=== PATIENT | female | born 1955 | race Caucasian/White ===

== ENCOUNTER → 2017-10-20 | Outpatient (CLI) | payer MEDICARE, BC ==
[2017-10-20 11:58] LABS: Blood Urea Nitrogen 18 mg/dL (7-17)
--- NOTE | 2017-10-20 13:33 | CT ---
EXAMINATION TYPE: CT soft tissue neck w con DATE OF EXAM: 10/20/2017 1:03 PM COMPARISON: NONE HISTORY: Vocal cord paresis CT DLP: 594 mGycm Automated exposure control for dose reduction was used. CONTRAST: CT scan of the neck is performed following with IV Contrast, patient injected with 100 ml mL of . Ax ial images are obtained, coronal and sagittal reformatted images are reviewed. FINDINGS: Along the posterior margin of the hypopharynx on the right there is a 5 mm protuberance ext ending into the pharynx which may represent a small mucosal lesion best noted on axial image 31. The parotid and submandibular glands have a normal appearance. Oropharynx and nasopharynx are symmetr ic. Base the tongue is symmetric. There is asymmetric thickening of the left vocal cord. Thyroid tissue is somewhat heterogeneous but no sizable nodules seen greater than 1 cm. No pathologic adenopathy. Shotty adenopathy seen scattered throughout the soft tissues of the neck. T here is atherosclerotic change involving the carotid bifurcation. There is extensive abnormal soft ti ssue attenuation in the mediastinum compatible with pathologic adenopathy. There is changes of COPD a nd ill-defined attenuation involving the right upper lobe. Suggestive of area of consolidation. Could not exclude a mass within the right upper lobe on coronal image 85. IMPRESSION: 1. Extensive abnormal attenuation within the mediastinum suggestive of pathologic adenopathy and like ly malignant. Irregular density in the right upper lobe with changes of COPD recommend CT scan of the chest to assess for malignancy. 2. Along the posterior wall of the hypopharynx on the right best seen on axial image 31 there is a 5 mm soft tissue protuberance extending from the mucosa correlate with direct visualization. 3. Slight asymmetry of the left vocal cord which is slightly thicker which may be technical correlate clinically.
== END | disposition home or self-care (01) ==
LOC: RADCTMAIN 11:24
PROVIDERS: ATTEND Otolaryngology
DX: R93.8 Abnormal findings on diagnostic imaging of other specified body structures (principal); J38.01 Paralysis of vocal cords and larynx, unilateral
CPT/HCPCS: 82565; 84520; 70491; 36415; Q9967

== ENCOUNTER → 2017-10-25 | Outpatient (CLI) | payer MEDICARE, BC | END | disposition home or self-care (01) | LOC: RADPETMAIN 11:21 | PROVIDERS: ATTEND Internal Medicine Hematology & Oncology | DX: Z53.9 Procedure and treatment not carried out, unspecified reason (principal) ==

== ENCOUNTER → 2017-10-27 | Outpatient (CLI) | payer MEDICARE, BC ==
[2017-10-27 17:30] LABS: Blood Urea Nitrogen 16 mg/dL (7-17)
--- NOTE | 2017-10-28 08:14 | CT ---
EXAMINATION TYPE: CT abdomen pelvis w con DATE OF EXAM: 10/27/2017 COMPARISON: NONE INDICATION: Observation for metastatic disease, hx of lung CA DLP: 1024 mGycm, Automated exposure control for dose reduction was used. CONTRAST: 100 mL of Isovue 300. Study performed with Oral Contrast TECHNIQUE: Axial images were obtained from above the diaphragm to the pubic rami in the axial plane a t 5 mm thick sections. Reconstructed images are reviewed on the computer in the coronal plane. FINDINGS: Limited CT sections are obtained the lung bases. The lung bases are clear. CT ABDOMEN: Liver: Normal Spleen: Normal Pancreas: Somewhat atrophic Adrenal glands: Left adrenal gland is thickened measuring approximately 1.3 cm. The center is slightl y hypodense in relation to the remaining portion of the adrenal gland. Hounsfield unit measurement ho wever is intermediate 47. MRI with contrast may better evaluate for possible metastatic disease. Gallbladder: Normal Kidneys: No masses are evident. No hydronephrosis is present. No cysts are present. Delayed images were obtained through the kidneys, which remain unremarkable. Aorta: Vascular calcification is within the aorta. Inferior vena cava: Normal. CT PELVIS: Loops of bowel within the abdomen and pelvis are normal. There are loops of bowel which are incom pletely distended or lack oral contrast limiting their evaluation. Appendix: Not identified. No suspicious inflammatory changes or tubular structures are evident. Urinary bladder: Normal. Genitourinary structures: Uterus appears normal. Hypodense areas within the right adnexal region susp icious for pneumonia and 2.4 cm right ovarian cyst. Consider follow-up ultrasound. Left adnexal regio n is unremarkable. No free fluid is within the pelvis. Osseous structures: No suspicious lytic or sclerotic lesions. IMPRESSIONS: 1. Probable right ovarian cyst. Follow-up with ultrasound is recommended. 2. Suspected adenoma within the left adrenal gland. Metastatic disease is not excluded. Consider MRI with contrast for better evaluation. 3. No suspicious changes suggest metastatic disease.
== END | disposition home or self-care (01) ==
LOC: RADCTMAIN 16:34
PROVIDERS: ATTEND Radiology Radiation Oncology
DX: C34.11 Malignant neoplasm of upper lobe, right bronchus or lung (principal)
CPT/HCPCS: 82565; 84520; 74177; 36415; Q9967

== ENCOUNTER → 2017-10-27 | Outpatient (CLI) | payer MEDICARE, BC ==
--- NOTE | 2017-10-27 18:51 | MR ---
"EXAMINATION TYPE: MR brain wo/w con DATE OF EXAM: 10/27/2017 COMPARISON: NONE HISTORY: Lung Cancer / Headaches CONTRAST: Performed utilizing 7 mL intravenous Gadavist gadolinium contrast. TECHNIQUE: Multiplanar, multiecho imaging on a 3.0 Sallie magnet is performed through the brain. Stud y is performed within 24 hours of arrival to the hospital. The craniovertebral junction is normal. The pituitary is normal. Diffusion-weighted imaging is performed. No abnormal hyperintensity is present to suggest an acute i ntracranial infarct or acute ischemic change. There are scattered periventricular white matter changes. Note is made of white matter change in the bilateral cerebellar lobes. Following contrast instillation there is enhancement of the lesion within the left cerebellum. Series 602 image 4. This measures 0.7 x 1.3 cm. The right cerebellar lesion measures 1.2 x 0.6 cm. Series 6 01 image 7. No additional abnormal enhancement is identified. No enhancing lesions within the cerebral hemisphere s suggesting additional white matter changes are microvascular ischemic in basis. Ventricles and sulci are slightly prominent for the patient age. IMPRESSIONS: 1. Two enhancing lesions within the left and right cerebellum discussed above compatible with metasta tic disease. 2. Chronic appearing periventricular white matter ischemic changes. A suspicious enhancing lesion wit hin this region is not identified. A [facility] level critical message alert has been initiated for Aman Whatley MD via the [employer] 36 0 | Critical Results System on 10/27/2017 6:49 PM. This message alert has been sent to Aman Whatley MD via the preferences provided by the clinician for the receipt of Radiology Critical Findings. Mess age ID [id number]."
== END | disposition home or self-care (01) ==
LOC: RADMRIMAIN 07:28
PROVIDERS: ATTEND Internal Medicine Hematology & Oncology
DX: I67.82 Cerebral ischemia (principal); G93.89 Other specified disorders of brain; C34.01 Malignant neoplasm of right main bronchus
CPT/HCPCS: 70553; A9581

== ENCOUNTER → 2017-11-26 | Outpatient (CLI) | payer MEDICARE, BC ==
--- NOTE | 2017-11-26 14:01 | XR ---
EXAMINATION TYPE: XR chest 2V DATE OF EXAM: 11/26/2017 COMPARISON: Correlation outside CT 10/16/2017 HISTORY: 62-year-old female with shortness of breath since starting chemotherapy 2 months ago for tomas g cancer TECHNIQUE: Frontal and lateral views FINDINGS: Right anterior chest wall injection port catheter tip at the lower SVC. Heart normal size. Aorta and pulmonary vasculature are within normal limits. Compared to the CT chest 10/16/2017, residual focal in filtrate remains in the peripheral right upper lobe. Hyperinflation. No pleural effusion. IMPRESSION: 1. COPD. 2. Residual focal infiltrate right upper lobe when compared to the CT of 10/16/2017.
== END ==
LOC: RADXRMAIN 10:33
PROVIDERS: ATTEND Nurse Practitioner Adult Health
DX: C34.90 Malignant neoplasm of unspecified part of unspecified bronchus or lung (principal); E11.9 Type 2 diabetes mellitus without complications; I10 Essential (primary) hypertension; J44.9 Chronic obstructive pulmonary disease, unspecified; R91.8 Other nonspecific abnormal finding of lung field; Z71.3 Dietary counseling and surveillance
CPT/HCPCS: 71046

== ENCOUNTER → 2017-11-28 | Outpatient (CLI) | payer MEDICARE, BC ==
--- NOTE | 2017-11-28 11:42 | MR ---
EXAMINATION TYPE: MR brain wo/w con DATE OF EXAM: 11/28/2017 COMPARISON: 10/27/2017 HISTORY: Lung CA, mets TECHNIQUE: Multiplanar, multisequence images of the brain and brainstem is performed without and with IV contras t, utilizing 6.5 mL intravenous Gadavist . FINDINGS: Diffusion weighted images demonstrate no evidence of a recent infarct or other diffusion ab normality. There are scattered periventricular white matter changes. Note is made of white matter change in the bilateral cerebellar lobes. Midline structures demonstrate normal morphology. The craniocervical junction appears within normal limits. Post contrast images demonstrate no abnormal enhancement. There is interval resolution of the 2 cerebellar lesions previously noted. No enhancing lesions noted on today's exam. Changes of chronic sinusitis are noted. Mild generalized degenerative change. IMPRESSION: 1. Two enhancing lesions within the left and right cerebellum have resolved and there are no current enhancing metastatic lesions. 2. Chronic appearing periventricular white matter ischemic changes. A suspicious enhancing lesion wit hin this region is not identified.
== END | disposition home or self-care (01) ==
LOC: RADMRIMAIN 10:04
PROVIDERS: ATTEND Nurse Practitioner Adult Health
DX: I67.82 Cerebral ischemia (principal); R51 Headache
CPT/HCPCS: 70553; A9581

== ENCOUNTER → 2017-12-17 | Outpatient (CLI) | payer MEDICARE, BC ==
[2017-12-17 11:21] LABS: Blood Urea Nitrogen 19 mg/dL (7-17)
--- NOTE | 2017-12-17 14:39 | CT ---
EXAMINATION TYPE: CT chest w con DATE OF EXAM: 12/17/2017 COMPARISON: 10/16/2017 [facility] HISTORY: Follow up lung cancer. CT DLP: 511 mGycm, Automated exposure control for dose reduction was used. CONTRAST: Performed injected with 100 mL of Isovue 300. TECHNIQUE: Axial images were obtained at 5 mm thick sections. Reconstructed images are reviewed on [employer] computer in the coronal plane. FINDINGS: Portion of the thyroid visualized is normal. No suspicious lung nodules or focal infiltrates are present. There appears to be some subtle scarring at the right apex. There is mild diffuse pneumonitis changes in the periphery of the right middle lo be. Small area of increased density measuring 0.6 cm in the periphery of the right midlung. Series 3 image 21 lung windows No enlarged mediastinal or hilar adenopathy is evident. The ascending aorta diameter at the level o f the main pulmonary artery is 3.2 cm. The main pulmonary artery diameter at the bifurcation is 3.1 cm. Coronary artery calcification is evident. Limited CT sections are obtained through the upper abdomen. Abdomen is essentially unremarkable. IMPRESSIONS: 1. There is diminished density within the right apex in the volume of pneumonitis change within the p eriphery of the right midlung has diminished. Posterior right upper lobe density has diminished in si ze as well. 2. Mediastinal adenopathy is essentially resolved. Suspicious hilar adenopathy is not evident.
== END | disposition home or self-care (01) ==
LOC: RADPROMAIN 10:23
PROVIDERS: ATTEND Internal Medicine Hematology & Oncology
DX: C34.90 Malignant neoplasm of unspecified part of unspecified bronchus or lung (principal)
CPT/HCPCS: 82565; 84520; 71260; J1642; Q9967

== ENCOUNTER 2017-12-25 09:21 | Day surgery (SDC) | payer MEDICARE, BC ==
[2017-12-19 14:35] VITALS: BMI 25.4
[~2017-12-25 09:21] MED LIST: LACTATED RINGERS 1,000 ML IV SCH
[2017-12-25 09:48] VITALS: TEMP 98
[2017-12-25] MEDS ORDERED: LIDOCAINE 1% 20 ML VIAL (10MG/ML) FOR IV START INTRADERMA ONE (09:55)
[2017-12-25 10:04] LABS: Glucose,Whole Blood 115 mg/dL (75-99)
[2017-12-25] MEDS ORDERED: LIDOCAINE 1% INJ 10MG/ML (20 ML MDV) ONE (10:12)
[2017-12-25] MEDS ORDERED: PROPOFOL 10 MG/ML 20 ML VIAL IV ONE (10:12)
--- NOTE | 2017-12-25 10:33 | P.PCN ---
Date of Procedure: 12/25/17 Procedure(s) Performed: BRIEF HISTORY: Patient is a 62-year-old, pleasant, 8 female, scheduled for an upper endoscopy for evaluation of long-standing history of GERD of several days duration. She has been maintained on Dexillant and Zantac. Recently has been having intermittent dysphagia to solids and hence scheduled for upper endoscopy as a dilation today.. PROCEDURE PERFORMED: Esophagogastroduodenoscopy with biopsy. PREOPERATIVE DIAGNOSIS:/Intermittent dysphagia to solids. IV sedation per anesthesia. PROCEDURE: After informed consent was obtained, the patient was brought into the endoscopy unit. IV sedation was administered by Anesthesia under continuous monitoring. Initially the Olympus GIF-140 video endoscope was inserted into the mouth. Esophagus intubated without any difficulty. It was gradually advanced into the stomach and duodenum and carefully examined. The bulb and the second part of the duodenum appeared normal. The scope at this time was withdrawn to the stomach, adequately insufflated with air, and upon careful examination, mucosa of the antrum, had mild patchy areas of erythema in the prepyloric area and biopsies were done. The body, cardia and the fundus appeared normal. The scope was then withdrawn into the esophagus. Small hiatal hernia noted. The GE junction was located at 39 cm from the incisors. The esophagus appeared normal. There were no erosions or ulcerations seen and the patient tolerated the procedure well. IMPRESSION: 1. Small hiatal hernia but no evidence of esophagitis or esophageal stricture. 2. Mild antral gastritis.. RECOMMENDATIONS: The findings of this examination were discussed with the patient as well as her family. She was advised to follow with the biopsy results. She will continue with the current medications and follow anti-reflex measures.
[2017-12-25 11:02] VITALS: BP 134/75; PULSE 74; RESP 18
== END 2017-12-25 11:23 | disposition home or self-care (01) ==
LOC: ORWHC2ENDO 09:21
PROVIDERS: ATTEND Internal Medicine Gastroenterology
DX: K29.50 Unspecified chronic gastritis without bleeding (principal); K44.9 Diaphragmatic hernia without obstruction or gangrene; K21.0 Gastro-esophageal reflux disease with esophagitis; I10 Essential (primary) hypertension; E78.5 Hyperlipidemia, unspecified; E11.9 Type 2 diabetes mellitus without complications; Z79.4 Long term (current) use of insulin; Z79.899 Other long term (current) drug therapy
CPT/HCPCS: 88305; 43239; J2001; J2704

== ENCOUNTER → 2018-01-26 | Outpatient (CLI) | payer MEDICARE, BC ==
--- NOTE | 2018-01-26 11:49 | FL ---
Modified barium swallow HISTORY: Dysphasia, feels like lump in throat Patient was given barium mixed with liquids and solids and evaluated in real-time fluoroscopy in late ral projection. 48 seconds fluoroscopy time. No laryngeal penetration or aspiration was identified. See dictated report from speech pathology for full evaluation.
== END | disposition home or self-care (01) ==
LOC: RADFLMAIN 10:54
PROVIDERS: ATTEND Otolaryngology
DX: R13.10 Dysphagia, unspecified (principal)
CPT/HCPCS: 74230

== ENCOUNTER → 2018-02-06 | Outpatient (CLI) | payer MEDICARE, BC ==
--- NOTE | 2018-02-06 11:58 | FL ---
EXAMINATION TYPE: FL barium swallow DATE OF EXAM: 02/06/2018 CLINICAL HISTORY: dysphagia and throat tightness x 5 months. History of lung cancer. TECHNIQUE: A double contrast esophagram is performed utilizing air and barium. A total of 2min 59 s ec of fluoroscopic time was utilized during procedure. 76 fluoroscopic images were saved. COMPARISON: None FINDINGS: The esophagus shows abnormal motility throughout the examination in the gravity dependent a nd independent positions with continuous tertiary contractions. Secondary to discoordinated tertiary contractions there is severe intraesophageal reflux with mild gastroesophageal reflux also seen. Very small sliding-type hiatal hernia is noted in the gravity independent portion of examination. No foca l stricture as there is normal emptying into the stomach. No persistent extraluminal or intraluminal defects are seen to suggest mass. Minimal vallecular retention is seen throughout the examination ivelisse r the site of the patient's described dysphagia/globus sensation. IMPRESSION: 1. Abnormal motility throughout the entirety of the examination with tertiary contractions most commo nly related to presbyesophagus, however neuromuscular disorders can also create this finding. No dist al stricture or obstruction. No persistent mucosal abnormality. 2. Severe intraesophageal reflux and mild gastroesophageal reflux that can create esophagitis from st asis. Intraesophageal reflux extends to the level of the cervical esophagus. 3. Small sliding-type hiatal hernia.
== END | disposition home or self-care (01) ==
LOC: RADFLWHC 10:56
PROVIDERS: ATTEND Otolaryngology
DX: K44.9 Diaphragmatic hernia without obstruction or gangrene (principal); K21.9 Gastro-esophageal reflux disease without esophagitis
CPT/HCPCS: 74220

== ENCOUNTER → 2018-02-21 | Outpatient (CLI) | payer MEDICARE, BC ==
--- NOTE | 2018-02-21 20:14 | MR ---
EXAMINATION TYPE: MR brain wo/w con DATE OF EXAM: 02/21/2018 COMPARISON: MR brain dated 11/28/2017 and 10/27/2017 HISTORY: Lung ca 2018, R/O mets TECHNIQUE: Multiplanar, multisequence images of the brain and brainstem is performed without and with IV contras t, utilizing 7 mL intravenous Gadavist . FINDINGS: Diffusion weighted images demonstrate no evidence of a recent infarct or other diffusion ab normality. There is no extra-axial fluid collection. There is redemonstration of moderate burden sc attered T2/FLAIR hyperintense nonspecific white matter changes within the supratentorial and infraten torial white matter. No significant progression from the prior. The ventricular system and cisternal spaces are normal in size and appearance. The brain volume is age appropriate. Midline structures demonstrate normal morphology. The craniocervical junction appears within normal limits. Post contrast images demonstrate no abnormal enhancement. The previously seen right and left hemispheric cerebellar lesions on the prior exam of 10/27/2017 have entirely resolved as described on the exam of 11/28/2017 with no evidence of recurrence. The dural venous sinuses appear patent. Minimal mucosal thickening is seen within the ethmoid sinuses. The remaining visualized sinuses are clear and the globes are intact. Left ocular lens appears surgically absent. IMPRESSION: 1. No abnormal signal or enhancement at the site of prior treated intracranial infratentorial metasta tic disease. No new enhancing lesions. No current evidence of intracranial metastasis. 2. Moderate burden nonspecific white matter change, nonenhancing, with no significant progression fro m the prior.
== END | disposition home or self-care (01) ==
LOC: RADMRIMAIN 09:06
PROVIDERS: ATTEND Radiology Radiation Oncology
DX: C79.31 Secondary malignant neoplasm of brain (principal); C34.2 Malignant neoplasm of middle lobe, bronchus or lung; R90.82 White matter disease, unspecified; Z92.21 Personal history of antineoplastic chemotherapy
CPT/HCPCS: 70553; A9581

== ENCOUNTER → 2018-04-04 | Outpatient (CLI) | payer MEDICARE, BC ==
--- NOTE | 2018-04-05 13:32 | PE ---
EXAMINATION TYPE: PET CT fusion skull to thigh DATE OF EXAM: 04/04/2018 COMPARISON: CT chest 12/17/2017 Prior PET/CT: None HISTORY: Lung cancer TECHNIQUE: Following the intravenous administration of 13.63 mCi of F-18 FDG, whole body images are performed from the skull base to the midthigh. Images are reviewed on the computer in the coronal, a xial, and sagittal planes. Reconstructed rotating images are created on independent workstation and reviewed on the computer. A localization and attenuation correction CT is performed in conjunction with the PET scan. DLP: 321.42 mGycm SCAN: Initial Blood glucose: 86 mg/dL Average Mediastinum SUV: 1.39 Average Liver SUV: 2.02 FINDINGS: Head: Skull base is included within the [id number]. No suspicious hypermetabolic areas are identif ied in relation to the brain activity. Infratentorial metastatic disease is not clearly evident the P ET scan. NECK: No abnormal uptake THORAX: No abnormal uptake. Within the areas of stranding at the right apex, no abnormal radiotracer accumulation is evident. SUV value ranges 0.4. Previous focal nodules not identified. There does appear to be some uptake within the right paraspinal muscles in the mid thoracic level whi ch may be muscular activity. This is not appear focal to suggest soft tissue metastasis. ABDOMEN: No abnormal uptake PELVIS: No abnormal uptake OSSEOUS STRUCTURES: No abnormal uptake LOCALIZATION CT: Ascending thoracic aorta at the level of main pulmonary artery is 3.4 cm. The main p ulmonary artery the bifurcation is 3.1 cm. Moderate coronary artery calcification is present. Enlarge d mediastinal or hilar adenopathy is not evident. Exam is also compared to an outside thorax CT dated 10/16/2017. Hilar and mediastinal adenopathy has resolved. Enlarged residual is not identified. Adren al glands appear unremarkable. Bilateral nonobstructing renal stones are present. Vascular calcificat ions within the abdominal aorta. Facet degenerative changes, laminectomy and degenerative disc change s are within the lumbar spine. Suspicious lytic areas are not evident. COMPARISON: Residual pneumonitis changes are in the right apex are diminished from prior CT thorax ex aminations. IMPRESSION: 1. No suspicious radiotracer accumulation to suggest recurrent or metastatic disease. Continued monit oring is recommended.
== END | disposition home or self-care (01) ==
LOC: RADPETMAIN 07:36
PROVIDERS: ATTEND Internal Medicine Hematology & Oncology
DX: C34.81 Malignant neoplasm of overlapping sites of right bronchus and lung (principal)
CPT/HCPCS: 78815; A9552

== ENCOUNTER → 2018-04-06 | Day surgery (SDC) | payer MEDICARE, BC ==
[2018-04-02 15:42] VITALS: BMI 23.1
[2018-04-06 13:46] LABS: Glucose,Whole Blood 132 mg/dL (75-99)
[2018-04-06 13:47] VITALS: BP 94/56; PULSE 84; RESP 16; TEMP 97.1
--- NOTE | 2018-04-15 10:35 | PCN ---
PROCEDURE NOTE DATE OF SERVICE: 04/06/2018 Patient is a 62-year-old pleasant white female with longstanding history of GERD. Presently maintained on Nexium 40 mg daily. She has been complaining of intermittent dysphagia to solids. She recently had an upper endoscopy done that showed evidence of no esophageal stricture and mild antral gastritis. Despite her being aggressive acid suppressive therapy, she has dysphagia, hence she is scheduled for esophageal manometry to rule out esophageal dysmotility disorder. PROCEDURE PERFORMED: High-resolution impedance manometry. PREOPERATIVE DIAGNOSIS: Intermittent dysphagia to solids and history of longstanding history of GERD. PROCEDURE: After informed consent was obtained from the patient, she was brought into the endoscopy unit, the procedure was performed by endoscopy nurse. She was placed in supine position. The esophageal manometry catheter was gently passed in the external nostril and was advanced into the distal esophagus and stomach and the study was performed and the study was interpreted by using [place] classification. The following are the study results. FINDINGS: A: 1. Lower esophageal sphincter data, mean IRP is 12 mmHg. 2. Mean residual pressure is 3 mmHg. B: 1. Lower esophageal body, mean DCI 879 mmHg, normal DCI more than 50%, peristaltic contractions were 80%, simultaneous contractions 20%. 2. Impedance study: Complete liquid transit was 50%. Complete viscus transit was 80%. INTERPRETATION: The above esophageal manometry study shows normal lower esophageal sphincter pressure and the motility pattern in the esophageal body is within normal limits. There is no evidence of esophageal dysmotility seen. MMODL / IJN: [id number] /
== END ==
LOC: ORWHC2ENDO 13:17
PROVIDERS: ATTEND Internal Medicine Gastroenterology
DX: K21.9 Gastro-esophageal reflux disease without esophagitis (principal)
CPT/HCPCS: 91010

== ENCOUNTER → 2018-05-11 | Outpatient (CLI) | payer MEDICARE, BC ==
--- NOTE | 2018-05-11 16:13 | MR ---
EXAMINATION TYPE: MR brain wo/w con DATE OF EXAM: 05/11/2018 COMPARISON: 02/21/2018, 10/27/2017 and 11/28/2017. HISTORY: Lung cancer with concern for metastasis. Prior treated infratentorial intracranial metastasi s. TECHNIQUE: Multiplanar, multisequence images of the brain and brainstem is performed without and with IV contras t, utilizing 6.5 mL intravenous Gadavist . FINDINGS: Diffusion weighted images demonstrate no evidence of a recent infarct or other diffusion ab normality. There is no extra-axial fluid collection. Again there is moderate burden nonspecific whit e matter change both in the supratentorial and within the infratentorial white matter. No abnormal en hancement or progression from the prior seen. The previously seen bilateral areas of abnormal enhance ment representing intracranial metastasis on the exam of 10/27/2017 are no longer visualized although w ithin the left cerebellar hemisphere in T2 and FLAIR imaging there is a focal area of gliosis at this location on image 5. No abnormal enhancement is seen within this location to suggest residual metast asis. The ventricular system and cisternal spaces are normal in size and appearance. The brain volum e is age appropriate. Midline structures demonstrate normal morphology. There is an incidentally noted partially empty lorne la turcica. The craniocervical junction appears within normal limits. Post contrast images demonstra te no abnormal enhancement. The dural venous sinuses appear patent. The visualized sinuses are clear and the globes are intact. There is partial opacification of the right mastoid air cells and to a les ser degree at the left mastoid air cells. Major intracranial flow voids are maintained. Again the lef t ocular lens appears surgically absent. IMPRESSION: 1. Stable exam from the prior. No abnormal intracranial enhancement. No evidence of intracranial enha ncing mass. Previously seen infratentorial lesions are no longer visible, unchanged from the prior. 2. Unchanged degree of nonspecific white matter change, likely on the basis of chronic microangiopath y.
== END ==
LOC: RADMRIMAIN 09:18
PROVIDERS: ATTEND Radiology Radiation Oncology
DX: C34.2 Malignant neoplasm of middle lobe, bronchus or lung (principal); C79.31 Secondary malignant neoplasm of brain; R90.89 Other abnormal findings on diagnostic imaging of central nervous system; Z92.3 Personal history of irradiation; Z92.21 Personal history of antineoplastic chemotherapy
CPT/HCPCS: 82565; 84520; 70553; 36415; A9581

== ENCOUNTER → 2018-07-29 | Outpatient (CLI) | payer MEDICARE, BC | END | disposition home or self-care (01) | LOC: LABWHC1 11:19 | PROVIDERS: ATTEND Radiology Radiation Oncology | DX: C34.2 Malignant neoplasm of middle lobe, bronchus or lung (principal); C79.31 Secondary malignant neoplasm of brain; Z92.3 Personal history of irradiation; Z92.21 Personal history of antineoplastic chemotherapy | CPT/HCPCS: 36415; 82565; 84520 ==

== ENCOUNTER → 2018-08-01 | Outpatient (CLI) | payer MEDICARE, BC ==
--- NOTE | 2018-08-03 07:00 | PE ---
EXAMINATION TYPE: PET CT fusion skull to thigh DATE OF EXAM: 08/01/2018 COMPARISON: Prior PET/CT April 04, 2018 HISTORY: Metastatic Right sided lung cancer completed chemotherapy in December 2017 with radiation to b rain in January 2018 TECHNIQUE: Following the intravenous administration of 8.023 mCi of F-18 FDG, whole body images are performed from the skull base to the midthigh. Images are reviewed on the computer in the coronal, a xial, and sagittal planes. Reconstructed rotating images are created on independent workstation and reviewed on the computer. A noncontrast CT is performed in conjunction with the PET scan. SCAN: Subsequent Scan FINDINGS: SKULL BASE AND NECK: There are new suspicious hypermetabolic right-sided supraclavicular lymph nodes on axial images 41 and 44, max SUV is 7.21. CHEST, MEDIASTINUM, AND HILAR REGION: There is new hypermetabolic masslike consolidation in the right hilar level extending into the right upper lobe difficult to accurately measure with surrounding higinio undglass opacity measuring roughly 7.6 x 6.7 cm on PET axial image 71, max SUV is 10.95. There is subcarinal hypermetabolic mass or adenopathy indistinct from right hilar mass near axial spencer ge 79, max SUV is 9.4. There is new small right pleural effusion that is ametabolic. There are superior mediastinal hypermetabolic lymph nodes and subcentimeter hypermetabolic paratrache al lymph nodes. ABDOMEN AND PELVIS: No new areas of abnormal hypermetabolic uptake are present. OSSEOUS STRUCTURES: No new areas of abnormal hypermetabolic uptake are present. OTHER CT: There is stable right internal jugular Mediport catheter. There is severe three-vessel coronary artery calcification and/or stents redemonstrated. There is new small to moderate size pericardial effusion. Ascending aorta measures up to 3.3 cm in di ameter There is moderate to severe calcified plaque of the abdominal aorta extending into pelvic branch vess els. Retroverted uterus is redemonstrated extending to left of midline. Central nonobstructing renal calculi versus vascular calcifications are redemonstrated. Left-sided laminectomy defects throughout the lumbar spine are again seen. There is multilevel facet arthropathy redemonstrated. IMPRESSION: Active neoplastic recurrence identified as detailed above.
== END | disposition home or self-care (01) ==
LOC: RADPETMAIN 11:30
PROVIDERS: ATTEND Internal Medicine Hematology & Oncology
DX: C34.81 Malignant neoplasm of overlapping sites of right bronchus and lung (principal); Z92.21 Personal history of antineoplastic chemotherapy
CPT/HCPCS: 78815; A9552

== ENCOUNTER → 2018-08-04 | Outpatient (CLI) | payer MEDICARE, BC ==
--- NOTE | 2018-08-05 09:59 | MR ---
EXAMINATION TYPE: MR brain wo/w con DATE OF EXAM: 08/04/2018 COMPARISON: 05/11/2018 HISTORY: 62-year-old female Secondary malignant neoplasm of brain TECHNIQUE: Multiplanar, multisequence images of the brain and brainstem were acquired before and aft er administration of 5.5 mL IV Gadavist. Diffusion weighted imaging is performed. FINDINGS: No evidence for acute infarction, hemorrhage, mass, mass effect, midline shift, herniation, effacemen t of basal cisterns, or extra-axial fluid collection. There is similar mild to moderate generalized supratentorial volume loss with mild ventricular promin ence. Major intracranial flow voids are intact. T2/FLAIR weighted sequences show moderate confluent white matter increased signal in both cerebral he mispheres. Additional scattered subcortical foci on both sides. Findings largely unchanged and are no nspecific, likely related to changes of chronic small vessel ischemic disease. Midline structures demonstrate normal morphology. The craniocervical junction is normal. Post contrast images demonstrate no evidence of pathologic enhancement. Dural venous sinuses are pat ent. Trace mucosal thickening ethmoid air cells. Leftward nasal septal deviation. Small amount trapped flu id in the mastoid air cells. Globes are intact. IMPRESSION: 1. Stable exam with mild to moderate generalized atrophy and moderate confluent burden of bright whit e matter change, nonspecific, likely relating to chronic small vessel ischemic disease. No evidence f or brain metastases. 2. Some trapped fluid in the mastoid air cells. Correlate for any mastoid pain to exclude mastoiditis .
== END | disposition home or self-care (01) ==
LOC: RADMRIMAIN 11:16
PROVIDERS: ATTEND Radiology Radiation Oncology
DX: G31.9 Degenerative disease of nervous system, unspecified (principal); R90.82 White matter disease, unspecified; C34.2 Malignant neoplasm of middle lobe, bronchus or lung; Z92.3 Personal history of irradiation; Z92.21 Personal history of antineoplastic chemotherapy
CPT/HCPCS: 70553; A9585

== ENCOUNTER → 2018-08-19 | Outpatient (CLI) | payer MEDICARE, BC ==
--- NOTE | 2018-08-20 09:40 | ECHOF ---
Referral Reason:I31.3 Pericardial effusion (noninflammatory) MEASUREMENTS -------- HEIGHT: 162.6 cm WEIGHT: 52.2 kg BP: 119/61 RVIDd: 2.8 cm (< 3.3) IVSd: 1.0 cm (0.6 - 1.1) LVIDd: 2.5 cm (3.9 - 5.3) LVPWd: 1.2 cm (0.6 - 1.1) IVSs: 1.5 cm LVIDs: 1.7 cm LVPWs: 1.6 cm Ao Diam: 2.5 cm (2.0 - 3.7) AV Cusp: 1.5 cm (1.5 - 2.6) LA Diam: 3.0 cm (2.7 - 3.8) MV EXCURSION: 12.755 mm (> 18.000) MV EF SLOPE: 66 mm/s (70 - 150) EPSS: 0.4 cm MV E Duong: 0.76 m/s MV DecT: 113 ms MV A Duong: 1.24 m/s MV E/A Ratio: 0.62 RAP: 5.00 mmHg RVSP: 28.71 mmHg FINDINGS -------- Resting tachycardia (HR>100bpm). This was a technically good study. The left ventricular size is normal. There is mild concentric left ventricular hypertrophy. Overa ll left ventricular systolic function is normal with, an EF between 60 - 65 %. The right ventricle is normal in size and function. The left atrium is normal in size. The right atrium is normal in size. Aortic valve is trileaflet and is mildly thickened. The mitral valve leaflets are mildly thickened. Mild mitral annular calcification present. There is trace mitral regurgitation. Mild tricuspid regurgitation present. The right ventricular systolic pressure, as measured by Doppl er, is 28.71mmHg. Pulmonic valve appears structurally normal. The aortic root size is normal. Normal inferior vena cava with normal inspiratory collapse consistent with estimated right atrial pre ssure of 5 mmHg. There is a moderate pericardial effusion is located near the right ventricle. CONCLUSIONS -------- 1. Resting tachycardia (HR>100bpm). 2. This was a technically good study. 3. The left ventricular size is normal. 4. There is mild concentric left ventricular hypertrophy. 5. Overall left ventricular systolic function is normal with, an EF between 60 - 65 %. 6. The right ventricle is normal in size and function. 7. The left atrium is normal in size. 8. The right atrium is normal in size. 9. Aortic valve is trileaflet and is mildly thickened. 10. The mitral valve leaflets are mildly thickened. 11. Mild mitral annular calcification present. 12. There is trace mitral regurgitation. 13. Mild tricuspid regurgitation present. 14. The right ventricular systolic pressure, as measured by Doppler, is 28.71mmHg. 15. Pulmonic valve appears structurally normal. 16. The aortic root size is normal. 17. Normal inferior vena cava with normal inspiratory collapse consistent with estimated right atrial pressure of 5 mmHg. 18. There is a moderate pericardial effusion is located near the right ventricle. [employer]: Felicia Rascon RDCS
== END | disposition home or self-care (01) ==
LOC: RADECHMAIN 14:47
PROVIDERS: ATTEND Internal Medicine Hematology & Oncology
DX: I07.1 Rheumatic tricuspid insufficiency (principal); I31.3 Pericardial effusion (noninflammatory); R00.0 Tachycardia, unspecified
CPT/HCPCS: 93306

== ENCOUNTER 2018-08-31 11:36 | Inpatient (IN) | payer MEDICARE, BC ==
[2018-08-31] MEDS ORDERED: SODIUM CHLORIDE 0.9% 1,000 ML IV STA (12:32)
[2018-08-31] MEDS ORDERED: IPRATROPIUM-ALBUTEROL 3 ML NEB INHALATION STA (12:32)
--- NOTE | 2018-08-31 12:48 | ED ---
General Adult HPI - General Chief complaint: Shortness of Breath Stated complaint: Dyspnea Time Seen by Provider: 08/31/18 12:07 Source: patient, family, RN notes reviewed Mode of arrival: wheelchair Limitations: no limitations - History of Present Illness Initial comments: Patient is a pleasant 62-year-old female presenting to the emergency Department with shortness of breath. Onset of symptoms was last day or 2. helps provide history. He had sudden patient has had some confusion starting just this morning. Patient has been somewhat disoriented. This is a new thing for her. Patient does have history of lung cancer. Patient has had previous chemotherapy and radiation however there has been progression of disease. Patient has started immunotherapy. Blood sugars have been somewhat high at home. Patient does admit to having cough with occasional noncolored sputum. No fevers. No chest pain. No leg pain or leg swelling. - Related Data Home Medications Medication Instructions Recorded Confirmed Ezetimibe [Zetia] 10 mg PO HS 12/19/17 08/31/18 FLUoxetine HCL [PROzac] 10 mg PO DAILY 12/19/17 08/31/18 Levothyroxine Sodium [Synthroid] 100 mcg PO DAILY 12/19/17 08/31/18 Albuterol Sulfate [Proair Hfa] 2 puff INHALATION Q4H PRN 08/31/18 08/31/18 Budesonide/Formoterol Fumarate 2 puff INHALATION BID 08/31/18 08/31/18 [Symbicort 160-4.5 Mcg Inhaler] Dronabinol 10 mg PO DAILY 08/31/18 08/31/18 Ipilimumab [Yervoy] 200 mg IV DIRECTED 08/31/18 08/31/18 Ipratropium-Albuterol Nebulize 3 ml INHALATION RT-QID 08/31/18 08/31/18 [Duoneb 0.5 mg-3 mg/3 ml Soln] Megestrol [Megace] 800 mg PO DAILY 08/31/18 08/31/18 Nivolumab [Opdivo] 100 mg IV DIRECTED 08/31/18 08/31/18 Allergies Allergy/AdvReac Type Severity Reaction Status Date / Time No Known Allergies Allergy Verified 04/02/18 15:37 Review of Systems ROS Statement: Those systems with pertinent positive or pertinent negative responses have been documented in the HPI. ROS Other: All systems not noted in ROS Statement are negative. Constitutional: Denies: fever, chills Eyes: Denies: eye pain ENT: Denies: ear pain Respiratory: Reports: cough, dyspnea Cardiovascular: Denies: chest pain, palpitations Endocrine: Denies: fatigue Gastrointestinal: Denies: abdominal pain Genitourinary: Denies: dysuria Musculoskeletal: Denies: back pain Skin: Denies: rash Neurological: Denies: weakness Past Medical History Past Medical History: Cancer, Diabetes Mellitus, GERD/Reflux, Hyperlipidemia, Hypertension, Thyroid Disorder Additional Past Medical History / Comment(s): hx. pepcid ulcer, hx. lung cancer dx. 2018-finished chemo & radiation, "feels like I'm swallowing a rock when I swallow" History of Any Multi-Drug Resistant Organisms: None Reported Past Surgical History: Back Surgery, Section, Orthopedic Surgery Additional Past Surgical History / Comment(s): Exploratory Lap. 2 right knee arthroscopies Past Anesthesia/Blood Transfusion Reactions: No Reported Reaction Past Psychological History: Anxiety Smoking Status: Former smoker Past Alcohol Use History: None Reported Past Drug Use History: None Reported - Past Family History Sister(s) Family Medical History: Cancer Additional Family Medical History / Comment(s): skin & breast General Exam Limitations: no limitations General appearance: alert, in no apparent distress Head exam: Present: atraumatic Eye exam: Present: normal appearance, PERRL ENT exam: Present: normal oropharynx Neck exam: Present: normal inspection Respiratory exam: Present: decreased breath sounds Cardiovascular Exam: Present: tachycardia Expanded Peripheral pulses: 2+: Radial (R), Radial (L), Dorsalis Pedis (R), Dorsalis Pedis (L) GI/Abdominal exam: Present: soft. Absent: distended, tenderness, guarding, rebound, rigid Extremities exam: Present: normal inspection. Absent: pedal edema, calf tenderness Neurological exam: Present: alert, CN II-XII intact. Absent: motor sensory deficit Expanded Patient oriented to: Present: person, place. Absent: time Cranial nerves: EOM's Intact: Normal Motor strength exam: RUE: 5, LUE: 5, RLE: 5, LLE: 5 Eye Response: (4) open spontaneously Motor Response: (6) obeys commands Verbal Response: (4) confused conversation Psychiatric exam: Present: normal affect, normal mood Skin exam: Present: normal color Course Vital Signs 08/31/18 08/31/18 08/31/18 11:56 12:15 13:49 Temperature 97.6 F Pulse Rate 138 H 126 H Respiratory 18 24 Rate Blood Pressure 149/79 O2 Sat by Pulse 94 L Oximetry 08/31/18 08/31/18 08/31/18 13:55 14:01 16:43 Temperature Pulse Rate 130 H 116 H Respiratory 22 22 Rate Blood Pressure O2 Sat by Pulse 99 97 Oximetry - Reevaluation(s) Reevaluation #1: 08/31/18 17:24 Patient reevaluated and resting comfortably in bed. Patient and family updated on results and plan. Dr. Santiago has been paged. Case was also discussed with Dr. Chaidez, covering for possible call, who will admit. Patient has previously seen Dr. Temple who will also be placed on consult. 08/31/18 17:30 Case was thus in detail with Dr. Rod who did review chart. He does agree with treatment with antibiotics and recommends Zosyn alone. He does have concern for did see his progression in the lungs however admits that post obstructive pneumonia also needs to be considered. He does also recommend nebulizers and steroids. He does agree with MRI of the brain with contrast for patient's confusion. He does have some concern for metastasis. 08/31/18 17:31 There is concern for possible sepsis diagnosed at 1731. Blood culture and lactic acid have been ordered. IV antibiotic's will be ordered. EKG Findings - EKG Comments: EKG Findings:: Sinus tachycardia 132. UT 124. QRS 96. QT 314. QTC 465. Left axis. Septal Q waves. Nonspecific ST-T. Medical Decision Making - Lab Data Result diagrams: 08/31/18 14:21 08/31/18 14:21 Lab Results 08/31/18 08/31/18 08/31/18 Range/Units 13:02 14:21 14:21 WBC 11.5 H (3.8-10.6) k/uL RBC 3.84 (3.80-5.40) m/uL Hgb 11.1 L (11.4-16.0) gm/dL Hct 35.3 (34.0-46.0) % MCV 91.9 (80.0-100.0) fL MCH 28.9 (25.0-35.0) pg MCHC 31.4 (31.0-37.0) g/dL RDW 15.0 (11.5-15.5) % Plt Count 477 H (150-450) k/uL Neutrophils % 88 % Lymphocytes % 4 % Monocytes % 5 % Eosinophils % 1 % Basophils % 0 % Neutrophils # 10.2 H (1.3-7.7) k/uL Lymphocytes # 0.4 L (1.0-4.8) k/uL Monocytes # 0.6 (0-1.0) k/uL Eosinophils # 0.1 (0-0.7) k/uL Basophils # 0.0 (0-0.2) k/uL Hypochromasia Slight PT (9.0-12.0) sec INR (<1.2) APTT (22.0-30.0) sec Sodium (137-145) mmol/L Potassium (3.5-5.1) mmol/L Chloride (98-107) mmol/L Carbon Dioxide (22-30) mmol/L Anion Gap mmol/L BUN (7-17) mg/dL Creatinine (0.52-1.04) mg/dL Est GFR (CKD-EPI)AfAm (>60 ml/min/1.73 sqM) Est GFR (CKD-EPI)NonAf (>60 ml/min/1.73 sqM) Glucose (74-99) mg/dL POC Glucose (mg/dL) 457 H (75-99) mg/dL POC Glu Meat Service Team Member ID October Calcium (8.4-10.2) mg/dL Total Bilirubin (0.2-1.3) mg/dL AST (14-36) U/L ALT (9-52) U/L Alkaline Phosphatase (38-126) U/L Total Creatine Kinase 201 H (30-135) U/L CK-MB (CK-2) 4.0 H (0.0-2.4) ng/mL CK-MB (CK-2) Rel Index 2.0 Troponin I 0.017 (0.000-0.034) ng/mL NT-Pro-B Natriuret Pep pg/mL Total Protein (6.3-8.2) g/dL Albumin (3.5-5.0) g/dL Urine Color Urine Appearance (Clear) Urine pH (5.0-8.0) Ur Specific Ripley (1.001-1.035) Urine Protein (Negative) Urine Glucose (UA) (Negative) Urine Ketones (Negative) Urine Blood (Negative) Urine Nitrite (Negative) Urine Bilirubin (Negative) Urine Urobilinogen (<2.0) mg/dL Ur Leukocyte Esterase (Negative) Urine RBC (0-5) /hpf Urine WBC (0-5) /hpf Ur Squamous Epith Cells (0-4) /hpf Urine Mucus (None) /hpf Acetone, Qual (Negative) 08/31/18 08/31/18 08/31/18 Range/Units 14:21 14:21 14:21 WBC (3.8-10.6) k/uL RBC (3.80-5.40) m/uL Hgb (11.4-16.0) gm/dL Hct (34.0-46.0) % MCV (80.0-100.0) fL MCH (25.0-35.0) pg MCHC (31.0-37.0) g/dL RDW (11.5-15.5) % Plt Count (150-450) k/uL Neutrophils % % Lymphocytes % % Monocytes % % Eosinophils % % Basophils % % Neutrophils # (1.3-7.7) k/uL Lymphocytes # (1.0-4.8) k/uL Monocytes # (0-1.0) k/uL Eosinophils # (0-0.7) k/uL Basophils # (0-0.2) k/uL Hypochromasia PT 11.3 (9.0-12.0) sec INR 1.1 (<1.2) APTT 22.6 (22.0-30.0) sec Sodium 141 (137-145) mmol/L Potassium 4.0 (3.5-5.1) mmol/L Chloride 102 (98-107) mmol/L Carbon Dioxide 19 L (22-30) mmol/L Anion Gap 20 mmol/L BUN 31 H (7-17) mg/dL Creatinine 0.84 (0.52-1.04) mg/dL Est GFR (CKD-EPI)AfAm 87 (>60 ml/min/1.73 sqM) Est GFR (CKD-EPI)NonAf 76 (>60 ml/min/1.73 sqM) Glucose 342 H (74-99) mg/dL POC Glucose (mg/dL) (75-99) mg/dL POC Glu Meat Service Team Member ID Calcium 10.7 H (8.4-10.2) mg/dL Total Bilirubin 0.6 (0.2-1.3) mg/dL AST 33 (14-36) U/L ALT 17 (9-52) U/L Alkaline Phosphatase 103 (38-126) U/L Total Creatine Kinase (30-135) U/L CK-MB (CK-2) (0.0-2.4) ng/mL CK-MB (CK-2) Rel Index Troponin I (0.000-0.034) ng/mL NT-Pro-B Natriuret Pep 1340 pg/mL Total Protein 7.0 (6.3-8.2) g/dL Albumin 4.0 (3.5-5.0) g/dL Urine Color Urine Appearance (Clear) Urine pH (5.0-8.0) Ur Specific Ripley (1.001-1.035) Urine Protein (Negative) Urine Glucose (UA) (Negative) Urine Ketones (Negative) Urine Blood (Negative) Urine Nitrite (Negative) Urine Bilirubin (Negative) Urine Urobilinogen (<2.0) mg/dL Ur Leukocyte Esterase (Negative) Urine RBC (0-5) /hpf Urine WBC (0-5) /hpf Ur Squamous Epith Cells (0-4) /hpf Urine Mucus (None) /hpf Acetone, Qual Positive (Negative) 08/31/18 08/31/18 Range/Units 15:00 16:20 WBC (3.8-10.6) k/uL RBC (3.80-5.40) m/uL Hgb (11.4-16.0) gm/dL Hct (34.0-46.0) % MCV (80.0-100.0) fL MCH (25.0-35.0) pg MCHC (31.0-37.0) g/dL RDW (11.5-15.5) % Plt Count (150-450) k/uL Neutrophils % % Lymphocytes % % Monocytes % % Eosinophils % % Basophils % % Neutrophils # (1.3-7.7) k/uL Lymphocytes # (1.0-4.8) k/uL Monocytes # (0-1.0) k/uL Eosinophils # (0-0.7) k/uL Basophils # (0-0.2) k/uL Hypochromasia PT (9.0-12.0) sec INR (<1.2) APTT (22.0-30.0) sec Sodium (137-145) mmol/L Potassium (3.5-5.1) mmol/L Chloride (98-107) mmol/L Carbon Dioxide (22-30) mmol/L Anion Gap mmol/L BUN (7-17) mg/dL Creatinine (0.52-1.04) mg/dL Est GFR (CKD-EPI)AfAm (>60 ml/min/1.73 sqM) Est GFR (CKD-EPI)NonAf (>60 ml/min/1.73 sqM) Glucose (74-99) mg/dL POC Glucose (mg/dL) 324 H (75-99) mg/dL POC Glu Meat Service Team Member ID Lambert Weiss Calcium (8.4-10.2) mg/dL Total Bilirubin (0.2-1.3) mg/dL AST (14-36) U/L ALT (9-52) U/L Alkaline Phosphatase (38-126) U/L Total Creatine Kinase (30-135) U/L CK-MB (CK-2) (0.0-2.4) ng/mL CK-MB (CK-2) Rel Index Troponin I (0.000-0.034) ng/mL NT-Pro-B Natriuret Pep pg/mL Total Protein (6.3-8.2) g/dL Albumin (3.5-5.0) g/dL Urine Color Light Yellow Urine Appearance Clear (Clear) Urine pH 5.0 (5.0-8.0) Ur Specific Ripley 1.018 (1.001-1.035) Urine Protein Trace H (Negative) Urine Glucose (UA) 4+ H (Negative) Urine Ketones 4+ H (Negative) Urine Blood Small H (Negative) Urine Nitrite Negative (Negative) Urine Bilirubin Negative (Negative) Urine Urobilinogen <2.0 (<2.0) mg/dL Ur Leukocyte Esterase Negative (Negative) Urine RBC 2 (0-5) /hpf Urine WBC 3 (0-5) /hpf Ur Squamous Epith Cells 1 (0-4) /hpf Urine Mucus Rare H (None) /hpf Acetone, Qual (Negative) - Radiology Data Radiology results: image reviewed (Chest x-ray shows increasing opacity feels. There is some sparing at the right peripheral base.) Critical Care Time Critical Care Time: Yes Total Critical Care Time: 33 Disposition Clinical Impression: Dyspnea, DKA (diabetic ketoacidoses), Sepsis, Pneumonia Disposition: ADMITTED IP TO THIS [facility] Condition: Serious Is patient prescribed a controlled substance at d/c from ED?: No Referrals: Aman Whatley MD [Primary Care Provider] - 1-2 days Decision Time: 17:24
[2018-08-31 13:07] LABS: Glucose,Whole Blood 457 mg/dL (75-99)
[2018-08-31] MEDS ORDERED: INSULIN REGULAR 100 UNIT/ML VIAL SQ ONE (13:10)
[2018-08-31 14:51] LABS: Basophils % (A) 0 %; Eosinophils # (A) 0.1 k/uL (0-0.7); Eosinophils % (A) 1 %; HCT 35.3 % (34.0-46.0); HGB 11.1 gm/dL (11.4-16.0); Hypochromasia Slight; Lymphocytes # (A) 0.4 k/uL (1.0-4.8); Lymphocytes % (A) 4 %; MCH 28.9 pg (25.0-35.0); MCHC 31.4 g/dL (31.0-37.0); MCV 91.9 fL (80.0-100.0); Mean Platelet Volume 6.7; Monocytes # (A) 0.6 k/uL (0-1.0); Monocytes % (A) 5 %; Neutrophils # (A) 10.2 k/uL (1.3-7.7); Neutrophils % (A) 88 %; Platelet Count 477 k/uL (150-450); RBC 3.84 m/uL (3.80-5.40); WBC 11.5 k/uL (3.8-10.6)
[2018-08-31 15:05] LABS: INR 1.1 (<1.2); Partial Thromboplastin Time 22.6 sec (22.0-30.0); Prothrombin Time 11.3 sec (9.0-12.0)
[2018-08-31 15:10] LABS: ALT 17 U/L (9-52); AST 33 U/L (14-36); Alkaline Phosphatase 103 U/L (38-126); Anion Gap 20 mmol/L; Blood Urea Nitrogen 31 mg/dL (7-17); Calcium 10.7 mg/dL (8.4-10.2); Carbon Dioxide 19 mmol/L (22-30); Chloride 102 mmol/L (98-107); Glucose 342 mg/dL (74-99); Sodium 141 mmol/L (137-145); Total Bilirubin 0.6 mg/dL (0.2-1.3)
[2018-08-31 15:23] LABS: Troponin I 0.017 ng/mL (0.000-0.034)
[2018-08-31 15:26] LABS: Appearance,Urine Clear (Clear); Bilirubin,Urine Negative (Negative); Blood,Urine Small (Negative); Color,Urine Light Yellow; Glucose,Urine (UA) 4+ (Negative); Leukocyte Esterase,Urine Negative (Negative); Mucus,Urine Rare /hpf; Nitrite,Urine Negative (Negative); Protein,Urine Trace (Negative); RBC,Urine 2 /hpf (0-5); Specific Gravity,Urine 1.018 (1.001-1.035); Squamous Epithelial Cell,Urine 1 /hpf (0-4); Urobilinogen,Urine <2.0 mg/dL (<2.0); WBC,Urine 3 /hpf (0-5)
[2018-08-31 15:42] LABS: Ketones,Urine 4+ (Negative)
--- NOTE | 2018-08-31 15:52 | XR ---
EXAMINATION TYPE: XR chest 2V DATE OF EXAM: 08/31/2018 COMPARISON: CT chest December 17, 2017. Chest x-ray August 14, 2018 HISTORY: Shortness of breath, history of lung cancer. TECHNIQUE: Frontal and lateral views of the chest are obtained. FINDINGS: There is stable right internal jugular Mediport catheter there is increasing right lung op acity without significant mediastinal shift since most recent chest x-ray. Left lung remains predomi nantly clear. The cardiac silhouette size remains within normal limits. The osseous structures are intact. IMPRESSION: Worsening diffuse right lung edema and/or infiltrates with suspected worsening small rig ht pleural effusion.
[2018-08-31 16:22] LABS: Glucose,Whole Blood 324 mg/dL (75-99)
[2018-08-31] MEDS ORDERED: PNEUMONIA PROTOCOL UTILIZED 1 EACH MISC PO PRN (17:32)
[2018-08-31] MEDS ORDERED: IPRATROPIUM-ALBUTEROL 3 ML NEB INHALATION PRN (17:32)
[2018-08-31] MEDS ORDERED: PIPERACILLIN-TAZOBACTAM 3.375 GM in SODIUM CHLORIDE 0.9% 100 ML IVPB STA (17:32)
[2018-08-31] MEDS ORDERED: SODIUM CHLORIDE 0.9% 1,000 ML IV ONE (17:36)
[2018-08-31] MEDS: IPRATROPIUM-ALBUTEROL 3 ML NEB INHALATION SCH (19:18)
[2018-08-31 21:13] LABS: Glucose,Whole Blood 383 mg/dL (75-99)
[2018-08-31] MEDS: INSULIN REGULAR 100 UNIT in SODIUM CHLORIDE 0.9% 100 ML IV SCH ×2 (21:17→23:07)
--- NOTE | 2018-08-31 21:26 | MR ---
EXAMINATION TYPE: MR brain wo/w con DATE OF EXAM: 08/31/2018 COMPARISON: MRI brain August 04, 2018. HISTORY: Confusion, hx lung ca TECHNIQUE: Multiplanar, multisequence images of the brain and brainstem is performed without and with IV contras t, utilizing 5 mL intravenous Gadavist . FINDINGS: Diffusion weighted images demonstrate no evidence of a recent infarct or other diffusion ab normality. There is no worrisome extra-axial fluid collection. There is diffuse ventricular and sulc al prominence consistent with mild diffuse cerebral atrophy redemonstrated. There is confluent T2 hyp erintensity in the deep and periventricular white matter redemonstrated, nonspecific finding presumed on the basis of product of proximal vessel ischemic change in patient this age. Midline structures demonstrate normal morphology. The craniocervical junction appears within normal limits. Post contrast images demonstrate no abnormal enhancement or new enhancing masses. Evaluation slightly suboptimal compared with prior study due to fast protocol performed due to patient's underl afbián confusion. The dural venous sinuses appear patent. The visualized sinuses are clear and the glob es are intact. Patchy mastoid fluid signal remains present. IMPRESSION: Redemonstration of moderate diffuse cerebral atrophy and moderate to severe white matter changes likely product of chronic small vessel ischemic change. No new enhancing lesions to suggest m etastatic disease clearly identified.
[2018-08-31 22:01] LABS: Anion Gap 21 mmol/L; Carbon Dioxide 15 mmol/L (22-30); Chloride 100 mmol/L (98-107); Glucose 389 mg/dL (74-99); Phosphorus 3.5 mg/dL (2.5-4.5); Sodium 136 mmol/L (137-145)
[2018-08-31] MEDS: PIPERACILLIN-TAZOBACTAM 3.375 GM in SODIUM CHLORIDE 0.9% 100 ML IVPB SCH (22:06)
[2018-08-31] MEDS: methylPREDNISolone SOD SUCCI 125 MG/2 ML VIAL IV SCH (22:06)
[2018-08-31] MEDS: SODIUM CHLORIDE 0.9% 1,000 ML IV SCH ×3 (22:07→22:10)
[2018-08-31 22:09] LABS: Glucose,Whole Blood 392 mg/dL (75-99)
[2018-08-31 22:34] LABS: Glucose,Whole Blood 375 mg/dL (75-99)
[2018-08-31 22:49] LABS: Blood Urea Nitrogen 30 mg/dL (7-17)
[2018-08-31 23:01] LABS: Glucose,Whole Blood 344 mg/dL (75-99)
[2018-08-31 23:48] LABS: Glucose,Whole Blood 324 mg/dL (75-99)
[2018-09-01] MEDS: methylPREDNISolone SOD SUCCI 125 MG/2 ML VIAL IV SCH ×2 (00:24→01:04)
[2018-09-01 00:40] LABS: Glucose,Whole Blood 269 mg/dL (75-99)
[2018-09-01] MEDS: SODIUM CHLORIDE 0.9% 1,000 ML IV SCH ×4 (00:56→16:16)
[2018-09-01] MEDS: D5-0.45% NACL WITH KCL 20MEQ/L 1,000 ML IV SCH ×3 (01:04→07:43)
[2018-09-01 01:18] LABS: Anion Gap 11 mmol/L; Blood Urea Nitrogen 28 mg/dL (7-17); Carbon Dioxide 23 mmol/L (22-30); Chloride 104 mmol/L (98-107); Glucose 209 mg/dL (74-99); Phosphorus 1.7 mg/dL (2.5-4.5); Potassium 3.5 mmol/L (3.5-5.1); Sodium 138 mmol/L (137-145)
[2018-09-01 02:06] LABS: Glucose,Whole Blood 185 mg/dL (75-99)
[2018-09-01 03:21] LABS: Glucose,Whole Blood 156 mg/dL (75-99)
[2018-09-01 04:17] LABS: Glucose,Whole Blood 111 mg/dL (75-99)
[2018-09-01 05:19] LABS: Glucose,Whole Blood 96 mg/dL (75-99)
[2018-09-01 06:10] LABS: Glucose,Whole Blood 100 mg/dL (75-99)
[2018-09-01 06:50] LABS: Anion Gap 8 mmol/L; Blood Urea Nitrogen 25 mg/dL (7-17); Calcium 9.5 mg/dL (8.4-10.2); Carbon Dioxide 24 mmol/L (22-30); Chloride 105 mmol/L (98-107); Glucose 103 mg/dL (74-99); Phosphorus 1.9 mg/dL (2.5-4.5); Potassium 3.5 mmol/L (3.5-5.1); Sodium 137 mmol/L (137-145)
[2018-09-01 07:01] LABS: Glucose,Whole Blood 121 mg/dL (75-99)
[2018-09-01] MEDS: PIPERACILLIN-TAZOBACTAM 3.375 GM in SODIUM CHLORIDE 0.9% 100 ML IVPB SCH ×2 (07:44→16:14)
[2018-09-01] MEDS: IPRATROPIUM-ALBUTEROL 3 ML NEB INHALATION SCH ×4 (08:34→20:08)
[2018-09-01] MEDS ORDERED: INSULIN DETEMIR (LEVEMIR) 100 UNIT/ML SYR SQ SCH (09:00)
[2018-09-01 11:40] VITALS: BMI 19.3
[2018-09-01] MEDS ORDERED: RX INFO: IV CONTRAST WAS GIVEN 1 EACH MISC MISCELLANE PRN (11:43)
--- NOTE | 2018-09-01 11:57 | XR ---
EXAMINATION TYPE: XR chest 2V DATE OF EXAM: 09/01/2018 COMPARISON: 08/31/2018 INDICATION: Pneumonia TECHNIQUE: Frontal and lateral views of the chest are obtained. FINDINGS: The heart size is mildly enlarged.. The pulmonary vasculature is normal. There is a large consolidation in the right upper lung field. Underlying mass is not excluded. Correl ate for pneumonia. Small right pleural effusion is present, stable.. Port is present on the right wi th the tip in the superior vena cava region. IMPRESSION: 1. Large right upper lobe consolidation most likely pneumonia. Underlying mass is not excluded. Follo w-up is recommended. 2. Small right pleural effusion.
[2018-09-01] MEDS: INSULIN ASPART (NovoLOG) 100 UNIT/ML VIAL SQ SCH ×3 (12:05→22:40)
[2018-09-01] MEDS ORDERED: INSULIN ASPART (NovoLOG) 100 UNIT/ML VIAL SQ SCH (12:30)
[2018-09-01 12:35] LABS: Glucose,Whole Blood 117 mg/dL (75-99)
--- NOTE | 2018-09-01 14:13 | CT ---
EXAMINATION TYPE: CT chest w con DATE OF EXAM: 09/01/2018 COMPARISON: 12/17/17 HISTORY: Shortness of breath CT DLP: 212.7 mGycm Automated exposure control for dose reduction was used. CONTRAST: CT scan of the chest is performed with IV Contrast, patient injected with 100 mL of Isovue 300. FINDINGS: LUNGS: There is a large right hilar mass measuring approximately 7.7 x 7.9 x 6.5 cm with infiltration into the mediastinum. There is obstruction of the right upper lobe bronchus with collapse of the rig ht upper lobe. There is also postobstructive pneumonitis identified throughout the adjacent lung. Mod erate right-sided pleural effusion also noted. Right basilar atelectasis as well as patchy density no carmenza. The left lung demonstrates scattered subpleural nodules in the region of the lingula measuring u p to 4.7 mm. MEDIASTINUM: Subcarinal adenopathy measuring 3.7 cm. Right paratracheal adenopathy versus tumoral inv asion into the mediastinum. Mass effect upon the inferior vena cava without evidence for obstruction at this time. Prevascular adenopathy measuring 2.1 cm. Thoracic aorta is of normal caliber. The heart is not enlarged. UPPER ABDOMEN: No significant abnormality appreciated. OTHER: No additional significant abnormality is seen. IMPRESSION: 1. Large right hilar mass with the obstruction of the right upper lobe bronchus and tumor infiltratio n into the mediastinum. Associated right upper lobe collapse as well as right-sided pleural effusion. Scattered subpleural nodules left lung. Postobstructive pneumonia as noted.
[2018-09-01 15:23] LABS: Hemoglobin A1C 8.2 % (4.0-6.0)
--- NOTE | 2018-09-01 15:28 | P.HPIM ---
History of Present Illness 62-year-old female came in with compensative shortness of breath going on for last's and had some confusion when I valid the patient patient is alert oriented 3 patient has history of lung cancer small cell lung cancer patient is on immunotherapy for that. Patient denied any fever chills patient is comparing of cough with the occasional whitish colored sputum production denied any chills. Denied any dysuria nausea vomiting. Patient had a chest x-ray which showed significant infiltrate in the right upper and middle lobes had a CAT scan today which showed right hilar mass with obstruction of the right upper lobe bronchus and tumor infiltration into the mediastinum with some right upper lobe collapse there is little bit of a bronchogram as well as some subpleural nodules with a right-sided pleural effusion and post obstructive pneumonia Review of Systems REVIEW OF SYSTEMS: CONSTITUTIONAL: No fever, no malaise, no fatigue. HEENT: No recent visual problems or hearing problems. Denied any sore throat. CARDIOVASCULAR: No chest pain, orthopnea, PND, no palpitations, no syncope. PULMONARY: no hemoptysis. GASTROINTESTINAL: No diarrhea, no nausea, no vomiting, no abdominal pain. NEUROLOGICAL: No headaches, no weakness, no numbness. HEMATOLOGICAL: Denies any bleeding or petechiae. GENITOURINARY: Denies any burning micturition, frequency, or urgency. MUSCULOSKELETAL/RHEUMATOLOGICAL: Denies any joint pain, swelling, or any muscle pain. ENDOCRINE: Denies any polyuria or polydipsia. The rest of the 14-point review of systems is negative. Past Medical History Past Medical History: Cancer, Diabetes Mellitus, GERD/Reflux, Hyperlipidemia, Hypertension, Thyroid Disorder Additional Past Medical History / Comment(s): hx. pepcid ulcer, hx. lung cancer dx. 2018-finished chemo & radiation, "feels like I'm swallowing a rock when I swallow" History of Any Multi-Drug Resistant Organisms: None Reported Past Surgical History: Back Surgery, Section, Orthopedic Surgery Additional Past Surgical History / Comment(s): Exploratory Lap. 2 right knee arthroscopies Past Anesthesia/Blood Transfusion Reactions: No Reported Reaction Smoking Status: Former smoker - Past Family History Sister(s) Family Medical History: Cancer Additional Family Medical History / Comment(s): skin & breast Medications and Allergies Home Medications Medication Instructions Recorded Confirmed Type Ezetimibe [Zetia] 10 mg PO HS 12/19/17 08/31/18 History FLUoxetine HCL [PROzac] 10 mg PO DAILY 12/19/17 08/31/18 History Levothyroxine Sodium [Synthroid] 100 mcg PO DAILY 12/19/17 08/31/18 History Albuterol Sulfate [Proair Hfa] 2 puff INHALATION RT-Q4H PRN 08/31/18 08/31/18 History Amoxic-Pot Clav 875-125Mg 1 tab PO Q12H 08/31/18 08/31/18 History [Augmentin 875-125] Budesonide/Formoterol Fumarate 2 puff INHALATION RT-BID 08/31/18 08/31/18 History [Symbicort 160-4.5 Mcg Inhaler] CHLORPHEN-HYDROcod 8-10mg/5ml 5 ml PO Q12H 08/31/18 08/31/18 History [Tussionex] Dronabinol 10 mg PO DAILY 08/31/18 08/31/18 History Ipilimumab [Yervoy] 200 mg IV DIRECTED 08/31/18 08/31/18 History Ipratropium-Albuterol Nebulize 3 ml INHALATION RT-QID 08/31/18 08/31/18 History [Duoneb 0.5 mg-3 mg/3 ml Soln] Megestrol [Megace] 800 mg PO DAILY 08/31/18 08/31/18 History Nivolumab [Opdivo] 100 mg IV DIRECTED 08/31/18 08/31/18 History Allergies Allergy/AdvReac Type Severity Reaction Status Date / Time No Known Allergies Allergy Verified 04/02/18 15:37 Physical Exam Vitals: Vital Signs Temp Pulse Pulse Resp BP BP BP 09/01/18 12:18 104 H 09/01/18 12:07 104 H 09/01/18 11:32 98.6 F 105 H 20 143/76 09/01/18 08:54 108 H 09/01/18 08:34 104 H 09/01/18 08:00 98 F 105 H 16 148/65 09/01/18 03:10 97.8 F 102 H 18 121/58 08/31/18 23:44 111 H 18 129/61 08/31/18 21:41 97.4 F L 120 H 18 134/63 02/04/19 20:00 46/34 08/31/18 19:50 118 H 46/34 08/31/18 19:40 116 H 46/34 08/31/18 19:30 116 H 46/34 08/31/18 19:28 114 H 08/31/18 19:20 114 H 16 46/34 08/31/18 19:10 114 H 46/34 08/31/18 19:00 114 H 19 136/61 08/31/18 18:50 114 H 136/61 08/31/18 18:40 114 H 136/61 08/31/18 18:30 115 H 136/61 08/31/18 18:20 114 H 20 136/61 08/31/18 18:10 115 H 17 136/61 08/31/18 18:00 116 H 133/62 08/31/18 17:50 118 H 19 133/62 08/31/18 17:48 112 H 16 133/62 08/31/18 17:40 126 H 21 133/62 08/31/18 17:30 115 H 133/62 08/31/18 17:20 115 H 21 133/62 08/31/18 17:10 116 H 133/62 08/31/18 17:00 117 H 13 127/70 08/31/18 16:50 117 H 22 127/70 08/31/18 16:43 116 H 22 08/31/18 16:40 116 H 22 127/70 08/31/18 16:30 117 H 21 127/70 08/31/18 16:20 118 H 15 127/70 08/31/18 16:10 120 H 127/70 08/31/18 16:00 120 H 135/68 08/31/18 15:53 122 H 135/68 Pulse Ox 09/01/18 12:18 09/01/18 12:07 09/01/18 11:32 92 L 09/01/18 08:54 09/01/18 08:34 09/01/18 08:00 95 09/01/18 03:10 98 08/31/18 23:44 96 08/31/18 21:41 97 08/31/18 20:00 08/31/18 19:50 92 L 08/31/18 19:40 95 08/31/18 19:30 08/31/18 19:28 08/31/18 19:20 98 08/31/18 19:10 97 08/31/18 19:00 89 L 08/31/18 18:50 95 08/31/18 18:40 95 08/31/18 18:30 96 08/31/18 18:20 96 08/31/18 18:10 96 08/31/18 18:00 96 08/31/18 17:50 94 L 08/31/18 17:48 95 08/31/18 17:40 08/31/18 17:30 97 08/31/18 17:20 97 08/31/18 17:10 97 08/31/18 17:00 97 08/31/18 16:50 97 08/31/18 16:43 97 08/31/18 16:40 98 08/31/18 16:30 98 08/31/18 16:20 98 08/31/18 16:10 97 08/31/18 16:00 08/31/18 15:53 97 Intake and Output 09/01/18 09/01/18 09/01/18 06:59 14:59 22:59 Intake Total 639.763 240 Output Total 200 Balance 639.763 40 Intake: Intake, IV Titration 639.763 Amount Insulin Regular 100 unit 39.763 In Sodium Chloride 0.9% 100 ml @ 0.1 UNITS/KG/HR 5.26 mls/hr IV .[id number] [facility] Rx#:[id number] Sodium Chloride 0.9% 1, 600 000 ml @ 200 mls/hr IV . Q5H [facility] Rx#:[id number] Oral 240 Output: Urine 200 Other: # Voids 1 1 Weight 51.1 kg 51.1 kg PHYSICAL EXAMINATION: GENERAL: The patient is alert and oriented x3, not in any acute distress. Well developed, well nourished. HEENT: Pupils are round and equally reacting to light. EOMI. No scleral icterus. No conjunctival pallor. Normocephalic, atraumatic. No pharyngeal erythema. No thyromegaly. CARDIOVASCULAR: S1 and S2 present. No murmurs, rubs, or gallops. PULMONARY:, minimal wheezing in the right upper posterior lung baker along with some bronchophony in that area ABDOMEN: Soft, nontender, nondistended, normoactive bowel sounds. No palpable organomegaly. MUSCULOSKELETAL: No joint swelling or deformity. EXTREMITIES: No cyanosis, clubbing, or pedal edema. NEUROLOGICAL: Gross neurological examination did not reveal any focal deficits. SKIN: No rashes. Results CBC & Chem 7: 08/31/18 14:21 09/01/18 06:15 Labs: Abnormal Lab Results - Last 24 Hours (Table) 08/31/18 08/31/18 08/31/18 Range/Units 14:21 15:00 16:20 Sodium (137-145) mmol/L Carbon Dioxide (22-30) mmol/L BUN (7-17) mg/dL Glucose (74-99) mg/dL POC Glucose (mg/dL) 324 H (75-99) mg/dL Phosphorus (2.5-4.5) mg/dL CK-MB (CK-2) 4.0 H (0.0-2.4) ng/mL Urine Protein Trace H (Negative) Urine Glucose (UA) 4+ H (Negative) Urine Ketones 4+ H (Negative) Urine Blood Small H (Negative) Urine Mucus Rare H (None) /hpf 08/31/18 08/31/18 08/31/18 Range/Units 21:12 21:41 22:07 Sodium 136 L (137-145) mmol/L Carbon Dioxide 15 L (22-30) mmol/L BUN 30 H (7-17) mg/dL Glucose 389 H (74-99) mg/dL POC Glucose (mg/dL) 383 H 392 H (75-99) mg/dL Phosphorus (2.5-4.5) mg/dL CK-MB (CK-2) (0.0-2.4) ng/mL Urine Protein (Negative) Urine Glucose (UA) (Negative) Urine Ketones (Negative) Urine Blood (Negative) Urine Mucus (None) /hpf 08/31/18 08/31/18 08/31/18 Range/Units 22:33 22:59 23:36 Sodium (137-145) mmol/L Carbon Dioxide (22-30) mmol/L BUN (7-17) mg/dL Glucose (74-99) mg/dL POC Glucose (mg/dL) 375 H 344 H 324 H (75-99) mg/dL Phosphorus (2.5-4.5) mg/dL CK-MB (CK-2) (0.0-2.4) ng/mL Urine Protein (Negative) Urine Glucose (UA) (Negative) Urine Ketones (Negative) Urine Blood (Negative) Urine Mucus (None) /[facility] 09/01/18 09/01/18 09/01/18 Range/Units 00:39 00:56 01:54 Sodium (137-145) mmol/L Carbon Dioxide (22-30) mmol/L BUN 28 H (7-17) mg/dL Glucose 209 H (74-99) mg/dL POC Glucose (mg/dL) 269 H 185 H (75-99) mg/dL Phosphorus 1.7 L (2.5-4.5) mg/dL CK-MB (CK-2) (0.0-2.4) ng/mL Urine Protein (Negative) Urine Glucose (UA) (Negative) Urine Ketones (Negative) Urine Blood (Negative) Urine Mucus (None) /[facility] 09/01/18 09/01/18 09/01/18 Range/Units 03:01 04:15 05:59 Sodium (137-145) mmol/L Carbon Dioxide (22-30) mmol/L BUN (7-17) mg/dL Glucose (74-99) mg/dL POC Glucose (mg/dL) 156 H 111 H 100 H (75-99) mg/dL Phosphorus (2.5-4.5) mg/dL CK-MB (CK-2) (0.0-2.4) ng/mL Urine Protein (Negative) Urine Glucose (UA) (Negative) Urine Ketones (Negative) Urine Blood (Negative) Urine Mucus (None) /[facility] 09/01/18 09/01/18 09/01/18 Range/Units 06:15 07:00 11:45 Sodium (137-145) mmol/L Carbon Dioxide (22-30) mmol/L BUN 25 H (7-17) mg/dL Glucose 103 H (74-99) mg/dL POC Glucose (mg/dL) 121 H 117 H (75-99) mg/dL Phosphorus 1.9 L (2.5-4.5) mg/dL CK-MB (CK-2) (0.0-2.4) ng/mL Urine Protein (Negative) Urine Glucose (UA) (Negative) Urine Ketones (Negative) Urine Blood (Negative) Urine Mucus (None) /hpf Thrombosis Risk Factor Assmnt - Choose All That Apply Any of the Below Risk Factors Present?: Yes Each Factor Represents 1 point: Age 41-60 years Other Risk Factors: No Thrombosis Risk Factor Assessment Total Risk Factor Score: 1 Thrombosis Risk Factor Assessment Level: Low Risk Assessment and Plan Plan: -Shortness breath: Secondary to postobstructive pneumonia, postobstructive collapse of the lung along with right-sided pleural effusion. Patient will be continued on Zosyn. Awaiting sputum cultures and blood cultures -Small cell lung cancer on immunotherapy will consult oncology for prognostication of her cancer. Recommendations regarding continuation of this immunotherapy. MRI of the brain did not show any metastatic disease -Type 2 diabetes mellitus -Gastroesophageal reflux disease -Hypertension -Hyperlipidemia hypothyroidism -COPD with minimal exacerbation continue with the inhaled steroids -Patient will need pharmacologic GI as well as DVT prophylaxis GI prophylaxis due to pneumonia and DVT prophylaxis due to cancer
--- NOTE | 2018-09-01 15:36 | P.CNPUL ---
<Jeana Hartman M - Last Filed: 09/01/18 14:40> History of Present Illness Consult date: 09/01/18 Requesting physician: Valentina Chaidez Reason for consult: dyspnea, pneumonia, abnormal CXR/CT Chief complaint: Shortness of breath, weakness, right-sided multilobar pneumonia , SCLC History of present illness: This is 62-year-old white female patient with past medical history of moderately severe COPD, stage II, with underlying FEV1 of 51% of predicted, history of small cell lung cancer with metastasis to the brain, status post 6 rounds of chemotherapy including carboplatin plus etoposide completed in December 2017, and radiation for the brain metastasis. She follows with Dr. Whatley, and initially presented with a history of dry cough and hoarseness. ENT evaluation found a right vocal cord paralysis on laryngoscopic, and was treated with antibiotics and failed to improve. CT chest was completed and showed suspicious lymphadenopathy in the mediastinal right hilar and retroclavicular areas. Left adrenal nodule was also seen. E-BUS was performed at the [facility] confirming metastatic small cell undifferentiated carcinoma. She is a ex-smoker, until recently, [id number] smoking history. Also used marijuana. PET scan was obtained in March 2018, and there was no suspicious radiotracer accumulation to suggest recurrent or metastatic disease. However her most recent PET scan on 08/01/2018 and showed active neoplastic recurrence, with a new hypermetabolic masslike consolidation in the right hilar level extending into the right upper lobe with surrounding groundglass opacity measuring roughly 7.6 x 6.7 cm, with a max SUV of 10.95. There is subcarinal hypermetabolic mass or adenopathy indistinct from the right hilar mass with a max XE SUV of 9.4. Patient started immunotherapy with Opdivo last August 24. Over the last several days patient has been having increased coughing, shortness of breath, decreased appetite, on Friday she developed nausea and vomiting, progressive dyspnea, patient was becoming more disoriented and confused. On Friday patient had become so weak she couldn't walk. Denied any fever or chills. Does have type 2 diabetes, and let sugars have been running in the 500s on Friday and Friday. She was brought to the hospital for evaluation. Chest x-ray showed a worsening diffuse right lung infiltrate was suspected worsening small right pleural effusion. MRI of the brain showed moderate diffuse cerebral atrophy and moderate to severe white matter changes likely related to chronic small vessel ischemic change, no new enhancing lesions to suggest metastatic disease. White blood cell count was 11.5, hemoglobin was 11.1, sodium is 136, potassium is 5.0, chloride is 100, CO2 is 15, BUN is 30, creatinine 0.72, plasma lactic acid was 1.5, LFTs were within normal limits, troponin was negative 1, proBNP was 1340, urinalysis showed 4+ ketones, glucose. Serum acetone was positive. Patient was given IV in duration, and was started on insulin infusion per diabetic ketoacidosis protocol. IV antibiotic coverage in the form of Zosyn. 0.9 normal sitting at a rate of 100 ML per hour. Patient's significant other and her sister are at the bedside. Today's blood work was reviewed, and showed a serum sodium of 137, potassium is 3.5, chloride is 105, CO2 is 24, B1 is 25, creatinine is 0.65, and in gap has closed and is currently at 8. Patient is awake and alert, she is answering questions appropriately. Blood cultures have been ordered and sent, sputum culture has been ordered but not collected. Review of Systems All systems: negative Constitutional: Denies chills, Denies fever Eyes: denies blurred vision, denies pain Ears, nose, mouth and throat: Denies headache, Denies sore throat Cardiovascular: Denies chest pain, Denies shortness of breath Respiratory: Reports dyspnea, Reports respiratory infections, Denies cough Gastrointestinal: Denies abdominal pain, Denies diarrhea, Denies nausea, Denies vomiting Genitourinary: Denies dysuria, Denies hematuria Musculoskeletal: Denies myalgias Integumentary: Denies pruritus, Denies rash Neurological: Denies numbness, Denies weakness Psychiatric: Denies anxiety, Denies depression Endocrine: Denies fatigue, Denies weight change Past Medical History Past Medical History: Cancer, Diabetes Mellitus, GERD/Reflux, Hyperlipidemia, Hypertension, Thyroid Disorder Additional Past Medical History / Comment(s): hx. pepcid ulcer, hx. lung cancer dx. 2018-finished chemo & radiation, "feels like I'm swallowing a rock when I swallow" History of Any Multi-Drug Resistant Organisms: None Reported Past Surgical History: Back Surgery, Section, Orthopedic Surgery Additional Past Surgical History / Comment(s): Exploratory Lap. 2 right knee arthroscopies Past Anesthesia/Blood Transfusion Reactions: No Reported Reaction Smoking Status: Former smoker - Past Family History Sister(s) Family Medical History: Cancer Additional Family Medical History / Comment(s): skin & breast Medications and Allergies Home Medications Medication Instructions Recorded Confirmed Type Ezetimibe [Zetia] 10 mg PO HS 12/19/17 08/31/18 History FLUoxetine HCL [PROzac] 10 mg PO DAILY 12/19/17 08/31/18 History Levothyroxine Sodium [Synthroid] 100 mcg PO DAILY 12/19/17 08/31/18 History Albuterol Sulfate [Proair Hfa] 2 puff INHALATION RT-Q4H PRN 08/31/18 08/31/18 History Amoxic-Pot Clav 875-125Mg 1 tab PO Q12H 08/31/18 08/31/18 History [Augmentin 875-125] Budesonide/Formoterol Fumarate 2 puff INHALATION RT-BID 08/31/18 08/31/18 History [Symbicort 160-4.5 Mcg Inhaler] CHLORPHEN-HYDROcod 8-10mg/5ml 5 ml PO Q12H 08/31/18 08/31/18 History [Tussionex] Dronabinol 10 mg PO DAILY 08/31/18 08/31/18 History Ipilimumab [Yervoy] 200 mg IV DIRECTED 08/31/18 08/31/18 History Ipratropium-Albuterol Nebulize 3 ml INHALATION RT-QID 08/31/18 08/31/18 History [Duoneb 0.5 mg-3 mg/3 ml Soln] Megestrol [Megace] 800 mg PO DAILY 08/31/18 08/31/18 History Nivolumab [Opdivo] 100 mg IV DIRECTED 08/31/18 08/31/18 History Allergies Allergy/AdvReac Type Severity Reaction Status Date / Time No Known Allergies Allergy Verified 04/02/18 15:37 Physical Exam Vitals: Vital Signs Temp Pulse Pulse Resp BP BP BP 09/01/18 12:18 104 H 09/01/18 12:07 104 H 09/01/18 11:32 98.6 F 105 H 20 143/76 09/01/18 08:54 108 H 09/01/18 08:34 104 H 09/01/18 08:00 98 F 105 H 16 148/65 09/01/18 03:10 97.8 F 102 H 18 121/58 08/31/18 23:44 111 H 18 129/61 08/31/18 21:41 97.4 F L 120 H 18 134/63 08/31/18 20:00 46/34 08/31/18 19:50 118 H 46/34 08/31/18 19:40 116 H 46/34 08/31/18 19:30 116 H 46/34 08/31/18 19:28 114 H 08/31/18 19:20 114 H 16 46/34 08/31/18 19:10 114 H 46/34 08/31/18 19:00 114 H 19 136/61 08/31/18 18:50 114 H 136/61 08/31/18 18:40 114 H 136/61 08/31/18 18:30 115 H 136/61 08/31/18 18:20 114 H 20 136/61 08/31/18 18:10 115 H 17 136/61 08/31/18 18:00 116 H 133/62 08/31/18 17:50 118 H 19 133/62 08/31/18 17:48 112 H 16 133/62 08/31/18 17:40 126 H 21 133/62 08/31/18 17:30 115 H 133/62 08/31/18 17:20 115 H 21 133/62 08/31/18 17:10 116 H 133/62 08/31/18 17:00 117 H 13 127/70 08/31/18 16:50 117 H 22 127/70 08/31/18 16:43 116 H 22 08/31/18 16:40 116 H 22 127/70 08/31/18 16:30 117 H 21 127/70 08/31/18 16:20 118 H 15 127/70 08/31/18 16:10 120 H 127/70 08/31/18 16:00 120 H 135/68 08/31/18 15:53 122 H 135/68 Pulse Ox 09/01/18 12:18 09/01/18 12:07 09/01/18 11:32 92 L 09/01/18 08:54 02/05/19 08:34 09/01/18 08:00 95 09/01/18 03:10 98 08/31/18 23:44 96 08/31/18 21:41 97 08/31/18 20:00 08/31/18 19:50 92 L 08/31/18 19:40 95 08/31/18 19:30 08/31/18 19:28 08/31/18 19:20 98 08/31/18 19:10 97 08/31/18 19:00 89 L 08/31/18 18:50 95 08/31/18 18:40 95 08/31/18 18:30 96 08/31/18 18:20 96 08/31/18 18:10 96 08/31/18 18:00 96 08/31/18 17:50 94 L 08/31/18 17:48 95 08/31/18 17:40 08/31/18 17:30 97 08/31/18 17:20 97 08/31/18 17:10 97 08/31/18 17:00 97 08/31/18 16:50 97 08/31/18 16:43 97 08/31/18 16:40 98 08/31/18 16:30 98 08/31/18 16:20 98 08/31/18 16:10 97 08/31/18 16:00 08/31/18 15:53 97 Intake and Output 08/31/18 09/01/18 09/01/18 22:59 06:59 14:59 Intake Total 601.000 639.763 240 Output Total 200 Balance 601.000 639.763 40 Intake: Amount of Fluid Infused ( 500 ml) Intake, IV Titration 101.000 639.763 Amount Insulin Regular 100 unit 101.000 39.763 In Sodium Chloride 0.9% 100 ml @ 0.1 UNITS/KG/HR 5.26 mls/hr IV .[id number] [facility] Rx#:[id number] Sodium Chloride 0.9% 1, 600 000 ml @ 200 mls/hr IV . Q5H [facility] Rx#:[id number] Oral 240 Output: Urine 200 Other: # Voids 1 1 Weight 51.1 kg 51.1 kg GENERAL EXAM: Alert, pleasant, 62-year-old white female, a little slow to respond, comfortable in no apparent distress. HEAD: Normocephalic/atraumatic. EYES: Normal reaction of pupils, equal size. Conjunctiva pink, sclera white. NOSE: Clear with pink turbinates. THROAT: No erythema or exudates. NECK: No masses, no JVD, no thyroid enlargement, no adenopathy. CHEST: No chest wall deformity. Symmetrical expansion. LUNGS: Equal air entry with diminished breath sounds over right lung, scattered crackles at the left CVS: Regular rate and rhythm, normal S1 and S2, no gallops, no murmurs, no rubs ABDOMEN: Soft, nontender. No hepatosplenomegaly, normal bowel sounds, no guarding or rigidity. EXTREMITIES: No clubbing, no edema, no cyanosis, 2+ pulses and upper and lower extremities. MUSCULOSKELETAL: Muscle strength and tone normal. SPINE: No scoliosis or deformity SKIN: No rashes CENTRAL NERVOUS SYSTEM: Alert and oriented -2. No focal deficits, tone is normal in all 4 extremities. PSYCHIATRIC: Alert and oriented -2. Appropriate affect. Intact judgment and insight. Results - Laboratory Findings CBC and BMP: 08/31/18 14:21 09/01/18 06:15 PT/INR, D-dimer PT 11.3 sec (9.0-12.0) 08/31/18 14:21 INR 1.1 (<1.2) 08/31/18 14:21 Abnormal lab findings: Abnormal Labs 08/31/18 08/31/18 08/31/18 13:02 14:21 14:21 WBC 11.5 H Hgb 11.1 L Plt Count 477 H Neutrophils # 10.2 H Lymphocytes # 0.4 L Sodium Carbon Dioxide BUN Glucose POC Glucose (mg/dL) 457 H Calcium Phosphorus Total Creatine Kinase 201 H CK-MB (CK-2) 4.0 H Urine Protein Urine Glucose (UA) Urine Ketones Urine Blood Urine Mucus 08/31/18 08/31/18 08/31/18 14:21 15:00 16:20 WBC Hgb Plt Count Neutrophils # Lymphocytes # Sodium Carbon Dioxide 19 L BUN 31 H Glucose 342 H POC Glucose (mg/dL) 324 H Calcium 10.7 H Phosphorus Total Creatine Kinase CK-MB (CK-2) Urine Protein Trace H Urine Glucose (UA) 4+ H Urine Ketones 4+ H Urine Blood Small H Urine Mucus Rare H 08/31/18 08/31/18 08/31/18 21:12 21:41 22:07 WBC Hgb Plt Count Neutrophils # Lymphocytes # Sodium 136 L Carbon Dioxide 15 L BUN 30 H Glucose 389 H POC Glucose (mg/dL) 383 H 392 H Calcium Phosphorus Total Creatine Kinase CK-MB (CK-2) Urine Protein Urine Glucose (UA) Urine Ketones Urine Blood Urine Mucus 08/31/18 08/31/18 08/31/18 22:33 22:59 23:36 WBC Hgb Plt Count Neutrophils # Lymphocytes # Sodium Carbon Dioxide BUN Glucose POC Glucose (mg/dL) 375 H 344 H 324 H Calcium Phosphorus Total Creatine Kinase CK-MB (CK-2) Urine Protein Urine Glucose (UA) Urine Ketones Urine Blood Urine Mucus 09/01/18 09/01/18 09/01/18 00:39 00:56 01:54 WBC Hgb Plt Count Neutrophils # Lymphocytes # Sodium Carbon Dioxide BUN 28 H Glucose 209 H POC Glucose (mg/dL) 269 H 185 H Calcium Phosphorus 1.7 L Total Creatine Kinase CK-MB (CK-2) Urine Protein Urine Glucose (UA) Urine Ketones Urine Blood Urine Mucus 09/01/18 09/01/18 09/01/18 03:01 04:15 05:59 WBC Hgb Plt Count Neutrophils # Lymphocytes # Sodium Carbon Dioxide BUN Glucose POC Glucose (mg/dL) 156 H 111 H 100 H Calcium Phosphorus Total Creatine Kinase CK-MB (CK-2) Urine Protein Urine Glucose (UA) Urine Ketones Urine Blood Urine Mucus 09/01/18 09/01/18 09/01/18 06:15 07:00 11:45 WBC Hgb Plt Count Neutrophils # Lymphocytes # Sodium Carbon Dioxide BUN 25 H Glucose 103 H POC Glucose (mg/dL) 121 H 117 H Calcium Phosphorus 1.9 L Total Creatine Kinase CK-MB (CK-2) Urine Protein Urine Glucose (UA) Urine Ketones Urine Blood Urine Mucus - Diagnostic Findings Chest x-ray: report reviewed, image reviewed CT scan - chest: report reviewed, image reviewed Assessment and Plan Plan: Assessment: #1. Large right hilar mass with the obstruction of the right upper lobe bronchus tumor infiltration into the mediastinum associated right upper lobe collapse and right-sided pleural effusion. It is a postobstructive pneumonia related to recurrence of lung cancer #2. History of stage IV small cell lung cancer with brain metastasis, status post chemotherapy and radiation. PET scan in March 2018 showed good response to therapy with no radiotracer uptake to suggest recurrent or metastatic disease. Most recent PET scan from July 2018 shows active neoplastic recurrence with a hypermetabolic mass like consolidation in the right hilar level extending into the right upper lobe with surrounding groundglass opacity measuring roughly 7.6 x 6.7 cm, with a max SUV of 10.95. There is subcarinal hypermetabolic mass or adenopathy indistinct from the right hilar mass with a max SUV of 9.4. There is no suspicious hypermetabolic right- sided supraclavicular lymph nodes with a max SUV of 7.21 and superior mediastinal and paratracheal hypermetabolic lymph nodes #3. Anion gap metabolic acidosis related to diabetic ketoacidosis, resolved with insulin infusion, and IV hydration #4. Sepsis related to postobstructive right-sided pneumonia #5. Hypertension, hyperlipidemia #6. COPD stage II, with underlying FEV1 of 1.29 L or 51% of predicted #7. [place] [id number] smoking history, currently in remission #8. Hypothyroidism #9. History of peptic ulcer disease, previous episode of GI bleeding #10. Osteoarthritis Plan: CT of the chest was obtained and reviewed with Dr. Temple and shows large right hilar mass with infiltration into the mediastinum, obstruction of the right upper lobe bronchus with collapse of the right upper lobe with postobstructive pneumonia, right pleural effusion, and atelectasis. We'll continue with current antibiotic treatment. We'll consult medical oncology. MRI of the brain did not show evidence of metastatic disease. Patient is more awake, she is still somewhat disoriented, but improving. Her anion gap has closed, she remains on insulin infusion. No fever or chills, she is more awake but still quite weak. No significant chest congestion, not bringing up much sputum. Continue with nebulized bronchodilators, we'll continue to follow I performed a history & physical examination of the patient and discussed their management with my nurse practitioner, Jeana Hartman. I reviewed the nurse practitioner's note and agree with the documented findings and plan of care. Lung sounds are diminished. The findings and the impression was discussed with the patient. I attest to the documentation by the nurse practitioner. Time with Patient: Greater than 30 <WilliammarlysJeanette - Last Filed: 09/01/18 20:01> Physical Exam Vitals: Vital Signs Temp Pulse Pulse Resp BP BP Pulse Ox 09/01/18 16:25 108 H 09/01/18 16:16 108 H 09/01/18 15:00 97.9 F 115 H 18 142/67 91 L 09/01/18 12:18 104 H 09/01/18 12:07 104 H 09/01/18 11:32 98.6 F 105 H 20 143/76 92 L 09/01/18 08:54 108 H 09/01/18 08:34 104 H 09/01/18 08:00 98 F 105 H 16 148/65 95 09/01/18 03:10 97.8 F 102 H 18 121/58 98 08/31/18 23:44 111 H 18 129/61 96 08/31/18 21:41 97.4 F L 120 H 18 134/63 97 Intake and Output 09/01/18 09/01/18 09/01/18 06:59 14:59 22:59 Intake Total 926.247 9098 Output Total 200 Balance 639.763 840 Intake: Intake, IV Titration 639.763 800 Amount Insulin Regular 100 unit 39.763 In Sodium Chloride 0.9% 100 ml @ 0.1 UNITS/KG/HR 5.26 mls/hr IV .[id number] [facility] Rx#:[id number] Sodium Chloride 0.9% 1, 800 000 ml @ 100 mls/hr IV . Q10H [facility] Rx#:[id number] Sodium Chloride 0.9% 1, 600 000 ml @ 200 mls/hr IV . Q5H [facility] Rx#:[id number] Oral 240 Output: Urine 200 Other: # Voids 1 1 Weight 51.1 kg 51.1 kg Results - Laboratory Findings CBC and BMP: 08/31/18 14:21 09/01/18 06:15 PT/INR, D-dimer PT 11.3 sec (9.0-12.0) 08/31/18 14:21 INR 1.1 (<1.2) 08/31/18 14:21 Abnormal lab findings: Abnormal Labs 08/31/18 08/31/18 08/31/18 13:02 14:21 14:21 WBC 11.5 H Hgb 11.1 L Plt Count 477 H Neutrophils # 10.2 H Lymphocytes # 0.4 L Sodium Carbon Dioxide BUN Glucose POC Glucose (mg/dL) 457 H Hemoglobin A1c Calcium Phosphorus Total Creatine Kinase 201 H CK-MB (CK-2) 4.0 H Urine Protein Urine Glucose (UA) Urine Ketones Urine Blood Urine Mucus 08/31/18 08/31/18 08/31/18 14:21 15:00 16:20 WBC Hgb Plt Count Neutrophils # Lymphocytes # Sodium Carbon Dioxide 19 L BUN 31 H Glucose 342 H POC Glucose (mg/dL) 324 H Hemoglobin A1c Calcium 10.7 H Phosphorus Total Creatine Kinase CK-MB (CK-2) Urine Protein Trace H Urine Glucose (UA) 4+ H Urine Ketones 4+ H Urine Blood Small H Urine Mucus Rare H 08/31/18 08/31/18 08/31/18 21:12 21:41 22:07 WBC Hgb Plt Count Neutrophils # Lymphocytes # Sodium 136 L Carbon Dioxide 15 L BUN 30 H Glucose 389 H POC Glucose (mg/dL) 383 H 392 H Hemoglobin A1c Calcium Phosphorus Total Creatine Kinase CK-MB (CK-2) Urine Protein Urine Glucose (UA) Urine Ketones Urine Blood Urine Mucus 08/31/18 08/31/18 08/31/18 22:33 22:59 23:36 WBC Hgb Plt Count Neutrophils # Lymphocytes # Sodium Carbon Dioxide BUN Glucose POC Glucose (mg/dL) 375 H 344 H 324 H Hemoglobin A1c Calcium Phosphorus Total Creatine Kinase CK-MB (CK-2) Urine Protein Urine Glucose (UA) Urine Ketones Urine Blood Urine Mucus 09/01/18 09/01/18 09/01/18 00:39 00:56 00:56 WBC Hgb Plt Count Neutrophils # Lymphocytes # Sodium Carbon Dioxide BUN 28 H Glucose 209 H POC Glucose (mg/dL) 269 H Hemoglobin A1c 8.2 H Calcium Phosphorus 1.7 L Total Creatine Kinase CK-MB (CK-2) Urine Protein Urine Glucose (UA) Urine Ketones Urine Blood Urine Mucus 09/01/18 09/01/18 09/01/18 01:54 03:01 04:15 WBC Hgb Plt Count Neutrophils # Lymphocytes # Sodium Carbon Dioxide BUN Glucose POC Glucose (mg/dL) 185 H 156 H 111 H Hemoglobin A1c Calcium Phosphorus Total Creatine Kinase CK-MB (CK-2) Urine Protein Urine Glucose (UA) Urine Ketones Urine Blood Urine Mucus 09/01/18 09/01/18 09/01/18 05:59 06:15 07:00 WBC Hgb Plt Count Neutrophils # Lymphocytes # Sodium Carbon Dioxide BUN 25 H Glucose 103 H POC Glucose (mg/dL) 100 H 121 H Hemoglobin A1c Calcium Phosphorus 1.9 L Total Creatine Kinase CK-MB (CK-2) Urine Protein Urine Glucose (UA) Urine Ketones Urine Blood Urine Mucus 09/01/18 09/01/18 09/01/18 11:45 16:50 17:05 WBC Hgb Plt Count Neutrophils # Lymphocytes # Sodium Carbon Dioxide BUN Glucose POC Glucose (mg/dL) 117 H 56 L 53 L Hemoglobin A1c Calcium Phosphorus Total Creatine Kinase CK-MB (CK-2) Urine Protein Urine Glucose (UA) Urine Ketones Urine Blood Urine Mucus 09/01/18 09/01/18 17:28 17:50 WBC Hgb Plt Count Neutrophils # Lymphocytes # Sodium Carbon Dioxide BUN Glucose POC Glucose (mg/dL) 66 L 73 L Hemoglobin A1c Calcium Phosphorus Total Creatine Kinase CK-MB (CK-2) Urine Protein Urine Glucose (UA) Urine Ketones Urine Blood Urine Mucus Assessment and Plan Plan: Evaluation along with the nurse practitioner. The patient is known to have small cell lung cancer with progression of her disease. She is currently stage IV metastatic small cell lung cancer and she was started on immunotherapy approximately a week ago. Meanwhile, the patient comes in with worsening shortness of breath. A repeat CAT scan of the chest was done and it shows further enlargement of the right hilar mass with development of obstruction of the right upper lobe bronchus and tumor infiltration into the mediastinum. There is also right upper lobe collapse and there is also right-sided pleural effusion that has increased in size in addition to a postobstructive pneumonia. The patient will be kept on antibiotics. Consider thoracentesis. Prognosis extremely poor. There is significant progression of the small cell lung cancer.
[2018-09-01 17:09] LABS: Glucose,Whole Blood 56 mg/dL (75-99)
[2018-09-01 17:09] LABS: Glucose,Whole Blood 53 mg/dL (75-99)
[2018-09-01 17:33] LABS: Glucose,Whole Blood 66 mg/dL (75-99)
[2018-09-01] MEDS ORDERED: diphenhydrAMINE 25 MG CAP PO PRN (17:41)
[2018-09-01 17:54] LABS: Glucose,Whole Blood 73 mg/dL (75-99)
--- NOTE | 2018-09-01 18:02 | P.CONS ---
History of Present Illness - Reason for Consult Consult date: 09/01/18 SCLC on immunotherapy Requesting physician: Edd Lazo - Chief Complaint AMS - History of Present Illness Ms. Meraz is a very pleasant female pt of Dr. Whatley who presented with history of dry cough x 1 mo, associated hoarseness, ENT noted right vocal cord paralysis on laryngoscopy. There was failure to improve symptoms despite prolonged antibiotic therapy. CT chest in early 2017 showed suspicious lymphadenopathy in the mediastinal, right hilar, and retroclavicular areas, a left adrenal nodule. 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 She started carbo/[employer] 11/12, treatment f/u CT after 3 cycles showed excellent partial response. She competed 6 cycles of chemo followed by PCI XRT to head. 04/14 PET showed no active disease. Follow up imaging [facility] showed rapidly progressive disease so pt was started in nivolumab/ ipilimumab and had 1st Tx 08/24. Since that time patient's cough significantly increased, she was not getting much sleep, sister noticed some mental status changes including difficulty remembering things and inappropriate recall. Patient denied headaches, acute vision changes, dizziness, difficulty in swallowing, hemoptysis, appetite is fair, no current nausea or vomiting, abdominal pain, cramping, acute changes in bowel or bladder habits, diarrhea, swelling or pain. Review of Systems AMS, 14 point ROS is as stated in HPI to the best of pt ability Past Medical History Past Medical History: Cancer, Diabetes Mellitus, GERD/Reflux, Hyperlipidemia, Hypertension, Thyroid Disorder Additional Past Medical History / Comment(s): hx. pepcid ulcer, hx. lung cancer dx. 2018-finished chemo & radiation, "feels like I'm swallowing a rock when I swallow" History of Any Multi-Drug Resistant Organisms: None Reported Past Surgical History: Back Surgery, Section, Orthopedic Surgery Additional Past Surgical History / Comment(s): Exploratory Lap. 2 right knee arthroscopies Past Anesthesia/Blood Transfusion Reactions: No Reported Reaction Past Psychological History: No Psychological Hx Reported Smoking Status: Former smoker Past Alcohol Use History: None Reported Past Drug Use History: None Reported - Past Family History Sister(s) Family Medical History: Cancer Additional Family Medical History / Comment(s): skin & breast Medications and Allergies Home Medications Medication Instructions Recorded Confirmed Type Ezetimibe [Zetia] 10 mg PO HS 12/19/17 08/31/18 History FLUoxetine HCL [PROzac] 10 mg PO DAILY 12/19/17 08/31/18 History Levothyroxine Sodium [Synthroid] 100 mcg PO DAILY 12/19/17 08/31/18 History Albuterol Sulfate [Proair Hfa] 2 puff INHALATION RT-Q4H PRN 08/31/18 08/31/18 History Amoxic-Pot Clav 875-125Mg 1 tab PO Q12H 08/31/18 08/31/18 History [Augmentin 875-125] Budesonide/Formoterol Fumarate 2 puff INHALATION RT-BID 08/31/18 08/31/18 History [Symbicort 160-4.5 Mcg Inhaler] CHLORPHEN-HYDROcod 8-10mg/5ml 5 ml PO Q12H 08/31/18 08/31/18 History [Tussionex] Dronabinol 10 mg PO DAILY 08/31/18 08/31/18 History Ipilimumab [Yervoy] 200 mg IV DIRECTED 08/31/18 08/31/18 History Ipratropium-Albuterol Nebulize 3 ml INHALATION RT-QID 08/31/18 08/31/18 History [Duoneb 0.5 mg-3 mg/3 ml Soln] Megestrol [Megace] 800 mg PO DAILY 08/31/18 08/31/18 History Nivolumab [Opdivo] 100 mg IV DIRECTED 08/31/18 08/31/18 History Allergies Allergy/AdvReac Type Severity Reaction Status Date / Time No Known Allergies Allergy Verified 04/02/18 15:37 Physical Exam Vitals: Vital Signs Temp Pulse Pulse Resp BP BP BP 09/01/18 16:25 108 H 09/01/18 16:16 108 H 09/01/18 15:00 97.9 F 115 H 18 142/67 09/01/18 12:18 104 H 09/01/18 12:07 104 H 09/01/18 11:32 98.6 F 105 H 20 143/76 09/01/18 08:54 108 H 09/01/18 08:34 104 H 09/01/18 08:00 98 F 105 H 16 148/65 09/01/18 03:10 97.8 F 102 H 18 121/58 08/31/18 23:44 111 H 18 129/61 08/31/18 21:41 97.4 F L 120 H 18 134/63 08/31/18 20:00 46/34 08/31/18 19:50 118 H 46/34 08/31/18 19:40 116 H 46/34 08/31/18 19:30 116 H 46/34 08/31/18 19:28 114 H 08/31/18 19:20 114 H 16 46/34 08/31/18 19:10 114 H 46/34 08/31/18 19:00 114 H 19 136/61 08/31/18 18:50 114 H 136/61 08/31/18 18:40 114 H 136/61 08/31/18 18:30 115 H 136/61 08/31/18 18:20 114 H 20 136/61 08/31/18 18:10 115 H 17 136/61 08/31/18 18:00 116 H 133/62 08/31/18 17:50 118 H 19 133/62 08/31/18 17:48 112 H 16 133/62 08/31/18 17:40 126 H 21 133/62 Pulse Ox 09/01/18 16:25 09/01/18 16:16 09/01/18 15:00 91 L 09/01/18 12:18 09/01/18 12:07 09/01/18 11:32 92 L 09/01/18 08:54 09/01/18 08:34 09/01/18 08:00 95 09/01/18 03:10 98 08/31/18 23:44 96 08/31/18 21:41 97 08/31/18 20:00 08/31/18 19:50 92 L 08/31/18 19:40 95 08/31/18 19:30 08/31/18 19:28 08/31/18 19:20 98 08/31/18 19:10 97 08/31/18 19:00 89 L 08/31/18 18:50 95 08/31/18 18:40 95 08/31/18 18:30 96 08/31/18 18:20 96 08/31/18 18:10 96 08/31/18 18:00 96 08/31/18 17:50 94 L 08/31/18 17:48 95 08/31/18 17:40 Intake and Output 09/01/18 09/01/18 09/01/18 06:59 14:59 22:59 Intake Total 790.688 0171 Output Total 200 Balance 639.763 840 Intake: Intake, IV Titration 639.763 800 Amount Insulin Regular 100 unit 39.763 In Sodium Chloride 0.9% 100 ml @ 0.1 UNITS/KG/HR 5.26 mls/hr IV .[id number] [facility] Rx#:[id number] Sodium Chloride 0.9% 1, 800 000 ml @ 100 mls/hr IV . Q10H [facility] Rx#:[id number] Sodium Chloride 0.9% 1, 600 000 ml @ 200 mls/hr IV . Q5H [facility] Rx#:[id number] Oral 240 Output: Urine 200 Other: # Voids 1 1 Weight 51.1 kg 51.1 kg - Constitutional General appearance: cooperative, no acute distress, thin - EENT Eyes: anicteric sclerae, EOMI ENT: hearing grossly normal, normal oropharynx - Neck Neck: no lymphadenopathy - Respiratory Respiratory: bilateral: CTA - Cardiovascular Rhythm: regular Heart sounds: normal: S1, S2 Abnormal Heart Sounds: no systolic murmur, no diastolic murmur, no rub, no S3 Gallop, no S4 Gallop, no click, no other leg Peripheral Edema: bilateral: None - Gastrointestinal General gastrointestinal: no absent bowel sounds, no decreased bowel sounds, no distended, no hepatomegaly, no hyperactive bowel sounds, normal bowel sounds, no organomegaly, no rigid, no scaphoid, soft, no splenomegaly, no tenderness, no umbilical hernia, no ventral hernia - Integumentary Integumentary: pale - Neurologic Neurologic: CNII-XII intact - Musculoskeletal Musculoskeletal: generalized weakness, strength equal bilaterally - Psychiatric Alert, unable to tell time on watch, knew where she was, had trouble with her year Results CBC & Chem 7: 08/31/18 14:21 09/01/18 06:15 Labs: Abnormal Lab Results - Last 24 Hours (Table) 08/31/18 08/31/18 08/31/18 Range/Units 21:12 21:41 22:07 Sodium 136 L (137-145) mmol/L Carbon Dioxide 15 L (22-30) mmol/L BUN 30 H (7-17) mg/dL Glucose 389 H (74-99) mg/dL POC Glucose (mg/dL) 383 H 392 H (75-99) mg/dL Hemoglobin A1c (4.0-6.0) % Phosphorus (2.5-4.5) mg/dL 08/31/18 08/31/18 08/31/18 Range/Units 22:33 22:59 23:36 Sodium (137-145) mmol/L Carbon Dioxide (22-30) mmol/L BUN (7-17) mg/dL Glucose (74-99) mg/dL POC Glucose (mg/dL) 375 H 344 H 324 H (75-99) mg/dL Hemoglobin A1c (4.0-6.0) % Phosphorus (2.5-4.5) mg/dL 09/01/18 09/01/18 09/01/18 Range/Units 00:39 00:56 00:56 Sodium (137-145) mmol/L Carbon Dioxide (22-30) mmol/L BUN 28 H (7-17) mg/dL Glucose 209 H (74-99) mg/dL POC Glucose (mg/dL) 269 H (75-99) mg/dL Hemoglobin A1c 8.2 H (4.0-6.0) % Phosphorus 1.7 L (2.5-4.5) mg/dL 09/01/18 09/01/18 09/01/18 Range/Units 01:54 03:01 04:15 Sodium (137-145) mmol/L Carbon Dioxide (22-30) mmol/L BUN (7-17) mg/dL Glucose (74-99) mg/dL POC Glucose (mg/dL) 185 H 156 H 111 H (75-99) mg/dL Hemoglobin A1c (4.0-6.0) % Phosphorus (2.5-4.5) mg/dL 09/01/18 09/01/18 09/01/18 Range/Units 05:59 06:15 07:00 Sodium (137-145) mmol/L Carbon Dioxide (22-30) mmol/L BUN 25 H (7-17) mg/dL Glucose 103 H (74-99) mg/dL POC Glucose (mg/dL) 100 H 121 H (75-99) mg/dL Hemoglobin A1c (4.0-6.0) % Phosphorus 1.9 L (2.5-4.5) mg/dL 09/01/18 09/01/18 09/01/18 Range/Units 11:45 16:50 17:05 Sodium (137-145) mmol/L Carbon Dioxide (22-30) mmol/L BUN (7-17) mg/dL Glucose (74-99) mg/dL POC Glucose (mg/dL) 117 H 56 L 53 L (75-99) mg/dL Hemoglobin A1c (4.0-6.0) % Phosphorus (2.5-4.5) mg/dL 09/01/18 Range/Units 17:28 Sodium (137-145) mmol/L Carbon Dioxide (22-30) mmol/L BUN (7-17) mg/dL Glucose (74-99) mg/dL POC Glucose (mg/dL) 66 L (75-99) mg/dL Hemoglobin A1c (4.0-6.0) % Phosphorus (2.5-4.5) mg/dL Chest x-ray: report reviewed CT scan - chest: report reviewed MRI - head: report reviewed Assessment and Plan (1) Small cell lung cancer Narrative/Plan: Patient is status post first cycle of immunotherapy for recurrent small cell lung cancer. Patient is being treated with antibiotics, steroids and breathing treatments for suspected postobstructive pneumonia based on review of the x-ray reports. Cough has improved since admission. Reviewed results of MRI of the brain, it is negative for malignancy. If patient's mental status does not improve with treatment of infection, may consider CSF evaluation. This was discussed with patient and her sister Patient is noted to be tachycardic, thyroid functioning and cortisol level will be drawn. Patient is not due for another cycle of treatment until 14 September, plan is to keep that appointment at this time. Current Visit: Yes Status: Acute Priority: High Code(s): C34.90 - MALIGNANT NEOPLASM OF UNSP PART OF UNSP BRONCHUS OR LUNG SNOMED Code(s): 914063965 (2) Altered mental status Narrative/Plan: Suspect related to infection. MRI of the brain reported negative for malignancy. We'll continue to follow, if persistent, may consider CSF evaluation Current Visit: Yes Status: Acute Priority: High Code(s): R41.82 - ALTERED MENTAL STATUS, UNSPECIFIED SNOMED Code(s): 270171801 (3) Pneumonia Narrative/Plan: continue treatment per Pulmonary Current Visit: Yes Status: Acute Priority: High Code(s): J18.9 - PNEUMONIA , UNSPECIFIED ORGANISM SNOMED Code(s): 769196375 Plan: Doctor attests: I performed a history and physical examination of this patient, developed impression and plan of care discussed with dictator. I agree with dictators note, documented as a scribe.
[2018-09-01] MEDS: SYMBICORT 160-4.5 MCG INHALER INHALATION SCH (20:08)
[2018-09-01 21:00] LABS: Glucose,Whole Blood 152 mg/dL (75-99)
[2018-09-01] MEDS: FAMOTIDINE 20 MG TAB PO SCH (22:37)
[2018-09-01] MEDS: EZETIMIBE 10 MG TAB PO SCH (22:37)
[2018-09-01] MEDS: HEPARIN SODIUM,PORCINE 5,000 UNIT/ML 1 ML VIAL SQ SCH (22:37)
[2018-09-02] MEDS: PIPERACILLIN-TAZOBACTAM 3.375 GM in SODIUM CHLORIDE 0.9% 100 ML IVPB SCH ×4 (00:15→23:47)
[2018-09-02 05:51] LABS: Glucose,Whole Blood 375 mg/dL (75-99)
[2018-09-02 05:56] LABS: Anion Gap 9 mmol/L; Blood Urea Nitrogen 16 mg/dL (7-17); Calcium 8.7 mg/dL (8.4-10.2); Carbon Dioxide 25 mmol/L (22-30); Chloride 99 mmol/L (98-107); Glucose 338 mg/dL (74-99); Potassium 3.9 mmol/L (3.5-5.1); Sodium 133 mmol/L (137-145)
[2018-09-02] MEDS: LEVOTHYROXINE 100 MCG TAB PO SCH (06:56)
[2018-09-02] MEDS: INSULIN ASPART (NovoLOG) 100 UNIT/ML VIAL SQ SCH ×2 (06:56→12:11)
[2018-09-02 06:57] LABS: HCT 30.4 % (34.0-46.0); Hypochromasia Slight; MCH 28.6 pg (25.0-35.0); MCHC 31.1 g/dL (31.0-37.0); Mean Platelet Volume 6.2; Platelet Count 384 k/uL (150-450); RBC 3.31 m/uL (3.80-5.40); RDW 15.1 % (11.5-15.5); WBC 5.2 k/uL (3.8-10.6)
[2018-09-02 07:19] LABS: HGB 9.5 gm/dL (11.4-16.0)
[2018-09-02] MEDS: IPRATROPIUM-ALBUTEROL 3 ML NEB INHALATION SCH ×4 (08:24→20:07)
[2018-09-02] MEDS: SYMBICORT 160-4.5 MCG INHALER INHALATION SCH ×2 (08:24→20:06)
[2018-09-02] MEDS: HEPARIN SODIUM,PORCINE 5,000 UNIT/ML 1 ML VIAL SQ SCH ×2 (08:56→21:00)
[2018-09-02] MEDS: FAMOTIDINE 20 MG TAB PO SCH ×2 (08:56→21:00)
[2018-09-02] MEDS: FLUoxetine HCL 10 MG CAP PO SCH (08:56)
[2018-09-02] MEDS: MEGESTROL 400 MG/10 ML CUP PO SCH (08:56)
[2018-09-02] MEDS: SODIUM CHLORIDE 0.9% 1,000 ML IV SCH ×3 (08:57→21:00)
[2018-09-02] MEDS: DRONABINOL 2.5 MG CAP PO SCH (09:08)
[2018-09-02 12:05] LABS: Glucose,Whole Blood 409 mg/dL (75-99)
[2018-09-02] MEDS ORDERED: INSULIN ASPART (NovoLOG) 100 UNIT/ML VIAL SQ PRN (15:00)
[2018-09-02] MEDS ORDERED: INSULIN PUMP BASAL RATES 1 EACH MISC MISCELLANE PRN (15:00)
[2018-09-02] MEDS ORDERED: INSPUCOR MISCELLANE PRN (15:00)
[2018-09-02] MEDS ORDERED: INSULIN PUMP TARGET GLUCOSE 1 EACH MISC MISCELLANE PRN (15:00)
[2018-09-02] MEDS ORDERED: INSULIN PUMP ACTIVE INSULIN 1 EACH MISC MISCELLANE PRN (15:00)
[2018-09-02 16:25] LABS: Glucose,Whole Blood 385 mg/dL (75-99)
[2018-09-02] MEDS: INSULIN PUMP MEAL BOLUS 1 UNIT MISC MISCELLANE SCH ×2 (17:35→20:50)
--- NOTE | 2018-09-02 17:49 | P.PN ---
Subjective Progress Note Date: 09/02/18 Principal diagnosis: Post obstructive pneumonia In f/u today pt is sitting in chair, family is pleased with her mental status improvements, pt states breathing is much more comfortable. Objective - Vital Signs Vital signs: Vital Signs Temp 97.0 F L 09/02/18 15:00 Pulse 108 H 09/02/18 15:49 Resp 18 09/02/18 15:00 BP 115/54 09/02/18 15:00 Pulse Ox 94 L 09/02/18 15:00 Intake & Output 09/01/18 09/02/18 09/02/18 18:59 06:59 18:59 Intake Total 1040 100 980 Output Total 200 Balance 840 100 980 Weight 51.1 kg Intake: Intake, IV Titration 800 800 Amount Sodium Chloride 0.9% 1, 800 800 000 ml @ 100 mls/hr IV . Q10H [facility] Rx#:[id number] Oral 240 100 180 Output: Urine 200 Other: # Voids 1 1 1 # Bowel Movements 1 - Constitutional General appearance: Present: average body habitus, cooperative, no acute distress - EENT Eyes: Present: anicteric sclerae, EOMI ENT: Present: hearing grossly normal - Respiratory Respiratory: bilateral: diminished - Cardiovascular Heart sounds: normal: S1, S2 Abnormal Heart Sounds: Absent: systolic murmur, diastolic murmur, rub, S3 Gallop , S4 Gallop, click, other - Peripheral edema leg Peripheral Edema: bilateral: None - Gastrointestinal General gastrointestinal: Present: normal bowel sounds, soft - Neurologic Neurologic: Present: CNII-XII intact - Musculoskeletal Musculoskeletal: Present: strength equal bilaterally - Psychiatric Psychiatric: Present: A&O x's 3, appropriate affect, intact judgment & insight - Labs CBC & Chem 7: 09/02/18 05:20 09/02/18 05:20 Labs: Abnormal Lab Results - Last 24 Hours (Table) 09/01/18 09/01/18 09/01/18 Range/Units 17:28 17:50 20:45 RBC (3.80-5.40) m/uL Hgb (11.4-16.0) gm/dL Hct (34.0-46.0) % Sodium (137-145) mmol/L Glucose (74-99) mg/dL POC Glucose (mg/dL) 66 L 73 L 152 H (75-99) mg/dL 09/02/18 09/02/18 09/02/18 Range/Units 05:20 05:20 05:49 RBC 3.31 L (3.80-5.40) m/uL Hgb 9.5 L D (11.4-16.0) gm/dL Hct 30.4 L (34.0-46.0) % Sodium 133 L (137-145) mmol/L Glucose 338 H (74-99) mg/dL POC Glucose (mg/dL) 375 H (75-99) mg/dL 09/02/18 09/02/18 Range/Units 11:38 16:22 RBC (3.80-5.40) m/uL Hgb (11.4-16.0) gm/dL Hct (34.0-46.0) % Sodium (137-145) mmol/L Glucose (74-99) mg/dL POC Glucose (mg/dL) 409 H 385 H (75-99) mg/dL Microbiology - Last 24 Hours (Table) 08/31/18 21:41 Blood Culture - Preliminary Blood No Growth after 24 hours Assessment and Plan (1) Small cell lung cancer Narrative/Plan: Patient is status post first cycle of immunotherapy for recurrent small cell lung cancer. Patient is being treated with antibiotics, steroids and breathing treatments for suspected postobstructive pneumonia based on review of the x-ray reports. Cough has improved since admission. Reviewed results of MRI of the brain, it is negative for malignancy. Patient mental status improved today. Patient is noted to be tachycardic, thyroid functioning and cortisol level will be drawn. Patient is not due for another cycle of treatment until 14 September, plan is to keep that appointment at this time. Current Visit: Yes Status: Acute Priority: High Code(s): C34.90 - MALIGNANT NEOPLASM OF UNSP PART OF UNSP BRONCHUS OR LUNG SNOMED Code(s): 321558129 (2) Altered mental status Narrative/Plan: MRI of the brain reported negative for malignancy. Much improved today. No further work up at this time. Current Visit: Yes Status: Acute Priority: High Code(s): R41.82 - ALTERED MENTAL STATUS, UNSPECIFIED SNOMED Code(s): 703164344 (3) Pneumonia Narrative/Plan: Improving, continue treatment per Pulmonary. Discussed likely cause of pneumonia is obstruction. Dr. Conley discussed case with Pulmonary, who will review images to see if pt is a candidate for stenting as pneumonia is going to be a recurrent problem with obstruction. Immunotherapy dose take some time to work so, persistent infections and compromized breathing could pose treatment problems. We will await Pulm eval and recommendations. Another possibility could be short course of radiation to the area of obstruction. This will be considered if stenting not appropriate. All was discussed with pt and family and they verbalize understanding plan. Current Visit: Yes Status: Acute Priority: High Code(s): J18.9 - PNEUMONIA , UNSPECIFIED ORGANISM SNOMED Code(s): 785510867 Plan: Attests: I have performed H&P and developed impression and plan of care of patient, discussed with dictator. I agree with dictated note, documented as a scribe.
--- NOTE | 2018-09-02 19:43 | P.PN ---
Subjective Progress Note Date: 09/02/18 This is 62-year-old white female patient with past medical history of moderately severe COPD, stage II, with underlying FEV1 of 51% of predicted, history of small cell lung cancer with metastasis to the brain, status post 6 rounds of chemotherapy including carboplatin plus etoposide completed in December 2017, and radiation for the brain metastasis. She follows with Dr. Whatley, and initially presented with a history of dry cough and hoarseness. ENT evaluation found a right vocal cord paralysis on laryngoscopic, and was treated with antibiotics and failed to improve. CT chest was completed and showed suspicious lymphadenopathy in the mediastinal right hilar and retroclavicular areas. Left adrenal nodule was also seen. E-BUS was performed at the [facility] confirming metastatic small cell undifferentiated carcinoma. She is a ex-smoker, until recently, [id number] smoking history. Also used marijuana. PET scan was obtained in March 2018, and there was no suspicious radiotracer accumulation to suggest recurrent or metastatic disease. However her most recent PET scan on 08/01/2018 and showed active neoplastic recurrence, with a new hypermetabolic masslike consolidation in the right hilar level extending into the right upper lobe with surrounding groundglass opacity measuring roughly 7.6 x 6.7 cm, with a max SUV of 10.95. There is subcarinal hypermetabolic mass or adenopathy indistinct from the right hilar mass with a max XE SUV of 9.4. Patient started immunotherapy with Opdivo last Friday, August 24. Over the last several days patient has been having increased coughing, shortness of breath, decreased appetite, on Friday she developed nausea and vomiting, progressive dyspnea, patient was becoming more disoriented and confused. On Friday patient had become so weak she couldn't walk. Denied any fever or chills. Does have type 2 diabetes, and let sugars have been running in the 500s on Friday and Friday. She was brought to the hospital for evaluation. Chest x-ray showed a worsening diffuse right lung infiltrate was suspected worsening small right pleural effusion. MRI of the brain showed moderate diffuse cerebral atrophy and moderate to severe white matter changes likely related to chronic small vessel ischemic change, no new enhancing lesions to suggest metastatic disease. White blood cell count was 11.5, hemoglobin was 11.1, sodium is 136, potassium is 5.0, chloride is 100, CO2 is 15, BUN is 30, creatinine 0.72, plasma lactic acid was 1.5, LFTs were within normal limits, troponin was negative 1, proBNP was 1340, urinalysis showed 4+ ketones, glucose. Serum acetone was positive. Patient was given IV in duration, and was started on insulin infusion per diabetic ketoacidosis protocol. IV antibiotic coverage in the form of Zosyn. 0.9 normal sitting at a rate of 100 ML per hour. Patient's significant other and her sister are at the bedside. Today's blood work was reviewed, and showed a serum sodium of 137, potassium is 3.5, chloride is 105, CO2 is 24, B1 is 25, creatinine is 0.65, and in gap has closed and is currently at 8. Patient is awake and alert, she is answering questions appropriately. Blood cultures have been ordered and sent, sputum culture has been ordered but not collected. On today's evaluation of 09/02/2018, I'm seeing this patient for a follow-up. Clinically improved compared to yesterday. The patient is feeling better and less short of breath. A repeat CAT scan of the chest was done and the results were quite abnormal. There is enlargement in the right lung mass and the patient was found to have a large hilar mass measuring 7.7 x 7.9 x 6.5 cm in size with infiltration into the mediastinum. There is also obstruction of the right upper lobe bronchus with collapse of the right upper lobe. There is also postobstructive pneumonia identified adjacent to the lung. A moderate-sized right-sided pleural effusion was noted. The bronchus intermedius seems to be quite narrowed. The patient is feeling well for now. She is on Symbicort. She is on IV Solu-Medrol. She is on IV Zosyn. She is also on DuoNeb nebulized treatments around the clock. I did ask discussion with the patient. I think it 's reasonable to reevaluate the patient with a bronchoscopy and assess the bronchus intermedius which is obviously an area of concern on today's consider amount of narrowing at that level from the underlying lung cancer. Also, I intend to do a thoracentesis procedure to evacuate the right-sided pleural effusion which would in this patient some symptomatic reasons. Objective - Vital Signs Vital signs: Vital Signs Temp 98.9 F 09/02/18 19:34 Pulse 109 H 09/02/18 19:34 Resp 20 09/02/18 19:34 BP 126/61 09/02/18 19:34 Pulse Ox 92 L 09/02/18 19:34 Intake & Output 09/02/18 09/02/18 09/03/18 06:59 18:59 06:59 Intake Total 100 980 Balance 100 980 Intake: Intake, IV Titration 800 Amount Sodium Chloride 0.9% 1, 800 000 ml @ 100 mls/hr IV . Q10H [facility] Rx#:[id number] Oral 100 180 Other: # Voids 1 1 # Bowel Movements 1 - Exam GENERAL EXAM: Alert, pleasant, 62-year-old white female, a little slow to respond, comfortable in no apparent distress. HEAD: Normocephalic/atraumatic. EYES: Normal reaction of pupils, equal size. Conjunctiva pink, sclera white. NOSE: Clear with pink turbinates. THROAT: No erythema or exudates. NECK: No masses, no JVD, no thyroid enlargement, no adenopathy. CHEST: No chest wall deformity. Symmetrical expansion. LUNGS: Equal air entry with diminished breath sounds over right lung, scattered crackles at the left CVS: Regular rate and rhythm, normal S1 and S2, no gallops, no murmurs, no rubs ABDOMEN: Soft, nontender. No hepatosplenomegaly, normal bowel sounds, no guarding or rigidity. EXTREMITIES: No clubbing, no edema, no cyanosis, 2+ pulses and upper and lower extremities. MUSCULOSKELETAL: Muscle strength and tone normal. SPINE: No scoliosis or deformity SKIN: No rashes CENTRAL NERVOUS SYSTEM: Alert and oriented -2. No focal deficits, tone is normal in all 4 extremities. PSYCHIATRIC: Alert and oriented -2. Appropriate affect. Intact judgment and insight. - Labs CBC & Chem 7: 09/02/18 05:20 09/02/18 05:20 Labs: Abnormal Lab Results - Last 24 Hours (Table) 09/01/18 09/02/18 09/02/18 Range/Units 20:45 05:20 05:20 RBC 3.31 L (3.80-5.40) m/uL Hgb 9.5 L D (11.4-16.0) gm/dL Hct 30.4 L (34.0-46.0) % Sodium 133 L (137-145) mmol/L Glucose 338 H (74-99) mg/dL POC Glucose (mg/dL) 152 H (75-99) mg/dL 09/02/18 09/02/18 09/02/18 Range/Units 05:49 11:38 16:22 RBC (3.80-5.40) m/uL Hgb (11.4-16.0) gm/dL Hct (34.0-46.0) % Sodium (137-145) mmol/L Glucose (74-99) mg/dL POC Glucose (mg/dL) 375 H 409 H 385 H (75-99) mg/dL Microbiology - Last 24 Hours (Table) 08/31/18 21:41 Blood Culture - Preliminary Blood No Growth after 24 hours Assessment and Plan Plan: Assessment: #1. Large right hilar mass with the obstruction of the right upper lobe bronchus tumor infiltration into the mediastinum associated right upper lobe collapse and right-sided pleural effusion. It is a postobstructive pneumonia related to recurrence of lung cancer. The patient also developed a moderate- sized right-sided pleural effusion. There is significant compromise and narrowing of the bronchus intermedius which obviously raises the concern for a right lung collapse in the future based on mass effect on underlying right lung mass. #2. History of stage IV small cell lung cancer with brain metastasis, status post chemotherapy and radiation. PET scan in March 2018 showed good response to therapy with no radiotracer uptake to suggest recurrent or metastatic disease. Most recent PET scan from July 2018 shows active neoplastic recurrence with a hypermetabolic mass like consolidation in the right hilar level extending into the right upper lobe with surrounding groundglass opacity measuring roughly 7.6 x 6.7 cm, with a max SUV of 10.95. There is subcarinal hypermetabolic mass or adenopathy indistinct from the right hilar mass with a max SUV of 9.4. There is no suspicious hypermetabolic right- sided supraclavicular lymph nodes with a max SUV of 7.21 and superior mediastinal and paratracheal hypermetabolic lymph nodes #3. Anion gap metabolic acidosis related to diabetic ketoacidosis, resolved with insulin infusion, and IV hydration #4. Sepsis related to postobstructive right-sided pneumonia, improving. #5. Hypertension #6. COPD stage II, with underlying FEV1 of 1.29 L or 51% of predicted #7. Ex-smoker, 68-[id number]-[id number] smoking history, currently in remission #8. Hypothyroidism #9. History of peptic ulcer disease, previous episode of GI bleeding #10. Osteoarthritis #11 hyperlipidemia #12 steroid-induced hyperglycemia. Plan Clinically the patient seems to be slightly improved compared to yesterday. I' m going to obtain ultrasound marking of the right chest and proceed with a therapeutic thoracentesis of the right lung tomorrow. I also intend to do a bronchoscopy on this patient on Friday to evaluate the right lung with special attention to the bronchus intermedius to make sure the airways quite patent and is not in any form of compromise. If so, consideration will be given for 10 and a bronchial stent insertion in this patient. Meanwhile, the patient has stage IV lung cancer. Her prognosis poor baseline above-mentioned comorbidities. Long-term prognosis poor. She is currently on immunotherapy. We'll continue to follow.
[2018-09-02 20:51] LABS: Glucose,Whole Blood 346 mg/dL (75-99)
[2018-09-02] MEDS: EZETIMIBE 10 MG TAB PO SCH (21:00)
[2018-09-02 22:01] LABS: Glucose,Whole Blood 294 mg/dL (75-99)
[2018-09-03] MEDS ORDERED: diphenhydrAMINE 25 MG CAP ONE (02:03)
[2018-09-03] MEDS: LEVOTHYROXINE 100 MCG TAB PO SCH (05:58)
[2018-09-03] MEDS: SODIUM CHLORIDE 0.9% 1,000 ML IV SCH ×2 (05:59→16:54)
[2018-09-03] MEDS: SYMBICORT 160-4.5 MCG INHALER INHALATION SCH ×2 (07:33→19:46)
[2018-09-03] MEDS: IPRATROPIUM-ALBUTEROL 3 ML NEB INHALATION SCH ×4 (07:33→19:46)
[2018-09-03 08:12] LABS: Glucose,Whole Blood 351 mg/dL (75-99)
[2018-09-03] MEDS: HEPARIN SODIUM,PORCINE 5,000 UNIT/ML 1 ML VIAL SQ SCH ×2 (08:12→21:35)
[2018-09-03] MEDS: DRONABINOL 2.5 MG CAP PO SCH (08:13)
[2018-09-03] MEDS: PIPERACILLIN-TAZOBACTAM 3.375 GM in SODIUM CHLORIDE 0.9% 100 ML IVPB SCH ×2 (08:13→16:53)
[2018-09-03] MEDS: FAMOTIDINE 20 MG TAB PO SCH ×2 (08:13→21:35)
[2018-09-03] MEDS: MEGESTROL 400 MG/10 ML CUP PO SCH (08:14)
[2018-09-03] MEDS: FLUoxetine HCL 10 MG CAP PO SCH (08:14)
[2018-09-03] MEDS: INSULIN PUMP MEAL BOLUS 1 UNIT MISC MISCELLANE SCH ×4 (08:20→20:49)
--- NOTE | 2018-09-03 09:11 | US ---
EXAMINATION TYPE: US chest DATE OF EXAM: 09/03/2018 COMPARISON: CT CLINICAL HISTORY: Right pleurral effusion. TECHNIQUE: Targeted ultrasound of the posterior lower right hemithorax EXAM MEASUREMENTS: Right Pleural Effusion pocket size: 5.5 cm Right skin surface to fluid distance: 1.3 cm Lung seen at 2.3 cm Right side marked for possible thoracentesis outside the dept. Pulmonologists are able to review the images in the patient?s EMR. IMPRESSIONS: Right-sided pleural effusion as noted.
[2018-09-03 10:19] LABS: Total Protein 5.9 g/dL (6.3-8.2)
[2018-09-03 11:50] LABS: Glucose,Whole Blood 303 mg/dL (75-99)
--- NOTE | 2018-09-03 13:26 | XR ---
EXAMINATION TYPE: XR chest 1V DATE OF EXAM: 09/03/2018 HISTORY: Status post thoracentesis COMPARISON: September 01, 2018 TECHNIQUE: Single view of the chest is submitted. FINDINGS: Curvilinear lucency right apical region is felt to reflect a small thorax less than 10%. Continued fo llow-up advised. Continued right hilar and right upper lobe opacification. Underlying mass is difficult to exclude. Demonstrated are scattered senescent parenchymal change. The heart is stable. Hilar and mediastinal structures are within normal limits. Degenerative changes are seen of the dorsal spine. IMPRESSION: 1. Suspect small right apical pneumothorax status post thoracentesis. A Red level critical message alert has been initiated for Jeanette Temple via the [employer] System on 09/03/2018 1:24 PM. This message alert has been sent to Jeanette Temple via the preferences provided by the clinician for the receipt of Radiology Critical Findings. Message ID [id number].
[2018-09-03] MEDS ORDERED: ACETAMINOPHEN TAB 325 MG TAB PO PRN (13:50)
--- NOTE | 2018-09-03 14:17 | P.PN ---
Subjective Progress Note Date: 09/03/18 Principal diagnosis: Acute hypoxic respiratory failure secondary to a large right hilar mass with obstruction in the right upper lobe bronchus with right upper lobe collapse and a right-sided pleural effusion. This is 62-year-old white female patient with past medical history of moderately severe COPD, stage II, with underlying FEV1 of 51% of predicted, history of small cell lung cancer with metastasis to the brain, status post 6 rounds of chemotherapy including carboplatin plus etoposide completed in December 2017, and radiation for the brain metastasis. She follows with Dr. Whatley, and initially presented with a history of dry cough and hoarseness. ENT evaluation found a right vocal cord paralysis on laryngoscopic, and was treated with antibiotics and failed to improve. CT chest was completed and showed suspicious lymphadenopathy in the mediastinal right hilar and retroclavicular areas. Left adrenal nodule was also seen. E-BUS was performed at the [facility] confirming metastatic small cell undifferentiated carcinoma. She is a ex-smoker, until recently, [id number] smoking history. Also used marijuana. PET scan was obtained in March 2018, and there was no suspicious radiotracer accumulation to suggest recurrent or metastatic disease. However her most recent PET scan on 08/01/2018 and showed active neoplastic recurrence, with a new hypermetabolic masslike consolidation in the right hilar level extending into the right upper lobe with surrounding groundglass opacity measuring roughly 7.6 x 6.7 cm, with a max SUV of 10.95. There is subcarinal hypermetabolic mass or adenopathy indistinct from the right hilar mass with a max XE SUV of 9.4. Patient started immunotherapy with Opdivo last August 24. Over the last several days patient has been having increased coughing, shortness of breath, decreased appetite, on Friday she developed nausea and vomiting, progressive dyspnea, patient was becoming more disoriented and confused. On Friday patient had become so weak she couldn't walk. Denied any fever or chills. Does have type 2 diabetes, and let sugars have been running in the 500s on Friday and Friday. She was brought to the hospital for evaluation. Chest x-ray showed a worsening diffuse right lung infiltrate was suspected worsening small right pleural effusion. MRI of the brain showed moderate diffuse cerebral atrophy and moderate to severe white matter changes likely related to chronic small vessel ischemic change, no new enhancing lesions to suggest metastatic disease. White blood cell count was 11.5, hemoglobin was 11.1, sodium is 136, potassium is 5.0, chloride is 100, CO2 is 15, BUN is 30, creatinine 0.72, plasma lactic acid was 1.5, LFTs were within normal limits, troponin was negative 1, proBNP was 1340, urinalysis showed 4+ ketones, glucose. Serum acetone was positive. Patient was given IV in duration, and was started on insulin infusion per diabetic ketoacidosis protocol. IV antibiotic coverage in the form of Zosyn. 0.9 normal sitting at a rate of 100 ML per hour. Patient's significant other and her sister are at the bedside. Today's blood work was reviewed, and showed a serum sodium of 137, potassium is 3.5, chloride is 105, CO2 is 24, B1 is 25, creatinine is 0.65, and in gap has closed and is currently at 8. Patient is awake and alert, she is answering questions appropriately. Blood cultures have been ordered and sent, sputum culture has been ordered but not collected. On today's evaluation of 09/02/2018, I'm seeing this patient for a follow-up. Clinically improved compared to yesterday. The patient is feeling better and less short of breath. A repeat CAT scan of the chest was done and the results were quite abnormal. There is enlargement in the right lung mass and the patient was found to have a large hilar mass measuring 7.7 x 7.9 x 6.5 cm in size with infiltration into the mediastinum. There is also obstruction of the right upper lobe bronchus with collapse of the right upper lobe. There is also postobstructive pneumonia identified adjacent to the lung. A moderate-sized right-sided pleural effusion was noted. The bronchus intermedius seems to be quite narrowed. The patient is feeling well for now. She is on Symbicort. She is on IV Solu-Medrol. She is on IV Zosyn. She is also on DuoNeb nebulized treatments around the clock. I did ask discussion with the patient. I think it 's reasonable to reevaluate the patient with a bronchoscopy and assess the bronchus intermedius which is obviously an area of concern on today's consider amount of narrowing at that level from the underlying lung cancer. Also, I intend to do a thoracentesis procedure to evacuate the right-sided pleural effusion which would in this patient some symptomatic reasons. The patient is seen today 09/03/2018 in follow-up on the regular medical floor. She states she is breathing a bit easier today as compared to yesterday. Not back to her baseline. She is still dyspneic with minimal exertion. He is maintaining O2 saturations in the 90s on room air. She's been afebrile. Hemodynamically stable. She has been maintained on DuoNeb inhalations, Symbicort, Zosyn. Ultrasound of the chest revealed a 5.5 cm pocket on the right. The plan is for thoracentesis today. Objective - Vital Signs Vital signs: Vital Signs Temp 98.8 F 09/03/18 07:00 Pulse 104 H 09/03/18 11:33 Resp 18 09/03/18 07:00 BP 148/76 09/03/18 07:00 Pulse Ox 91 L 09/03/18 07:00 Intake & Output 09/02/18 09/03/18 09/03/18 18:59 06:59 18:59 Intake Total 980 300 Balance 980 300 Weight 51.1 kg Intake: Intake, IV Titration 800 Amount Sodium Chloride 0.9% 1, 800 000 ml @ 100 mls/hr IV . Q10H [facility] Rx#:[id number] Oral 180 300 Other: # Voids 1 1 # Bowel Movements 1 - Exam GENERAL EXAM: Alert, pleasant female, a little slow to respond, comfortable in no apparent distress. On room air. HEAD: Normocephalic/atraumatic. EYES: Normal reaction of pupils, equal size. Conjunctiva pink, sclera white. NOSE: Clear with pink turbinates. THROAT: No erythema or exudates. NECK: No masses, no JVD, no thyroid enlargement, no adenopathy. CHEST: No chest wall deformity. Symmetrical expansion. LUNGS: Equal air entry with diminished breath sounds over right lung, scattered crackles at the left CVS: Regular rate and rhythm, normal S1 and S2, no gallops, no murmurs, no rubs ABDOMEN: Soft, nontender. No hepatosplenomegaly, normal bowel sounds, no guarding or rigidity. EXTREMITIES: No clubbing, no edema, no cyanosis, 2+ pulses and upper and lower extremities. MUSCULOSKELETAL: Muscle strength and tone normal. SPINE: No scoliosis or deformity SKIN: No rashes CENTRAL NERVOUS SYSTEM: Alert and oriented -2. No focal deficits, tone is normal in all 4 extremities. PSYCHIATRIC: Alert and oriented -2. Appropriate affect. Intact judgment and insight. - Labs CBC & Chem 7: 09/02/18 05:20 09/02/18 05:20 Labs: Abnormal Lab Results - Last 24 Hours (Table) 09/02/18 09/02/18 09/02/18 Range/Units 16:22 20:47 21:58 POC Glucose (mg/dL) 385 H 346 H 294 H (75-99) mg/dL Lactate Dehydrogenase (313-618) U/L Total Protein (6.3-8.2) g/dL 09/03/18 09/03/18 09/03/18 Range/Units 08:10 09:35 11:46 POC Glucose (mg/dL) 351 H 303 H (75-99) mg/dL Lactate Dehydrogenase 1219 H (313-618) U/L Total Protein 5.9 L (6.3-8.2) g/dL Microbiology - Last 24 Hours (Table) 08/31/18 21:41 Blood Culture - Preliminary Blood No Growth after 48 hours Assessment and Plan Assessment: Assessment: #1. Large right hilar mass with the obstruction of the right upper lobe bronchus tumor infiltration into the mediastinum associated right upper lobe collapse and right-sided pleural effusion. It is a postobstructive pneumonia related to recurrence of lung cancer. The patient also developed a moderate- sized right-sided pleural effusion. There is significant compromise and narrowing of the bronchus intermedius which obviously raises the concern for a right lung collapse in the future based on mass effect on underlying right lung mass. Status post right-sided thoracentesis on 09/03/2018 with 1200 ML's of fluid removed. Pathology pending. #2. History of stage IV small cell lung cancer with brain metastasis, status post chemotherapy and radiation. PET scan in March 2018 showed good response to therapy with no radiotracer uptake to suggest recurrent or metastatic disease. Most recent PET scan from July 2018 shows active neoplastic recurrence with a hypermetabolic mass like consolidation in the right hilar level extending into the right upper lobe with surrounding groundglass opacity measuring roughly 7.6 x 6.7 cm, with a max SUV of 10.95. There is subcarinal hypermetabolic mass or adenopathy indistinct from the right hilar mass with a max SUV of 9.4. There is no suspicious hypermetabolic right- sided supraclavicular lymph nodes with a max SUV of 7.21 and superior mediastinal and paratracheal hypermetabolic lymph nodes #3. Anion gap metabolic acidosis related to diabetic ketoacidosis, resolved with insulin infusion, and IV hydration #4. Sepsis related to postobstructive right-sided pneumonia, improving. #5. Hypertension #6. COPD stage II, with underlying FEV1 of 1.29 L or 51% of predicted #7. Ex-smoker, [id number] smoking history, currently in remission #8. Hypothyroidism #9. History of peptic ulcer disease, previous episode of GI bleeding #10. Osteoarthritis #11 hyperlipidemia #12 steroid-induced hyperglycemia. Plan the The patient was seen and evaluated by Dr. Temple. He did perform a right- sided thoracentesis with 1200 ML's of turbulent fluid removed. Pathology is pending. Postprocedure chest x-ray reveals a very small, less than 10%, right apical pneumothorax.. The plan is for bronchoscopy tomorrow to evaluate the right upper lobe bronchus and determine if she may benefit from stent placement if there is significant narrowing. In the interim, we'll continue with her pulmonary medications. Increase her activity as tolerated. We'll continue to follow and make further recommendations based on her clinical status. I, the cosigning physician, performed a history & physical examination of the patient. Lungs sounds few scattered rhonchi more so on the right lung. Maintaining good O2 saturations in the 90s on room air. I discussed the assessment and plan of care with my nurse practitioner, Laura Silva. I attest to the above note as dictated by her.
--- NOTE | 2018-09-03 15:24 | PCN ---
PROCEDURE NOTE THORACENTESIS: PREOPERATIVE DIAGNOSIS: Left-sided pleural effusion. POSTOPERATIVE DIAGNOSIS: Left-sided pleural effusion. A time-out was completed verifying correct patient, procedure, site, positioning , and implant (s) or special equipment if applicable. Procedure was done at the bedside. Ultrasound guidance was/was not used and appropriate fluid pocket was identified and marked. Patient was positioned, prepped and draped in usual sterile fashion. Lidocaine was used to anesthetize the area. A Thoracentesis catheter was introduced into the pleural space and fluid was removed. Blood loss was none. A chest x-ray was ordered to evaluate for pneumothorax. Total Fluid Removed: 1.2 L Color of Fluid: Dark-yellowish pleural fluid. Patient tolerated the procedure well and there were no complications. No bedside complication. Chest x-ray shows a very tiny less than 5% right apical pneumothorax following the procedure. The patient is asymptomatic. MMODL / IJN: [id number] /
[2018-09-03] MEDS: HYDROcodone/APAP 7.5-325MG 1 EACH TAB PO PRN (16:53)
[2018-09-03 17:17] LABS: Glucose,Whole Blood 249 mg/dL (75-99)
--- NOTE | 2018-09-03 18:54 | P.PN ---
Subjective Progress Note Date: 09/02/18 Hospital course:62-year-old female came in with compensative shortness of breath going on for last's and had some confusion when I valid the patient patient is alert oriented 3 patient has history of lung cancer small cell lung cancer patient is on immunotherapy for that. Patient denied any fever chills patient is comparing of cough with the occasional whitish colored sputum production denied any chills. Denied any dysuria nausea vomiting. Patient had a chest x-ray which showed significant infiltrate in the right upper and middle lobes had a CAT scan today which showed right hilar mass with obstruction of the right upper lobe bronchus and tumor infiltration into the mediastinum with some right upper lobe collapse there is little bit of a bronchogram as well as some subpleural nodules with a right-sided pleural effusion and post obstructive pneumonia 09/02/2018 insulin pump resumed. Maintained on nebulized bronchodilators, steroids, antiobiotics.Pulmonary discussing thoracentesis. Review of Systems REVIEW OF SYSTEMS: CONSTITUTIONAL: No fever, no malaise, no fatigue. HEENT: No recent visual problems or hearing problems. Denied any sore throat. CARDIOVASCULAR: No chest pain, orthopnea, PND, no palpitations, no syncope. PULMONARY: no hemoptysis. GASTROINTESTINAL: No diarrhea, no nausea, no vomiting, no abdominal pain. NEUROLOGICAL: No headaches, no weakness, no numbness. HEMATOLOGICAL: Denies any bleeding or petechiae. GENITOURINARY: Denies any burning micturition, frequency, or urgency. MUSCULOSKELETAL/RHEUMATOLOGICAL: Denies any joint pain, swelling, or any muscle pain. ENDOCRINE: Denies any polyuria or polydipsia. The rest of the 14-point review of systems is negative. Objective - Vital Signs Vital signs: Vital Signs Temp 98.8 F 09/03/18 07:00 Pulse 104 H 09/03/18 11:33 Resp 18 09/03/18 07:00 BP 148/76 09/03/18 07:00 Pulse Ox 91 L 09/03/18 07:00 Intake & Output 09/02/18 09/03/18 09/03/18 18:59 06:59 18:59 Intake Total 980 300 Balance 980 300 Weight 51.1 kg Intake: Intake, IV Titration 800 Amount Sodium Chloride 0.9% 1, 800 000 ml @ 100 mls/hr IV . Q10H [facility] Rx#:[id number] Oral 180 300 Other: # Voids 1 1 # Bowel Movements 1 - Exam GENERAL: alert and oriented x3, not in any acute distress. Well developed, well nourished. HEENT: Pupils are round and equally reacting to light. EOMI. No scleral icterus. No conjunctival pallor. Normocephalic, atraumatic. No pharyngeal erythema. No thyromegaly. CARDIOVASCULAR: S1 and S2 present. No murmurs, rubs, or gallops. PULMONARY:, minimal wheezing in the right upper posterior lung baker along with scattered crackles overleft base ABDOMEN: Soft, nontender, nondistended, normoactive bowel sounds. No palpable organomegaly. MUSCULOSKELETAL: No joint swelling or deformity. EXTREMITIES: No cyanosis, clubbing, or pedal edema. NEUROLOGICAL: Gross neurological examination did not reveal any focal deficits. SKIN: No rashes. Active Medications Acetaminophen (Tylenol Tab) 650 mg PO Q6HR PRN PRN Reason: Fever and/ or Pain Last Admin: 09/03/18 14:05 Dose: 650 mg Hydrocodone Bitart/Acetaminophen ([place] 7.5-325) 1 each PO Q6H PRN PRN Reason: Moderate Pain Last Admin: 09/03/18 16:53 Dose: 1 each Albuterol/Ipratropium (Duoneb 0.5 Mg-3 Mg/3 Ml Soln) 3 ml INHALATION RT-QID [facility] Last Admin: 09/03/18 16:17 Dose: 3 ml Albuterol/Ipratropium (Duoneb 0.5 Mg-3 Mg/3 Ml Soln) 3 ml INHALATION RT-Q4H PRN PRN Reason: shortness of breath Budesonide/Formoterol Fumarate (Symbicort 160-4.5 Mcg Inhaler) 2 puff INHALATION RT-BID [facility] Last Admin: 09/03/18 07:33 Dose: 2 puff Diphenhydramine HCl (Benadryl) 25 mg PO HS PRN PRN Reason: Insomnia Dronabinol (Marinol) 10 mg PO DAILY [facility] Last Admin: 09/03/18 08:13 Dose: 10 mg Ezetimibe (Zetia) 10 mg PO HS [facility] Last Admin: 09/02/18 21:00 Dose: 10 mg Famotidine (Pepcid) 20 mg PO BID [facility] Last Admin: 09/03/18 08:13 Dose: 20 mg Fluoxetine HCl (Prozac) 10 mg PO DAILY [facility] Last Admin: 09/03/18 08:14 Dose: 10 mg Heparin Sodium (Porcine) (Heparin) 5,000 unit SQ Q12HR [facility] Last Admin: 09/03/18 08:12 Dose: 5,000 unit Piperacillin Sod/Tazobactam (Sod 3.375 gm/ Sodium Chloride) 100 mls @ 25 mls/ hr IVPB Q8HR [facility] Stop: 09/11/18 00:01 Last Admin: 09/03/18 16:53 Dose: 25 mls/hr Sodium Chloride (Saline 0.9%) 1,000 mls @ 100 mls/hr IV .Q10H [facility] Last Admin: 09/03/18 16:54 Dose: 100 mls/hr Insulin Aspart (Novolog) 0 unit SQ DAILY PRN PRN Reason: Insulin Pump Replacement Levothyroxine Sodium (Synthroid) 100 mcg PO 0630 [facility] Last Admin: 09/03/18 05:58 Dose: 100 mcg Megestrol Acetate (Megace) 800 mg PO DAILY [facility] Last Admin: 09/03/18 08:14 Dose: 800 mg Miscellaneous Information (Pneumonia Protocol Utilized) 1 each PO ONCE PRN PRN Reason: Per Protocol Miscellaneous Information (Insulin Pump Active Insulin) 1 each MISCELLANE ACHS PRN; Protocol PRN Reason: Blood Sugar - High Miscellaneous Information (Insulin Pump Basal Rates) 1 each MISCELLANE Q6HR PRN ; Protocol PRN Reason: Blood Sugar - High Miscellaneous Information (Insulin Pump Correction Bolus) 0 unit MISCELLANE ACHS PRN; Protocol PRN Reason: Blood Sugar - High Miscellaneous Information (Insulin Pump Meal Bolus) 0 unit MISCELLANE ACHS [place]ES ; Protocol Last Admin: 09/03/18 18:00 Dose: 6.6 unit Miscellaneous Information (Insulin Pump Target Glucose) 1 each MISCELLANE ACHS PRN; Protocol PRN Reason: Blood Sugar - High - Labs CBC & Chem 7: 09/02/18 05:20 09/02/18 05:20 Labs: Abnormal Lab Results - Last 24 Hours (Table) 09/02/18 09/02/18 09/02/18 Range/Units 16:22 20:47 21:58 POC Glucose (mg/dL) 385 H 346 H 294 H (75-99) mg/dL Lactate Dehydrogenase (313-618) U/L Total Protein (6.3-8.2) g/dL 09/03/18 09/03/18 09/03/18 Range/Units 08:10 09:35 11:46 POC Glucose (mg/dL) 351 H 303 H (75-99) mg/dL Lactate Dehydrogenase 1219 H (313-618) U/L Total Protein 5.9 L (6.3-8.2) g/dL Microbiology - Last 24 Hours (Table) 08/31/18 21:41 Blood Culture - Preliminary Blood No Growth after 48 hours Assessment and Plan Assessment: -Shortness breath: Secondary to postobstructive pneumonia, postobstructive collapse of the lung along with right-sided pleural effusion. -Small cell lung cancer stage IV on immunotherapy will consult oncology for prognostication of her cancer. Recommendations regarding continuation of this immunotherapy. MRI of the brain did not show any metastatic disease -Type 2 diabetes mellitus -Gastroesophageal reflux disease -Hypertension -Hyperlipidemia hypothyroidism -COPD with minimal exacerbation continue with the inhaled steroids Plan: Continue current medication regime ,monitoring and symptomatic treatment. Sputum, blood cultures pending Insulin pump resumed. Close monitoring of Accu-Cheks. Right chest ultrasound ordered for potential marking. Thoracentesis being discussed for tomorrow. Discharge planning in progress. Prognosis poor. The impression and plan of care has been dictated as directed. : I performed a history and examination of this patient, discussed the same with the dictator. I agree with the dictator's note ,documented as a scribe. Any additional findings or plans will be noted.
[2018-09-03 20:39] LABS: Glucose,Whole Blood 176 mg/dL (75-99)
[2018-09-03] MEDS: EZETIMIBE 10 MG TAB PO SCH (21:35)
[2018-09-03 22:45] LABS: Total Protein, Body Fluid 2940 mg/dL
[2018-09-04] MEDS: SODIUM CHLORIDE 0.9% 1,000 ML IV SCH ×3 (00:05→22:09)
[2018-09-04] MEDS: PIPERACILLIN-TAZOBACTAM 3.375 GM in SODIUM CHLORIDE 0.9% 100 ML IVPB SCH ×4 (00:05→23:45)
[2018-09-04] MEDS: LEVOTHYROXINE 100 MCG TAB PO SCH (06:01)
[2018-09-04 07:10] LABS: Color,BF Yellow
[2018-09-04 07:14] LABS: Nucleated Cells, Body Fluid 94 /uL; RBC, Body Fluid 471 /uL
[2018-09-04 07:15] LABS: Glucose,Whole Blood 175 mg/dL (75-99)
[2018-09-04 07:18] LABS: Mononuclear WBC,Body Fluid 96 %; Polynuclear WBC,Body Fluid 4 %; Total Cells Counted,Body Fluid 100
[2018-09-04 07:20] LABS: Appearance,BF Clear
[2018-09-04] MEDS: SYMBICORT 160-4.5 MCG INHALER INHALATION SCH ×2 (07:33→19:24)
[2018-09-04] MEDS: IPRATROPIUM-ALBUTEROL 3 ML NEB INHALATION SCH ×4 (07:33→19:25)
--- NOTE | 2018-09-04 07:49 | XR ---
EXAMINATION TYPE: XR chest 1V portable DATE OF EXAM: 09/04/2018 COMPARISON: 09/03/2018 HISTORY: Follow-up pneumothorax. TECHNIQUE: Single frontal view of the chest is obtained. FINDINGS: There is a right-sided Mediport present. Trace medial pneumothorax has improved in the int erim along the right lung apex. Large masslike density obscures the right upper lung and right perihi lum. New nodular densities are seen at the right lung base. Left lung remains well aerated. Cardia me diastinal silhouette is partially obscured but overall within normal limits. Slight right hemidiaphra gm elevation is secondary to right hemithorax volume loss. IMPRESSION: Decreasing size of the trace right apical pneumothorax estimated at approximately 5%. Re demonstration of a large right hilar mass and right upper lung mass creating postobstructive atelecta sis of the right upper lobe. New punctate densities in the right lower lung are seen.
[2018-09-04 08:30] LABS: Basophils % (A) 0 %; Eosinophils # (A) 0.1 k/uL (0-0.7); Eosinophils % (A) 2 %; HCT 32.1 % (34.0-46.0); Hypochromasia Slight; Lymphocytes # (A) 0.5 k/uL (1.0-4.8); Lymphocytes % (A) 9 %; MCH 28.8 pg (25.0-35.0); MCHC 31.3 g/dL (31.0-37.0); MCV 92.2 fL (80.0-100.0); Mean Platelet Volume 6.4; Monocytes # (A) 0.3 k/uL (0-1.0); Monocytes % (A) 5 %; Neutrophils # (A) 4.8 k/uL (1.3-7.7); Neutrophils % (A) 81 %; Platelet Count 359 k/uL (150-450); RBC 3.48 m/uL (3.80-5.40); RDW 15.2 % (11.5-15.5)
[2018-09-04] MEDS: INSULIN PUMP MEAL BOLUS 1 UNIT MISC MISCELLANE SCH ×4 (08:30→22:07)
[2018-09-04] MEDS: HEPARIN SODIUM,PORCINE 5,000 UNIT/ML 1 ML VIAL SQ SCH ×2 (08:37→21:07)
[2018-09-04] MEDS: MEGESTROL 400 MG/10 ML CUP PO SCH (08:37)
[2018-09-04] MEDS: FLUoxetine HCL 10 MG CAP PO SCH (08:37)
[2018-09-04] MEDS: FAMOTIDINE 20 MG TAB PO SCH ×2 (08:37→21:07)
[2018-09-04] MEDS: DRONABINOL 2.5 MG CAP PO SCH (08:37)
[2018-09-04 08:46] LABS: Anion Gap 6 mmol/L; Blood Urea Nitrogen 14 mg/dL (7-17); Calcium 8.8 mg/dL (8.4-10.2); Carbon Dioxide 27 mmol/L (22-30); Chloride 102 mmol/L (98-107); Glucose 173 mg/dL (74-99); Potassium 3.3 mmol/L (3.5-5.1); Sodium 135 mmol/L (137-145)
[2018-09-04] MEDS: HYDROcodone/APAP 7.5-325MG 1 EACH TAB PO PRN ×2 (09:22→16:38)
[2018-09-04 11:24] LABS: Glucose,Whole Blood 138 mg/dL (75-99)
[2018-09-04] MEDS ORDERED: PROPOFOL 10 MG/ML 20 ML VIAL IV ONE (13:15)
[2018-09-04] MEDS ORDERED: MIDAZOLAM 2 MG/2 ML VIAL ONE (13:15)
[2018-09-04] MEDS ORDERED: fentaNYL (PF) 50 MCG/ML 2 ML AMP ONE (13:15)
[2018-09-04] MEDS ORDERED: IV FLUID CONTINUATION 400 ML IV ONE (13:19)
[2018-09-04 14:28] LABS: Glucose,Whole Blood 100 mg/dL (75-99)
--- NOTE | 2018-09-04 17:10 | P.PCN ---
Date of Procedure: 09/04/18 Preoperative Diagnosis: Right upper lobe postobstructive pneumonia Postoperative Diagnosis: Same Procedure(s) Performed: Flexible bronchoscopy, bronchoalveolar lavage of the right upper lobe Anesthesia: MAC Surgeon: Jeanette Temple Estimated Blood Loss (ml): 0 Pathology: none sent Condition: stable Disposition: floor Operative Findings: This procedure was done in the operating room under general anesthesia. The procedure including the potential complications were expected to the patient. A timeout was obtained. A consent was signed. After induction by anesthesia, the patient was intubated and placed on a mechanical ventilator. A flexible bronchoscope was introduced through the endotracheal tube and was advanced into the lower trachea. The tip of the orotracheal tube was seen around 3 cm above the bon. The bon was sharp in the midline. The right Mainstem bronchus was patent. Right upper lobe bronchus was patent yet the various subsegments of the right upper lobe including the apical anterior and posterior segments were quite obstructed, essentially extrinsic compression due to an underlying right upper lobe mass. No endobronchial tumors were seen. Some limited secretions were found in the right upper lobe bronchus that was suctioned out. A bronchial alveolar lavage of the right upper lobe was done. A total of 80 mL of fluid was infused around 15 mL was suctioned back. Following that, the airways inspection was completed. The distal bronchus intermedius was narrowed unit was patent. I within the distal be a was probably reduced to around 50% of its caliber. Nevertheless, the right middle lobe bronchus and the right lower lobe bronchus and the various segments of the right lower lobes were patent. Examination of the left side was within normal limits. The visualized airways and the left side included the left upper lobe bronchus and the left lower lobe bronchus along with various segments and subsegments. At the end of this procedure, it was decided not to put any and the bronchial stenting knowing that they bronchus intermedius was told to be quite painted an adequate and it was not in significant compromise. Bronchoscope was removed. The patient was extubated and the patient was chest with recovery in stable condition. Family was updated. The samples on the right upper lobe was sent for microbial analysis.
[2018-09-04 17:24] LABS: Glucose,Whole Blood 77 mg/dL (75-99)
--- NOTE | 2018-09-04 17:39 | P.PN ---
Subjective Progress Note Date: 09/04/18 Principal diagnosis: acute hypoxic respiratory failure secondary to large right hilar mass with obstruction in the right upper lobe bronchus with right upper lobe collapse in the right sided pleural effusion This is 62-year-old white female patient with past medical history of moderately severe COPD, stage II, with underlying FEV1 of 51% of predicted, history of small cell lung cancer with metastasis to the brain, status post 6 rounds of chemotherapy including carboplatin plus etoposide completed in December 2017, and radiation for the brain metastasis. She follows with Dr. Whatley, and initially presented with a history of dry cough and hoarseness. ENT evaluation found a right vocal cord paralysis on laryngoscopic, and was treated with antibiotics and failed to improve. CT chest was completed and showed suspicious lymphadenopathy in the mediastinal right hilar and retroclavicular areas. Left adrenal nodule was also seen. E-BUS was performed at the [facility] confirming metastatic small cell undifferentiated carcinoma. She is a ex-smoker, until recently, [id number] smoking history. Also used marijuana. PET scan was obtained in March 2018, and there was no suspicious radiotracer accumulation to suggest recurrent or metastatic disease. However her most recent PET scan on 08/01/2018 and showed active neoplastic recurrence, with a new hypermetabolic masslike consolidation in the right hilar level extending into the right upper lobe with surrounding groundglass opacity measuring roughly 7.6 x 6.7 cm, with a max SUV of 10.95. There is subcarinal hypermetabolic mass or adenopathy indistinct from the right hilar mass with a max XE SUV of 9.4. Patient started immunotherapy with Opdivo last August 24. Over the last several days patient has been having increased coughing, shortness of breath, decreased appetite, on Friday she developed nausea and vomiting, progressive dyspnea, patient was becoming more disoriented and confused. On Friday patient had become so weak she couldn't walk. Denied any fever or chills. Does have type 2 diabetes, and let sugars have been running in the 500s on Friday and Friday. She was brought to the hospital for evaluation. Chest x-ray showed a worsening diffuse right lung infiltrate was suspected worsening small right pleural effusion. MRI of the brain showed moderate diffuse cerebral atrophy and moderate to severe white matter changes likely related to chronic small vessel ischemic change, no new enhancing lesions to suggest metastatic disease. White blood cell count was 11.5, hemoglobin was 11.1, sodium is 136, potassium is 5.0, chloride is 100, CO2 is 15, BUN is 30, creatinine 0.72, plasma lactic acid was 1.5, LFTs were within normal limits, troponin was negative 1, proBNP was 1340, urinalysis showed 4+ ketones, glucose. Serum acetone was positive. Patient was given IV in duration, and was started on insulin infusion per diabetic ketoacidosis protocol. IV antibiotic coverage in the form of Zosyn. 0.9 normal sitting at a rate of 100 ML per hour. Patient's significant other and her sister are at the bedside. Today's blood work was reviewed, and showed a serum sodium of 137, potassium is 3.5, chloride is 105, CO2 is 24, B1 is 25, creatinine is 0.65, and in gap has closed and is currently at 8. Patient is awake and alert, she is answering questions appropriately. Blood cultures have been ordered and sent, sputum culture has been ordered but not collected. On today's evaluation of 09/02/2018, I'm seeing this patient for a follow-up. Clinically improved compared to yesterday. The patient is feeling better and less short of breath. A repeat CAT scan of the chest was done and the results were quite abnormal. There is enlargement in the right lung mass and the patient was found to have a large hilar mass measuring 7.7 x 7.9 x 6.5 cm in size with infiltration into the mediastinum. There is also obstruction of the right upper lobe bronchus with collapse of the right upper lobe. There is also postobstructive pneumonia identified adjacent to the lung. A moderate-sized right-sided pleural effusion was noted. The bronchus intermedius seems to be quite narrowed. The patient is feeling well for now. She is on Symbicort. She is on IV Solu-Medrol. She is on IV Zosyn. She is also on DuoNeb nebulized treatments around the clock. I did ask discussion with the patient. I think it 's reasonable to reevaluate the patient with a bronchoscopy and assess the bronchus intermedius which is obviously an area of concern on today's consider amount of narrowing at that level from the underlying lung cancer. Also, I intend to do a thoracentesis procedure to evacuate the right-sided pleural effusion which would in this patient some symptomatic reasons. The patient is seen today 09/03/2018 in follow-up on the regular medical floor. She states she is breathing a bit easier today as compared to yesterday. Not back to her baseline. She is still dyspneic with minimal exertion. He is maintaining O2 saturations in the 90s on room air. She's been afebrile. Hemodynamically stable. She has been maintained on DuoNeb inhalations, Symbicort, Zosyn. Ultrasound of the chest revealed a 5.5 cm pocket on the right. The plan is for thoracentesis today. On 09/04/2018 she seen in follow-up in medical surgical floor. she is awake and alert, in no acute distress, room air pulse ox is 92%, no fever or chills, he remains on empiric antibiotics in the form of Zosyn. IV 0.9 normal saline at a rate of 100 ML per hour, she is on nebulized bronchodilators. Patient is going for bronchoscopy today for evaluation of the bronchus intermedius and the amount of airway narrowing caused by the underlying lung cancer. Objective - Vital Signs Vital signs: Vital Signs Temp 97.6 F 09/04/18 14:04 Pulse 110 H 09/04/18 14:33 Resp 16 09/04/18 14:33 BP 122/59 09/04/18 14:33 Pulse Ox 95 09/04/18 14:33 Intake & Output 09/03/18 09/04/18 09/04/18 18:59 06:59 18:59 Intake Total 20 Balance 20 Weight 51.1 kg Intake: IV 20 Other: # Voids 3 1 - Exam GENERAL EXAM: Alert, pleasant female, a little slow to respond, comfortable in no apparent distress. On room air. HEAD: Normocephalic/atraumatic. EYES: Normal reaction of pupils, equal size. Conjunctiva pink, sclera white. NOSE: Clear with pink turbinates. THROAT: No erythema or exudates. NECK: No masses, no JVD, no thyroid enlargement, no adenopathy. CHEST: No chest wall deformity. Symmetrical expansion. LUNGS: Equal air entry with diminished breath sounds over right lung, scattered crackles at the left CVS: Regular rate and rhythm, normal S1 and S2, no gallops, no murmurs, no rubs ABDOMEN: Soft, nontender. No hepatosplenomegaly, normal bowel sounds, no guarding or rigidity. EXTREMITIES: No clubbing, no edema, no cyanosis, 2+ pulses and upper and lower extremities. MUSCULOSKELETAL: Muscle strength and tone normal. SPINE: No scoliosis or deformity SKIN: No rashes CENTRAL NERVOUS SYSTEM: Alert and oriented -2. No focal deficits, tone is normal in all 4 extremities. PSYCHIATRIC: Alert and oriented -2. Appropriate affect. Intact judgment and insight. - Labs CBC & Chem 7: 09/04/18 07:50 09/04/18 07:50 Labs: Abnormal Lab Results - Last 24 Hours (Table) 09/03/18 09/04/18 09/04/18 Range/Units 20:37 07:13 07:50 RBC 3.48 L (3.80-5.40) m/uL Hgb 10.0 L (11.4-16.0) gm/dL Hct 32.1 L (34.0-46.0) % Lymphocytes # 0.5 L (1.0-4.8) k/uL Sodium (137-145) mmol/L Potassium (3.5-5.1) mmol/L Glucose (74-99) mg/dL POC Glucose (mg/dL) 176 H 175 H (75-99) mg/dL 09/04/18 09/04/18 09/04/18 Range/Units 07:50 11:22 14:26 RBC (3.80-5.40) m/uL Hgb (11.4-16.0) gm/dL Hct (34.0-46.0) % Lymphocytes # (1.0-4.8) k/uL Sodium 135 L (137-145) mmol/L Potassium 3.3 L (3.5-5.1) mmol/L Glucose 173 H (74-99) mg/dL POC Glucose (mg/dL) 138 H 100 H (75-99) mg/dL Microbiology - Last 24 Hours (Table) 09/03/18 12:45 Gram Stain - Preliminary Pleural Fluid Body Fluid Culture - Preliminary 08/31/18 21:41 Blood Culture - Preliminary Blood No Growth after 72 hours Assessment and Plan Plan: Assessment: #1. Large right hilar mass with the obstruction of the right upper lobe bronchus tumor infiltration into the mediastinum associated right upper lobe collapse and right-sided pleural effusion. It is a postobstructive pneumonia related to recurrence of lung cancer. The patient also developed a moderate- sized right-sided pleural effusion. There is significant compromise and narrowing of the bronchus intermedius which obviously raises the concern for a right lung collapse in the future based on mass effect on underlying right lung mass. Status post right-sided thoracentesis on 09/03/2018 with 1200 ML's of fluid removed. Pathology pending. #2. History of stage IV small cell lung cancer with brain metastasis, status post chemotherapy and radiation. PET scan in March 2018 showed good response to therapy with no radiotracer uptake to suggest recurrent or metastatic disease. Most recent PET scan from July 2018 shows active neoplastic recurrence with a hypermetabolic mass like consolidation in the right hilar level extending into the right upper lobe with surrounding groundglass opacity measuring roughly 7.6 x 6.7 cm, with a max SUV of 10.95. There is subcarinal hypermetabolic mass or adenopathy indistinct from the right hilar mass with a max SUV of 9.4. There is no suspicious hypermetabolic right- sided supraclavicular lymph nodes with a max SUV of 7.21 and superior mediastinal and paratracheal hypermetabolic lymph nodes #3. Anion gap metabolic acidosis related to diabetic ketoacidosis, resolved with insulin infusion, and IV hydration #4. Sepsis related to postobstructive right-sided pneumonia #5. Hypertension, hyperlipidemia #6. COPD stage II, with underlying FEV1 of 1.29 L or 51% of predicted #7. Strattera [id number] smoking history, currently in remission #8. Hypothyroidism #9. History of peptic ulcer disease, previous episode of GI bleeding #10. Osteoarthritis Plan: Pleural fluid cytology still pending, blood cultures are negative thus far, no fever or chills. She underwent bronchoscopy for inspection of the right upper lobe postobstructive pneumonia, and there was no need to place an endobronchial stent at this time. We'll continue with current medical treatment. Bronchial wash cultures were sent for cytology and cultures I performed a history & physical examination of the patient and discussed their management with my nurse practitioner, Jeana Hartman. I reviewed the nurse practitioner's note and agree with the documented findings and plan of care. Lung sounds are diminished. The findings and the impression was discussed with the patient. I attest to the documentation by the nurse practitioner. Time with Patient: Less than 30
--- NOTE | 2018-09-04 19:04 | P.PN ---
Subjective Progress Note Date: 09/03/18 Hospital course:62-year-old female came in with compensative shortness of breath going on for last's and had some confusion when I valid the patient patient is alert oriented 3 patient has history of lung cancer small cell lung cancer patient is on immunotherapy for that. Patient denied any fever chills patient is comparing of cough with the occasional whitish colored sputum production denied any chills. Denied any dysuria nausea vomiting. Patient had a chest x-ray which showed significant infiltrate in the right upper and middle lobes had a CAT scan today which showed right hilar mass with obstruction of the right upper lobe bronchus and tumor infiltration into the mediastinum with some right upper lobe collapse there is little bit of a bronchogram as well as some subpleural nodules with a right-sided pleural effusion and post obstructive pneumonia 09/02/2018 insulin pump resumed. Maintained on nebulized bronchodilators, steroids, antiobiotics.Pulmonary discussing thoracentesis. 09/03/2018 blood sugars uncontrolled at this time. Maintained on nebulized bronchodilators, Zosyn. Breathing slowly improving, maintaining O2 sats of 90s on room air. Chest ultrasound ordered, potential thoracentesis. Afebrile. Review of Systems REVIEW OF SYSTEMS: CONSTITUTIONAL: No fever, no malaise, no fatigue. HEENT: No recent visual problems or hearing problems. Denied any sore throat. CARDIOVASCULAR: No chest pain, orthopnea, PND, no palpitations, no syncope. PULMONARY: no hemoptysis. GASTROINTESTINAL: No diarrhea, no nausea, no vomiting, no abdominal pain. NEUROLOGICAL: No headaches, no weakness, no numbness. HEMATOLOGICAL: Denies any bleeding or petechiae. GENITOURINARY: Denies any burning micturition, frequency, or urgency. MUSCULOSKELETAL/RHEUMATOLOGICAL: Denies any joint pain, swelling, or any muscle pain. ENDOCRINE: Denies any polyuria or polydipsia. The rest of the 14-point review of systems is negative. Active Medications Acetaminophen (Tylenol Tab) 650 mg PO Q6HR PRN PRN Reason: Fever and/ or Pain Last Admin: 09/03/18 14:05 Dose: 650 mg Hydrocodone Bitart/Acetaminophen ([place] 7.5-325) 1 each PO Q6H PRN PRN Reason: Moderate Pain Last Admin: 09/03/18 16:53 Dose: 1 each Albuterol/Ipratropium (Duoneb 0.5 Mg-3 Mg/3 Ml Soln) 3 ml INHALATION RT-QID [facility] Last Admin: 09/03/18 16:17 Dose: 3 ml Albuterol/Ipratropium (Duoneb 0.5 Mg-3 Mg/3 Ml Soln) 3 ml INHALATION RT-Q4H PRN PRN Reason: shortness of breath Budesonide/Formoterol Fumarate (Symbicort 160-4.5 Mcg Inhaler) 2 puff INHALATION RT-BID [facility] Last Admin: 09/03/18 07:33 Dose: 2 puff Diphenhydramine HCl (Benadryl) 25 mg PO HS PRN PRN Reason: Insomnia Dronabinol (Marinol) 10 mg PO DAILY [facility] Last Admin: 09/03/18 08:13 Dose: 10 mg Ezetimibe (Zetia) 10 mg PO HS [facility] Last Admin: 09/02/18 21:00 Dose: 10 mg Famotidine (Pepcid) 20 mg PO BID [facility] Last Admin: 09/03/18 08:13 Dose: 20 mg Fluoxetine HCl (Prozac) 10 mg PO DAILY [facility] Last Admin: 09/03/18 08:14 Dose: 10 mg Heparin Sodium (Porcine) (Heparin) 5,000 unit SQ Q12HR [facility] Last Admin: 09/03/18 08:12 Dose: 5,000 unit Piperacillin Sod/Tazobactam (Sod 3.375 gm/ Sodium Chloride) 100 mls @ 25 mls/ hr IVPB Q8HR [facility] Stop: 09/11/18 00:01 Last Admin: 09/03/18 16:53 Dose: 25 mls/hr Sodium Chloride (Saline 0.9%) 1,000 mls @ 100 mls/hr IV .Q10H [facility] Last Admin: 09/03/18 16:54 Dose: 100 mls/hr Insulin Aspart (Novolog) 0 unit SQ DAILY PRN PRN Reason: Insulin Pump Replacement Levothyroxine Sodium (Synthroid) 100 mcg PO 0630 [facility] Last Admin: 09/03/18 05:58 Dose: 100 mcg Megestrol Acetate (Megace) 800 mg PO DAILY [facility] Last Admin: 09/03/18 08:14 Dose: 800 mg Miscellaneous Information (Pneumonia Protocol Utilized) 1 each PO ONCE PRN PRN Reason: Per Protocol Miscellaneous Information (Insulin Pump Active Insulin) 1 each MISCELLANE ACHS PRN; Protocol PRN Reason: Blood Sugar - High Miscellaneous Information (Insulin Pump Basal Rates) 1 each MISCELLANE Q6HR PRN ; Protocol PRN Reason: Blood Sugar - High Miscellaneous Information (Insulin Pump Correction Bolus) 0 unit MISCELLANE ACHS PRN; Protocol PRN Reason: Blood Sugar - High Miscellaneous Information (Insulin Pump Meal Bolus) 0 unit MISCELLANE ACHS [facility] ; Protocol Last Admin: 09/03/18 18:00 Dose: 6.6 unit Miscellaneous Information (Insulin Pump Target Glucose) 1 each MISCELLANE ACHS PRN; Protocol PRN Reason: Blood Sugar - High Objective - Vital Signs Vital signs: Vital Signs Temp 98.8 F 09/03/18 07:00 Pulse 104 H 09/03/18 11:33 Resp 18 09/03/18 07:00 BP 148/76 09/03/18 07:00 Pulse Ox 91 L 09/03/18 07:00 Intake & Output 09/02/18 09/03/18 09/03/18 18:59 06:59 18:59 Intake Total 980 300 Balance 980 300 Weight 51.1 kg Intake: Intake, IV Titration 800 Amount Sodium Chloride 0.9% 1, 800 000 ml @ 100 mls/hr IV . Q10H [facility] Rx#:[id number] Oral 180 300 Other: # Voids 1 1 # Bowel Movements 1 - Exam GENERAL: Sitting up in bed, alert and oriented x3, not in any acute distress, visiting with family at bedside HEENT: Pupils are round and equally reacting to light. EOMI. No scleral icterus. No conjunctival pallor. Normocephalic, atraumatic. CARDIOVASCULAR: S1 and S2 present. No murmurs, rubs, or gallops. PULMONARY: Diminished bilaterally with scattered crackles overleft base ABDOMEN: Soft, nontender, nondistended, normoactive bowel sounds. No palpable organomegaly. MUSCULOSKELETAL: No joint swelling or deformity. EXTREMITIES: No cyanosis, clubbing, or pedal edema. NEUROLOGICAL: Gross neurological examination did not reveal any focal deficits. SKIN: No rashes. - Labs CBC & Chem 7: 09/04/18 07:50 09/04/18 07:50 Labs: Abnormal Lab Results - Last 24 Hours (Table) 09/02/18 09/02/18 09/02/18 Range/Units 16:22 20:47 21:58 POC Glucose (mg/dL) 385 H 346 H 294 H (75-99) mg/dL Lactate Dehydrogenase (313-618) U/L Total Protein (6.3-8.2) g/dL 09/03/18 09/03/18 09/03/18 Range/Units 08:10 09:35 11:46 POC Glucose (mg/dL) 351 H 303 H (75-99) mg/dL Lactate Dehydrogenase 1219 H (313-618) U/L Total Protein 5.9 L (6.3-8.2) g/dL Microbiology - Last 24 Hours (Table) 08/31/18 21:41 Blood Culture - Preliminary Blood No Growth after 48 hours Assessment and Plan Assessment: -Shortness breath: Secondary to postobstructive pneumonia, postobstructive collapse of the lung along with right-sided pleural effusion. -Small cell lung cancer stage IV on immunotherapy will consult oncology for prognostication of her cancer. MRI of the brain did not show any metastatic disease -Type 2 diabetes mellitus -Gastroesophageal reflux disease -Hypertension -Hyperlipidemia hypothyroidism -COPD with minimal exacerbation Plan: Continue current medication regime ,monitoring and symptomatic treatment. Maintain same pump settings,patient's blood sugars fluctuates, in a patient with BMI of 19.3. Anticipate NPO status for bronchoscopy.Close monitoring of Accu-Cheks. Continue following blood cultures closely., blood cultures pending Right chest ultrasound pending. Potential Thoracentesis . Prognosis Guarded given multiple complex medical issues. The impression and plan of care has been dictated as directed. : I performed a history and examination of this patient, discussed the same with the dictator. I agree with the dictator's note ,documented as a scribe. Any additional findings or plans will be noted.
[2018-09-04] MEDS ORDERED: Potassium Replacement Protocol 1 EACH MISC MISCELLANE PRN (19:09)
--- NOTE | 2018-09-04 19:21 | P.PN ---
Subjective Progress Note Date: 09/04/18 Hospital course:62-year-old female came in with compensative shortness of breath going on for last's and had some confusion when I valid the patient patient is alert oriented 3 patient has history of lung cancer small cell lung cancer patient is on immunotherapy for that. Patient denied any fever chills patient is comparing of cough with the occasional whitish colored sputum production denied any chills. Denied any dysuria nausea vomiting. Patient had a chest x-ray which showed significant infiltrate in the right upper and middle lobes had a CAT scan today which showed right hilar mass with obstruction of the right upper lobe bronchus and tumor infiltration into the mediastinum with some right upper lobe collapse there is little bit of a bronchogram as well as some subpleural nodules with a right-sided pleural effusion and post obstructive pneumonia 09/02/2018 insulin pump resumed. Maintained on nebulized bronchodilators, steroids, antiobiotics.Pulmonary discussing thoracentesis. 09/03/2018blood sugars uncontrolled at this time. Maintained on nebulized bronchodilators, Zosyn. Breathing slowly improving, maintaining O2 sats of 90s on room air. Chest ultrasound ordered, potential thoracentesis. Afebrile. 09/04/2018 yesterday underwent right-sided thoracentesis with 1200 mL dark yellowish pleural fluid drained. Tolerated procedure well. Pathology pending. 10% right apical pneumothorax reported on post procedure chest x-ray. NPO , bronchoscopy today. Potassium 3.3. Review of Systems REVIEW OF SYSTEMS: CONSTITUTIONAL: No fever, no malaise, no fatigue. HEENT: No recent visual problems or hearing problems. Denied any sore throat. CARDIOVASCULAR: No chest pain, orthopnea, PND, no palpitations, no syncope. PULMONARY: no hemoptysis. GASTROINTESTINAL: No diarrhea, no nausea, no vomiting, no abdominal pain. NEUROLOGICAL: No headaches, no weakness, no numbness. HEMATOLOGICAL: Denies any bleeding or petechiae. GENITOURINARY: Denies any burning micturition, frequency, or urgency. MUSCULOSKELETAL/RHEUMATOLOGICAL: Denies any joint pain, swelling, or any muscle pain. ENDOCRINE: Denies any polyuria or polydipsia. Active Medications Acetaminophen (Tylenol Tab) 650 mg PO Q6HR PRN PRN Reason: Fever and/ or Pain Last Admin: 09/03/18 14:05 Dose: 650 mg Hydrocodone Bitart/Acetaminophen (Graham 7.5-325) 1 each PO Q6H PRN PRN Reason: Moderate Pain Last Admin: 09/04/18 16:38 Dose: 1 each Albuterol/Ipratropium (Duoneb 0.5 Mg-3 Mg/3 Ml Soln) 3 ml INHALATION RT-QID [facility] Last Admin: 09/04/18 15:56 Dose: Not Given Albuterol/Ipratropium (Duoneb 0.5 Mg-3 Mg/3 Ml Soln) 3 ml INHALATION RT-Q4H PRN PRN Reason: shortness of breath Budesonide/Formoterol Fumarate (Symbicort 160-4.5 Mcg Inhaler) 2 puff INHALATION RT-BID [facility] Last Admin: 09/04/18 07:33 Dose: 2 puff Diphenhydramine HCl (Benadryl) 25 mg PO HS PRN PRN Reason: Insomnia Dronabinol (Marinol) 10 mg PO DAILY [facility] Last Admin: 09/04/18 08:37 Dose: Not Given Ezetimibe (Zetia) 10 mg PO HS [facility] Last Admin: 09/03/18 21:35 Dose: 10 mg Famotidine (Pepcid) 20 mg PO BID [facility] Last Admin: 09/04/18 08:37 Dose: Not Given Fluoxetine HCl (Prozac) 10 mg PO DAILY [facility] Last Admin: 09/04/18 08:37 Dose: Not Given Heparin Sodium (Porcine) (Heparin) 5,000 unit SQ Q12HR [facility] Last Admin: 09/04/18 08:37 Dose: Not Given Piperacillin Sod/Tazobactam (Sod 3.375 gm/ Sodium Chloride) 100 mls @ 25 mls/ hr IVPB Q8HR [facility] Stop: 09/11/18 00:01 Last Admin: 09/04/18 16:33 Dose: 25 mls/hr Sodium Chloride (Saline 0.9%) 1,000 mls @ 100 mls/hr IV .Q10H [facility] Last Admin: 09/04/18 11:43 Dose: Not Given Insulin Aspart (Novolog) 0 unit SQ DAILY PRN PRN Reason: Insulin Pump Replacement Levothyroxine Sodium (Synthroid) 100 mcg PO 0630 [facility] Last Admin: 09/04/18 06:01 Dose: Not Given Megestrol Acetate (Megace) 800 mg PO DAILY [facility] Last Admin: 09/04/18 08:37 Dose: Not Given Miscellaneous Information (Pneumonia Protocol Utilized) 1 each PO ONCE PRN PRN Reason: Per Protocol Miscellaneous Information (Insulin Pump Active Insulin) 1 each MISCELLANE ACHS PRN; Protocol PRN Reason: Blood Sugar - High Miscellaneous Information (Insulin Pump Basal Rates) 1 each MISCELLANE Q6HR PRN ; Protocol PRN Reason: Blood Sugar - High Miscellaneous Information (Insulin Pump Correction Bolus) 0 unit MISCELLANE ACHS PRN; Protocol PRN Reason: Blood Sugar - High Miscellaneous Information (Insulin Pump Meal Bolus) 0 unit MISCELLANE ACHS [facility]ES ; Protocol Last Admin: 09/04/18 17:41 Dose: Not Given Miscellaneous Information (Insulin Pump Target Glucose) 1 each MISCELLANE ACHS PRN; Protocol PRN Reason: Blood Sugar - High Miscellaneous Information (Potassium Per Protocol) 1 each MISCELLANE DAILY PRN ; Protocol PRN Reason: Per Protocol Objective - Vital Signs Vital signs: Vital Signs Temp 97.9 F 09/04/18 06:33 Pulse 100 09/04/18 11:34 Resp 16 09/04/18 11:34 BP 145/75 09/04/18 06:33 Pulse Ox 92 L 09/04/18 07:34 Intake & Output 09/03/18 09/04/18 09/04/18 18:59 06:59 18:59 Weight 51.1 kg Other: # Voids 3 1 - Exam GENERAL: Sitting up in bed, alert and oriented x3, no acute distress, visiting with Sister at bedside HEENT: Pupils are round and equally reacting to light. EOMI. No scleral icterus. No conjunctival pallor. Normocephalic, atraumatic. CARDIOVASCULAR: S1 and S2 present. No murmurs, rubs, or gallops. PULMONARY: Diminished bilaterally with scattered crackles over left base ABDOMEN: Soft, nontender, nondistended, normoactive bowel sounds. No palpable organomegaly. MUSCULOSKELETAL: No joint swelling or deformity. EXTREMITIES: No cyanosis, clubbing, or pedal edema. NEUROLOGICAL: Gross neurological examination did not reveal any focal deficits. SKIN: No rashes. - Labs CBC & Chem 7: 09/04/18 07:50 09/04/18 07:50 Labs: Abnormal Lab Results - Last 24 Hours (Table) 09/03/18 09/03/18 09/04/18 Range/Units 17:05 20:37 07:13 RBC (3.80-5.40) m/uL Hgb (11.4-16.0) gm/dL Hct (34.0-46.0) % Lymphocytes # (1.0-4.8) k/uL Sodium (137-145) mmol/L Potassium (3.5-5.1) mmol/L Glucose (74-99) mg/dL POC Glucose (mg/dL) 249 H 176 H 175 H (75-99) mg/dL 09/04/18 09/04/18 09/04/18 Range/Units 07:50 07:50 11:22 RBC 3.48 L (3.80-5.40) m/uL Hgb 10.0 L (11.4-16.0) gm/dL Hct 32.1 L (34.0-46.0) % Lymphocytes # 0.5 L (1.0-4.8) k/uL Sodium 135 L (137-145) mmol/L Potassium 3.3 L (3.5-5.1) mmol/L Glucose 173 H (74-99) mg/dL POC Glucose (mg/dL) 138 H (75-99) mg/dL Microbiology - Last 24 Hours (Table) 09/03/18 12:45 Gram Stain - Preliminary Pleural Fluid Body Fluid Culture - Preliminary 08/31/18 21:41 Blood Culture - Preliminary Blood No Growth after 72 hours Assessment and Plan Assessment: -Shortness breath: Secondary to postobstructive pneumonia, postobstructive collapse of the lung along with right-sided pleural effusion. Status post thoracentesis, pathology pending. -Small cell lung cancer stage IV on immunotherapy. MRI of the brain did not show any metastatic disease -Type 2 diabetes mellitus, hyperglycemia, steroid-induced -Gastroesophageal reflux disease -Hypertension -Hyperlipidemia hypothyroidism -COPD with minimal exacerbation -Moderate protein calorie malnutrition, BMI 19.3 -Hypokalemia Plan: Continue current medication regime ,monitoring and symptomatic treatment. NPO, bronchoscopy scheduled for this morning. Thoracentesis/ pleural fluid pathology pending. Potassium supplements ordered/replacement protocol. Magnesium level added on, pending. Follow closely with pulmonary. The impression and plan of care has been dictated as directed. : I performed a history and examination of this patient, discussed the same with the dictator. I agree with the dictator's note ,documented as a scribe. Any additional findings or plans will be noted.
[2018-09-04] MEDS: POTASSIUM CHLORIDE ER 20 MEQ TAB.ER PO SCH ×2 (20:05→21:07)
[2018-09-04 20:34] LABS: Appearance,BF Cloudy; Color,BF Colorless
[2018-09-04 20:35] LABS: Mononuclear WBC,Body Fluid 74 %; Nucleated Cells, Body Fluid 145 /uL; Polynuclear WBC,Body Fluid 24 %; RBC, Body Fluid 710 /uL
[2018-09-04 20:36] LABS: Glucose,Whole Blood 88 mg/dL (75-99)
[2018-09-04] MEDS: EZETIMIBE 10 MG TAB PO SCH (21:07)
[2018-09-04 23:32] VITALS: RESP 20
[2018-09-05] MEDS: LEVOTHYROXINE 100 MCG TAB PO SCH (05:42)
[2018-09-05] MEDS: INSULIN PUMP MEAL BOLUS 1 UNIT MISC MISCELLANE SCH ×2 (07:18→12:48)
[2018-09-05] MEDS: MEGESTROL 400 MG/10 ML CUP PO SCH (07:43)
[2018-09-05] MEDS: DRONABINOL 2.5 MG CAP PO SCH (07:44)
[2018-09-05] MEDS: FAMOTIDINE 20 MG TAB PO SCH (07:44)
[2018-09-05] MEDS: FLUoxetine HCL 10 MG CAP PO SCH (07:44)
[2018-09-05] MEDS: PIPERACILLIN-TAZOBACTAM 3.375 GM in SODIUM CHLORIDE 0.9% 100 ML IVPB SCH (07:44)
[2018-09-05] MEDS: HYDROcodone/APAP 7.5-325MG 1 EACH TAB PO PRN (07:44)
[2018-09-05] MEDS: HEPARIN SODIUM,PORCINE 5,000 UNIT/ML 1 ML VIAL SQ SCH (07:44)
[2018-09-05] MEDS: IPRATROPIUM-ALBUTEROL 3 ML NEB INHALATION SCH ×2 (08:01→12:20)
[2018-09-05] MEDS: SYMBICORT 160-4.5 MCG INHALER INHALATION SCH (08:01)
[2018-09-05 08:10] LABS: Glucose,Whole Blood 67 mg/dL (75-99)
[2018-09-05 08:10] LABS: Glucose,Whole Blood 65 mg/dL (75-99)
[2018-09-05 08:10] LABS: Glucose,Whole Blood 87 mg/dL (75-99)
[2018-09-05 08:10] LABS: Glucose,Whole Blood 65 mg/dL (75-99)
[2018-09-05] MEDS: SODIUM CHLORIDE 0.9% 1,000 ML IV SCH (08:26)
[2018-09-05 09:30] VITALS: BP 136/70; TEMP 98.2
--- NOTE | 2018-09-05 10:53 | P.PN ---
Subjective Progress Note Date: 09/05/18 The patient complains of generalized weakness. She states that her cough is somewhat "heavier", but overall more productive. She feels stronger, with marked improvement in her respiratory distress compared to presentation. She is status post bronchoscopy yesterday. Objective - Vital Signs Vital signs: Vital Signs Temp 98.2 F 09/05/18 07:06 Pulse 109 H 09/05/18 08:15 Resp 20 09/05/18 08:01 BP 136/70 09/05/18 07:06 Pulse Ox 96 09/05/18 08:01 Intake & Output 09/04/18 09/05/18 09/05/18 18:59 06:59 18:59 Intake Total 20 300 Balance 20 300 Intake: IV 20 Oral 300 Other: Voiding Method Toilet Toilet # Voids 3 1 - Constitutional General appearance: Present: no acute distress - EENT Eyes: Present: EOMI ENT: Present: hearing grossly normal, normal oropharynx - Respiratory Respiratory: right: diminished (Upper and middle zones) - Cardiovascular Rhythm: regular Heart sounds: normal: S1, S2 - Gastrointestinal General gastrointestinal: Present: normal bowel sounds, soft - Integumentary Integumentary: Present: normal - Neurologic Neurologic: Present: CNII-XII intact - Musculoskeletal Musculoskeletal: Present: generalized weakness, strength equal bilaterally - Psychiatric Psychiatric: Present: A&O x's 3, appropriate affect - Labs CBC & Chem 7: 09/04/18 07:50 09/04/18 07:50 Labs: Abnormal Lab Results - Last 24 Hours (Table) 09/04/18 09/04/18 09/05/18 Range/Units 11:22 14:26 07:11 POC Glucose (mg/dL) 138 H 100 H 67 L (75-99) mg/dL 09/05/18 09/05/18 Range/Units 07:26 07:44 POC Glucose (mg/dL) 65 L 65 L (75-99) mg/dL Microbiology - Last 24 Hours (Table) 09/04/18 13:45 Gram Stain - Preliminary Bronchoalviolar Lavage - Right Bronchial Washings Culture - Preliminary 08/31/18 21:41 Blood Culture - Preliminary Blood No Growth after 96 hours 09/03/18 12:45 Gram Stain - Preliminary Pleural Fluid Body Fluid Culture - Preliminary Assessment and Plan (1) Dyspnea Narrative/Plan: The patient had bronchoscopy yesterday, to check for evidence of obstruction and possibility of relief with stenting, if indicated. Of note was reviewed, and case was discussed with him regarding medicine. Obstruction was noted of the airways of the right upper lobe, but the middle and lower lobe airways appear to be patent. Left-side was also patent. Therefore it was felt that stenting was not necessary. The patient also had thoracentesis of 1.2 L. Based on the above findings, and her clinical improvement with ongoing measures, its felt that her acute compromise was more likely due to pneumonia. Current Visit: Yes Status: Acute Code(s): R06.00 - DYSPNEA, UNSPECIFIED SNOMED Code(s): 385714542 (2) Pneumonia Narrative/Plan: As noted above, this is likely the major component of her acute decompensation. The patient is improved with treatment for pneumonia. Defer to the admitting service and pulmonary medicine for continued management. From our standpoint she can be discharged whenever felt to be appropriate by them Current Visit: Yes Status: Acute Priority: High Code(s): J18.9 - PNEUMONIA , UNSPECIFIED ORGANISM SNOMED Code(s): 095110081 (3) Small cell lung cancer Narrative/Plan: The patient has just started treatment with a new regimen of, and immunotherapy. It does not appear that her acute compromise is related to treatment. She will therefore continue her regimen as an outpatient. She has a follow-up next week with Dr. mendoza Current Visit: Yes Status: Acute Priority: High Code(s): C34.90 - MALIGNANT NEOPLASM OF UNSP PART OF UNSP BRONCHUS OR LUNG SNOMED Code(s): 560458333
[2018-09-05] MEDS ORDERED: guaiFENesin-DM 100-10MG/5ML 10 ML CUP PO PRN (11:33)
[2018-09-05 11:55] LABS: Glucose,Whole Blood 171 mg/dL (75-99)
[2018-09-05 12:32] VITALS: PULSE 101
--- NOTE | 2018-09-05 14:25 | P.PN ---
Subjective 62-year-old female came in with compensative shortness of breath going on for last's and had some confusion when I valid the patient patient is alert oriented 3 patient has history of lung cancer small cell lung cancer patient is on immunotherapy for that. Patient denied any fever chills patient is comparing of cough with the occasional whitish colored sputum production denied any chills. Denied any dysuria nausea vomiting. Patient had a chest x-ray which showed significant infiltrate in the right upper and middle lobes had a CAT scan today which showed right hilar mass with obstruction of the right upper lobe bronchus and tumor infiltration into the mediastinum with some right upper lobe collapse there is little bit of a bronchogram as well as some subpleural nodules with a right-sided pleural effusion and post obstructive pneumonia 09/02/2018 insulin pump resumed. Maintained on nebulized bronchodilators, steroids, antiobiotics.Pulmonary discussing thoracentesis. 09/03/2018blood sugars uncontrolled at this time. Maintained on nebulized bronchodilators, Zosyn. Breathing slowly improving, maintaining O2 sats of 90s on room air. Chest ultrasound ordered, potential thoracentesis. Afebrile. 09/04/2018 yesterday underwent right-sided thoracentesis with 1200 mL dark yellowish pleural fluid drained. Tolerated procedure well. Pathology pending. 10% right apical pneumothorax reported on post procedure chest x-ray. NPO , bronchoscopy today. Potassium 3.3. 09/05/2018 Patient underwent bronchoscopy and endobronchial of the lower arch. Patient is clinically doing well and cleared for discharge from pulmonary perspective as patient was on Augmentin before she came in here start her on Ceftin all the cultures so far didn't reveal any information. Exam GENERAL: Sitting up in bed, alert and oriented x3, no acute distress, visiting with Sister at bedside HEENT: Pupils are round and equally reacting to light. EOMI. No scleral icterus. No conjunctival pallor. Normocephalic, atraumatic. CARDIOVASCULAR: S1 and S2 present. No murmurs, rubs, or gallops. PULMONARY: Diminished bilaterally with scattered crackles over left base ABDOMEN: Soft, nontender, nondistended, normoactive bowel sounds. No palpable organomegaly. MUSCULOSKELETAL: No joint swelling or deformity. EXTREMITIES: No cyanosis, clubbing, or pedal edema. NEUROLOGICAL: Gross neurological examination did not reveal any focal deficits. SKIN: No rashes. Assessment and Plan Assessment: -Shortness breath: Secondary to postobstructive pneumonia, postobstructive collapse of the lung along with right-sided pleural effusion. Status post thoracentesis, and removal of around 1.3 L of fluid along with the bronchoscopy and bronchial lavage -Small cell lung cancer stage IV on immunotherapy. MRI of the brain did not show any metastatic disease -Type 2 diabetes mellitus, hyperglycemia, steroid-induced -Gastroesophageal reflux disease -Hypertension -Hyperlipidemia hypothyroidism -COPD with minimal exacerbation -Moderate protein calorie malnutrition, BMI 19.3 -Hypokalemia Objective - Vital Signs Vital signs: Vital Signs Temp 98.2 F 09/05/18 07:06 Pulse 101 H 09/05/18 12:31 Resp 20 09/05/18 08:01 BP 136/70 09/05/18 07:06 Pulse Ox 96 09/05/18 08:01 Intake & Output 09/04/18 09/05/18 09/05/18 18:59 06:59 18:59 Intake Total 20 300 Balance 20 300 Intake: IV 20 Oral 300 Other: Voiding Method Toilet Toilet # Voids 3 1 - Labs CBC & Chem 7: 09/04/18 07:50 09/04/18 07:50 Labs: Abnormal Lab Results - Last 24 Hours (Table) 09/04/18 09/05/18 09/05/18 Range/Units 14:26 07:11 07:26 POC Glucose (mg/dL) 100 H 67 L 65 L (75-99) mg/dL 09/05/18 09/05/18 Range/Units 07:44 11:53 POC Glucose (mg/dL) 65 L 171 H (75-99) mg/dL Microbiology - Last 24 Hours (Table) 09/03/18 12:45 Gram Stain - Preliminary Pleural Fluid Body Fluid Culture - Preliminary 09/04/18 13:45 Gram Stain - Preliminary Bronchoalviolar Lavage - Right Bronchial Washings Culture - Preliminary 08/31/18 21:41 Blood Culture - Preliminary Blood No Growth after 96 hours
--- NOTE | 2018-09-05 14:26 | P.DS ---
Providers Date of admission: 08/31/18 17:33 Attending physician: Valentina Chaidez Consults: 08/31/18 17:32 Consult Physician Stat Consulting Provider: Pérez Conley Consult Reason/Comments: Oncological care Do you want consulting provider notified?: Already Contacted 08/31/18 17:34 Consult Physician Routine Consulting Provider: Jeanette Temple Consult Reason/Comments: dyspnea, lung ca Do you want consulting provider notified?: Yes Primary care physician: [facility] Course: 62-year-old female came in with compensative shortness of breath going on for last's and had some confusion when I valid the patient patient is alert oriented 3 patient has history of lung cancer small cell lung cancer patient is on immunotherapy for that. Patient denied any fever chills patient is comparing of cough with the occasional whitish colored sputum production denied any chills. Denied any dysuria nausea vomiting. Patient had a chest x-ray which showed significant infiltrate in the right upper and middle lobes had a CAT scan today which showed right hilar mass with obstruction of the right upper lobe bronchus and tumor infiltration into the mediastinum with some right upper lobe collapse there is little bit of a bronchogram as well as some subpleural nodules with a right-sided pleural effusion and post obstructive pneumonia 09/02/2018 insulin pump resumed. Maintained on nebulized bronchodilators, steroids, antiobiotics.Pulmonary discussing thoracentesis. 09/03/2018blood sugars uncontrolled at this time. Maintained on nebulized bronchodilators, Zosyn. Breathing slowly improving, maintaining O2 sats of 90s on room air. Chest ultrasound ordered, potential thoracentesis. Afebrile. 09/04/2018 yesterday underwent right-sided thoracentesis with 1200 mL dark yellowish pleural fluid drained. Tolerated procedure well. Pathology pending. 10% right apical pneumothorax reported on post procedure chest x-ray. NPO , bronchoscopy today. Potassium 3.3. 09/05/2018 Patient underwent bronchoscopy and endobronchial of the lower arch. Patient is clinically doing well and cleared for discharge from pulmonary perspective as patient was on Augmentin before she came in here start her on Ceftin all the cultures so far didn't reveal any information. Exam GENERAL: Sitting up in bed, alert and oriented x3, no acute distress, visiting with Sister at bedside HEENT: Pupils are round and equally reacting to light. EOMI. No scleral icterus. No conjunctival pallor. Normocephalic, atraumatic. CARDIOVASCULAR: S1 and S2 present. No murmurs, rubs, or gallops. PULMONARY: Diminished bilaterally with scattered crackles over left base ABDOMEN: Soft, nontender, nondistended, normoactive bowel sounds. No palpable organomegaly. MUSCULOSKELETAL: No joint swelling or deformity. EXTREMITIES: No cyanosis, clubbing, or pedal edema. NEUROLOGICAL: Gross neurological examination did not reveal any focal deficits. SKIN: No rashes. Assessment and Plan Assessment: -Shortness breath: Secondary to postobstructive pneumonia, postobstructive collapse of the lung along with right-sided pleural effusion. Status post thoracentesis, and removal of around 1.3 L of fluid along with the bronchoscopy and bronchial lavage -Small cell lung cancer stage IV on immunotherapy. MRI of the brain did not show any metastatic disease -Type 2 diabetes mellitus, hyperglycemia, steroid-induced -Gastroesophageal reflux disease -Hypertension -Hyperlipidemia hypothyroidism -COPD with minimal exacerbation -Moderate protein calorie malnutrition, BMI 19.3 -Hypokalemia Patient Condition at Discharge: Good Plan - Discharge Summary New Discharge Prescriptions: New Cefuroxime Axetil [Ceftin] 500 mg PO BID 7 Days #14 tab Continue Levothyroxine Sodium [Synthroid] 100 mcg PO DAILY FLUoxetine HCL [PROzac] 10 mg PO DAILY Ezetimibe [Zetia] 10 mg PO HS Nivolumab [Opdivo] 100 mg IV DIRECTED Dronabinol 10 mg PO DAILY Megestrol [Megace] 800 mg PO DAILY Ipratropium-Albuterol Nebulize [Duoneb 0.5 mg-3 mg/3 ml Soln] 3 ml INHALATION RT-QID Budesonide/Formoterol Fumarate [Symbicort 160-4.5 Mcg Inhaler] 2 puff INHALATION RT-BID Albuterol Sulfate [Proair Hfa] 2 puff INHALATION RT-Q4H PRN PRN Reason: Shortness Of Breath Ipilimumab [Yervoy] 200 mg IV DIRECTED CHLORPHEN-HYDROcod 8-10mg/5ml [Tussionex] 5 ml PO Q12H Discontinued Amoxic-Pot Clav 875-125Mg [Augmentin 875-125] 1 tab PO Q12H Discharge Medication List Ezetimibe [Zetia] 10 mg PO HS 05/25/18 [History] FLUoxetine HCL [PROzac] 10 mg PO DAILY 12/19/17 [History] Levothyroxine Sodium [Synthroid] 100 mcg PO DAILY 12/19/17 [History] Albuterol Sulfate [Proair Hfa] 2 puff INHALATION RT-Q4H PRN 08/31/18 [History] Budesonide/Formoterol Fumarate [Symbicort 160-4.5 Mcg Inhaler] 2 puff INHALATION RT-BID 08/31/18 [History] CHLORPHEN-HYDROcod 8-10mg/5ml [Tussionex] 5 ml PO Q12H 08/31/18 [History] Dronabinol 10 mg PO DAILY 08/31/18 [History] Ipilimumab [Yervoy] 200 mg IV DIRECTED 08/31/18 [History] Ipratropium-Albuterol Nebulize [Duoneb 0.5 mg-3 mg/3 ml Soln] 3 ml INHALATION RT -QID 08/31/18 [History] Megestrol [Megace] 800 mg PO DAILY 08/31/18 [History] Nivolumab [Opdivo] 100 mg IV DIRECTED 08/31/18 [History] Cefuroxime Axetil [Ceftin] 500 mg PO BID 7 Days #14 tab 09/05/18 [Rx] Follow up Appointment(s)/Referral(s): Aman Whatley MD [Primary Care Provider] - 3 Days Jeanette Temple MD [STAFF PHYSICIAN] - 1 Week Discharge Disposition: HOME SELF-CARE
--- NOTE | 2018-09-05 15:16 | P.PN ---
Subjective Progress Note Date: 09/05/18 Principal diagnosis: Acute hypoxic respiratory failure secondary to a large right hilar mass with obstruction in the right upper lobe bronchus with right upper lobe collapse and a right-sided pleural effusion. This is 62-year-old white female patient with past medical history of moderately severe COPD, stage II, with underlying FEV1 of 51% of predicted, history of small cell lung cancer with metastasis to the brain, status post 6 rounds of chemotherapy including carboplatin plus etoposide completed in December 2017, and radiation for the brain metastasis. She follows with Dr. Whatley, and initially presented with a history of dry cough and hoarseness. ENT evaluation found a right vocal cord paralysis on laryngoscopic, and was treated with antibiotics and failed to improve. CT chest was completed and showed suspicious lymphadenopathy in the mediastinal right hilar and retroclavicular areas. Left adrenal nodule was also seen. E-BUS was performed at the [facility] confirming metastatic small cell undifferentiated carcinoma. She is a ex-smoker, until recently, [id number] smoking history. Also used marijuana. PET scan was obtained in March 2018, and there was no suspicious radiotracer accumulation to suggest recurrent or metastatic disease. However her most recent PET scan on 08/01/2018 and showed active neoplastic recurrence, with a new hypermetabolic masslike consolidation in the right hilar level extending into the right upper lobe with surrounding groundglass opacity measuring roughly 7.6 x 6.7 cm, with a max SUV of 10.95. There is subcarinal hypermetabolic mass or adenopathy indistinct from the right hilar mass with a max XE SUV of 9.4. Patient started immunotherapy with Opdivo last August 24. Over the last several days patient has been having increased coughing, shortness of breath, decreased appetite, on Friday she developed nausea and vomiting, progressive dyspnea, patient was becoming more disoriented and confused. On Friday patient had become so weak she couldn't walk. Denied any fever or chills. Does have type 2 diabetes, and let sugars have been running in the 500s on Friday and Friday. She was brought to the hospital for evaluation. Chest x-ray showed a worsening diffuse right lung infiltrate was suspected worsening small right pleural effusion. MRI of the brain showed moderate diffuse cerebral atrophy and moderate to severe white matter changes likely related to chronic small vessel ischemic change, no new enhancing lesions to suggest metastatic disease. White blood cell count was 11.5, hemoglobin was 11.1, sodium is 136, potassium is 5.0, chloride is 100, CO2 is 15, BUN is 30, creatinine 0.72, plasma lactic acid was 1.5, LFTs were within normal limits, troponin was negative 1, proBNP was 1340, urinalysis showed 4+ ketones, glucose. Serum acetone was positive. Patient was given IV in duration, and was started on insulin infusion per diabetic ketoacidosis protocol. IV antibiotic coverage in the form of Zosyn. 0.9 normal sitting at a rate of 100 ML per hour. Patient's significant other and her sister are at the bedside. Today's blood work was reviewed, and showed a serum sodium of 137, potassium is 3.5, chloride is 105, CO2 is 24, B1 is 25, creatinine is 0.65, and in gap has closed and is currently at 8. Patient is awake and alert, she is answering questions appropriately. Blood cultures have been ordered and sent, sputum culture has been ordered but not collected. On today's evaluation of 09/02/2018, I'm seeing this patient for a follow-up. Clinically improved compared to yesterday. The patient is feeling better and less short of breath. A repeat CAT scan of the chest was done and the results were quite abnormal. There is enlargement in the right lung mass and the patient was found to have a large hilar mass measuring 7.7 x 7.9 x 6.5 cm in size with infiltration into the mediastinum. There is also obstruction of the right upper lobe bronchus with collapse of the right upper lobe. There is also postobstructive pneumonia identified adjacent to the lung. A moderate-sized right-sided pleural effusion was noted. The bronchus intermedius seems to be quite narrowed. The patient is feeling well for now. She is on Symbicort. She is on IV Solu-Medrol. She is on IV Zosyn. She is also on DuoNeb nebulized treatments around the clock. I did ask discussion with the patient. I think it 's reasonable to reevaluate the patient with a bronchoscopy and assess the bronchus intermedius which is obviously an area of concern on today's consider amount of narrowing at that level from the underlying lung cancer. Also, I intend to do a thoracentesis procedure to evacuate the right-sided pleural effusion which would in this patient some symptomatic reasons. The patient is seen today 09/03/2018 in follow-up on the regular medical floor. She states she is breathing a bit easier today as compared to yesterday. Not back to her baseline. She is still dyspneic with minimal exertion. He is maintaining O2 saturations in the 90s on room air. She's been afebrile. Hemodynamically stable. She has been maintained on DuoNeb inhalations, Symbicort, Zosyn. Ultrasound of the chest revealed a 5.5 cm pocket on the right. The plan is for thoracentesis today. On 09/04/2018 she seen in follow-up in medical surgical floor. she is awake and alert, in no acute distress, room air pulse ox is 92%, no fever or chills, he remains on empiric antibiotics in the form of Zosyn. IV 0.9 normal saline at a rate of 100 ML per hour, she is on nebulized bronchodilators. Patient is going for bronchoscopy today for evaluation of the bronchus intermedius and the amount of airway narrowing caused by the underlying lung cancer. The patient is seen today 09/05/2017 in follow-up on the regular medical floor. She is currently sitting up in a chair at the bedside. She is doing quite well. No worsening shortness of breath, cough or congestion. Maintaining good O2 saturations in the 90s on room air. Bronchial wash cultures are pending. She has been maintained on Zosyn. She is anxious to go home. Objective - Vital Signs Vital signs: Vital Signs Temp 98.2 F 09/05/18 07:06 Pulse 101 H 09/05/18 12:31 Resp 20 09/05/18 08:01 BP 136/70 09/05/18 07:06 Pulse Ox 96 09/05/18 08:01 Intake & Output 09/04/18 09/05/18 09/05/18 18:59 06:59 18:59 Intake Total 20 300 Balance 20 300 Intake: IV 20 Oral 300 Other: Voiding Method Toilet Toilet # Voids 3 1 - Exam GENERAL EXAM: Alert, pleasant female, comfortable in no apparent distress. On room air. HEAD: Normocephalic/atraumatic. EYES: Normal reaction of pupils, equal size. Conjunctiva pink, sclera white. NOSE: Clear with pink turbinates. THROAT: No erythema or exudates. NECK: No masses, no JVD, no thyroid enlargement, no adenopathy. CHEST: No chest wall deformity. Symmetrical expansion. LUNGS: Equal air entry with diminished breath sounds over right lung, scattered crackles at the left CVS: Regular rate and rhythm, normal S1 and S2, no gallops, no murmurs, no rubs ABDOMEN: Soft, nontender. No hepatosplenomegaly, normal bowel sounds, no guarding or rigidity. EXTREMITIES: No clubbing, no edema, no cyanosis, 2+ pulses and upper and lower extremities. MUSCULOSKELETAL: Muscle strength and tone normal. SPINE: No scoliosis or deformity SKIN: No rashes CENTRAL NERVOUS SYSTEM: Alert and oriented -2. No focal deficits, tone is normal in all 4 extremities. PSYCHIATRIC: Alert and oriented -2. Appropriate affect. Intact judgment and insight. - Labs CBC & Chem 7: 09/04/18 07:50 09/04/18 07:50 Labs: Abnormal Lab Results - Last 24 Hours (Table) 09/05/18 09/05/18 09/05/18 Range/Units 07:11 07:26 07:44 POC Glucose (mg/dL) 67 L 65 L 65 L (75-99) mg/dL 09/05/18 Range/Units 11:53 POC Glucose (mg/dL) 171 H (75-99) mg/dL Microbiology - Last 24 Hours (Table) 09/03/18 12:45 Gram Stain - Preliminary Pleural Fluid Body Fluid Culture - Preliminary 09/04/18 13:45 Gram Stain - Preliminary Bronchoalviolar Lavage - Right Bronchial Washings Culture - Preliminary 08/31/18 21:41 Blood Culture - Preliminary Blood No Growth after 96 hours Assessment and Plan Assessment: Assessment: #1. Large right hilar mass with the obstruction of the right upper lobe bronchus tumor infiltration into the mediastinum associated right upper lobe collapse and right-sided pleural effusion. It is a postobstructive pneumonia related to recurrence of lung cancer. The patient also developed a moderate- sized right-sided pleural effusion. There is significant compromise and narrowing of the bronchus intermedius which obviously raises the concern for a right lung collapse in the future based on mass effect on underlying right lung mass. Status post right-sided thoracentesis on 09/03/2018 with 1200 ML's of fluid removed. Pathology pending. She did undergo bronchoscopy with BAL on 03/2019, no significant narrowing requiring a stent placement. #2. History of stage IV small cell lung cancer with brain metastasis, status post chemotherapy and radiation. PET scan in March 2018 showed good response to therapy with no radiotracer uptake to suggest recurrent or metastatic disease. Most recent PET scan from July 2018 shows active neoplastic recurrence with a hypermetabolic mass like consolidation in the right hilar level extending into the right upper lobe with surrounding groundglass opacity measuring roughly 7.6 x 6.7 cm, with a max SUV of 10.95. There is subcarinal hypermetabolic mass or adenopathy indistinct from the right hilar mass with a max SUV of 9.4. There is no suspicious hypermetabolic right- sided supraclavicular lymph nodes with a max SUV of 7.21 and superior mediastinal and paratracheal hypermetabolic lymph nodes #3. Anion gap metabolic acidosis related to diabetic ketoacidosis, resolved with insulin infusion, and IV hydration #4. Sepsis related to postobstructive right-sided pneumonia, improving. #5. Hypertension #6. COPD stage II, with underlying FEV1 of 1.29 L or 51% of predicted #7. Ex-smoker, 65-[id number]-rayh smoking history, currently in remission #8. Hypothyroidism #9. History of peptic ulcer disease, previous episode of GI bleeding #10. Osteoarthritis #11 hyperlipidemia #12 steroid-induced hyperglycemia. Plan the The patient was seen and evaluated by Dr. Temple. The patient is cleared for discharge from the pulmonary standpoint. She should follow-up in our office in 1 week's time. We'll review the results of the pleural and bronchial wash fluids at that time. Included course of antibiotics. She is however encouraged to call sooner with any recurrence of symptoms or other questions or concerns. I, the cosigning physician, performed a history & physical examination of the patient. Lungs sounds few scattered rhonchi more so on the right lung. Maintaining good O2 saturations in the 90s on room air. I discussed the assessment and plan of care with my nurse practitioner, Laura Silva. I attest to the above note as dictated by her.
--- NOTE | 2018-09-08 10:33 | CDI ---
Documentation Clarification Form Date: 09-08-18 From: FLORI Che Phone: If you have question, contact Jaimee Nair at [phone] M-F 8:30 am to 6pm Admit Date: 08/31/2018 5:33:00 PM Patient Name: Bernadette Meraz Visit Number: [id number] Discharge Date: 09/05/2018 2:05:00 PM ATTENTION: The Clinical Documentation Specialists (CDI) and [facility] Coding Staff appreciate your assistance in clarifying documentation. Please respond to the clarification below the line at the bottom and electronically sign. The CDI & [facility] Coding staff will review the response and follow-up if needed. Please note: Queries are made part of the Legal Health Record. If you have any questions, please contact the author of this message via ITS. Dr. Valentina Chaidez Ms Meraz was admitted with postobstructive pneumonia with collapse of the lung along with right sided pleural effusion. She has a history of small cell lung cancer. A thoracentesis was done on 09/03 and PAP stain showed the fluid was consistent with metastatic small cell carcinoma. The final diagnosis of the pathology report states: pleural effusion with metastatic small cell carcinoma Documentation states: pleural effusion In your professional opinion, do you agree with the pathology report specifying the pleural effusion as metastatis pleural effusion? Yes No Other (please specify) Unable to determine Yes MTDD
== END 2018-09-05 14:05 | disposition home or self-care (01) | DRG 871 ==
LOC: EC 11:36 → 3SCARD 17:33 → 4MS4W 09-02 18:31
PROVIDERS: ADMIT Internal Medicine; ATTEND Internal Medicine
PROC: 0W9B3ZZ Drainage of Left Pleural Cavity, Percutaneous Approach (ICD-10-PCS; principal; 2018-09-03)
PROC: 0B9C8ZX Drainage of Right Upper Lung Lobe, Via Natural or Artificial Opening Endoscopic, Diagnostic (ICD-10-PCS; 2018-09-04)
DX: A41.9 Sepsis, unspecified organism (principal); E11.10 Type 2 diabetes mellitus with ketoacidosis without coma; J18.8 Other pneumonia, unspecified organism; J96.01 Acute respiratory failure with hypoxia; C34.01 Malignant neoplasm of right main bronchus; C79.31 Secondary malignant neoplasm of brain; E44.0 Moderate protein-calorie malnutrition; Z68.1 Body mass index [BMI] 19.9 or less, adult; J93.83 Other pneumothorax; J91.0 Malignant pleural effusion; J44.0 Chronic obstructive pulmonary disease with (acute) lower respiratory infection; J98.19 Other pulmonary collapse; M19.90 Unspecified osteoarthritis, unspecified site; E03.9 Hypothyroidism, unspecified; K21.9 Gastro-esophageal reflux disease without esophagitis; I10 Essential (primary) hypertension; E87.6 Hypokalemia; E27.8 Other specified disorders of adrenal gland; E78.5 Hyperlipidemia, unspecified; T38.0X5A Adverse effect of glucocorticoids and synthetic analogues, initial encounter; F17.201 Nicotine dependence, unspecified, in remission; J38.01 Paralysis of vocal cords and larynx, unilateral; Z79.51 Long term (current) use of inhaled steroids; Z92.21 Personal history of antineoplastic chemotherapy; Z92.3 Personal history of irradiation; Z79.890 Hormone replacement therapy; Z79.899 Other long term (current) drug therapy; Z80.3 Family history of malignant neoplasm of breast; Z80.8 Family history of malignant neoplasm of other organs or systems; Z87.11 Personal history of peptic ulcer disease; Z79.52 Long term (current) use of systemic steroids; Z85.118 Personal history of other malignant neoplasm of bronchus and lung
CPT/HCPCS: 31624; 36415; 70553; 71045; 71046; 71260; 76604; 80048; 80051; 80053; 81001; 82009; 82533; 82550; 82553; 82565; 82945; 82947; 83036; 83605; 83615; 83735; 83880; 84100; 84155; 84157; 84443; 84484; 84520; 85025; 85027; 85610; 85730; 87040; 87070; 87205; 88108; 88305; 88341; 88342; 89050; 93005; 94640; 94760; 96360; 96361; 99291

== ENCOUNTER 2018-09-30 13:41 | Observation (INO) | payer MEDICARE, BC ==
--- NOTE | 2018-09-30 14:28 | ED ---
General Adult HPI - General Chief complaint: Chest Pain Stated complaint: Cancer pt, losing weight, CHRISTINA, rapid heart beat Time Seen by Provider: 09/30/18 14:01 Source: patient, family, RN notes reviewed Mode of arrival: ambulatory Limitations: no limitations - History of Present Illness Initial comments: Patient is a pleasant 62-year-old female presenting to the emergency Department with complaints of dyspnea and generalized weakness. Symptoms have progressed over several weeks. Patient is known to have small cell lung cancer. Patient is post chemotherapy and radiation. Patient is in between immunotherapy at this time. Third treatment has been caused secondary to patient overall not doing well. is heart rate has been high recently and this is known by her oncologist. Patient has been losing weight. Patient has had some central chest discomfort of the past couple of days. No fevers. - Related Data Home Medications Medication Instructions Recorded Confirmed Ezetimibe [Zetia] 10 mg PO HS 12/19/17 09/30/18 FLUoxetine HCL [PROzac] 10 mg PO DAILY 12/19/17 09/30/18 Levothyroxine Sodium [Synthroid] 100 mcg PO DAILY 12/19/17 09/30/18 Albuterol Sulfate [Proair Hfa] 2 puff INHALATION RT-Q4H PRN 08/31/18 09/30/18 Budesonide/Formoterol Fumarate 2 puff INHALATION RT-BID 08/31/18 09/30/18 [Symbicort 160-4.5 Mcg Inhaler] Atorvastatin [Lipitor] 40 mg PO HS 09/30/18 09/30/18 Cholecalciferol [Vitamin D3] 1,000 unit PO DAILY 09/30/18 09/30/18 Dexlansoprazole [Dexilant] 60 mg PO DAILY 09/30/18 09/30/18 Docusate [Colace] 200 mg PO BID 09/30/18 09/30/18 HYDROcodone/APAP 5-325MG [[place] 1 tab PO Q4HR PRN 09/30/18 09/30/18 5-325] Insulin Aspart (For Pump) [NovoLOG 0.01 unit SQ-PUMP CONTINUOUS 09/30/18 (For Pump)] Metoclopramide [Reglan] 10 mg PO ACHS 09/30/18 09/30/18 Promethazine HCl/Codeine 5 ml PO QID PRN 09/30/18 09/30/18 [Promethazine-Codeine Syrup] Ranitidine HCl [Zantac] 300 mg PO HS 09/30/18 09/30/18 Selenium 200 mcg PO DAILY 09/30/18 09/30/18 Ubidecarenone [Co Q-10] 100 mg PO DAILY 09/30/18 09/30/18 Allergies Allergy/AdvReac Type Severity Reaction Status Date / Time No Known Allergies Allergy Verified 09/30/18 14:11 Review of Systems ROS Statement: Those systems with pertinent positive or pertinent negative responses have been documented in the HPI. ROS Other: All systems not noted in ROS Statement are negative. Constitutional: Denies: fever, chills Eyes: Denies: eye pain ENT: Denies: ear pain Respiratory: Reports: cough, dyspnea Cardiovascular: Reports: chest pain Endocrine: Reports: fatigue Gastrointestinal: Denies: abdominal pain Genitourinary: Denies: dysuria Musculoskeletal: Denies: back pain Skin: Denies: rash Neurological: Denies: weakness Past Medical History Past Medical History: Cancer, Diabetes Mellitus, GERD/Reflux, Hyperlipidemia, Hypertension, Thyroid Disorder Additional Past Medical History / Comment(s): hx. pepcid ulcer, hx. lung cancer dx. 2018-finished chemo & radiation, "feels like I'm swallowing a rock when I swallow" History of Any Multi-Drug Resistant Organisms: None Reported Past Surgical History: Back Surgery, Section, Orthopedic Surgery Additional Past Surgical History / Comment(s): Exploratory Lap. 2 right knee arthroscopies Past Anesthesia/Blood Transfusion Reactions: No Reported Reaction Past Psychological History: No Psychological Hx Reported Smoking Status: Former smoker Past Alcohol Use History: None Reported Past Drug Use History: None Reported - Past Family History Sister(s) Family Medical History: Cancer Additional Family Medical History / Comment(s): skin & breast General Exam Limitations: no limitations General appearance: alert, in no apparent distress Head exam: Present: atraumatic Eye exam: Present: normal appearance, PERRL ENT exam: Present: normal oropharynx Neck exam: Present: normal inspection Respiratory exam: Present: normal lung sounds bilaterally Cardiovascular Exam: Present: tachycardia Expanded Peripheral pulses: 2+: Radial (R), Radial (L), Dorsalis Pedis (R), Dorsalis Pedis (L) GI/Abdominal exam: Present: soft. Absent: tenderness Extremities exam: Present: normal inspection. Absent: pedal edema, calf tenderness Back exam: Present: normal inspection Neurological exam: Present: alert Psychiatric exam: Present: normal affect, normal mood Skin exam: Present: normal color Course Vital Signs 09/30/18 13:52 Temperature 98.2 F Pulse Rate 127 H Respiratory 18 Rate Blood Pressure 91/58 O2 Sat by Pulse 90 L Oximetry EKG Findings - EKG Comments: EKG Findings:: Sinus tachycardia 120. IA 116. QRS 90. QT 3:30. QTC 466. Left axis. Septal Q waves. No acute ST change Medical Decision Making - Medical Decision Making Patient reevaluated and is feeling somewhat improved. Pulse ox and heart rate have improved. Patient and family updated on results and plan. Case was discussed in detail with Dr. Matthews, who will admit covering for hospital call. Dr. Santiago has been paged as well. - Lab Data Result diagrams: 09/30/18 14:45 09/30/18 14:45 Lab Results 09/30/18 09/30/18 09/30/18 Range/Units 14:45 14:45 14:45 WBC 7.0 (3.8-10.6) k/uL RBC 3.61 L (3.80-5.40) m/uL Hgb 10.5 L (11.4-16.0) gm/dL Hct 32.7 L (34.0-46.0) % MCV 90.6 (80.0-100.0) fL MCH 29.2 (25.0-35.0) pg MCHC 32.2 (31.0-37.0) g/dL RDW 16.4 H (11.5-15.5) % Plt Count 435 (150-450) k/uL Neutrophils % 84 % Lymphocytes % 7 % Monocytes % 6 % Eosinophils % 1 % Basophils % 0 % Neutrophils # 5.9 (1.3-7.7) k/uL Lymphocytes # 0.5 L (1.0-4.8) k/uL Monocytes # 0.4 (0-1.0) k/uL Eosinophils # 0.1 (0-0.7) k/uL Basophils # 0.0 (0-0.2) k/uL Anisocytosis Slight PT (9.0-12.0) sec INR (<1.2) APTT (22.0-30.0) sec Sodium 135 L (137-145) mmol/L Potassium 3.5 (3.5-5.1) mmol/L Chloride 95 L (98-107) mmol/L Carbon Dioxide 34 H (22-30) mmol/L Anion Gap 6 mmol/L BUN 18 H (7-17) mg/dL Creatinine 0.48 L (0.52-1.04) mg/dL Est GFR (CKD-EPI)AfAm >90 (>60 ml/min/1.73 sqM) Est GFR (CKD-EPI)NonAf >90 (>60 ml/min/1.73 sqM) Glucose 131 H (74-99) mg/dL Calcium 9.5 (8.4-10.2) mg/dL Magnesium 1.7 (1.6-2.3) mg/dL Total Bilirubin 0.5 (0.2-1.3) mg/dL AST 22 (14-36) U/L ALT 29 (9-52) U/L Alkaline Phosphatase 79 (38-126) U/L Troponin I (0.000-0.034) ng/mL NT-Pro-B Natriuret Pep 358 pg/mL Total Protein 5.8 L (6.3-8.2) g/dL Albumin 3.0 L (3.5-5.0) g/dL 09/30/18 09/30/18 Range/Units 14:45 14:45 WBC (3.8-10.6) k/uL RBC (3.80-5.40) m/uL Hgb (11.4-16.0) gm/dL Hct (34.0-46.0) % MCV (80.0-100.0) fL MCH (25.0-35.0) pg MCHC (31.0-37.0) g/dL RDW (11.5-15.5) % Plt Count (150-450) k/uL Neutrophils % % Lymphocytes % % Monocytes % % Eosinophils % % Basophils % % Neutrophils # (1.3-7.7) k/uL Lymphocytes # (1.0-4.8) k/uL Monocytes # (0-1.0) k/uL Eosinophils # (0-0.7) k/uL Basophils # (0-0.2) k/uL Anisocytosis PT 10.7 (9.0-12.0) sec INR 1.0 (<1.2) APTT 27.3 (22.0-30.0) sec Sodium (137-145) mmol/L Potassium (3.5-5.1) mmol/L Chloride (98-107) mmol/L Carbon Dioxide (22-30) mmol/L Anion Gap mmol/L BUN (7-17) mg/dL Creatinine (0.52-1.04) mg/dL Est GFR (CKD-EPI)AfAm (>60 ml/min/1.73 sqM) Est GFR (CKD-EPI)NonAf (>60 ml/min/1.73 sqM) Glucose (74-99) mg/dL Calcium (8.4-10.2) mg/dL Magnesium (1.6-2.3) mg/dL Total Bilirubin (0.2-1.3) mg/dL AST (14-36) U/L ALT (9-52) U/L Alkaline Phosphatase (38-126) U/L Troponin I <0.012 (0.000-0.034) ng/mL NT-Pro-B Natriuret Pep pg/mL Total Protein (6.3-8.2) g/dL Albumin (3.5-5.0) g/dL - Radiology Data Radiology results: report reviewed (Computed tomography scan of the chest shows no pulmonary embolism. Lung mass appears similar to previous study with postobstructive atelectasis and infiltration through mediastinum.) Disposition Clinical Impression: Dyspnea, Chest pain Disposition: ADMITTED IP TO THIS HOSP Is patient prescribed a controlled substance at d/c from ED?: No Referrals: Aman Whatley MD [Primary Care Provider] - 1-2 days Decision Time: 16:48
[2018-09-30] MEDS ORDERED: SODIUM CHLORIDE 0.9% 1,000 ML IV STA (14:33)
[2018-09-30] MEDS ORDERED: MORPHINE SULFATE 4 MG/ML SYRINGE IVP STA (14:51)
[2018-09-30 14:56] LABS: Anisocytosis Slight; Basophils % (A) 0 %; Eosinophils # (A) 0.1 k/uL (0-0.7); Eosinophils % (A) 1 %; HCT 32.7 % (34.0-46.0); HGB 10.5 gm/dL (11.4-16.0); Lymphocytes # (A) 0.5 k/uL (1.0-4.8); Lymphocytes % (A) 7 %; MCH 29.2 pg (25.0-35.0); MCHC 32.2 g/dL (31.0-37.0); MCV 90.6 fL (80.0-100.0); Mean Platelet Volume 6.2; Monocytes # (A) 0.4 k/uL (0-1.0); Monocytes % (A) 6 %; Neutrophils # (A) 5.9 k/uL (1.3-7.7); Neutrophils % (A) 84 %; Platelet Count 435 k/uL (150-450); RBC 3.61 m/uL (3.80-5.40); RDW 16.4 % (11.5-15.5)
[2018-09-30 15:11] LABS: ALT 29 U/L (9-52); AST 22 U/L (14-36); Alkaline Phosphatase 79 U/L (38-126); Anion Gap 6 mmol/L; Blood Urea Nitrogen 18 mg/dL (7-17); Calcium 9.5 mg/dL (8.4-10.2); Carbon Dioxide 34 mmol/L (22-30); Chloride 95 mmol/L (98-107); Glucose 131 mg/dL (74-99); Magnesium 1.7 mg/dL (1.6-2.3); Partial Thromboplastin Time 27.3 sec (22.0-30.0); Potassium 3.5 mmol/L (3.5-5.1); Prothrombin Time 10.7 sec (9.0-12.0); Sodium 135 mmol/L (137-145); Total Bilirubin 0.5 mg/dL (0.2-1.3); Total Protein 5.8 g/dL (6.3-8.2)
--- NOTE | 2018-09-30 16:02 | CT ---
CT CHEST FOR PULMONARY EMBOLISM. EXAMINATION TYPE: CT angio chest DATE OF EXAM: 09/30/2018 INDICATION: Short of breath, tachycardia CT DLP: 204.3 mGycm, Automated exposure control for dose reduction was used. CONTRAST: Patient injected with 100 mL of Isovue 370. COMPARISON: 09/01/2018 TECHNIQUE: CT of the chest is performed on a spiral scan at 2 mm thick sections. Study is performed with intravenous contrast timed for evaluation for pulmonary embolism. This will limit additional po rtions of the evaluation. 3-D MIP images reconstructed by the technologist are reviewed on the compu ter in the coronal and sagittal planes. FINDINGS: No persistent filling defects are evident to suggest an acute pulmonary embolism. No mediastinal or hilar adenopathy enlarged by CT criteria is evident. The ascending aorta diameter at the level of the main pulmonary artery is 3.2 cm. The main pulmonary artery diameter at the bifur cation is 2.8 cm. There is opacification through the majority of the lower portion right upper lobe on the right midlun g in the right lower lobe. Portion of this may be related to some compressive atelectasis from the salgado bpulmonic effusion. Underlying mass is suspected with extension through the mediastinum. Findings are suggestive for neoplasm. Examination appears similar to 09/01/[address] section through the upper abdomen are unremarkable. IMPRESSIONS: 1. Suspected lung mass appears similar to prior study with post obstructive atelectasis and infiltrat ion through the mediastinum.. 2. Small to moderate subpulmonic effusion. 3. No acute pulmonary embolism.
[2018-09-30] MEDS ORDERED: NITROGLYCERIN SL TABS 0.4 MG TAB SUBLINGUAL PRN (16:49)
[2018-09-30] MEDS ORDERED: SODIUM CHLORIDE 0.9% 1,000 ML IV SCH (17:00)
[2018-09-30] MEDS ORDERED: NALOXONE 0.4 MG/ML 1 ML VIAL IV PRN (19:02)
[2018-09-30] MEDS ORDERED: ACETAMINOPHEN TAB 325 MG TAB PO PRN (19:02)
[2018-09-30] MEDS ORDERED: ONDANSETRON 4 MG/2 ML VIAL IVP PRN (19:02)
[2018-09-30] MEDS ORDERED: ALPRAZolam 0.25 MG TAB PO PRN (19:02)
[2018-09-30] MEDS ORDERED: DOCUSATE 100 MG CAP PO PRN (19:02)
[2018-09-30] MEDS: MORPHINE SULFATE 4 MG/ML SYRINGE IV PRN (19:06)
[2018-09-30] MEDS ORDERED: PROMETHAZ-COD 6.25-10 MG/5 ML 5 ML CUP PO PRN (19:14)
[2018-09-30] MEDS ORDERED: ALBUTEROL NEBULIZED 2.5 MG/3 ML INHALATION PRN (19:14)
[2018-09-30] MEDS ORDERED: IPRATROPIUM-ALBUTEROL 3 ML NEB INHALATION PRN (19:17)
[2018-09-30 19:19] LABS: Glucose,Whole Blood 160 mg/dL (75-99)
[2018-09-30] MEDS ORDERED: SODIUM CHLORIDE 0.9% 500 ML 500 ML IV ONE (19:30)
--- NOTE | 2018-09-30 19:35 | P.HPIM ---
History of Present Illness H&P Date: 09/30/18 Chief Complaint: fatigue/dyspnea Patient is a 62-year-old female with a history of small cell lung cancer currently undergoing immune therapy with nivolumab/ipilimumab, hypertension, diabetes, and dyslipidemia who presented to the emergency department with dyspnea, generalized weakness, and chest pain. Apparently she was at the oncology office to see Clotilde nurse practitioner today who recommended her come to the ER she was concerned about dehydration. In the ER she underwent an extensive evaluation. On arrival she was found to be tachycardic with a pulse of 127 and oxygen saturation of 90. She was also slightly hypotensive with a blood pressure of 91/58. Initial laboratory analysis was consistent with slight dehydration. Her hemoglobin was at baseline with her chronic anemia. CTA of the chest was negative for PE but did demonstrate a right-sided pleural effusion and continued right-sided mass with mediastinal involvement. female examined at bedside in the emergency department. She states that she has been feeling very rundown for the last week. She is having low appetite for quite some time. Over the last week she's lost approximately 6 pounds. She's had a lot of generalized weakness and inability to care for herself. She is also had some worsening shortness of breath that is progressive over the last several months. She was started on oxygen 2 weeks ago. She also reports some centralized chest pain and sharp and retrosternal. It has been getting progressively worse. She does not know any associated shortness of breath, nausea, vomiting, numbness, tingling with these episodes. She does have intermittent dizziness which occurs when she is up and walking around. She had noticed some palpitations with exertion. When she went into oncology today to see Clotilde she was concerned about dehydration and sent her into the hospital. Of note patient was recently hospitalized here from August 31 through September 05. On that admission she was found to have possible pneumonia as well as pleural effusion. She underwent a thoracentesis on the right. She also underwent bronchoscopy. She was sent home on Augmentin. It appears that she was feeling fairly well after discharge but has been getting progressively worse. She reports that it's very difficult to deal with her decreased appetite at home. She has no drive to eat or drink. She reports that she's been struggling with swallowing for quite some time. She has had swallow studies in the past but none in the last several months. She believes this a be getting slightly better but it does lead to her food aversion. Home health was supposed to be started tomorrow. Review of Systems Pertinent positives and negatives as discussed in HPI, a complete review of systems was performed and all other systems are negative. Past Medical History Past Medical History: Cancer, Diabetes Mellitus, GERD/Reflux, Hyperlipidemia, Hypertension, Thyroid Disorder Additional Past Medical History / Comment(s): hx. peptic ulcer, small cell lung cancer-initially to chemo and radiation in 2018, now with recurrence and on immunotherapy. Dysphasia, hypothyroidism History of Any Multi-Drug Resistant Organisms: None Reported Past Surgical History: Back Surgery, Section, Orthopedic Surgery Additional Past Surgical History / Comment(s): Exploratory Lap. 2 right knee arthroscopies. Mediport placement. Bronchoscopy. Laryngoscopy Past Anesthesia/Blood Transfusion Reactions: No Reported Reaction Past Psychological History: No Psychological Hx Reported Smoking Status: Former smoker Past Alcohol Use History: None Reported Past Drug Use History: None Reported Additional History: Lives with her boyfriend date at home. Intermittently using cane and walker. Mostly using the cane. - Past Family History Sister(s) Family Medical History: Cancer Additional Family Medical History / Comment(s): skin & breast Medications and Allergies Home Medications Medication Instructions Recorded Confirmed Type Ezetimibe [Zetia] 10 mg PO HS 12/19/17 09/30/18 History FLUoxetine HCL [PROzac] 10 mg PO DAILY 12/19/17 09/30/18 History Levothyroxine Sodium [Synthroid] 100 mcg PO DAILY 12/19/17 09/30/18 History Albuterol Sulfate [Proair Hfa] 2 puff INHALATION RT-Q4H PRN 08/31/18 09/30/18 History Budesonide/Formoterol Fumarate 2 puff INHALATION RT-BID 08/31/18 09/30/18 History [Symbicort 160-4.5 Mcg Inhaler] Atorvastatin [Lipitor] 40 mg PO HS 09/30/18 09/30/18 History Cholecalciferol [Vitamin D3] 1,000 unit PO DAILY 09/30/18 09/30/18 History Dexlansoprazole [Dexilant] 60 mg PO DAILY 09/30/18 09/30/18 History Docusate [Colace] 200 mg PO BID 09/30/18 09/30/18 History HYDROcodone/APAP 5-325MG [[place] 1 tab PO Q4HR PRN 09/30/18 09/30/18 History 5-325] Insulin Aspart (For Pump) [NovoLOG 0.01 unit SQ-PUMP CONTINUOUS 09/30/18 History (For Pump)] Metoclopramide [Reglan] 10 mg PO ACHS 09/30/18 09/30/18 History Promethazine HCl/Codeine 5 ml PO QID PRN 09/30/18 09/30/18 History [Promethazine-Codeine Syrup] Ranitidine HCl [Zantac] 300 mg PO HS 09/30/18 09/30/18 History Selenium 200 mcg PO DAILY 09/30/18 09/30/18 History Ubidecarenone [Co Q-10] 100 mg PO DAILY 09/30/18 09/30/18 History Allergies Allergy/AdvReac Type Severity Reaction Status Date / Time No Known Allergies Allergy Verified 09/30/18 14:11 Physical Exam Osteopathic Statement: *. No significant issues noted on an osteopathic structural exam other than those noted in the History and Physical/Consult. Vitals: Vital Signs Temp Pulse Resp BP Pulse Ox 09/30/18 17:31 107 H 20 102/66 96 09/30/18 16:00 105 H 18 124/78 95 09/30/18 14:54 108 H 18 115/64 95 09/30/18 13:52 98.2 F 127 H 18 91/58 90 L Intake and Output 09/30/18 09/30/18 09/30/18 06:59 14:59 22:59 Other: Weight 47.627 kg General: non toxic, mild distress, appears older than stated age, cachectic Derm: + Skin tenting no unusual rashes/lesions no unusual ecchymoses, warm, dry Head: atraumatic, normocephalic, symmetric Eyes: EOMI, no lid lag, anicteric sclera, pupils equal round reactive to light ENT: Nose and ears atraumatic, no thrush, no pharyngeal erythema Neck: No thyromegaly, no cervical lymphadenopathy, trachea midline, supple Mouth: no lip lesion, mucus membranes dry Cardiovascular: S1S2 reg, no murmur, positive posterior tibial pulse bilateral, no edema, capillary refill less than 2 seconds, no pain to palpation over chest wall Lungs: Decreased breath sounds right without any active wheezing, no rhonchi, no rales , no accessory muscle use Abdominal: soft, nontender to palpation, no guarding, no appreciable organomegaly, normal bowel sounds Ext: + gross muscle atrophy, muscle strength 5 out of 5 in all 4 extremities grossly, no contractures, Neuro: CN II-XI grossly intact, light touch intact all 4 extremities, finger to nose within normal limits, Psych: Alert, oriented, appropriate affect Results CBC & Chem 7: 09/30/18 14:45 09/30/18 14:45 Labs: Abnormal Lab Results - Last 24 Hours (Table) 09/30/18 09/30/18 Range/Units 14:45 14:45 RBC 3.61 L (3.80-5.40) m/uL Hgb 10.5 L (11.4-16.0) gm/dL Hct 32.7 L (34.0-46.0) % RDW 16.4 H (11.5-15.5) % Lymphocytes # 0.5 L (1.0-4.8) k/uL Sodium 135 L (137-145) mmol/L Chloride 95 L (98-107) mmol/L Carbon Dioxide 34 H (22-30) mmol/L BUN 18 H (7-17) mg/dL Creatinine 0.48 L (0.52-1.04) mg/dL Glucose 131 H (74-99) mg/dL Total Protein 5.8 L (6.3-8.2) g/dL Albumin 3.0 L (3.5-5.0) g/dL Comments: EKG is reviewed by myself reveals sinus tachycardia with a rate of 120, OR 116, QRS 90, QTC 466, no significant ST-T wave changes, normal axis Thrombosis Risk Factor Assmnt - DVT/VTE Prophylaxis DVT/VTE Prophylaxis: Pharmacologic Prophylaxis ordered Assessment and Plan Assessment: Dehydration with failure to thrive -IV fluids -Repeat labs in a.m. -Dietitian consultation -Speech therapy evaluation Cachexia with severe protein calorie malnutrition -Dietary consultation -Protein supplementation -Encourage oral intake Chest discomfort -Likely secondary to known mediastinal mass in conjunction with pleural effusion -Telemetry -Aspirin on hold incase thoracentesis needed -Cycle troponins -Limited echo to review status of pericardial effusion -Hold off on cardiology consultation at this time Right-sided pleural effusion -Consult pulmonary -Pulmonary hygiene, bronchodilators - repeat CXR in AM Small cell lung cancer with metastasis currently on immunotherapy -Consult oncology -Symptom management with antiemetics, pain control, physical therapy evaluation Diabetes mellitus type 2 -On insulin pump and will maintain -Last A1c 8.2 09/01/18 -Accu-Cheks every before meals and at bedtime -Needs to follow-up with block greaser regarding increasing pump setting Hypertension now with hypotension - follow BP - no on medications at home Hypothyroidism -synthroid - Recent TSH 10 will increase synthroid to 150 GERD hx of ulcers - maintain PPI and H2 dov The patient is placed in observation with an anticipated less than 2 per night stay for evaluation of hydration and failure to thrive. Surrogate decision-maker: Heatherienangelica Fierro [phone] CODE STATUS:Full DVT prophylaxis: Lovenox Discussed with: Patient, boyfriend Anticipated discharge date: 24-[address]: home with home health A total of 75 minutes was spent on the care of this complex patient more than 50 % of the time was spent in counseling and care coordination.
[2018-09-30] MEDS: SYMBICORT 160-4.5 MCG INHALER INHALATION SCH (20:03)
[2018-09-30 21:30] LABS: Appearance,Urine Cloudy (Clear); Bacteria,Urine Rare /hpf; Bilirubin,Urine Negative (Negative); Blood,Urine Small (Negative); Color,Urine Yellow; Glucose,Urine (UA) Trace (Negative); Hyaline Casts,Urine 1 /lpf (0-2); Ketones,Urine Trace (Negative); Leukocyte Esterase,Urine Negative (Negative); Mucus,Urine Few /hpf; Nitrite,Urine Negative (Negative); PH, Urine 5.5 (5.0-8.0); Protein,Urine Trace (Negative); RBC,Urine 32 /hpf (0-5); Squamous Epithelial Cell,Urine 3 /hpf (0-4); Uric Acid Crystals,Urine Moderate /hpf; Urobilinogen,Urine <2.0 mg/dL (<2.0)
[2018-09-30 21:36] LABS: Specific Gravity,Urine >1.050 (1.001-1.035)
[2018-09-30 22:01] LABS: Glucose,Whole Blood 130 mg/dL (75-99)
[2018-09-30] MEDS: ATORVASTATIN 40 MG TAB PO SCH (23:02)
[2018-09-30] MEDS: HYDROcodone/APAP 5-325MG 1 EACH TAB PO PRN (23:03)
[2018-09-30] MEDS: FAMOTIDINE 20 MG TAB PO SCH (23:03)
[2018-09-30] MEDS: METOCLOPRAMIDE 10 MG TAB PO SCH (23:03)
[2018-09-30] MEDS: EZETIMIBE 10 MG TAB PO SCH (23:03)
[2018-09-30] MEDS: DOCUSATE 100 MG CAP PO SCH (23:03)
[2018-10-01] MEDS: LEVOTHYROXINE 75 MCG TAB PO SCH (06:14)
[2018-10-01] MEDS ORDERED: LEVOTHYROXINE 100 MCG TAB PO SCH (06:30)
[2018-10-01 06:51] LABS: Glucose,Whole Blood 171 mg/dL (75-99)
[2018-10-01 07:17] LABS: Anisocytosis Slight; HCT 29.9 % (34.0-46.0); HGB 9.6 gm/dL (11.4-16.0); Hypochromasia Slight; MCH 29.6 pg (25.0-35.0); MCV 92.5 fL (80.0-100.0); Mean Platelet Volume 6.8; Platelet Count 361 k/uL (150-450); RBC 3.23 m/uL (3.80-5.40); RDW 16.4 % (11.5-15.5); WBC 5.8 k/uL (3.8-10.6)
[2018-10-01 07:25] LABS: Anion Gap 6 mmol/L; Blood Urea Nitrogen 18 mg/dL (7-17); Calcium 8.8 mg/dL (8.4-10.2); Carbon Dioxide 31 mmol/L (22-30); Chloride 98 mmol/L (98-107); Cholesterol 139 mg/dL (<200); Glucose 180 mg/dL (74-99); HDL Cholesterol 49 mg/dL (40-60); LDL Cholesterol,Calculated 66 mg/dL (0-99); Magnesium 1.6 mg/dL (1.6-2.3); Phosphorus 2.9 mg/dL (2.5-4.5); Sodium 135 mmol/L (137-145); Triglycerides 122 mg/dL (<150)
[2018-10-01] MEDS: SYMBICORT 160-4.5 MCG INHALER INHALATION SCH ×2 (07:30→19:18)
[2018-10-01 07:43] LABS: Potassium 3.7 mmol/L (3.5-5.1)
[2018-10-01] MEDS ORDERED: NON-FORMULARY DRUG (Selenium [Selenium] 200 MCG) PO SCH (09:00)
[2018-10-01] MEDS ORDERED: NON-FORMULARY DRUG (Ubidecarenone [Co Q-10] 100 MG) PO SCH (09:00)
--- NOTE | 2018-10-01 09:39 | XR ---
EXAMINATION TYPE: XR chest 2V DATE OF EXAM: 10/01/2018 COMPARISON: 09/04/2018 HISTORY: Pneumothorax follow-up. TECHNIQUE: Frontal and lateral views of the chest are obtained. FINDINGS: Previously seen right apical pneumothorax is not visualized on today's exam. There is wors ening of the near complete opacification of the right hemithorax without appreciable mediastinal shif t. Patchy left basilar airspace disease has developed in the interim. Right-sided Mediport is unchang ed in position. Cardiomediastinal silhouette appears overall stable but is partially obscured. Osseou s structures are grossly intact. IMPRESSION: Interval worsening in opacification of the right hemithorax, now near complete likely pa rtially related to a combination of postobstructive atelectasis, underlying lung mass, and pleural ef fusion. New left basilar airspace disease may represent atelectasis or developing pneumonia.
[2018-10-01] MEDS: PANTOPRAZOLE 40 MG TABLET PO SCH (10:20)
[2018-10-01] MEDS: METOCLOPRAMIDE 10 MG TAB PO SCH ×3 (10:20→20:19)
[2018-10-01] MEDS: FLUoxetine HCL 10 MG CAP PO SCH (10:20)
[2018-10-01] MEDS: DOCUSATE 100 MG CAP PO SCH ×2 (10:20→20:18)
[2018-10-01] MEDS: ENOXAPARIN 40 MG/0.4 ML SYRINGE SQ SCH ×2 (10:21→15:18)
[2018-10-01] MEDS: HYDROcodone/APAP 5-325MG 1 EACH TAB PO PRN ×3 (10:21→23:22)
[2018-10-01] MEDS: CHOLECALCIFEROL 1,000 UNIT TAB PO SCH (10:21)
[2018-10-01 11:35] LABS: Glucose,Whole Blood 196 mg/dL (75-99)
[2018-10-01 12:12] VITALS: BMI 17.9
[2018-10-01] MEDS ORDERED: LIDOCAINE 1% INJ 10MG/ML (20 ML MDV) SQ ONE (12:55)
--- NOTE | 2018-10-01 13:13 | US ---
EXAMINATION TYPE: US chest DATE OF EXAM: 10/01/2018 COMPARISON: Chest radiograph of the same date CLINICAL HISTORY: right hydrothorax. pleural effusion TECHNIQUE: Targeted ultrasound of the posterior lower right EXAM MEASUREMENTS: Right Pleural Effusion pocket size: 13.5 cm Right skin surface to fluid distance: 2.0 cm Right side marked for possible thoracentesis outside the dept. Right lung possible lobar atelectasis is seen within the pleural effusion. Pulmonologists are able to review the images in the patient?s EMR. IMPRESSIONS: Moderate right pleural effusion with right lung atelectasis.
--- NOTE | 2018-10-01 15:09 | P.PN ---
Subjective Progress Note Date: 10/01/18 Principal diagnosis: dyspnea, weakness Patient is a 62-year-old female with a history of small cell lung cancer currently undergoing immune therapy with nivolumab/ipilimumab, hypertension, diabetes, and dyslipidemia who presented to the emergency department with dyspnea, generalized weakness, and chest pain. Apparently she was at the oncology office to see Clotilde nurse practitioner today who recommended her come to the ER she was concerned about dehydration. In the ER she underwent an extensive evaluation. On arrival she was found to be tachycardic with a pulse of 127 and oxygen saturation of 90. She was also slightly hypotensive with a blood pressure of 91/58. Initial laboratory analysis was consistent with slight dehydration. Her hemoglobin was at baseline with her chronic anemia. CTA of the chest was negative for PE but did demonstrate a right-sided pleural effusion and continued right-sided mass with mediastinal involvement. She was admitted for observation. She was seen by speech and passed a bedside swallow screes. She was seen by pulmonary and had thoracentesis with removal of 1L of pleural fluid. Patient seen and examined at bedside. Still with some chest pain but less than yesterday. Feeling better after fluids. Still with some SOB. No nausea or vomiting. Still with low appetite. Objective - Vital Signs Vital signs: Vital Signs Temp 98.3 F 10/01/18 12:00 Pulse 113 H 10/01/18 12:00 Resp 18 10/01/18 12:00 BP 119/76 10/01/18 12:00 Pulse Ox 95 10/01/18 07:51 Intake & Output 09/30/18 10/01/18 10/01/18 18:59 06:59 18:59 Weight 47.627 kg 47.3 kg 47.3 kg Other: Voiding Method Toilet Toilet # Voids 2 1 - Exam General: non toxic, mild distress, appears older than stated age, cachetic, Derm: warm, dry Head: atraumatic, normocephalic, symmetric Eyes: EOMI, no lid lag, anicteric sclera Mouth: no lip lesion, mucus membranes moist Cardiovascular: S1S2 reg, no murmur, positive posterior tibial pulse bilateral, Lungs: decreased bs right, no rhonchi, no rales , no accessory muscle use Abdominal: soft, nontender to palpation, no guarding, no appreciable organomegaly Ext: no gross muscle atrophy, no edema, no contractures Neuro: CN II-XI grossly intact, no focal neuro deficits Psych: Alert, oriented, flat affect - Labs CBC & Chem 7: 10/01/18 06:58 10/01/18 06:58 Labs: Abnormal Lab Results - Last 24 Hours (Table) 09/30/18 09/30/18 09/30/18 Range/Units 14:45 14:45 19:18 RBC 3.61 L (3.80-5.40) m/uL Hgb 10.5 L (11.4-16.0) gm/dL Hct 32.7 L (34.0-46.0) % RDW 16.4 H (11.5-15.5) % Lymphocytes # 0.5 L (1.0-4.8) k/uL Sodium 135 L (137-145) mmol/L Chloride 95 L (98-107) mmol/L Carbon Dioxide 34 H (22-30) mmol/L BUN 18 H (7-17) mg/dL Creatinine 0.48 L (0.52-1.04) mg/dL Glucose 131 H (74-99) mg/dL POC Glucose (mg/dL) 160 H (75-99) mg/dL Total Protein 5.8 L (6.3-8.2) g/dL Albumin 3.0 L (3.5-5.0) g/dL Urine Appearance (Clear) Ur Specific [place] (1.001-1.035) Urine Protein (Negative) Urine Glucose (UA) (Negative) Urine Ketones (Negative) Urine Blood (Negative) Urine RBC (0-5) /hpf Urine WBC (0-5) /hpf Uric Acid Crystals (None) /hpf Urine Bacteria (None) /hpf Urine Mucus (None) /hpf 09/30/18 09/30/18 10/01/18 Range/Units 19:50 22:00 06:48 RBC (3.80-5.40) m/uL Hgb (11.4-16.0) gm/dL Hct (34.0-46.0) % RDW (11.5-15.5) % Lymphocytes # (1.0-4.8) k/uL Sodium (137-145) mmol/L Chloride (98-107) mmol/L Carbon Dioxide (22-30) mmol/L BUN (7-17) mg/dL Creatinine (0.52-1.04) mg/dL Glucose (74-99) mg/dL POC Glucose (mg/dL) 130 H 171 H (75-99) mg/dL Total Protein (6.3-8.2) g/dL Albumin (3.5-5.0) g/dL Urine Appearance Cloudy H (Clear) Ur Specific [place] >1.050 H (1.001-1.035) Urine Protein Trace H (Negative) Urine Glucose (UA) Trace H (Negative) Urine Ketones Trace H (Negative) Urine Blood Small H (Negative) Urine RBC 32 H (0-5) /hpf Urine WBC 20 H (0-5) /hpf Uric Acid Crystals Moderate H (None) /hpf Urine Bacteria Rare H (None) /hpf Urine Mucus Few H (None) /hpf 10/01/18 10/01/18 10/01/18 Range/Units 06:58 06:58 11:32 RBC 3.23 L (3.80-5.40) m/uL Hgb 9.6 L (11.4-16.0) gm/dL Hct 29.9 L (34.0-46.0) % RDW 16.4 H (11.5-15.5) % Lymphocytes # (1.0-4.8) k/uL Sodium 135 L (137-145) mmol/L Chloride (98-107) mmol/L Carbon Dioxide 31 H (22-30) mmol/L BUN 18 H (7-17) mg/dL Creatinine 0.48 L (0.52-1.04) mg/dL Glucose 180 H (74-99) mg/dL POC Glucose (mg/dL) 196 H (75-99) mg/dL Total Protein (6.3-8.2) g/dL Albumin (3.5-5.0) g/dL Urine Appearance (Clear) Ur Specific [place] (1.001-1.035) Urine Protein (Negative) Urine Glucose (UA) (Negative) Urine Ketones (Negative) Urine Blood (Negative) Urine RBC (0-5) /hpf Urine WBC (0-5) /hpf Uric Acid Crystals (None) /hpf Urine Bacteria (None) /hpf Urine Mucus (None) /hpf Microbiology - Last 24 Hours (Table) 03/06/19 19:50 Urine Culture - Preliminary Urine,Voided Assessment and Plan Assessment: Dehydration with failure to thrive improving -IV fluids X 24 more hours -Repeat labs in a.m. -Dietitian consultation -Speech therapy evaluation Cachexia with severe protein calorie malnutrition -Dietary recs -Protein supplementation -Encourage oral intake Right-sided pleural effusion s/p thoracentesis -pulm recs appreciated -Pulmonary hygiene, bronchodilators -Will need outpatient follow-up for recurrence Chest discomfort -Likely secondary to known mediastinal mass in conjunction with pleural effusion -Telemetry -troponins negaive -Limited echo to review status of pericardial effusion pending Small cell lung cancer with metastasis currently on immunotherapy - oncology consult pending - plan is for home with home health and palliative care -Symptom management with antiemetics, pain control, physical therapy evaluation Diabetes mellitus type 2 -On insulin pump and will maintain -Last A1c 8.2 09/01/18 -Accu-Cheks every before meals and at bedtime -Needs to follow-up with routing equipment tender regarding increasing pump setting Hypertension now with hypotension - follow BP - no on medications at home Hypothyroidism -synthroid - Recent TSH 10 will increase synthroid to 150 GERD hx of ulcers - maintain PPI and H2 dov DVT prophylaxis: Lovenox Discussed with: Patient, nursing, Dr. Mancilla Anticipated discharge date: [address]: home with home health and palliative care A total of 35 minutes was spent on the care of this complex patient more than 50% of the time was spent in counseling and care coordination.
--- NOTE | 2018-10-01 15:11 | XR ---
"EXAMINATION TYPE: XR chest 1V portable DATE OF EXAM: 10/01/2018 COMPARISON: 10/11/2018 HISTORY: Status post thoracentesis TECHNIQUE: Single frontal view of the chest is obtained. FINDINGS: There is a new right-sided pneumothorax estimated at approximately 10% with maximal pleura l separation of 1.3 cm in the right lateral upper lung. Air is seen medially along the mediastinal semaj rder. No left-sided pneumothorax. Again there is near complete opacification of the right lung and de veloping left lower lobe airspace disease. Right-sided Mediport is unchanged in position. IMPRESSION: New right-sided pneumothorax estimated at approximately 10% status post thoracentesis. M ediastinal position is similar to the prior of 10/01/2018 without apparent shift. Otherwise exam is unc hanged from the prior earlier the same date. A [place] level critical message alert has been initiated for Marky Wright via the [employer] | Cri tical Results System on 10/01/2018 3:09 PM. This message alert has been sent to Marky Wright via the pre ferences provided by the clinician for the receipt of Radiology Critical Findings. Message ID [id number] ."
[2018-10-01 16:41] LABS: Glucose,Whole Blood 152 mg/dL (75-99)
--- NOTE | 2018-10-01 16:47 | OP ---
OPERATIVE REPORT PROCEDURE: Right-sided thoracentesis. PREOPERATIVE DIAGNOSIS: Malignant pleural effusion. POSTOPERATIVE DIAGNOSIS: Malignant pleural effusion. ANESTHESIA USED: 2 mL of 1% lidocaine. PROCEDURE DESCRIPTION: The patient was placed in sitting upright position. The area below the right scapula was prepared in a sterile fashion and drapes were applied. At the level of the 9th intercostal space and tip of the scapula, the area was locally anesthetized with 2 mL of 1% lidocaine. Then a 26-gauge needle was inserted into the pleural space. Fluid was localized. The fluid was not bloody. Then a small tiny incision was made, and a standard thoracentesis catheter and needle were used, advanced into the same site, into the pleural space until fluid was localized again. As soon as the fluid was localized with the needle again, the needle was pulled out of the pleural space and the catheter was advanced over the needle. Freely flowing fluid, roughly about 1000 mL of radha- colored fluid, was removed from the right pleural space. The procedure was well tolerated. No evidence of any immediate complications. Chest x-ray was ordered postoperatively. MMODL / IJN: [id number] /
--- NOTE | 2018-10-01 16:50 | P.CNPUL ---
History of Present Illness Consult date: 10/01/18 Requesting physician: Ashkan Matthews Reason for consult: dyspnea, chest pain, abnormal CXR/CT Chief complaint: Chest pain, dyspnea, large right pleural effusion, SCLC History of present illness: This is 62-year-old white female patient, with past medical history of small cell lung cancer with metastasis to the brain, status post 6 rounds of chemotherapy and radiation to the brain, currently on immunotherapy with Nivolumab/Ipilimumab, presenting to the emergency department on 09/30/2018 with concern of dehydration, dyspnea, generalized weakness, chest pain. Her symptoms have progressed over several weeks, she has been losing weight, having decreased appetite, weight loss, she states in last couple weeks she lost 12 pounds. Denies any nausea or vomiting, denies any diarrhea. She has had a dry cough, but no chest congestion. No hemoptysis. She states the chest pain is central, and is brought on by exertion and coughing. No fever or chills. Patient was originally diagnosed in the early 2017 CT chest was performed, when patient was found to have right vocal cord paralysis on laryngoscopy. CT chest showed suspicious lymphadenopathy in the mediastinal, right hilar and retroclavi cular areas and a left adrenal nodule. E-BUS was performed at the [facility] confirming metastatic small cell undifferentiated carcinoma, and patient had undergone carbo/HEAD CASHIER treatment followed by PCI XRT to the head. PET scan on 04/14 showed no active disease. However her most recent PET scan on 08/01/2018 showed active neoplastic recurrence with a new hypermetabolic masslike consolidation in the right hilar level extending into the right upper lobe with surrounding groundglass opacity measuring roughly 7.6 x 6.7 cm, with a max SUV of 10.95. There was subcarinal hypermetabolic mass or adenopathy in distinct from the right hilar mass with a max SUV of 9.4. Patient was recently hospitalized in August for postobstructive pneumonia of the right lung and moderate-sized right-sided pleural effusion. She underwent thoracentesis on 09/03/[address] Temple, and 1200 mL of pleural fluid was removed, cytology showed rare atypical cells consistent with metastatic small cell carcinoma. Patient had a bronchoscopy with BAL of the right upper lobe, on 09/04/2018, endobronchial stent placement with is anticipated in regards to concern about obstruction of the right upper lobe bronchus with tumor infiltration into the mediastinum causing right upper lobe collapse, postobstructive pneumonia and right-sided pleural effusion. However during the bronchoscopy it was found that the right middle lobe bronchus and the right lower lobe bronchus and the various segments of the right lower lobes were patent, and the stent was not placed. Bronchial wash cultures were negative, bronchial wash cytology showed scattered malignant cells consistent with small cell carcinoma. CT angios chest was completed, and showed no evidence of pulmonary embolism, suspected lung mass in the right lung appears similar to prior study with postobstructive atelectasis and infiltration through the mediastinum, small to moderate pleural effusion. Labs showed white blood cell count is 7.0, hemoglobin of 10.5, sodium of 135, potassium is 3.5, chloride was 95, CO2 is 34, BUN is 18 creatinine 0.48, tr oponins negative 3, proBNP is 358, urinalysis showed red blood cells, and white blood cells, negative leuks, rare bacteria. Patient was afebrile, but tachycardic, with the heart rate at 127, hypotensive, with a blood pressure of 91/58 appear to be dehydrated, she was fluid resuscitated in the emergency department with a liter of normal saline, and her maintenance IV fluids infusing at a rate of 100 ML per hour, she was started on breathing treatments. Ultrasound of the chest was completed, and showed a large right pleural effusion pocket measuring 13.5 cm with adjacent atelectasis. Review of Systems All systems: negative Constitutional: Reports weakness, Denies chills, Denies fever Eyes: denies blurred vision, denies pain Ears, nose, mouth and throat: Denies headache, Denies sore throat Cardiovascular: Reports dyspnea on exertion, Denies chest pain, Denies shortness of breath Respiratory: Reports dyspnea, Denies cough Gastrointestinal: Denies abdominal pain, Denies diarrhea, Denies nausea, Denies vomiting Genitourinary: Denies dysuria, Denies hematuria Musculoskeletal: Denies myalgias Integumentary: Denies pruritus, Denies rash Neurological: Denies numbness, Denies weakness Psychiatric: Denies anxiety, Denies depression Endocrine: Denies fatigue, Denies weight change Past Medical History Past Medical History: Cancer, Diabetes Mellitus, GERD/Reflux, Hyperlipidemia, Hypertension, Thyroid Disorder Additional Past Medical History / Comment(s): hx. peptic ulcer, small cell lung cancer-initially to chemo and radiation in 2018, now with recurrence and on immunotherapy. Dysphasia, hypothyroidism History of Any Multi-Drug Resistant Organisms: None Reported Past Surgical History: Back Surgery, Section, Orthopedic Surgery Additional Past Surgical History / Comment(s): Exploratory Lap. 2 right knee arthroscopies. Mediport placement. Bronchoscopy. Laryngoscopy Past Anesthesia/Blood Transfusion Reactions: No Reported Reaction Past Psychological History: No Psychological Hx Reported Smoking Status: Former smoker Past Alcohol Use History: None Reported Additional Past Alcohol Use History / Comment(s): quit smoking October 2017, smoked 1ppd for 40 yrs. Past Drug Use History: None Reported - Past Family History Sister(s) Family Medical History: Cancer Additional Family Medical History / Comment(s): breast Medications and Allergies Home Medications Medication Instructions Recorded Confirmed Type Ezetimibe [Zetia] 10 mg PO HS 12/19/17 09/30/18 History FLUoxetine HCL [PROzac] 10 mg PO DAILY 12/19/17 09/30/18 History Levothyroxine Sodium [Synthroid] 100 mcg PO DAILY 12/19/17 09/30/18 History Albuterol Sulfate [Proair Hfa] 2 puff INHALATION RT-Q4H PRN 08/31/18 09/30/18 History Budesonide/Formoterol Fumarate 2 puff INHALATION RT-BID 08/31/18 09/30/18 History [Symbicort 160-4.5 Mcg Inhaler] Atorvastatin [Lipitor] 40 mg PO HS 09/30/18 09/30/18 History Cholecalciferol [Vitamin D3] 1,000 unit PO DAILY 09/30/18 09/30/18 History Dexlansoprazole [Dexilant] 60 mg PO DAILY 09/30/18 09/30/18 History HYDROcodone/APAP 5-325MG [[place] 1 tab PO Q4HR PRN 09/30/18 09/30/18 History 5-325] Insulin Aspart (For Pump) [NovoLOG 0.01 unit SQ-PUMP CONTINUOUS 09/30/18 09/30/18 History (For Pump)] Metoclopramide [Reglan] 10 mg PO ACHS 09/30/18 09/30/18 History Promethazine HCl/Codeine 5 ml PO QID PRN 09/30/18 09/30/18 History [Promethazine-Codeine Syrup] Ranitidine HCl [Zantac] 300 mg PO HS 09/30/18 09/30/18 History Selenium 200 mcg PO DAILY 09/30/18 09/30/18 History Ubidecarenone [Co Q-10] 100 mg PO DAILY 09/30/18 09/30/18 History Allergies Allergy/AdvReac Type Severity Reaction Status Date / Time No Known Allergies Allergy Verified 09/30/18 14:11 Physical Exam Vitals: Vital Signs Temp Pulse Pulse Pulse Resp BP BP 10/01/18 12:00 98.3 F 113 H 18 119/76 10/01/18 07:51 98.4 F 106 H 18 10/01/18 04:00 98.4 F 101 H 15 106/61 10/01/18 02:39 101 H 15 10/01/18 00:00 97.9 F 109 H 15 109/70 09/30/18 20:51 110 H 16 134/69 09/30/18 20:14 106 H 09/30/18 20:05 107 H 09/30/18 20:00 97.8 F 118 H 16 121/75 09/30/18 19:13 64 18 141/73 09/30/18 17:31 107 H 20 102/66 09/30/18 16:00 105 H 18 124/78 09/30/18 14:54 108 H 18 115/64 09/30/18 13:52 98.2 F 127 H 18 91/58 BP Pulse Ox 10/01/18 12:00 10/01/18 07:51 115/68 95 10/01/18 04:00 98 10/01/18 02:39 10/01/18 00:00 100 09/30/18 20:51 96 09/30/18 20:14 09/30/18 20:05 09/30/18 20:00 99 09/30/18 19:13 95 09/30/18 17:31 96 09/30/18 16:00 95 09/30/18 14:54 95 09/30/18 13:52 90 L Intake and Output 09/30/18 10/01/18 10/01/18 22:59 06:59 14:59 Other: Voiding Method Toilet Toilet Toilet # Voids 2 2 Weight 47.3 kg 47.3 kg GENERAL EXAM: Alert, pleasant, 62-year-old white female comfortable in no apparent distress. HEAD: Normocephalic/atraumatic. EYES: Normal reaction of pupils, equal size. Conjunctiva pink, sclera white. NOSE: Clear with pink turbinates. THROAT: No erythema or exudates. NECK: No masses, no JVD, no thyroid enlargement, no adenopathy. CHEST: No chest wall deformity. Symmetrical expansion. LUNGS: Equal air entry with diminished breath sounds and dullness to percussion over right lung CVS: Regular rate and rhythm, normal S1 and S2, no gallops, no murmurs, no rubs ABDOMEN: Soft, nontender. No hepatosplenomegaly, normal bowel sounds, no guarding or rigidity. EXTREMITIES: No clubbing, no edema, no cyanosis, 2+ pulses and upper and lower extremities. MUSCULOSKELETAL: Muscle strength and tone normal. SPINE: No scoliosis or deformity SKIN: No rashes CENTRAL NERVOUS SYSTEM: Alert and oriented -3. No focal deficits, tone is normal in all 4 extremities. PSYCHIATRIC: Alert and oriented -3. Appropriate affect. Intact judgment and insight. Results - Laboratory Findings CBC and BMP: 10/01/18 06:58 10/01/18 06:58 PT/INR, D-dimer PT 10.7 sec (9.0-12.0) 09/30/18 14:45 INR 1.0 (<1.2) 09/30/18 14:45 Abnormal lab findings: Abnormal Labs 09/30/18 09/30/18 09/30/18 14:45 14:45 19:18 RBC 3.61 L Hgb 10.5 L Hct 32.7 L RDW 16.4 H Lymphocytes # 0.5 L Sodium 135 L Chloride 95 L Carbon Dioxide 34 H BUN 18 H Creatinine 0.48 L Glucose 131 H POC Glucose (mg/dL) 160 H Total Protein 5.8 L Albumin 3.0 L Urine Appearance Ur Specific [place] Urine Protein Urine Glucose (UA) Urine Ketones Urine Blood Urine RBC Urine WBC Uric Acid Crystals Urine Bacteria Urine Mucus 09/30/18 09/30/18 10/01/18 19:50 22:00 06:48 RBC Hgb Hct RDW Lymphocytes # Sodium Chloride Carbon Dioxide BUN Creatinine Glucose POC Glucose (mg/dL) 130 H 171 H Total Protein Albumin Urine Appearance Cloudy H Ur Specific [place] >1.050 H Urine Protein Trace H Urine Glucose (UA) Trace H Urine Ketones Trace H Urine Blood Small H Urine RBC 32 H Urine WBC 20 H Uric Acid Crystals Moderate H Urine Bacteria Rare H Urine Mucus Few H 10/01/18 10/01/18 10/01/18 06:58 06:58 11:32 RBC 3.23 L Hgb 9.6 L Hct 29.9 L RDW 16.4 H Lymphocytes # Sodium 135 L Chloride Carbon Dioxide 31 H BUN 18 H Creatinine 0.48 L Glucose 180 H POC Glucose (mg/dL) 196 H Total Protein Albumin Urine Appearance Ur Specific [place] Urine Protein Urine Glucose (UA) Urine Ketones Urine Blood Urine RBC Urine WBC Uric Acid Crystals Urine Bacteria Urine Mucus - Diagnostic Findings Chest x-ray: report reviewed, image reviewed CT scan - chest: report reviewed, image reviewed Additional studies: EKG reviewed, ultrasound of the chest reviewed Assessment and Plan Plan: Assessment: #1. Pleuritic chest pain, related to right-sided pleural effusion, status post thoracentesis #2. History of small cell lung cancer stage IV, with metastasis to the brain, status post chemotherapy and radiation to the brain, currently on immunotherapy #3. Dehydration #4. Weight loss of 12 pounds in the last 2 weeks, anorexia, failure to thrive #5. Chronic anemia #6. Large right hilar mass with postobstructive atelectasis and infiltration through the mediastinum, similar to the previous CT chest from August 2018. #7. Recent hospitalization for postobstructive pneumonia in the right lung, and had undergone bronchoscopy with BAL, did not require endobronchial stenting, bronchial wash cultures negative. Patient did have a right-sided thoracentesis during that admission as well, and both bronchial wash and pleural fluid cytolo gy were consistent with small cell carcinoma #8. Hypertension, hyperlipidemia #9. COPD, with underlying FEV1 of 1.29 L or 51% of predicted, consistent with stage II #10. History of [id number] smoking, currently in remission #11. Hypothyroidism, history of peptic ulcer disease, previous episodes of GI bleeding, osteoarthritis Plan: All systems have been reviewed with Dr. Rutledge, ultrasound of the chest showed a large right pleural effusion pocket, patient underwent right-sided thoracentesis with removal of 1000 mL of yellow clear pleural fluid, was sent for cultures only. Follow-up chest x-ray has been reviewed, and showed new right-sided pneumothorax estimated at 10% with maximal pleural separation of 1.3 cm in the right lateral upper lung, this could also be related to trapped lung. Clinically patient is asymptomatic, we'll repeat chest x-ray in the morning, continue to follow I performed a history & physical examination of the patient and discussed their management with my nurse practitioner, Jeana Hartman. I reviewed the nurse practitioner's note and agree with the documented findings and plan of care. Lung sounds are positive for diminished breath sounds. The findings and the impression was discussed with the patient. I attest to the documentation by the nurse practitioner. Time with Patient: Greater than 30
--- NOTE | 2018-10-01 16:59 | P.CONS ---
History of Present Illness - Reason for Consult Consult date: 10/01/18 NSCLC Requesting physician: Taya Wright - Chief Complaint chest pain, CHRISTINA - History of Present Illness Ms. Meraz is a very pleasant 62 year old female pt of Dr. Whatley who came to the hospital for progressive SOB and chest pain, CTA negative for PE, she is feeling better since admit. Denied fever, N,V wheezing, no acute changes in her cough, no sputum production, hemoptysis, diarrhea, abd pain, she is ambulatory short distances. Malignancy history: Just about 1 year ago pt presented with c/o of dry cough x 1 month, hoarseness, ENT found right vocal cord paralysis on laryngoscopy, failed to improve with prolonged oral antibiotic therapy, CT chest showed suspicious lymphadenopathy in the mediastinal, right hilar, and retroclavicular areas. EBUS was performed, path positive for metastatic small cell undifferentiated carcinoma. She started carbo/INSURANCE APPRAISER, completed 6 cycles in January 12, she had radiation to the brain for asymptomatic lesions found during staging. In Jul 2018 she had disease recurrence, subcutaneous nodules, she has had 2 infusions of doublet immunotherapy on compassionate use. She recently had pleural effusion with thoracentesis-fluid positive for malignancy. Review of Systems 14 point ROS is negative except as stated in HPI Past Medical History Past Medical History: Cancer, Diabetes Mellitus, GERD/Reflux, Hyperlipidemia, Hypertension, Thyroid Disorder Additional Past Medical History / Comment(s): hx. peptic ulcer, small cell lung cancer-initially to chemo and radiation in 2018, now with recurrence and on immunotherapy. Dysphasia, hypothyroidism History of Any Multi-Drug Resistant Organisms: None Reported Past Surgical History: Back Surgery, Section, Orthopedic Surgery Additional Past Surgical History / Comment(s): Exploratory Lap. 2 right knee arthroscopies. Mediport placement. Bronchoscopy. Laryngoscopy Past Anesthesia/Blood Transfusion Reactions: No Reported Reaction Past Psychological History: No Psychological Hx Reported Smoking Status: Former smoker Past Alcohol Use History: None Reported Additional Past Alcohol Use History / Comment(s): quit smoking October 2017, smoked 1ppd for 40 yrs. Past Drug Use History: None Reported - Past Family History Sister(s) Family Medical History: Cancer Additional Family Medical History / Comment(s): breast Medications and Allergies Home Medications Medication Instructions Recorded Confirmed Type Ezetimibe [Zetia] 10 mg PO HS 12/19/17 09/30/18 History FLUoxetine HCL [PROzac] 10 mg PO DAILY 12/19/17 09/30/18 History Levothyroxine Sodium [Synthroid] 100 mcg PO DAILY 12/19/17 09/30/18 History Albuterol Sulfate [Proair Hfa] 2 puff INHALATION RT-Q4H PRN 08/31/18 09/30/18 History Budesonide/Formoterol Fumarate 2 puff INHALATION RT-BID 08/31/18 09/30/18 History [Symbicort 160-4.5 Mcg Inhaler] Atorvastatin [Lipitor] 40 mg PO HS 09/30/18 09/30/18 History Cholecalciferol [Vitamin D3] 1,000 unit PO DAILY 09/30/18 09/30/18 History Dexlansoprazole [Dexilant] 60 mg PO DAILY 09/30/18 09/30/18 History HYDROcodone/APAP 5-325MG [[place] 1 tab PO Q4HR PRN 09/30/18 09/30/18 History 5-325] Insulin Aspart (For Pump) [NovoLOG 0.01 unit SQ-PUMP CONTINUOUS 09/30/18 09/30/18 History (For Pump)] Metoclopramide [Reglan] 10 mg PO ACHS 09/30/18 09/30/18 History Promethazine HCl/Codeine 5 ml PO QID PRN 09/30/18 09/30/18 History [Promethazine-Codeine Syrup] Ranitidine HCl [Zantac] 300 mg PO HS 09/30/18 09/30/18 History Selenium 200 mcg PO DAILY 09/30/18 09/30/18 History Ubidecarenone [Co Q-10] 100 mg PO DAILY 09/30/18 09/30/18 History Allergies Allergy/AdvReac Type Severity Reaction Status Date / Time No Known Allergies Allergy Verified 09/30/18 14:11 Physical Exam Vitals: Vital Signs Temp Pulse Pulse Pulse Resp BP BP 10/01/18 12:00 98.3 F 113 H 18 119/76 10/01/18 07:51 98.4 F 106 H 18 10/01/18 04:00 98.4 F 101 H 15 106/61 10/01/18 02:39 101 H 15 10/01/18 00:00 97.9 F 109 H 15 109/70 09/30/18 20:51 110 H 16 134/69 09/30/18 20:14 106 H 09/30/18 20:05 107 H 09/30/18 20:00 97.8 F 118 H 16 121/75 09/30/18 19:13 64 18 141/73 09/30/18 17:31 107 H 20 102/66 09/30/18 16:00 105 H 18 124/78 09/30/18 14:54 108 H 18 115/64 BP Pulse Ox 10/01/18 12:00 10/01/18 07:51 115/68 95 10/01/18 04:00 98 10/01/18 02:39 10/01/18 00:00 100 09/30/18 20:51 96 09/30/18 20:14 09/30/18 20:05 09/30/18 20:00 99 09/30/18 19:13 95 09/30/18 17:31 96 09/30/18 16:00 95 09/30/18 14:54 95 Intake and Output 09/30/18 10/01/18 10/01/18 22:59 06:59 14:59 Other: Voiding Method Toilet Toilet Toilet # Voids 2 2 1 Weight 47.3 kg 47.3 kg - Constitutional General appearance: average body habitus, cooperative, no acute distress - EENT Eyes: anicteric sclerae, EOMI, normal appearance ENT: hearing grossly normal, normal oropharynx - Neck Neck: no lymphadenopathy - Respiratory Respiratory: - Cardiovascular S1S2 Rhythm: regular - Gastrointestinal General gastrointestinal: no absent bowel sounds, no decreased bowel sounds, no distended, no hepatomegaly, no hyperactive bowel sounds, normal bowel sounds, no organomegaly, no rigid, no scaphoid, soft, no splenomegaly, no tenderness, no umbilical hernia, no ventral hernia - Integumentary Integumentary: pale - Neurologic Neurologic: CNII-XII intact - Musculoskeletal Musculoskeletal: generalized weakness, strength equal bilaterally - Psychiatric Psychiatric: A&O x's 3, appropriate affect, intact judgment & insight Results CBC & Chem 7: 10/01/18 06:58 10/01/18 06:58 Labs: Abnormal Lab Results - Last 24 Hours (Table) 09/30/18 09/30/18 09/30/18 Range/Units 14:45 14:45 19:18 RBC 3.61 L (3.80-5.40) m/uL Hgb 10.5 L (11.4-16.0) gm/dL Hct 32.7 L (34.0-46.0) % RDW 16.4 H (11.5-15.5) % Lymphocytes # 0.5 L (1.0-4.8) k/uL Sodium 135 L (137-145) mmol/L Chloride 95 L (98-107) mmol/L Carbon Dioxide 34 H (22-30) mmol/L BUN 18 H (7-17) mg/dL Creatinine 0.48 L (0.52-1.04) mg/dL Glucose 131 H (74-99) mg/dL POC Glucose (mg/dL) 160 H (75-99) mg/dL Total Protein 5.8 L (6.3-8.2) g/dL Albumin 3.0 L (3.5-5.0) g/dL Urine Appearance (Clear) Ur Specific [place] (1.001-1.035) Urine Protein (Negative) Urine Glucose (UA) (Negative) Urine Ketones (Negative) Urine Blood (Negative) Urine RBC (0-5) /hpf Urine WBC (0-5) /hpf Uric Acid Crystals (None) /hpf Urine Bacteria (None) /hpf Urine Mucus (None) /hpf 09/30/18 09/30/18 10/01/18 Range/Units 19:50 22:00 06:48 RBC (3.80-5.40) m/uL Hgb (11.4-16.0) gm/dL Hct (34.0-46.0) % RDW (11.5-15.5) % Lymphocytes # (1.0-4.8) k/uL Sodium (137-145) mmol/L Chloride (98-107) mmol/L Carbon Dioxide (22-30) mmol/L BUN (7-17) mg/dL Creatinine (0.52-1.04) mg/dL Glucose (74-99) mg/dL POC Glucose (mg/dL) 130 H 171 H (75-99) mg/dL Total Protein (6.3-8.2) g/dL Albumin (3.5-5.0) g/dL Urine Appearance Cloudy H (Clear) Ur Specific [place] >1.050 H (1.001-1.035) Urine Protein Trace H (Negative) Urine Glucose (UA) Trace H (Negative) Urine Ketones Trace H (Negative) Urine Blood Small H (Negative) Urine RBC 32 H (0-5) /hpf Urine WBC 20 H (0-5) /hpf Uric Acid Crystals Moderate H (None) /hpf Urine Bacteria Rare H (None) /hpf Urine Mucus Few H (None) /hpf 10/01/18 10/01/18 10/01/18 Range/Units 06:58 06:58 11:32 RBC 3.23 L (3.80-5.40) m/uL Hgb 9.6 L (11.4-16.0) gm/dL Hct 29.9 L (34.0-46.0) % RDW 16.4 H (11.5-15.5) % Lymphocytes # (1.0-4.8) k/uL Sodium 135 L (137-145) mmol/L Chloride (98-107) mmol/L Carbon Dioxide 31 H (22-30) mmol/L BUN 18 H (7-17) mg/dL Creatinine 0.48 L (0.52-1.04) mg/dL Glucose 180 H (74-99) mg/dL POC Glucose (mg/dL) 196 H (75-99) mg/dL Total Protein (6.3-8.2) g/dL Albumin (3.5-5.0) g/dL Urine Appearance (Clear) Ur Specific [place] (1.001-1.035) Urine Protein (Negative) Urine Glucose (UA) (Negative) Urine Ketones (Negative) Urine Blood (Negative) Urine RBC (0-5) /hpf Urine WBC (0-5) /hpf Uric Acid Crystals (None) /hpf Urine Bacteria (None) /hpf Urine Mucus (None) /hpf Microbiology - Last 24 Hours (Table) 09/30/18 19:50 Urine Culture - Preliminary Urine,Voided CT scan - chest: report reviewed Assessment and Plan (1) Chest pain Narrative/Plan: Per pt better since admit, CTA neg for PE, sinus tachycardia of EKG. Current Visit: Yes Status: Acute Priority: High Code(s): R07.9 - CHEST PAIN, UNSPECIFIED SNOMED Code(s): 55458652 (2) Dyspnea Narrative/Plan: Pleural effusion, Pulmonary seeing pt, throacentesis planned. Symptoms, presentation and exam do not support an immune related pneumonitis. Agree with current work up, plan and treatment. We will cont to follow Pt on O2 and comfortable at rest Current Visit: Yes Status: Acute Priority: High Code(s): R06.00 - DYSPNEA, UNSPECIFIED SNOMED Code(s): 282688787 (3) Small cell lung cancer Narrative/Plan: S/P 2 cycles of doublet immunotherapy on compassionate use. Current Visit: Yes Status: Acute Priority: High Code(s): C34.90 - MALIGNANT NEOPLASM OF UNSP PART OF UNSP BRONCHUS OR LUNG SNOMED Code(s): 473725872 Plan: Sinus tachycardia-thyroid studies and cortisol level ordered to evaluate for potential immune related thyroiditis.
[2018-10-01] MEDS: MORPHINE SULFATE 4 MG/ML SYRINGE IV PRN (17:05)
[2018-10-01 17:52] LABS: T4, Free (Free Thyroxine) 1.14 ng/dL (0.78-2.19)
[2018-10-01] MEDS: FAMOTIDINE 20 MG TAB PO SCH (20:18)
[2018-10-01] MEDS: ATORVASTATIN 40 MG TAB PO SCH (20:18)
[2018-10-01] MEDS: EZETIMIBE 10 MG TAB PO SCH (20:18)
[2018-10-01 20:45] LABS: Glucose,Whole Blood 160 mg/dL (75-99)
[2018-10-02] MEDS: LEVOTHYROXINE 75 MCG TAB PO SCH (06:12)
[2018-10-02 06:51] LABS: Glucose,Whole Blood 129 mg/dL (75-99)
[2018-10-02 07:07] LABS: Anisocytosis Slight; HCT 31.4 % (34.0-46.0); HGB 9.9 gm/dL (11.4-16.0); Hypochromasia Slight; MCH 28.9 pg (25.0-35.0); MCHC 31.4 g/dL (31.0-37.0); Mean Platelet Volume 7.4; Platelet Count 372 k/uL (150-450); RBC 3.41 m/uL (3.80-5.40); RDW 16.5 % (11.5-15.5); WBC 8.9 k/uL (3.8-10.6)
[2018-10-02 07:29] LABS: Anion Gap 5 mmol/L; Blood Urea Nitrogen 18 mg/dL (7-17); Calcium 8.8 mg/dL (8.4-10.2); Carbon Dioxide 31 mmol/L (22-30); Chloride 99 mmol/L (98-107); Glucose 128 mg/dL (74-99); Potassium 3.7 mmol/L (3.5-5.1); Sodium 135 mmol/L (137-145)
[2018-10-02] MEDS: Insulin Aspart (For Pump) 100 UNIT/ML VIAL SQ-PUMP SCH ×2 (07:34→07:39)
[2018-10-02] MEDS: METOCLOPRAMIDE 10 MG TAB PO SCH ×2 (07:34→07:45)
[2018-10-02] MEDS: ENOXAPARIN 40 MG/0.4 ML SYRINGE SQ SCH (07:44)
[2018-10-02] MEDS: DOCUSATE 100 MG CAP PO SCH (07:44)
[2018-10-02] MEDS: CHOLECALCIFEROL 1,000 UNIT TAB PO SCH (07:45)
[2018-10-02] MEDS: FLUoxetine HCL 10 MG CAP PO SCH (07:45)
[2018-10-02] MEDS: PANTOPRAZOLE 40 MG TABLET PO SCH (07:45)
[2018-10-02 07:46] VITALS: RESP 18
[2018-10-02] MEDS: HYDROcodone/APAP 5-325MG 1 EACH TAB PO PRN (07:52)
[2018-10-02] MEDS: SYMBICORT 160-4.5 MCG INHALER INHALATION SCH (07:54)
--- NOTE | 2018-10-02 08:25 | XR ---
EXAMINATION TYPE: XR chest 1V portable DATE OF EXAM: 10/02/2018 COMPARISON: 10/01/2018 HISTORY: Status post thoracentesis TECHNIQUE: Single frontal view of the chest is obtained. FINDINGS: There now is near complete opacification of the right hemithorax. Subsegmental infiltrate left lung base. Heart size stable. Mediport catheter noted. Reduced mineralization of the distal clav icle could been the basis of metastatic disease. 5% right-sided pneumothorax. IMPRESSION: Near complete opacification the right hemithorax. There is a 5% or less right-sided pneu mothorax.
--- NOTE | 2018-10-02 08:56 | ECHOF ---
Referral Reason:pericardial effusion MEASUREMENTS -------- HEIGHT: 162.6 cm WEIGHT: 47.2 kg BP: FINDINGS -------- Resting tachycardia (HR>100bpm). Limited Study There is a moderate to large pericardial effusion present. Large Pleural Effusion. CONCLUSIONS -------- 1. Resting tachycardia (HR>100bpm). 2. Limited Study 3. There is a moderate to large pericardial effusion present. 4. Large Pleural Effusion. EMBROIDERY SPECIALIST: Felicia Rascon RDCS
[2018-10-02] MEDS ORDERED: SODIUM CHLORIDE 0.9% 500 ML 250 ML IV ONE (10:00)
[2018-10-02 11:28] VITALS: BP 108/68; PULSE 118; TEMP 98.1
[2018-10-02 11:42] LABS: Glucose,Whole Blood 174 mg/dL (75-99)
--- NOTE | 2018-10-02 13:32 | P.DS ---
Providers Date of admission: 09/30/18 16:51 Expected date of discharge: 10/02/18 Attending physician: Ashkan Matthews MD Consults: 09/30/18 16:49 Consult Physician Urgent Consulting Provider: Jeanette Temple Consult Reason/Comments: dyspnea Do you want consulting provider notified?: Yes 09/30/18 19:07 Consult Physician Routine Consulting Provider: Pérez Conley Consult Reason/Comments: small cell lung ca Do you want consulting provider notified?: Yes Primary care physician: Aman Whatley - Discharge Diagnosis(es) (1) Sinus tachycardia Pt. is slightly dehydrated and malnourished, her tachycardia slightly improved from 130's to 120's after cautious I/V NS bolous. She was advised to increase oral fluid intake mainly of water to upto 2 lit/day and she verbalized understanding. She is requesting to go home as her SOB and CP, as presenting symptoms are improved to some extent. Her boy friend was in the room and he agreed with the discharge plan. He requested for pain medications, noted pt. was on Hydrocodone PRN at home, will give PRN Hydrocodone/APAP for couple of days and then she has to f/u with her PCP for further management. Pt. reported that with her coughing episode she develops chest pain under the ribs, was her presenting complain of CP. Current Visit: Yes Status: Acute (2) Dyspnea Much improved with thoracentesis, pt. has home O2 and will be continued on it post discharge. Current Visit: Yes Status: Acute Priority: High (3) Small cell lung cancer Pt. was referred to Palliative team bu tshe reported that she would like to discuss with her oncologist re: any further treatment options and if there then she would like to pursue it. Suggested to discuss this with her oncologist on the f/u appointment in 1-2 weeks. Pt's current immuno-therapy is on hold due to acute illness and it was also thought that it may be causing her tachycardia. Current Visit: Yes Status: Acute Priority: High Hospital Course: Patient is a 62-year-old female with a history of small cell lung cancer currently undergoing immune therapy with nivolumab/ipilimumab, hypertension, diabetes, and dyslipidemia who presented to the emergency department with dyspnea, generalized weakness, and chest pain. Apparently she was at the oncology office to see Clotilde nurse practitioner today who recommended her come to the ER she was concerned about dehydration. In the ER she underwent an extensive evaluation. On arrival she was found to be tachycardic with a puls e of 127 and oxygen saturation of 90. She was also slightly hypotensive with a blood pressure of 91/58. Initial laboratory analysis was consistent with slight dehydration. Her hemoglobin was at baseline with her chronic anemia. CTA of the chest was negative for PE but did demonstrate a right-sided pleural effusion and continued right-sided mass with mediastinal involvement. She was admitted fo r observation. She was seen by speech and passed a bedside swallow screes. She was seen by pulmonary and had thoracentesis with removal of 1L of pleural fluid. Today pt. is feeling better and she worked with therapy and did well, although she had episode of low oxygen with ambulation but it quickly improved with rest. She reported that her SOB is improving and would like to go home today. Pt. rule d out for immune related thyroiditis. Pertinent Studies: 1- 2-D Echo Limited reported as mod to large pericardial effusion and large pleural effusion. 2- CT-PE study reported as NO PE. 3- CRX reported as near complete opacification ellen right hemithorax with ? sub- segmental infiltrate - no clinical signs or symptoms of infection/pneumonia, pt. was not treated for just on the basis of radiological findings. Procedures: U/s guided right thoracentesis on 01/01/2019. Patient Condition at Discharge: Poor Plan - Discharge Summary Discharge Rx Participant: Yes New Discharge Prescriptions: New Docusate [Colace] 200 mg PO BID 30 Days #60 cap Ipratropium-Albuterol Nebulize [Duoneb 0.5 mg-3 mg/3 ml Soln] 3 ml INHALATION RT-QID PRN #90 ampul.neb PRN Reason: Shortness Of Breath Or Wheezing Continue Levothyroxine Sodium [Synthroid] 100 mcg PO DAILY FLUoxetine HCL [PROzac] 10 mg PO DAILY Ezetimibe [Zetia] 10 mg PO HS Budesonide/Formoterol Fumarate [Symbicort 160-4.5 Mcg Inhaler] 2 puff INHALATION RT-BID Albuterol Sulfate [Proair Hfa] 2 puff INHALATION RT-Q4H PRN PRN Reason: Shortness Of Breath Ubidecarenone [Co Q-10] 100 mg PO DAILY Selenium 200 mcg PO DAILY Ranitidine HCl [Zantac] 300 mg PO HS Metoclopramide [Reglan] 10 mg PO ACHS Insulin Aspart (For Pump) [NovoLOG (For Pump)] 0.01 unit SQ-PUMP CONTINUOUS Cholecalciferol [Vitamin D3] 1,000 unit PO DAILY Atorvastatin [Lipitor] 40 mg PO HS Promethazine HCl/Codeine [Promethazine-Codeine Syrup] 5 ml PO QID PRN PRN Reason: Cough Dexlansoprazole [Dexilant] 60 mg PO DAILY Changed HYDROcodone/APAP 5-325MG [[place] 5-325] 1 tab PO Q6HR PRN #8 tab PRN Reason: Pain Discharge Medication List Ezetimibe [Zetia] 10 mg PO HS 12/19/17 [History] FLUoxetine HCL [PROzac] 10 mg PO DAILY 12/19/17 [History] Levothyroxine Sodium [Synthroid] 100 mcg PO DAILY 12/19/17 [History] Albuterol Sulfate [Proair Hfa] 2 puff INHALATION RT-Q4H PRN 08/31/18 [History] Budesonide/Formoterol Fumarate [Symbicort 160-4.5 Mcg Inhaler] 2 puff INHALATION RT-BID 08/31/18 [History] Atorvastatin [Lipitor] 40 mg PO HS 09/30/18 [History] Cholecalciferol [Vitamin D3] 1,000 unit PO DAILY 09/30/18 [History] Dexlansoprazole [Dexilant] 60 mg PO DAILY 09/30/18 [History] Insulin Aspart (For Pump) [NovoLOG (For Pump)] 0.01 unit SQ-PUMP CONTINUOUS 09/30/18 [History] Metoclopramide [Reglan] 10 mg PO ACHS 09/30/18 [History] Promethazine HCl/Codeine [Promethazine-Codeine Syrup] 5 ml PO QID PRN 09/30/18 [History] Ranitidine HCl [Zantac] 300 mg PO HS 09/30/18 [History] Selenium 200 mcg PO DAILY 09/30/18 [History] Ubidecarenone [Co Q-10] 100 mg PO DAILY 09/30/18 [History] Docusate [Colace] 200 mg PO BID 30 Days #60 cap 10/02/18 [Rx] HYDROcodone/APAP 5-325MG [[place] 5-325] 1 tab PO Q6HR PRN #8 tab 10/02/18 [Rx] Ipratropium-Albuterol Nebulize [Duoneb 0.5 mg-3 mg/3 ml Soln] 3 ml INHALATION RT-QID PRN #90 ampul.neb 10/02/18 [Rx] Follow up Appointment(s)/Referral(s): [facility], [NON-STAFF] - 1-2 Days (Home Care and Palliative Care are ordered through [facility]. This phone number is the same. ) Aman Whatley MD [Primary Care Provider] - 1-2 days Discharge Disposition: HOME WITH HOME HEALTH SERVICES Pending Studies Pending Results: Cytology from thoracentesis fluid.
--- NOTE | 2018-10-02 15:19 | P.PN ---
Subjective Progress Note Date: 10/02/18 Principal diagnosis: Pleuritic chest pain, related to right-sided pleural effusion, status post thoracentesis This is 62-year-old white female patient, with past medical history of small cell lung cancer with metastasis to the brain, status post 6 rounds of chemotherapy and radiation to the brain, currently on immunotherapy with Nivolumab/Ipilimumab, presenting to the emergency department on 09/30/2018 with concern of dehydration, dyspnea, generalized weakness, chest pain. Her symptoms have progressed over several weeks, she has been losing weight, having decreased appetite, weight loss, she states in last couple weeks she lost 12 pounds. Denies any nausea or vomiting, denies any diarrhea. She has had a dry cough, but no chest congestion. No hemoptysis. She states the chest pain is central, and is brought on by exertion and coughing. No fever or chills. Patient was originally diagnosed in the early 2017 CT chest was performed, when patient was found to have right vocal cord paralysis on laryngoscopy. CT chest showed suspicious lymphadenopathy in the mediastinal, right hilar and retroclavicular areas and a left adrenal nodule. E-BUS was performed at the confirming metastatic small cell undifferentiated carcinoma, and patient had undergone carbo/MED SPEC treatment followed by PCI XRT to the head. PET scan on 04/14 showed no active disease. However her most recent PET scan on 08/01/2018 showed active neoplastic recurrence with a new hypermetabolic masslike consolidation in the right hilar level extending into the right upper lobe with surrounding groundglass opacity measuring roughly 7.6 x 6.7 cm, with a max SUV of 10.95. There was subcarinal hypermetabolic mass or adenopathy in distinct from the right hilar mass with a max SUV of 9.4. Patient was recently hospitalized in August for postobstructive pneumonia of the right lung and moderate-sized right-sided pleural effusion. She underwent thoracentesis on 09/03/[address] Temple, and 1200 mL of pleural fluid was removed, cytology showed rare atypical cells consistent with metastatic small cell carcinoma. Patient had a bronchoscopy with BAL of the right upper lobe, on 09/04/2018, endobronchial stent placement with is anticipated in regards to concern about obstruction of the right upper lobe bronchus with tumor infiltration into the mediastinum causing right upper lobe collapse, postobstructive pneumonia and right-sided pleural effusion. However during the bronchoscopy it was found that the right middle lobe bronchus and the right lower lobe bronchus and the various segments of the right lower lobes were patent, and the stent was not placed. Bronchial wash cultures were negative, bronchial wash cytology showed scattered malignant cells consistent with small cell carcinoma. CT angios chest was completed, and showed no evidence of pulmonary embolism, suspected lung mass in the right lung appears similar to prior study with postobstructive atelectasis and infiltration through the mediastinum, small to moderate pleural effusion. Labs showed white blood cell count is 7.0, hemoglobin of 10.5, sodium of 135, potassium is 3.5, chloride was 95, CO2 is 34, BUN is 18 creatinine 0.48, troponins negative 3, proBNP is 358, urinalysis showed red blood cells, and white blood cells, negative leuks, rare bacteria. Patient was afebrile, but tachycardic, with the heart rate at 127, hypotensive, with a blood pressure of 91/58 appear to be dehydrated, she was fluid resuscitated in the emergency department with a liter of normal saline, and her maintenance IV fluids infusing at a rate of 100 ML per hour, she was started on breathing treatments. Ultraso und of the chest was completed, and showed a large right pleural effusion pocket measuring 13.5 cm with adjacent atelectasis. On 10/02/2018 patient seen in follow-up on observation unit, patient is status post right thoracentesis on 10/02/2018 with removal of 1000 ML of pleural fluid. Pleural fluid cultures are negative thus far, no cytology was sent. On today's exam patient is awake and alert, she is in no acute distress, she is on it is of oxygen with a pulse ox of 95%, afebrile, vital signs are stable, lung sounds reveal diminished breath sounds over right lung. No acute events overnig ht, her chest pain is well controlled. Objective - Vital Signs Vital signs: Vital Signs Temp 98.1 F 10/02/18 11:27 Pulse 118 H 10/02/18 11:27 Resp 18 10/02/18 11:27 BP 108/68 10/02/18 11:27 Pulse Ox 95 10/02/18 11:27 Intake & Output 10/01/18 10/02/18 10/02/18 18:59 06:59 18:59 Intake Total 400 200 Balance 400 200 Weight 47.3 kg 47.3 kg Intake: Oral 400 Other 200 Other: Voiding Method Toilet Toilet Toilet # Voids 1 2 - Exam GENERAL EXAM: Alert, pleasant, 62-year-old white female comfortable in no apparent distress. HEAD: Normocephalic/atraumatic. EYES: Normal reaction of pupils, equal size. Conjunctiva pink, sclera white. NOSE: Clear with pink turbinates. THROAT: No erythema or exudates. NECK: No masses, no JVD, no thyroid enlargement, no adenopathy. CHEST: No chest wall deformity. Symmetrical expansion. LUNGS: Equal air entry with dementia by sounds over right lung CVS: Regular rate and rhythm, normal S1 and S2, no gallops, no murmurs, no rubs ABDOMEN: Soft, nontender. No hepatosplenomegaly, normal bowel sounds, no guarding or rigidity. EXTREMITIES: No clubbing, no edema, no cyanosis, 2+ pulses and upper and lower extremities. MUSCULOSKELETAL: Muscle strength and tone normal. SPINE: No scoliosis or deformity SKIN: No rashes CENTRAL NERVOUS SYSTEM: Alert and oriented -3. No focal deficits, tone is normal in all 4 extremities. PSYCHIATRIC: Alert and oriented -3. Appropriate affect. Intact judgment and insight. - Labs CBC & Chem 7: 10/02/18 06:55 10/02/18 06:55 Labs: Abnormal Lab Results - Last 24 Hours (Table) 10/01/18 10/01/18 10/01/18 Range/Units 06:58 16:40 20:44 RBC (3.80-5.40) m/uL Hgb (11.4-16.0) gm/dL Hct (34.0-46.0) % RDW (11.5-15.5) % Sodium (137-145) mmol/L Carbon Dioxide (22-30) mmol/L BUN (7-17) mg/dL Creatinine (0.52-1.04) mg/dL Glucose (74-99) mg/dL POC Glucose (mg/dL) 152 H 160 H (75-99) mg/dL Free T3 pg/mL 2.0 L (2.8-5.3) pg/ml 10/02/18 10/02/18 10/02/18 Range/Units 06:49 06:55 06:55 RBC 3.41 L (3.80-5.40) m/uL Hgb 9.9 L (11.4-16.0) gm/dL Hct 31.4 L (34.0-46.0) % RDW 16.5 H (11.5-15.5) % Sodium 135 L (137-145) mmol/L Carbon Dioxide 31 H (22-30) mmol/L BUN 18 H (7-17) mg/dL Creatinine 0.46 L (0.52-1.04) mg/dL Glucose 128 H (74-99) mg/dL POC Glucose (mg/dL) 129 H (75-99) mg/dL Free T3 pg/mL (2.8-5.3) pg/ml 10/02/18 Range/Units 11:39 RBC (3.80-5.40) m/uL Hgb (11.4-16.0) gm/dL Hct (34.0-46.0) % RDW (11.5-15.5) % Sodium (137-145) mmol/L Carbon Dioxide (22-30) mmol/L BUN (7-17) mg/dL Creatinine (0.52-1.04) mg/dL Glucose (74-99) mg/dL POC Glucose (mg/dL) 174 H (75-99) mg/dL Free T3 pg/mL (2.8-5.3) pg/ml Microbiology - Last 24 Hours (Table) 10/01/18 15:00 Gram Stain - Preliminary Pleural Fluid Body Fluid Culture - Preliminary 09/30/18 19:50 Urine Culture - Final Urine,Voided 10/01/18 15:00 Fungal Culture - Preliminary Pleural Fluid Assessment and Plan Plan: Assessment: #1. Pleuritic chest pain, related to right-sided pleural effusion, status post thoracentesis we will of 1 L of pleural fluid #2. History of small cell lung cancer stage IV, with metastasis to the brain, status post chemotherapy and radiation to the brain, currently on immunotherapy #3. Dehydration #4. Weight loss of 12 pounds in the last 2 weeks, anorexia, failure to thrive #5. Chronic anemia #6. Large right hilar mass with postobstructive atelectasis and infiltration through the mediastinum, similar to the previous CT chest from August 2018. #7. Recent hospitalization for postobstructive pneumonia in the right lung, and had undergone bronchoscopy with BAL, did not require endobronchial stenting, bronchial wash cultures negative. Patient did have a right-sided thoracentesis during that admission as well, and both bronchial wash and pleural fluid cytology were consistent with small cell carcinoma #8. Hypertension, hyperlipidemia #9. COPD, with underlying FEV1 of 1.29 L or 51% of predicted, consistent with stage II #10. History of [id number] smoking, currently in remission #11. Hypothyroidism, history of peptic ulcer disease, previous episodes of GI bleeding, osteoarthritis Plan: Patient was seen and evaluated by Dr. Rutledge, this chest x-ray has been reviewed, and shows near complete opacification of the right hemithorax, a bubble 5% or less right-sided pneumothorax, clinically patient is asymptomatic, breathing easier, she is awake and alert, vital signs are stable, she has been get not been moving about the room, in no major distress. We'll fluid cultures are negative thus far, no cytology was sent. He is being discharged home today, from pulmonary perspective patient is stable for discharge. She'll need follow- up with Dr. Temple in the office, and she may need periodic paracentesis for recurrence of pleural effusion I performed a history & physical examination of the patient and discussed their management with my nurse practitioner, Jeana Hartman. I reviewed the nurse practitioner's note and agree with the documented findings and plan of care. Lung sounds are positive for diminished breath sounds. The findings and the impression was discussed with the patient. I attest to the documentation by the nurse practitioner. Time with Patient: Less than 30
== END 2018-10-02 13:16 | disposition home health service (06) ==
LOC: EC 13:41 → 1SOBS 16:51
PROVIDERS: ADMIT Family Medicine; ATTEND Family Medicine
DX: E86.0 Dehydration (principal); E46 Unspecified protein-calorie malnutrition; I95.9 Hypotension, unspecified; I31.3 Pericardial effusion (noninflammatory); J91.0 Malignant pleural effusion; R62.7 Adult failure to thrive; E43 Unspecified severe protein-calorie malnutrition; Z68.1 Body mass index [BMI] 19.9 or less, adult; C34.91 Malignant neoplasm of unspecified part of right bronchus or lung; C79.31 Secondary malignant neoplasm of brain; J98.11 Atelectasis; I10 Essential (primary) hypertension; E11.9 Type 2 diabetes mellitus without complications; E78.5 Hyperlipidemia, unspecified; D64.9 Anemia, unspecified; E03.9 Hypothyroidism, unspecified; K21.9 Gastro-esophageal reflux disease without esophagitis; J44.1 Chronic obstructive pulmonary disease with (acute) exacerbation; M19.90 Unspecified osteoarthritis, unspecified site; Z99.81 Dependence on supplemental oxygen; Z79.4 Long term (current) use of insulin; Z79.51 Long term (current) use of inhaled steroids; Z79.899 Other long term (current) drug therapy; Z79.890 Hormone replacement therapy; Z96.41 Presence of insulin pump (external) (internal); Z87.11 Personal history of peptic ulcer disease; Z92.21 Personal history of antineoplastic chemotherapy; Z92.3 Personal history of irradiation; Z87.891 Personal history of nicotine dependence; Z80.8 Family history of malignant neoplasm of other organs or systems; Z80.3 Family history of malignant neoplasm of breast
CPT/HCPCS: 32555; 96361 ×4; 96372 ×2; 96376 ×2; 96374; 99285; 36415; 94640 ×5; 94760; 93005; 93308; 97110; 97162; 92610; 84439; 88108; 88305; 84481; 83880; 80061; 80053; 80048 ×2; 84445; 82533; 83735 ×2; 84100; 84484 ×2; 85025; 85027 ×2; 85610; 85730; 81001; 88342; 88341; 87070; 87086; 87205; 87102; 71045 ×2; 71046; 76604; 71275; G0378 ×3; J2270 ×2; J2001; J1650 ×2; Q9967

== ENCOUNTER 2018-10-14 16:41 | Emergency (ER) | payer MEDICARE, BC ==
[2018-10-14] MEDS ORDERED: SODIUM CHLORIDE 0.9% 500 ML 500 ML IV STA (17:07)
[2018-10-14] MEDS ORDERED: SODIUM CHLORIDE 0.9% 1,000 ML IV STA ×3 (17:07→18:57)
--- NOTE | 2018-10-14 17:08 | ED ---
Weakness HPI - General Chief complaint: Weakness Stated complaint: Needs fluids Time Seen by Provider: 10/14/18 17:06 Source: patient, RN notes reviewed, old records reviewed Mode of arrival: wheelchair Limitations: no limitations - History of Present Illness Initial comments: This is a 8-year-old female the ER for evaluation. She is presented today for evaluation regards to not feeling well. Patient admits to severe dehydration, currently going through worse currently has history of lung cancer non-small cell. Takes no medication or current chemotherapy or radiation. Patient was sent in by oncologist for persistent dehydration tachycardia and weakness. Home nurse also said patient decided patient should come the hospital today for dehydration and low blood pressure. Patient denies fever no nausea vomiting or diarrhea. No change in medications MD Complaint: generalized weakness, lack of energy -: days(s) Location: generalized Severity: moderate (Dehydration) Improves with: none Worsens with: none Associated Symptoms: nausea/vomiting - Related Data Home Medications Medication Instructions Recorded Confirmed Ezetimibe [Zetia] 10 mg PO HS 12/19/17 10/14/18 FLUoxetine HCL [PROzac] 10 mg PO DAILY 12/19/17 10/14/18 Levothyroxine Sodium [Synthroid] 100 mcg PO DAILY 12/19/17 10/14/18 Albuterol Sulfate [Proair Hfa] 2 puff INHALATION RT-Q4H PRN 08/31/18 10/14/18 Atorvastatin [Lipitor] 40 mg PO HS 09/30/18 10/14/18 Cholecalciferol [Vitamin D3] 1,000 unit PO DAILY 09/30/18 10/14/18 Dexlansoprazole [Dexilant] 60 mg PO DAILY 09/30/18 10/14/18 Insulin Aspart (For Pump) [NovoLOG 0.01 unit SQ-PUMP CONTINUOUS 09/30/18 10/14/18 (For Pump)] Metoclopramide [Reglan] 10 mg PO ACHS 09/30/18 10/14/18 Promethazine HCl/Codeine 5 ml PO QID PRN 09/30/18 10/14/18 [Promethazine-Codeine Syrup] Ranitidine HCl [Zantac] 300 mg PO HS 09/30/18 10/14/18 Selenium 200 mcg PO DAILY 09/30/18 10/14/18 Ubidecarenone [Co Q-10] 100 mg PO DAILY 09/30/18 10/14/18 HYDROcodone/APAP 7.5-325MG [[place] 1 tab PO Q6H PRN 10/14/18 10/14/18 7.5-325] fentaNYL 12MCG/HR PATCH [Duragesic 1 patch TRANSDERM Q72H 10/14/18 10/14/18 12MCG/HR] Previous Rx's Medication Instructions Recorded Docusate [Colace] 200 mg PO BID 30 Days #60 cap 10/02/18 Ipratropium-Albuterol Nebulize 3 ml INHALATION RT-QID PRN #90 10/02/18 [Duoneb 0.5 mg-3 mg/3 ml Soln] ampul.neb Allergies Allergy/AdvReac Type Severity Reaction Status Date / Time No Known Allergies Allergy Verified 10/14/18 17:27 Review of Systems ROS Statement: Those systems with pertinent positive or pertinent negative responses have been documented in the HPI. ROS Other: All systems not noted in ROS Statement are negative. Past Medical History Past Medical History: Cancer, Diabetes Mellitus, GERD/Reflux, Hyperlipidemia, Hypertension, Thyroid Disorder Additional Past Medical History / Comment(s): hx. peptic ulcer, small cell lung cancer-initially to chemo and radiation in 2018, now with recurrence and on immunotherapy. Dysphasia, hypothyroidism History of Any Multi-Drug Resistant Organisms: None Reported Past Surgical History: Back Surgery, Section, Orthopedic Surgery Additional Past Surgical History / Comment(s): Exploratory Lap. 2 right knee arthroscopies. Mediport placement. Bronchoscopy. Laryngoscopy Past Anesthesia/Blood Transfusion Reactions: No Reported Reaction Past Psychological History: No Psychological Hx Reported Smoking Status: Former smoker Past Alcohol Use History: None Reported Past Drug Use History: None Reported - Past Family History Sister(s) Family Medical History: Cancer Additional Family Medical History / Comment(s): breast General Exam Limitations: no limitations General appearance: alert, in no apparent distress Head exam: Present: atraumatic, normocephalic, normal inspection Eye exam: Present: normal appearance, PERRL, EOMI. Absent: scleral icterus, conjunctival injection, periorbital swelling ENT exam: Present: normal exam, mucous membranes dry Neck exam: Present: normal inspection. Absent: tenderness, meningismus, lymphadenopathy Respiratory exam: Present: normal lung sounds bilaterally. Absent: respiratory distress, wheezes, rales, rhonchi, stridor Cardiovascular Exam: Present: normal rhythm, tachycardia, normal heart sounds. Absent: systolic murmur, diastolic murmur, rubs, gallop, clicks GI/Abdominal exam: Present: soft, normal bowel sounds. Absent: distended, tenderness, guarding, rebound, rigid Extremities exam: Present: normal inspection, full ROM, normal capillary refill. Absent: tenderness, pedal edema, joint swelling, calf tenderness Back exam: Present: normal inspection Neurological exam: Present: alert, oriented X3, CN II-XII intact Psychiatric exam: Present: normal affect, normal mood Skin exam: Present: warm, dry, intact, normal color. Absent: rash Course Vital Signs 10/14/18 10/14/18 10/14/18 16:52 17:07 18:42 Temperature 97.9 F Pulse Rate 128 H 127 H 115 H Pulse Rate [ 127 H Coverage Specialist Rn ] Respiratory 18 16 20 Rate Blood Pressure 88/59 104/67 104/63 O2 Sat by Pulse 96 95 96 Oximetry 10/14/18 10/14/18 19:39 20:36 Temperature Pulse Rate 108 H 111 H Pulse Rate [ Coverage Specialist Rn ] Respiratory 16 16 Rate Blood Pressure 106/63 106/64 O2 Sat by Pulse 97 96 Oximetry - Reevaluation(s) Reevaluation #1: 10/14/18 18:33 Medical record is reviewed Reevaluation #2: 10/14/18 18:33 Patient improved with IV hydration, heart rate improved blood pressure is improved Reevaluation #3: 10/14/18 18:33 A she currently has adequate pain management Medical Decision Making - Lab Data Result diagrams: 10/14/18 17:25 10/14/18 17:25 Lab Results 10/14/18 10/14/18 10/14/18 Range/Units 17:25 17:25 17:25 WBC 5.8 (3.8-10.6) k/uL RBC 3.31 L (3.80-5.40) m/uL Hgb 9.4 L (11.4-16.0) gm/dL Hct 30.4 L (34.0-46.0) % MCV 91.9 (80.0-100.0) fL MCH 28.3 (25.0-35.0) pg MCHC 30.8 L (31.0-37.0) g/dL RDW 17.1 H (11.5-15.5) % Plt Count 391 (150-450) k/uL Neutrophils % 77 % Lymphocytes % 14 % Monocytes % 5 % Eosinophils % 2 % Basophils % 1 % Neutrophils # 4.5 (1.3-7.7) k/uL Lymphocytes # 0.8 L (1.0-4.8) k/uL Monocytes # 0.3 (0-1.0) k/uL Eosinophils # 0.1 (0-0.7) k/uL Basophils # 0.0 (0-0.2) k/uL Hypochromasia Slight Anisocytosis Slight Sodium 134 L (137-145) mmol/L Potassium 3.8 (3.5-5.1) mmol/L Chloride 95 L (98-107) mmol/L Carbon Dioxide 31 H (22-30) mmol/L Anion Gap 8 mmol/L BUN 19 H (7-17) mg/dL Creatinine 0.48 L (0.52-1.04) mg/dL Est GFR (CKD-EPI)AfAm >90 (>60 ml/min/1.73 sqM) Est GFR (CKD-EPI)NonAf >90 (>60 ml/min/1.73 sqM) Glucose 189 H (74-99) mg/dL Lactic Ac Sepsis Rflx Plasma Lactic Acid Jamal 3.4 H* (0.7-2.0) mmol/L Calcium 8.8 (8.4-10.2) mg/dL Phosphorus 2.5 (2.5-4.5) mg/dL Magnesium 1.6 (1.6-2.3) mg/dL Total Bilirubin 0.3 (0.2-1.3) mg/dL AST 26 (14-36) U/L ALT 18 (9-52) U/L Alkaline Phosphatase 81 (38-126) U/L Total Protein 5.4 L (6.3-8.2) g/dL Albumin 2.7 L (3.5-5.0) g/dL Urine Color Urine Appearance (Clear) Urine pH (5.0-8.0) Ur Specific [place] (1.001-1.035) Urine Protein (Negative) Urine Glucose (UA) (Negative) Urine Ketones (Negative) Urine Blood (Negative) Urine Nitrite (Negative) Urine Bilirubin (Negative) Urine Urobilinogen (<2.0) mg/dL Ur Leukocyte Esterase (Negative) Urine RBC (0-5) /hpf Urine WBC (0-5) /hpf Ur Squamous Epith Cells (0-4) /hpf Amorphous Sediment (None) /hpf Urine Mucus (None) /hpf 10/14/18 10/14/18 Range/Units 17:51 18:08 WBC (3.8-10.6) k/uL RBC (3.80-5.40) m/uL Hgb (11.4-16.0) gm/dL Hct (34.0-46.0) % MCV (80.0-100.0) fL MCH (25.0-35.0) pg MCHC (31.0-37.0) g/dL RDW (11.5-15.5) % Plt Count (150-450) k/uL Neutrophils % % Lymphocytes % % Monocytes % % Eosinophils % % Basophils % % Neutrophils # (1.3-7.7) k/uL Lymphocytes # (1.0-4.8) k/uL Monocytes # (0-1.0) k/uL Eosinophils # (0-0.7) k/uL Basophils # (0-0.2) k/uL Hypochromasia Anisocytosis Sodium (137-145) mmol/L Potassium (3.5-5.1) mmol/L Chloride (98-107) mmol/L Carbon Dioxide (22-30) mmol/L Anion Gap mmol/L BUN (7-17) mg/dL Creatinine (0.52-1.04) mg/dL Est GFR (CKD-EPI)AfAm (>60 ml/min/1.73 sqM) Est GFR (CKD-EPI)NonAf (>60 ml/min/1.73 sqM) Glucose (74-99) mg/dL Lactic Ac Sepsis Rflx Y Plasma Lactic Acid Jamal (0.7-2.0) mmol/L Calcium (8.4-10.2) mg/dL Phosphorus (2.5-4.5) mg/dL Magnesium (1.6-2.3) mg/dL Total Bilirubin (0.2-1.3) mg/dL AST (14-36) U/L ALT (9-52) U/L Alkaline Phosphatase (38-126) U/L Total Protein (6.3-8.2) g/dL Albumin (3.5-5.0) g/dL Urine Color Yellow Urine Appearance Cloudy H (Clear) Urine pH 5.0 (5.0-8.0) Ur Specific [place] 1.018 (1.001-1.035) Urine Protein Trace H (Negative) Urine Glucose (UA) 3+ H (Negative) Urine Ketones Negative (Negative) Urine Blood Moderate H (Negative) Urine Nitrite Negative (Negative) Urine Bilirubin Negative (Negative) Urine Urobilinogen <2.0 (<2.0) mg/dL Ur Leukocyte Esterase Moderate H (Negative) Urine RBC 153 H (0-5) /hpf Urine WBC 20 H (0-5) /hpf Ur Squamous Epith Cells 27 H (0-4) /hpf Amorphous Sediment Occasional H (None) /hpf Urine Mucus Many H (None) /hpf Disposition Clinical Impression: Dehydration, Small cell lung cancer, Weakness Disposition: HOME SELF-CARE Condition: Good Instructions (If sedation given, give patient instructions): Dehydration (ED) Is patient prescribed a controlled substance at d/c from ED?: No Referrals: Aman Whatley MD [Primary Care Provider] - 1-2 days
[2018-10-14 17:49] LABS: Anisocytosis Slight; Basophils % (A) 1 %; Eosinophils # (A) 0.1 k/uL (0-0.7); Eosinophils % (A) 2 %; HCT 30.4 % (34.0-46.0); HGB 9.4 gm/dL (11.4-16.0); Hypochromasia Slight; Lymphocytes # (A) 0.8 k/uL (1.0-4.8); Lymphocytes % (A) 14 %; MCH 28.3 pg (25.0-35.0); MCHC 30.8 g/dL (31.0-37.0); MCV 91.9 fL (80.0-100.0); Mean Platelet Volume 6.8; Monocytes # (A) 0.3 k/uL (0-1.0); Monocytes % (A) 5 %; Neutrophils # (A) 4.5 k/uL (1.3-7.7); Neutrophils % (A) 77 %; Platelet Count 391 k/uL (150-450); RBC 3.31 m/uL (3.80-5.40); RDW 17.1 % (11.5-15.5); WBC 5.8 k/uL (3.8-10.6)
[2018-10-14 18:02] LABS: ALT 18 U/L (9-52); AST 26 U/L (14-36); Albumin 2.7 g/dL (3.5-5.0); Alkaline Phosphatase 81 U/L (38-126); Anion Gap 8 mmol/L; Blood Urea Nitrogen 19 mg/dL (7-17); Calcium 8.8 mg/dL (8.4-10.2); Carbon Dioxide 31 mmol/L (22-30); Chloride 95 mmol/L (98-107); Glucose 189 mg/dL (74-99); Magnesium 1.6 mg/dL (1.6-2.3); Phosphorus 2.5 mg/dL (2.5-4.5); Potassium 3.8 mmol/L (3.5-5.1); Sodium 134 mmol/L (137-145); Total Bilirubin 0.3 mg/dL (0.2-1.3); Total Protein 5.4 g/dL (6.3-8.2)
[2018-10-14] MEDS ORDERED: ONDANSETRON 4 MG/2 ML VIAL IVP STA (18:31)
[2018-10-14] MEDS ORDERED: MORPHINE SULFATE 4 MG/ML SYRINGE IVP STA ×2 (18:31→20:17)
[2018-10-14 18:44] LABS: Amorphous Sediment,Urine Occasional /hpf; Appearance,Urine Cloudy (Clear); Bilirubin,Urine Negative (Negative); Blood,Urine Moderate (Negative); Color,Urine Yellow; Glucose,Urine (UA) 3+ (Negative); Ketones,Urine Negative (Negative); Leukocyte Esterase,Urine Moderate (Negative); Mucus,Urine Many /hpf; Nitrite,Urine Negative (Negative); Protein,Urine Trace (Negative); RBC,Urine 153 /hpf (0-5); Specific Gravity,Urine 1.018 (1.001-1.035); Squamous Epithelial Cell,Urine 27 /hpf (0-4); Urobilinogen,Urine <2.0 mg/dL (<2.0); WBC,Urine 20 /hpf (0-5)
[2018-10-14 21:57] VITALS: BP 103/63; PULSE 109; RESP 18; TEMP 98
== END 2018-10-14 21:40 | disposition home or self-care (01) ==
LOC: EC 16:41
DX: E86.0 Dehydration (principal); C34.90 Malignant neoplasm of unspecified part of unspecified bronchus or lung; E11.9 Type 2 diabetes mellitus without complications; K21.9 Gastro-esophageal reflux disease without esophagitis; E78.5 Hyperlipidemia, unspecified; I10 Essential (primary) hypertension; E03.9 Hypothyroidism, unspecified; Z87.891 Personal history of nicotine dependence; Z79.4 Long term (current) use of insulin; Z79.891 Long term (current) use of opiate analgesic; Z79.890 Hormone replacement therapy; Z79.899 Other long term (current) drug therapy
CPT/HCPCS: 36415; 80053; 81001; 83605; 83735; 84100; 85025; 96361; 96374; 96375; 96376; 99285

== ENCOUNTER 2018-10-30 11:20 | Day surgery (SDC) | payer MEDICARE, BC ==
[2018-10-30 11:36] VITALS: TEMP 97.6
[2018-10-30] MEDS ORDERED: ATROPINE SULFATE 0.4 MG/ML 1 ML VIAL IM STA (11:47)
--- NOTE | 2018-10-30 12:34 | PCN ---
PROCEDURE NOTE PROCEDURE: A right thoracentesis. INDICATION: Pleural effusion. A time-out was completed verifying correct patient, procedure, site, positioning , and implant (s) or special equipment if applicable. Ultrasound guidance was used and appropriate fluid pocket was identified and marked. Patient was positioned, prepped and draped in usual sterile fashion. Lidocaine was used to anesthetize the area. A Thoracentesis catheter was introduced into the pleural space and fluid was removed. Blood loss was none. A chest x-ray was ordered to evaluate for pneumothorax. Total Fluid Removed 1.5 L Fluid was not sent for appropriate laboratory tests as it had been sent before. Patient tolerated the procedure well and there were no complications. The patient will follow up with either Dr. Silva or Dr. Temlpe in the office. There was informed consent, there was universal timeout. Again, no complications. MMODL / IJN: [id number] /
--- NOTE | 2018-10-30 12:48 | XR ---
EXAMINATION TYPE: XR chest 1V portable DATE OF EXAM: 10/30/2018 COMPARISON: Prior chest x-ray dated 10/29/2018 HISTORY: Status post right thoracentesis TECHNIQUE: Single frontal view of the chest is obtained. FINDINGS: There is some interval improved aeration in the right lung. No pneumothorax. Diffuse airsp paty disease suspected in the right lung. No other significant change. IMPRESSION: No evident complication status post thoracentesis.
[2018-10-30 13:12] VITALS: BP 162/53; PULSE 120; RESP 18
== END 2018-10-30 13:26 ==
LOC: PROCWHC3 11:20
PROVIDERS: ATTEND Internal Medicine Critical Care Medicine
DX: J91.0 Malignant pleural effusion (principal); C80.1 Malignant (primary) neoplasm, unspecified; Z92.21 Personal history of antineoplastic chemotherapy; J44.9 Chronic obstructive pulmonary disease, unspecified; E78.2 Mixed hyperlipidemia; E11.9 Type 2 diabetes mellitus without complications; Z79.4 Long term (current) use of insulin; E03.9 Hypothyroidism, unspecified; E78.5 Hyperlipidemia, unspecified; Z79.890 Hormone replacement therapy; Z79.891 Long term (current) use of opiate analgesic; Z79.52 Long term (current) use of systemic steroids; Z79.899 Other long term (current) drug therapy; Z80.8 Family history of malignant neoplasm of other organs or systems; Z80.3 Family history of malignant neoplasm of breast; Z87.891 Personal history of nicotine dependence
CPT/HCPCS: 71045; 96372; 32554; J0461

== ENCOUNTER → 2018-10-30 | Outpatient (CLI) | payer MEDICARE, BC ==
--- NOTE | 2018-10-30 13:45 | US ---
EXAMINATION TYPE: US chest DATE OF EXAM: 10/30/2018 COMPARISON: NONE CLINICAL HISTORY: J90 PLEURAL EFFUSION. Right chest marking TECHNIQUE: Targeted ultrasound of the posterior lower right hemithorax EXAM MEASUREMENTS: Right Pleural Effusion pocket size: 16.1 cm Right skin surface to fluid distance: 1.9 cm Right side MARKED for possible thoracentesis outside the dept. Pulmonologists are able to review the images in the patient?s EMR. IMPRESSIONS: Large right pleural effusion
== END | disposition home or self-care (01) ==
LOC: RADUSWWP 10:45
PROVIDERS: ATTEND Internal Medicine Critical Care Medicine
DX: J90 Pleural effusion, not elsewhere classified (principal)
CPT/HCPCS: 76604

== ENCOUNTER → 2018-11-07 | Outpatient (CLI) | payer MEDICARE, BC ==
--- NOTE | 2018-11-07 14:48 | MR ---
EXAMINATION TYPE: MR brain wo/w con DATE OF EXAM: 11/07/2018 COMPARISON: 05/11/2018 HISTORY: Secondary neoplasm of brain, memory loss TECHNIQUE: Multiplanar, multisequence images of the brain and brainstem is performed without and with IV contras t, utilizing 5.5 mL intravenous Gadavist . FINDINGS: Diffusion weighted images demonstrate no evidence of a recent infarct or other diffusion ab normality. There is moderate generalized degenerative change. There are diffuse and numerous focal areas of abno rmal signal throughout the white matter which is nonspecific. Extensive remote microvascular ischemia . Findings are progressed from the prior exam.. Midline structures demonstrate normal morphology. There is a partially empty sella turcica. There is abnormal signal within the C3 vertebral body possible C2 vertebral body seen only on the sagittal spencer ges The craniocervical junction appears within normal limits. Changes of chronic sinusitis noted. Changes of chronic mastoiditis greater on the right noted. Post contrast images demonstrate an elliptical area of enhancement involving the left parietal cortex measuring 6 x 3 mm. There is additional periventricular area of focus of enhancement measuring 3 x 3 mm. Within the left frontal lobe there is a 2 x 2 mm area of enhancement. Within the right frontal lobe there is a 3 x 3 mm area of enhancement. In the periventricular white matter region of the parietal lobes bilaterally there are punctate 1 mm areas of enhancement. In the periatrial region there is a 2 x 2 mm rounded area of enhancement. In the high left parietal l obe on axial image 63 there is a vague 5 mm area of enhancement which is more pronounced on coronal i maging. IMPRESSION: 1. There are multiple 6 mm or less areas of nodular enhancement within both cerebral hemispheres comp atible with metastases. Prior exam reported no diagnostic evidence of metastasis. 2. Degenerative and nonspecific white matter changes most typical remote microvascular ischemia. 3. Abnormal signal within the C2 and C3 vertebral bodies are noted. Unfortunately, this is only inclu ded on the sagittal T1 image but is suggestive of bony metastases.
== END | disposition home or self-care (01) ==
LOC: RADMRIMAIN 13:39
PROVIDERS: ATTEND Radiology Radiation Oncology
DX: C34.2 Malignant neoplasm of middle lobe, bronchus or lung (principal); C79.31 Secondary malignant neoplasm of brain; G31.89 Other specified degenerative diseases of nervous system; Z92.3 Personal history of irradiation; Z92.21 Personal history of antineoplastic chemotherapy
CPT/HCPCS: 70553

== ENCOUNTER 2018-11-13 20:01 | Inpatient (IN) | payer MEDICARE, BC ==
[2018-11-13] MEDS ORDERED: IPRATROPIUM-ALBUTEROL 3 ML NEB INHALATION STA (20:18)
[2018-11-13] MEDS ORDERED: SODIUM CHLORIDE 0.9% 500 ML 500 ML IV STA (20:18)
[2018-11-13] MEDS ORDERED: SODIUM CHLORIDE 0.9% 1,000 ML IV STA (20:18)
--- NOTE | 2018-11-13 20:27 | ED ---
SOB HPI - General Chief Complaint: Shortness of Breath Stated Complaint: Confused, swollen Time Seen by Provider: 11/13/18 20:18 Source: patient, family, old records reviewed Mode of arrival: wheelchair Limitations: no limitations - History of Present Illness Initial Comments: This is a 63-year-old female the ER for severe weakness severe weakness and s hortness of breath. No history of lung cancer. Admits to decreased appetite. No fevers does have cough and congestion. Does feel pain on the right side of her chest. MD Complaint: shortness of breath, cough -: days(s) Radiation: other (Right-sided chest) Severity: moderate Quality: dull Improves With: nothing Worsens With: nothing Context: recent URI Treatments Prior to Arrival: oxygen - Related Data Home Medications Medication Instructions Recorded Confirmed Ezetimibe [Zetia] 10 mg PO HS 12/19/17 11/13/18 FLUoxetine HCL [PROzac] 10 mg PO DAILY 12/19/17 11/13/18 Levothyroxine Sodium [Synthroid] 100 mcg PO DAILY 12/19/17 11/13/18 Albuterol Sulfate [Proair Hfa] 2 puff INHALATION RT-Q4H PRN 08/31/18 11/13/18 Atorvastatin [Lipitor] 40 mg PO HS 09/30/18 11/13/18 Cholecalciferol [Vitamin D3] 1,000 unit PO DAILY 09/30/18 11/13/18 Dexlansoprazole [Dexilant] 60 mg PO DAILY 09/30/18 11/13/18 Insulin Aspart (For Pump) [NovoLOG 0.01 unit SQ-PUMP CONTINUOUS 09/30/18 11/13/18 (For Pump)] Metoclopramide [Reglan] 10 mg PO ACHS 09/30/18 11/13/18 Promethazine HCl/Codeine 5 ml PO QID PRN 09/30/18 11/13/18 [Promethazine-Codeine Syrup] Ranitidine HCl [Zantac] 300 mg PO HS 09/30/18 11/13/18 Selenium 200 mcg PO DAILY 09/30/18 11/13/18 Ubidecarenone [Co Q-10] 100 mg PO DAILY 09/30/18 11/13/18 HYDROcodone/APAP 7.5-325MG [[place] 1 tab PO Q6H PRN 10/14/18 11/13/18 7.5-325] fentaNYL 12MCG/HR PATCH [Duragesic 1 patch TRANSDERM Q72H 10/14/18 11/13/18 12MCG/HR] Previous Rx's Medication Instructions Recorded Docusate [Colace] 200 mg PO BID 30 Days #60 cap 10/02/18 Ipratropium-Albuterol Nebulize 3 ml INHALATION RT-QID PRN #90 10/02/18 [Duoneb 0.5 mg-3 mg/3 ml Soln] ampul.neb Allergies Allergy/AdvReac Type Severity Reaction Status Date / Time No Known Allergies Allergy Verified 11/13/18 20:57 Review of Systems ROS Statement: Those systems with pertinent positive or pertinent negative responses have been documented in the HPI. ROS Other: All systems not noted in ROS Statement are negative. Past Medical History Past Medical History: Cancer, Diabetes Mellitus, GERD/Reflux, Hyperlipidemia, Hypertension, Thyroid Disorder Additional Past Medical History / Comment(s): hx. peptic ulcer, small cell lung cancer-initially to chemo and radiation in 2018, now with recurrence and on immunotherapy. Dysphasia, hypothyroidism. Recurrent pleural effusions. History of Any Multi-Drug Resistant Organisms: None Reported Past Surgical History: Back Surgery, Section, Orthopedic Surgery Additional Past Surgical History / Comment(s): Exploratory Lap. 2 right knee arthroscopies. Mediport placement. Bronchoscopy. Laryngoscopy. Multiple thoracentesis Past Anesthesia/Blood Transfusion Reactions: No Reported Reaction Past Psychological History: No Psychological Hx Reported Smoking Status: Former smoker Past Alcohol Use History: None Reported Past Drug Use History: None Reported - Past Family History Sister(s) Family Medical History: Cancer Additional Family Medical History / Comment(s): breast General Exam Limitations: no limitations General appearance: alert, in no apparent distress Head exam: Present: atraumatic, normocephalic, normal inspection Eye exam: Present: normal appearance, PERRL, EOMI. Absent: scleral icterus, conjunctival injection, periorbital swelling ENT exam: Present: normal exam, mucous membranes moist Neck exam: Present: normal inspection. Absent: tenderness, meningismus, lymphadenopathy Respiratory exam: Present: rhonchi, decreased breath sounds (No breath sounds right side). Absent: respiratory distress, wheezes, rales, stridor Cardiovascular Exam: Present: normal rhythm, tachycardia, normal heart sounds. Absent: systolic murmur, diastolic murmur, rubs, gallop, clicks GI/Abdominal exam: Present: soft, normal bowel sounds. Absent: distended, tenderness, guarding, rebound, rigid Extremities exam: Present: normal inspection, full ROM, normal capillary refill. Absent: tenderness, pedal edema, joint swelling, calf tenderness Back exam: Present: normal inspection Neurological exam: Present: alert, oriented X3, CN II-XII intact Psychiatric exam: Present: normal affect, normal mood Skin exam: Present: warm, dry, intact, normal color. Absent: rash Course Vital Signs 11/13/18 11/13/18 11/13/18 20:05 20:18 20:30 Temperature 98.2 F Pulse Rate 108 H 70 Respiratory 17 18 23 Rate Blood Pressure 100/60 115/62 O2 Sat by Pulse 96 96 Oximetry 11/13/18 11/13/18 20:32 20:49 Temperature Pulse Rate 76 77 Respiratory Rate Blood Pressure O2 Sat by Pulse Oximetry - Reevaluation(s) Reevaluation #1: 11/13/18 21:54 Record is reviewed Reevaluation #2: 11/13/18 21:54 Patient is in no acute distress, Medical Decision Making - Medical Decision Making 63 female the ER for evaluation patient resents today for shortness of breath significant right-sided pleural effusion secondary to CVA. Patient be admitted for therapeutic thoracentesis - EKG Data -: EKG Interpreted by Me (EKG shows sinus tachycardia rate of 106 MA 120 QRS 90 QTc 454) - Radiology Data Radiology results: report reviewed (Chest x-ray shows significant right-sided pleural effusion), image reviewed Disposition Clinical Impression: Dyspnea, Weakness, Small cell lung cancer, Pleural effusion, right Disposition: ADMITTED IP TO THIS [facility] Condition: Fair Is patient prescribed a controlled substance at d/c from ED?: No Referrals: Nonstaff,Physician [Primary Care Provider] - 1-2 days
--- NOTE | 2018-11-13 21:02 | XR ---
EXAMINATION TYPE: XR chest 2V DATE OF EXAM: 11/13/2018 COMPARISON: 10/30/2018 HISTORY: Shortness of breath TECHNIQUE: Frontal and lateral views of the chest are obtained. FINDINGS: There is complete opacification right hemithorax likely reflecting a combination of effusion, infilt rate and/or atelectasis. Underlying mass is difficult to exclude. Discoid atelectasis left lung base. The remainder of the left lung is clear. Cardiomediastinal silhouette while limited in evaluation appears grossly unremarkable. Right-sided Mediport catheter. Degenerative changes dorsal spine. IMPRESSION: 1. There is complete opacification right hemithorax likely reflecting a combination of effusion, inf iltrate and/or atelectasis. Underlying mass is difficult to exclude.
[2018-11-13 21:44] LABS: Anisocytosis Slight; Basophils % (A) 0 %; Eosinophils % (A) 0 %; HCT 30.4 % (34.0-46.0); HGB 9.4 gm/dL (11.4-16.0); Hypochromasia Slight; Lymphocytes # (A) 0.6 k/uL (1.0-4.8); Lymphocytes % (A) 5 %; MCH 28.5 pg (25.0-35.0); MCHC 30.9 g/dL (31.0-37.0); Mean Platelet Volume 6.9; Monocytes # (A) 0.7 k/uL (0-1.0); Monocytes % (A) 6 %; Neutrophils # (A) 10.3 k/uL (1.3-7.7); Neutrophils % (A) 87 %; Platelet Count 454 k/uL (150-450); RBC 3.31 m/uL (3.80-5.40); RDW 17.2 % (11.5-15.5); WBC 11.9 k/uL (3.8-10.6)
[2018-11-13] MEDS ORDERED: IPRATROPIUM-ALBUTEROL 3 ML NEB INHALATION PRN ×2 (21:46→23:25)
[2018-11-13 22:00] LABS: ALT 25 U/L (9-52); AST 62 U/L (14-36); Albumin 3.2 g/dL (3.5-5.0); Alkaline Phosphatase 109 U/L (38-126); Anion Gap 9 mmol/L; Blood Urea Nitrogen 42 mg/dL (7-17); Calcium 10.5 mg/dL (8.4-10.2); Carbon Dioxide 31 mmol/L (22-30); Chloride 96 mmol/L (98-107); Glucose 128 mg/dL (74-99); Potassium 4.2 mmol/L (3.5-5.1); Sodium 136 mmol/L (137-145); Total Bilirubin 0.4 mg/dL (0.2-1.3)
[2018-11-13 22:06] LABS: Partial Thromboplastin Time 21.6 sec (22.0-30.0)
[2018-11-13] MEDS ORDERED: PROMETHAZ-COD 6.25-10 MG/5 ML 5 ML CUP PO PRN (23:25)
[2018-11-13] MEDS ORDERED: ALBUTEROL NEBULIZED 2.5 MG/3 ML INHALATION PRN (23:25)
--- NOTE | 2018-11-13 23:30 | P.HPIM ---
History of Present Illness H&P Date: 11/13/18 The patient is a 63 yo F with a PMH of small cell lung ca on home oxygen (2-3 L /min) (dx mid-2017) underwent chemotherapy and radiation in 12/2017 with subsequent recurrence of disease in 07/2018 and received immunotherapy, previously admitted from 09/30 - 10/03/18 for dehydration and debility now presents for gradually worsening shortness of breath and worsening weakness. The history supplemented by family at bedside (son and daughter). The patient follows w/ Dr Temple and has had recurrent malignant pleural effusions w/ complete opacification on CXR or R hemithorax, visualized on prior admission, which was drained by Dr Temple 2 weeks ago as outpatient. The patient had a follow-up w/ Dr Temple in 3 days though felt that her breathing had significant worsened and so decided to come to the ED. The patient also endorsed that her weakness has worsened to the point where she is now unable to ambulate even with a walker and had multiple near falls. The family also reported episodes of confusion while at home throughout the day which last minutes to hours. The patient also reports a chronic cough w/ pleuritic substernal chest pain. She otherwise denied fever, chills, nausea, vomiting, diarrhea, or abdominal pain. THe patient underwent an extensive evaluation in the ED w/ a CXR revealing complete R hemithorax opacification along w/ a WBC count of 11.9, Hgb 9.4, BUN 42, Cr 0.54, Albumin low at 3.2, and T pro low at 6.0. The patient received normal saline 1 L bolus in the ED and was admitted to the medicine service for shortness of breath and debility. Review of Systems Pertinent positives and negatives as discussed in HPI, a complete review of sys tems was performed and all other systems are negative. Past Medical History Past Medical History: Cancer, Diabetes Mellitus, GERD/Reflux, Hyperlipidemia, Hypertension, Thyroid Disorder Additional Past Medical History / Comment(s): hx. peptic ulcer, small cell lung cancer-initially to chemo and radiation in 2018, now with recurrence and on immunotherapy. Dysphasia, hypothyroidism. Recurrent pleural effusions. History of Any Multi-Drug Resistant Organisms: None Reported Past Surgical History: Back Surgery, Section, Orthopedic Surgery Additional Past Surgical History / Comment(s): Exploratory Lap. 2 right knee arthroscopies. Mediport placement. Bronchoscopy. Laryngoscopy. Multiple thoracentesis Past Anesthesia/Blood Transfusion Reactions: No Reported Reaction Past Psychological History: No Psychological Hx Reported Smoking Status: Former smoker Past Alcohol Use History: None Reported Past Drug Use History: None Reported - Past Family History Sister(s) Family Medical History: Cancer Additional Family Medical History / Comment(s): breast Medications and Allergies Home Medications Medication Instructions Recorded Confirmed Type Ezetimibe [Zetia] 10 mg PO HS 12/19/17 11/13/18 History FLUoxetine HCL [PROzac] 10 mg PO DAILY 12/19/17 11/13/18 History Levothyroxine Sodium [Synthroid] 100 mcg PO DAILY 12/19/17 11/13/18 History Albuterol Sulfate [Proair Hfa] 2 puff INHALATION RT-Q4H PRN 08/31/18 11/13/18 History Atorvastatin [Lipitor] 40 mg PO HS 09/30/18 11/13/18 History Cholecalciferol [Vitamin D3] 1,000 unit PO DAILY 09/30/18 11/13/18 History Dexlansoprazole [Dexilant] 60 mg PO DAILY 09/30/18 11/13/18 History Insulin Aspart (For Pump) [NovoLOG 0.01 unit SQ-PUMP CONTINUOUS 09/30/18 11/13/18 History (For Pump)] Metoclopramide [Reglan] 10 mg PO ACHS 09/30/18 11/13/18 History Promethazine HCl/Codeine 5 ml PO QID PRN 09/30/18 11/13/18 History [Promethazine-Codeine Syrup] Ranitidine HCl [Zantac] 300 mg PO HS 09/30/18 11/13/18 History Selenium 200 mcg PO DAILY 09/30/18 11/13/18 History Ubidecarenone [Co Q-10] 100 mg PO DAILY 09/30/18 11/13/18 History Docusate [Colace] 200 mg PO BID 30 Days #60 cap 10/02/18 11/13/18 Rx Ipratropium-Albuterol Nebulize 3 ml INHALATION RT-QID PRN #90 10/02/18 11/13/18 Rx [Duoneb 0.5 mg-3 mg/3 ml Soln] ampul.neb HYDROcodone/APAP 7.5-325MG [[place] 1 tab PO Q6H PRN 10/14/18 11/13/18 History 7.5-325] fentaNYL 12MCG/HR PATCH [Duragesic 1 patch TRANSDERM Q72H 10/14/18 11/13/18 History 12MCG/HR] Allergies Allergy/AdvReac Type Severity Reaction Status Date / Time No Known Allergies Allergy Verified 11/13/18 20:57 Physical Exam Vitals: Vital Signs Temp Pulse Resp BP Pulse Ox 11/13/18 20:49 77 11/13/18 20:32 76 11/13/18 20:30 70 23 115/62 96 11/13/18 20:18 18 11/13/18 20:05 98.2 F 108 H 17 100/60 96 Intake and Output 11/13/18 11/13/18 11/13/18 06:59 14:59 22:59 Other: Weight 52.163 kg General: Appears older than age, frail, in no acute distress Derm: no unusual rashes/lesions no unusual ecchymoses, warm, dry Head: atraumatic, normocephalic, symmetric Eyes: EOMI, no lid lag, anicteric sclera, pupils equal round reactive to light ENT: Nose and ears atraumatic, no thrush, no pharyngeal erythema, Neck: No thyromegaly, no cervical lymphadenopathy, trachea midline, supple Mouth: no lip lesion, oral mucous membranes dry Cardiovascular: S1S2 reg, no murmur, positive posterior tibial pulse bilateral, 1+ bilateral lower extremity pitting edema, capillary refill less than 2 seconds Lungs: Severely diminished breath sounds over right lung field, left lung basilar rales and scattered coarse breath sounds, no accessory muscle use Abdominal: soft, nontender to palpation, no guarding, no appreciable or ganomegaly, normal bowel sounds Ext: no gross muscle atrophy, muscle strength 3 out of 5 in all 4 extremities grossly, no contractures, Neuro: CN II-XI grossly intact, light touch intact all 4 extremities, finger to nose within normal limits, Psych: Alert, oriented to person, place, time, appropriate affect Results CBC & Chem 7: 11/13/18 21:00 11/13/18 21:00 Labs: Abnormal Lab Results - Last 24 Hours (Table) 11/13/18 11/13/18 11/13/18 Range/Units 21:00 21:00 21:00 WBC 11.9 H (3.8-10.6) k/uL RBC 3.31 L (3.80-5.40) m/uL Hgb 9.4 L (11.4-16.0) gm/dL Hct 30.4 L (34.0-46.0) % MCHC 30.9 L (31.0-37.0) g/dL RDW 17.2 H (11.5-15.5) % Plt Count 454 H (150-450) k/uL Neutrophils # 10.3 H (1.3-7.7) k/uL Lymphocytes # 0.6 L (1.0-4.8) k/uL APTT 21.6 L (22.0-30.0) sec Sodium 136 L (137-145) mmol/L Chloride 96 L (98-107) mmol/L Carbon Dioxide 31 H (22-30) mmol/L BUN 42 H (7-17) mg/dL Glucose 128 H (74-99) mg/dL Calcium 10.5 H (8.4-10.2) mg/dL AST 62 H (14-36) U/L Total Protein 6.0 L (6.3-8.2) g/dL Albumin 3.2 L (3.5-5.0) g/dL Assessment and Plan Plan: Shortness of breath, progressive, likely secondary to advanced malignancy w/ R malignant pleural effusion -Supplemental oxygen -Pulmonary consult for possible thoracentesis -Chest PT Debility, likely due to high disease burden -PT/OT consult -Fall precautions Dehydration -C/w IVFs -Monitor BMP DM -LYNETTE with FS -Patient on Insulin pump at home. Will need to reconsider since patient no longer able to program the pump appropriately due to episodes of confusion. HTN -Resume home meds HLD -Resume home meds Mild protein caloria malnutrition -Wincher consult DVT//GI prophylaxis -Lovenox -No indication for GI proph The patient is admitted with an anticipated greater than 2 midnight stay for evaluation of shortness of breath. CODE STATUS:Full-Code Discussed with: Patient, daughter, son Anticipated discharge date: 11/15/[address]: Home A total of 45 minutes was spent on the care of this complex patient more than 50% of the time was spent in counseling and care coordination.
[2018-11-14] MEDS ORDERED: MORPHINE SULFATE 2 MG/ML SYRINGE IVP STA ×2 (00:04→05:23)
[2018-11-14] MEDS: SODIUM CHLORIDE 0.9% 1,000 ML IV SCH ×3 (00:34→21:28)
[2018-11-14] MEDS: LEVOTHYROXINE 100 MCG TAB PO SCH (05:30)
[2018-11-14 07:13] LABS: Glucose,Whole Blood 122 mg/dL (75-99)
[2018-11-14] MEDS: INSULIN ASPART (NovoLOG) 100 UNIT/ML VIAL SQ SCH ×4 (08:04→21:33)
[2018-11-14 08:20] LABS: ALT 30 U/L (9-52); AST 55 U/L (14-36); Albumin 2.8 g/dL (3.5-5.0); Alkaline Phosphatase 92 U/L (38-126); Anion Gap 6 mmol/L; Blood Urea Nitrogen 38 mg/dL (7-17); Calcium 9.9 mg/dL (8.4-10.2); Carbon Dioxide 31 mmol/L (22-30); Chloride 100 mmol/L (98-107); Glucose 103 mg/dL (74-99); Magnesium 1.9 mg/dL (1.6-2.3); Phosphorus 2.7 mg/dL (2.5-4.5); Potassium 4.1 mmol/L (3.5-5.1); Sodium 137 mmol/L (137-145); Total Bilirubin 0.4 mg/dL (0.2-1.3); Total Protein 5.3 g/dL (6.3-8.2); Uric Acid 7.8 mg/dL (3.7-7.4)
[2018-11-14 08:51] LABS: Anisocytosis Slight; HCT 28.8 % (34.0-46.0); HGB 9.2 gm/dL (11.4-16.0); Hypochromasia Slight; MCHC 31.8 g/dL (31.0-37.0); MCV 91.3 fL (80.0-100.0); Mean Platelet Volume 7.5; Platelet Count 352 k/uL (150-450); RBC 3.15 m/uL (3.80-5.40); WBC 9.3 k/uL (3.8-10.6)
[2018-11-14] MEDS ORDERED: NON-FORMULARY DRUG (Selenium [Selenium] 200 MCG) PO SCH (09:00)
[2018-11-14] MEDS: FLUoxetine HCL 10 MG CAP PO SCH (09:22)
[2018-11-14] MEDS: PANTOPRAZOLE 40 MG TABLET PO SCH (09:22)
[2018-11-14] MEDS: METOCLOPRAMIDE 10 MG TAB PO SCH ×4 (09:22→21:33)
[2018-11-14] MEDS: ENOXAPARIN 40 MG/0.4 ML SYRINGE SQ SCH (09:23)
[2018-11-14] MEDS: DOCUSATE 100 MG CAP PO SCH ×2 (09:23→21:33)
[2018-11-14 11:03] VITALS: BMI 19.6
[2018-11-14 11:15] LABS: Glucose,Whole Blood 284 mg/dL (75-99)
[2018-11-14] MEDS ORDERED: MORPHINE SULFATE 2 MG/ML SYRINGE IVP PRN (13:13)
[2018-11-14] MEDS ORDERED: VANCOMYCIN IV PER PHARMACY 1 EACH MISC MISCELLANE PRN (13:29)
--- NOTE | 2018-11-14 13:29 | P.CNPUL ---
History of Present Illness Consult date: 11/14/18 Requesting physician: Theresa Saha Reason for consult: pleural effusion Chief complaint: Shortness of breath History of present illness: This is a 63-year-old female with known history of small cell lung cancer diagnosed almost a year ago. Has been receiving chemotherapy and radiation therapy since December of 2017. Patient failed treatment, she has been receiving immunotherapy since July of 2018. Patient has been experiencing recurrent right-sided pleural effusion requiring at least 4 previous thoracentesis procedures. Placement of a Pleurx catheter was discussed with the patient previously, but this was never pursued further. Patient was recently seen by Dr. Temple and he performed a thoracentesis on this patient about 2 weeks ago. Drained about 2000 mL of pleural effusion from the right pleural space. In the last few days the patient has been complaining of increased shortness of breath, came into the ER and chest x-ray showed complete opacification of the right lung with tracheal shift to the contralateral side. I reviewed the chest x-ray, and I recommended immediate thoracentesis which was done already. I was able to drain 1700 mL of pleural effusion from the right pleural space. Discussed with the patient the option of thoracic surgery consultation and having a Pleurx catheter placement hopefully early next week Friday or Friday. Patient is agreeable to proceed with the plan. Hence thoracic surgery will be consulted. Patient denies any fever, no chills, she does have chronic weight loss. According to the family the patient has been intermittently confused, and she has right-sided pleuritic chest pain, and chronic intermittent cough. No nausea no vomiting no abdominal pain no melena no hematemesis no dysuria and no frequency no urgency. Labs on admission showed relatively normal CBC except for a low hemoglobin of 9.4. Normal platelets. Normal electrolytes. Normal renal profile. Low albumin of 2.8. Calcium was noted to be 9.90 Review of Systems Constitutional: denies fever chills complains of generalized weakness, fatigue, weight loss Eyes: denies blurred vision, denies pain Ears, nose, mouth and throat: Denies headache, Denies sore throat Cardiovascular: No symptoms of angina, palpitations, no symptoms of diaphoresis. Respiratory: as noted in HPI, mostly shortness of breath. And chronic cough.. Gastrointestinal: Denies abdominal pain, Denies diarrhea, Denies nausea, Denies vomiting Genitourinary: Denies dysuria, Denies hematuria denies frequency and urgency. Musculoskeletal: Denies myalgias, has history of osteoarthritis. Integumentary: Denies pruritus, Denies rash Neurological: Denies numbness, Denies weakness Psychiatric: Denies anxiety, Denies depression Endocrine: Denies symptoms to suggest hypothyroidism, hyperthyroidism or diabetes Past Medical History Past Medical History: Cancer, Diabetes Mellitus, GERD/Reflux, Hyperlipidemia, Hypertension, Thyroid Disorder Additional Past Medical History / Comment(s): hx. peptic ulcer, small cell lung cancer-initially on chemo and radiation in 2018, now with recurrence and on immunotherapy, dysphasia, hypothyroidism, recurrent pleural effusions. History of Any Multi-Drug Resistant Organisms: None Reported Past Surgical History: Back Surgery, Section, Orthopedic Surgery Additional Past Surgical History / Comment(s): Exploratory Lap. 2 right knee arthroscopies. Mediport placement. Bronchoscopy. Laryngoscopy. Multiple thoracentesis Past Anesthesia/Blood Transfusion Reactions: No Reported Reaction Past Psychological History: Anxiety Smoking Status: Former smoker Past Alcohol Use History: None Reported Additional Past Alcohol Use History / Comment(s): Quit smoking 2017, smoked 1 ppd for 40 yrs. Past Drug Use History: None Reported - Past Family History Sister(s) Family Medical History: Cancer Additional Family Medical History / Comment(s): breast Medications and Allergies Home Medications Medication Instructions Recorded Confirmed Type Ezetimibe [Zetia] 10 mg PO HS 12/19/17 11/13/18 History FLUoxetine HCL [PROzac] 10 mg PO DAILY 12/19/17 11/13/18 History Levothyroxine Sodium [Synthroid] 100 mcg PO DAILY 12/19/17 11/13/18 History Albuterol Sulfate [Proair Hfa] 2 puff INHALATION RT-Q4H PRN 08/31/18 11/13/18 History Atorvastatin [Lipitor] 40 mg PO HS 09/30/18 11/13/18 History Cholecalciferol [Vitamin D3] 1,000 unit PO DAILY 09/30/18 11/13/18 History Dexlansoprazole [Dexilant] 60 mg PO DAILY 09/30/18 11/13/18 History Insulin Aspart (For Pump) [NovoLOG 0.01 unit SQ-PUMP CONTINUOUS 09/30/18 11/13/18 History (For Pump)] Metoclopramide [Reglan] 10 mg PO ACHS 09/30/18 11/13/18 History Promethazine HCl/Codeine 5 ml PO QID PRN 09/30/18 11/13/18 History [Promethazine-Codeine Syrup] Ranitidine HCl [Zantac] 300 mg PO HS 09/30/18 11/13/18 History Selenium 200 mcg PO DAILY 09/30/18 11/13/18 History Ubidecarenone [Co Q-10] 100 mg PO DAILY 09/30/18 11/13/18 History Docusate [Colace] 200 mg PO BID 30 Days #60 cap 10/02/18 11/13/18 Rx Ipratropium-Albuterol Nebulize 3 ml INHALATION RT-QID PRN #90 10/02/18 11/13/18 Rx [Duoneb 0.5 mg-3 mg/3 ml Soln] ampul.neb HYDROcodone/APAP 7.5-325MG [[place] 1 tab PO Q6H PRN 10/14/18 11/13/18 History 7.5-325] fentaNYL 12MCG/HR PATCH [Duragesic 1 patch TRANSDERM Q72H 10/14/18 11/13/18 History 12MCG/HR] Allergies Allergy/AdvReac Type Severity Reaction Status Date / Time No Known Allergies Allergy Verified 11/13/18 20:57 Physical Exam Vitals: Vital Signs Temp Pulse Pulse Resp BP BP Pulse Ox 11/14/18 12:02 97.8 F 72 17 106/67 93 L 11/14/18 08:00 86 16 11/14/18 05:00 97.6 F 86 16 118/78 100 11/13/18 23:00 97.3 F L 80 18 102/68 94 L 11/13/18 20:49 77 11/13/18 20:32 76 11/13/18 20:30 70 23 115/62 96 11/13/18 20:18 18 11/13/18 20:05 98.2 F 108 H 17 100/60 96 Intake and Output 11/13/18 11/14/18 11/14/18 22:59 06:59 14:59 Intake Total 800 Balance 800 Intake: Intake, IV Titration 800 Amount Sodium Chloride 0.9% 1, 800 000 ml @ 100 mls/hr IV . Q10H [facility] Rx#:[id number] Other: Voiding Method Bedside Commode Bedside Commode # Voids 1 Weight 52.163 kg 52 kg 52 kg Physical Exam: Revealed a 63-year-old female in no distress. Head: Atraumatic, normocephalic. HEENT:[Neck is supple.] [No neck masses.] [No thyromegaly.] [No JVD.] PERRLA, EOMI, no icterus. Moist mucous membranes. Chest: [Extremely diminished breath sounds on the right side with dullness, left side is relatively clear no chest wall tenderness.] Cardiac Exam: [Normal S1 and S2, no S3 gallop, no murmur.] Abdomen: [Soft, nontender, no megaly, no rebound, no guarding, normal bowel sounds.] Extremities: [No clubbing, no edema, no cyanosis.] Neurological Exam: [No focal neurologic deficit.] Alert and oriented 3 Psychiatric: Normal mood, affect, and mental status examination. Lymphatics: No lymph adenopathy Skin: No rashes. Results - Laboratory Findings CBC and BMP: 11/14/18 07:10 11/14/18 07:10 PT/INR, D-dimer PT 11.0 sec (9.0-12.0) 11/13/18 21:00 INR 1.0 (<1.2) 11/13/18 21:00 Abnormal lab findings: Abnormal Labs 11/13/18 11/13/18 11/13/18 21:00 21:00 21:00 WBC 11.9 H RBC 3.31 L Hgb 9.4 L Hct 30.4 L MCHC 30.9 L RDW 17.2 H Plt Count 454 H Neutrophils # 10.3 H Lymphocytes # 0.6 L APTT 21.6 L Sodium 136 L Chloride 96 L Carbon Dioxide 31 H BUN 42 H Glucose 128 H POC Glucose (mg/dL) Uric Acid Calcium 10.5 H AST 62 H Total Protein 6.0 L Albumin 3.2 L 11/14/18 11/14/18 11/14/18 07:10 07:10 07:13 WBC RBC 3.15 L Hgb 9.2 L Hct 28.8 L MCHC RDW 17.0 H Plt Count Neutrophils # Lymphocytes # APTT Sodium Chloride Carbon Dioxide 31 H BUN 38 H Glucose 103 H POC Glucose (mg/dL) 122 H Uric Acid 7.8 H Calcium AST 55 H Total Protein 5.3 L Albumin 2.8 L 11/14/18 11:13 WBC RBC Hgb Hct MCHC RDW Plt Count Neutrophils # Lymphocytes # APTT Sodium Chloride Carbon Dioxide BUN Glucose POC Glucose (mg/dL) 284 H Uric Acid Calcium AST Total Protein Albumin - Diagnostic Findings Chest x-ray: image reviewed (As noted in HPI.) Assessment and Plan Assessment: Impression: 1 shortness of breath secondary to recurrent large right-sided malignant pleural effusion 2 small cell lung cancer, on immunotherapy, failed chemoradiation treatment. 3 chronic medical debility secondary to underlying malignancy. 4 positive blood cultures, however the clinical history does not suggest sepsis or bacteremia, but will go ahead and empirically give the patient a dose of vancomycin, I have a strong feeling that the blood cultures are related to contamination rather than truly positive blood cultures. 5 multiple comorbidities including type 2 diabetes, hypertension, mild protein calorie malnutrition, GERD without esophagitis, and hypothyroidism. Recommendation: Patient underwent uneventful right sided thoracentesis, 1700 mL of fluid, drained from the right pleural space, chest x-ray was ordered postoperatively. Patient will resume on her bronchodilators/albuterol, ipratropium bromide, pain medications, continue GI and DVT prophylaxis, will also arrange for thoracic surgery consultation for possible Pleurx catheter placement. Empiric antibiotics to cover for positive blood cultures as noted. We'll continue to follow. Time with Patient: Greater than 30
[2018-11-14] MEDS ORDERED: HYDROmorphone 1 MG/ML 1 ML SYRINGE IVP STA (13:55)
--- NOTE | 2018-11-14 13:57 | P.PN ---
Subjective Progress Note Date: 11/14/18 Principal diagnosis: Shortness of breath, pleural effusion Patient was seen and examined. No acute events overnight. Underwent thoracocentesis of the right side, 1700 mL of fluid pulled out. Patient complains of 10 out of 10 pain in the right chest at the site of incision. She is requesting IV pain medication for relief. Patient reports improved breathing since the procedure. Her boyfriend is at bedside. Objective - Vital Signs Vital signs: Vital Signs Temp 97.8 F 11/14/18 12:02 Pulse 72 11/14/18 12:02 Resp 17 11/14/18 12:02 BP 106/67 11/14/18 12:02 Pulse Ox 93 L 11/14/18 12:02 Intake & Output 11/13/18 11/14/18 11/14/18 18:59 06:59 18:59 Intake Total 800 Balance 800 Weight 52 kg 52 kg Intake: Intake, IV Titration 800 Amount Sodium Chloride 0.9% 1, 800 000 ml @ 100 mls/hr IV . Q10H [facility] Rx#:[id number] Other: Voiding Method Bedside Commode Bedside Commode # Voids 1 - Exam General: [non toxic], [no distress], [appears at stated age] Derm: [warm], [dry] Head: [atraumatic], [normocephalic], [symmetric] Eyes: [EOMI], [no lid lag], [anicteric sclera] Mouth: [no lip lesion], [mucus membranes moist] Cardiovascular: [S1S2 reg], [no murmur], [positive DP pulse bilateral] Lungs: [CTA bilateral on the left side and decreased breath sounds on the right side], [no rhonchi, no rales] , [no accessory muscle use] Abdominal: [soft], [ nontender to palpation], [no guarding], [no appreciable organomegaly] Ext: [no gross muscle atrophy], [no edema], [no contractures] Neuro: [no focal neuro deficits] Psych: [Alert], [oriented], [appropriate affect] - Labs CBC & Chem 7: 11/14/18 07:10 11/14/18 07:10 Labs: Abnormal Lab Results - Last 24 Hours (Table) 11/13/18 11/13/18 11/13/18 Range/Units 21:00 21:00 21:00 WBC 11.9 H (3.8-10.6) k/uL RBC 3.31 L (3.80-5.40) m/uL Hgb 9.4 L (11.4-16.0) gm/dL Hct 30.4 L (34.0-46.0) % MCHC 30.9 L (31.0-37.0) g/dL RDW 17.2 H (11.5-15.5) % Plt Count 454 H (150-450) k/uL Neutrophils # 10.3 H (1.3-7.7) k/uL Lymphocytes # 0.6 L (1.0-4.8) k/uL APTT 21.6 L (22.0-30.0) sec Sodium 136 L (137-145) mmol/L Chloride 96 L (98-107) mmol/L Carbon Dioxide 31 H (22-30) mmol/L BUN 42 H (7-17) mg/dL Glucose 128 H (74-99) mg/dL POC Glucose (mg/dL) (75-99) mg/dL Uric Acid (3.7-7.4) mg/dL Calcium 10.5 H (8.4-10.2) mg/dL AST 62 H (14-36) U/L Total Protein 6.0 L (6.3-8.2) g/dL Albumin 3.2 L (3.5-5.0) g/dL 11/14/18 11/14/18 11/14/18 Range/Units 07:10 07:10 07:13 WBC (3.8-10.6) k/uL RBC 3.15 L (3.80-5.40) m/uL Hgb 9.2 L (11.4-16.0) gm/dL Hct 28.8 L (34.0-46.0) % MCHC (31.0-37.0) g/dL RDW 17.0 H (11.5-15.5) % Plt Count (150-450) k/uL Neutrophils # (1.3-7.7) k/uL Lymphocytes # (1.0-4.8) k/uL APTT (22.0-30.0) sec Sodium (137-145) mmol/L Chloride (98-107) mmol/L Carbon Dioxide 31 H (22-30) mmol/L BUN 38 H (7-17) mg/dL Glucose 103 H (74-99) mg/dL POC Glucose (mg/dL) 122 H (75-99) mg/dL Uric Acid 7.8 H (3.7-7.4) mg/dL Calcium (8.4-10.2) mg/dL AST 55 H (14-36) U/L Total Protein 5.3 L (6.3-8.2) g/dL Albumin 2.8 L (3.5-5.0) g/dL 11/14/18 Range/Units 11:13 WBC (3.8-10.6) k/uL RBC (3.80-5.40) m/uL Hgb (11.4-16.0) gm/dL Hct (34.0-46.0) % MCHC (31.0-37.0) g/dL RDW (11.5-15.5) % Plt Count (150-450) k/uL Neutrophils # (1.3-7.7) k/uL Lymphocytes # (1.0-4.8) k/uL APTT (22.0-30.0) sec Sodium (137-145) mmol/L Chloride (98-107) mmol/L Carbon Dioxide (22-30) mmol/L BUN (7-17) mg/dL Glucose (74-99) mg/dL POC Glucose (mg/dL) 284 H (75-99) mg/dL Uric Acid (3.7-7.4) mg/dL Calcium (8.4-10.2) mg/dL AST (14-36) U/L Total Protein (6.3-8.2) g/dL Albumin (3.5-5.0) g/dL Microbiology - Last 24 Hours (Table) 11/13/18 21:00 Blood Culture Gram Stain - Preliminary Blood 11/13/18 21:00 Blood Culture - Final Blood Assessment and Plan Assessment: Assessment and Plan Right pleural effusion possibly secondary to advanced malignancy Debility secondary to advanced malignancy Small cell lung cancer Diabetes mellitus Hypothyroidism Seen by pulmonology, underwent right-sided thoracocentesis, 1700 mL of fluid drained from the right pleural space. Continue albuterol neb as needed for shortness of breath and wheezing. Follow postop chest x-ray. Supplemental oxygen to maintain O2 sat greater than 92%. As per pulmonary note, plans for thoracic surgery consultation for possible catheter placement. Fall precautions. Follow PT and OT recommendations. Sees Dr. Whatley in the outpatient setting. [id number] glucose 284. Insulin sliding scale. Hypoglycemic precautions. Regular Accu-Cheks. Continue Synthroid.
[2018-11-14] MEDS ORDERED: VANCOMYCIN 1,250 MG in SODIUM CHLORIDE 0.9% 250 ML IVPB ONE (14:00)
--- NOTE | 2018-11-14 14:24 | XR ---
EXAMINATION TYPE: XR chest 1V portable DATE OF EXAM: 11/14/2018 Comparison: 11/13/2018 Clinical History: 63-year-old female thoracentesis Findings: Right heart margin remains obscured by adjacent pleural parenchymal disease. No small amount of aerat ion at the right apex. Otherwise, near complete white out of the right hemithorax persists. Small lef t pleural effusion. Right anterior chest wall injection port with catheter tip in the upper right atr ium. Subtle edges are seen along the right apex and a trace right apical pneumothorax is difficult to exclude at this time. Impression: 1. Some of the right apex is now aerated following thoracentesis. Otherwise, the remainder of the rig ht lung continues to demonstrate whiteout. 2. A subtle edge at the peripheral right apex is probably projectional. Close surveillance recommende d as a trace right apical pneumothorax is difficult to entirely exclude at this time. Called to Anast[facility] on [facility] at 2:16pm. 3. Small left pleural effusion continues.
--- NOTE | 2018-11-14 14:58 | PCN ---
PROCEDURE NOTE PROCEDURE: Right-sided thoracentesis. PREOPERATIVE DIAGNOSIS: Right pleural effusion/malignant. POSTOPERATIVE DIAGNOSIS: Right pleural effusion/malignant. PROCEDURE: Patient was placed in a sitting upright position, the area below the right scapula was prepared in a sterile fashion and drapes were applied. The area was locally anesthetized using 2 mL of 1% lidocaine. Then, a 26-gauge needle was inserted at the same site, advanced into the pleural space until the fluid was localized with the needle. Then the needle was pulled out, and a small tiny incision was made at the same site. The pleural catheter and needle were used, advanced into the same site into the pleural space and as soon as the fluid was obtained the needle was pulled out of the catheter, and the catheter was advanced into the pleural space. Freely flowing fluid was removed, roughly 1700 mL of dark greenish color removed from the right pleural space. Procedure was well tolerated, no evidence of any immediate complications. Fluid was sent mostly for cultures only because the fluid was already diagnosed in the past as being malignant and the patient does have some positive blood cultures, hence, the fluid was sent only for cultures. MMODL / IJN: [id number] /
[2018-11-14 17:14] LABS: Glucose,Whole Blood 283 mg/dL (75-99)
--- NOTE | 2018-11-14 19:43 | CONS ---
CONSULTATION DATE OF CONSULTATION: 11/14/2018. REASON FOR CONSULTATION: Lung cancer. HISTORY OF PRESENT ILLNESS: Garima is well known to myself, she was diagnosed with small cell cancer of the lung in August of 2017, then had endobronchial ultrasound-guided biopsy at [facility] in [place]. Biopsy revealed metastatic small cell carcinoma. She was staged as limited and received induction chemotherapy with etoposide and carboplatin, which she tolerated well achieving complete response followed by prophylactic cranial radiation. She has done well until earlier this year when she presented with progressive shortness of breath and was found to have a recurrent large perihilar right hilar mass and biopsy by Dr. Temple revealed recurrence with small cell carcinoma. The patient had a right malignant pleural effusion as well. Garima was started on palliative second-line immunotherapy with Opdivo three infusions given so far. The last dose was on November 10. Her performance status and quality of life has been rather poor. Palliative care was discussed repeatedly and the patient insisted on aggressive treatment approach. The patient was hospitalized with yet another episode of progressive dyspnea. She was found to have a complete opacification of the right hemithorax, she underwent a palliative therapeutic thoracentesis by Dr. Wright today, 1700 mL were obtained. The patient reported feeling better. Continued to be very tired and fatigued. She reported having severe right chest discomfort at presentation but much better after the thoracentesis performed. PAST MEDICAL HISTORY: 1. Small cell lung cancer with diagnostic and therapeutic circumstances as indicated above. 2. Anorexia and weight loss. 3. Chronic obstructive pulmonary disease. PAST SURGICAL HISTORY: Prior bronchoscopies and thoracentesis and MediPort placement. SOCIAL HISTORY: The patient had a prior history of smoking but none recently. She has a prior history of heavy smoking, but she is trying to quit. She continues to smoke 1 or 2 cigarettes daily. Denies any excessive use of alcohol. REVIEW OF SYSTEMS: Progressive weakness, anorexia and weight loss. No headache, blurred vision, dizziness or tinnitus. She has moderate right-sided chest pain and shortness of breath and dry cough. No hemoptysis. No nausea, vomiting, dysphagia, odynophagia, indigestion, diarrhea, or constipation. No polyuria, dysuria or gross hematuria. No musculoskeletal discomfort, focal weakness in upper or lower extremities. EXAMINATION: Showed the patient appeared alert and oriented. Skin is warm and dry. Hair distribution within normal for age and gender. No pathologic lymphadenopathy. Pale but nonicteric. Skin was warm and dry. Chest examination revealed better air exchange to the right hemithorax with persistent dullness to the right base. Right hemiparesis clear. The abdomen was soft. The liver and spleen were not clinically palpable and no masses, tenderness or inguinal lymphadenopathy. Extremities appears to be grossly unremarkable. IMPRESSION: 1. Metastatic small cell carcinoma of the lung with diagnostic and therapeutic circumstance as indicated above. 2. Shortness of breath due to recurrent cancer, chronic obstructive pulmonary disease, and pleural effusion. 3. Smoking-related COPD. 4. Debility of malignancy and weight loss. RECOMMENDATION: 1. Agree with thoracentesis performed. 2. Agree with referral to thoracic surgery for PleurX catheter placement. 3. Discuss overall poor prognosis with the patient, her and daughter. 4. Further outpatient Opdivo repetitive therapy will be considered. I answered the patient and family's questions and concerns to their satisfaction. We will follow the patient along with you. Thank you for asking us to participate in the care of Garima. MMNICOLE / NICK: [id number] /
[2018-11-14 19:55] LABS: Glucose,Whole Blood 244 mg/dL (75-99)
[2018-11-14] MEDS: ATORVASTATIN 40 MG TAB PO SCH (21:33)
[2018-11-14] MEDS: EZETIMIBE 10 MG TAB PO SCH (22:02)
[2018-11-14] MEDS: VANCOMYCIN 1,000 MG in SODIUM CHLORIDE 0.9% 250 ML IVPB SCH (22:04)
[2018-11-15] MEDS: HYDROmorphone 1 MG/ML 1 ML SYRINGE IVP PRN ×4 (02:27→21:29)
[2018-11-15] MEDS: SODIUM CHLORIDE 0.9% 1,000 ML IV SCH ×2 (05:49→15:30)
[2018-11-15] MEDS: VANCOMYCIN 1,000 MG in SODIUM CHLORIDE 0.9% 250 ML IVPB SCH ×3 (06:18→22:32)
[2018-11-15 06:57] LABS: Glucose,Whole Blood 241 mg/dL (75-99)
[2018-11-15 07:27] LABS: Anisocytosis Slight; HCT 30.6 % (34.0-46.0); HGB 9.7 gm/dL (11.4-16.0); Hypochromasia Moderate; MCHC 31.7 g/dL (31.0-37.0); MCV 94.6 fL (80.0-100.0); Mean Platelet Volume 6.8; Platelet Count 327 k/uL (150-450); RBC 3.23 m/uL (3.80-5.40); RDW 17.1 % (11.5-15.5); WBC 7.5 k/uL (3.8-10.6)
[2018-11-15 07:41] LABS: ALT 31 U/L (9-52); AST 43 U/L (14-36); Albumin 2.6 g/dL (3.5-5.0); Alkaline Phosphatase 97 U/L (38-126); Anion Gap 3 mmol/L; Blood Urea Nitrogen 35 mg/dL (7-17); Calcium 9.9 mg/dL (8.4-10.2); Carbon Dioxide 32 mmol/L (22-30); Chloride 100 mmol/L (98-107); Glucose 225 mg/dL (74-99); Potassium 4.6 mmol/L (3.5-5.1); Sodium 135 mmol/L (137-145); Total Bilirubin 0.5 mg/dL (0.2-1.3); Total Protein 5.2 g/dL (6.3-8.2)
[2018-11-15] MEDS: INSULIN ASPART (NovoLOG) 100 UNIT/ML VIAL SQ SCH ×4 (08:16→20:40)
[2018-11-15] MEDS: ENOXAPARIN 40 MG/0.4 ML SYRINGE SQ SCH (08:17)
[2018-11-15] MEDS: PANTOPRAZOLE 40 MG TABLET PO SCH (08:17)
[2018-11-15] MEDS: DOCUSATE 100 MG CAP PO SCH ×2 (08:17→20:40)
[2018-11-15] MEDS: METOCLOPRAMIDE 10 MG TAB PO SCH ×4 (08:17→20:40)
[2018-11-15] MEDS: FLUoxetine HCL 10 MG CAP PO SCH (08:18)
[2018-11-15] MEDS: LEVOTHYROXINE 100 MCG TAB PO SCH (08:18)
--- NOTE | 2018-11-15 10:20 | P.GSCN ---
History of Present Illness Consult date: 11/15/18 Reason for Consult: Recurrent pleural effusion, Pleurx catheter placement Requesting physician: Marky Wright History of present illness: This is a 63-year-old female patient who follows on an outpatient basis with Dr. Isabela Toussaint and Dr. Whatley. She has a previous medical history of metastatic small cell lung cancer originally diagnosed in August 2017 with good response to chemotherapy and radiation until earlier this year when she had recurrence and was started on Opdivo, recurrent right-sided pleural effusions status post thoracentesis 4, diabetes, hypertension, hyperlipidemia, hypothyroid, peptic ulcer, previous tobacco dependence currently on home oxygen, and family history of cancer. She presented to [facility] emergency room on November 13 with complaints of significant shortness of breath. Chest x-ray was completed demonstrating complete opacification of the right hemithorax. She was admitted for evaluation and treatment along with plans for therapeutic thoracentesis. Consultation was placed for pulmonology, and Dr. Wright performed thoracentesis yesterday with removal of 1700 mL of dark green fluid. The fluid was sent for culture, no cytology was sent as patient has had multiple thoracentesis with cytology positive for malignancy. Her last thoracentesis was completed on October 30 with removal of [address] Paez from cardiothoracic surgery was consulted for placement of Pleurx catheter. Review of Systems Review of systems was completed and was negative except as noted. - Constitutional Reports weakness, Reports weight loss - Respiratory Reports dyspnea, Reports home oxygen - Musculoskeletal Reports muscle weakness Past Medical History Past Medical History: Cancer, Diabetes Mellitus, GERD/Reflux, Hyperlipidemia, Hypertension, Thyroid Disorder Additional Past Medical History / Comment(s): hx. peptic ulcer, small cell lung cancer-initially on chemo and radiation in 2018, now with recurrence and on immunotherapy (Opdivo), dysphasia, hypothyroidism, recurrent pleural effusions. History of Any Multi-Drug Resistant Organisms: None Reported Past Surgical History: Back Surgery, Section, Orthopedic Surgery Additional Past Surgical History / Comment(s): Exploratory Lap. 2 right knee arthroscopies. Mediport placement. Bronchoscopy. Laryngoscopy. Multiple thoracentesis Past Anesthesia/Blood Transfusion Reactions: No Reported Reaction Past Psychological History: Anxiety Smoking Status: Former smoker Past Alcohol Use History: None Reported Additional Past Alcohol Use History / Comment(s): Quit smoking 2017, smoked 1 ppd for 40 yrs. Past Drug Use History: None Reported - Past Family History Sister(s) Family Medical History: Cancer Additional Family Medical History / Comment(s): breast Medications and Allergies Home Medications Medication Instructions Recorded Confirmed Type Ezetimibe [Zetia] 10 mg PO HS 12/19/17 11/13/18 History FLUoxetine HCL [PROzac] 10 mg PO DAILY 12/19/17 11/13/18 History Levothyroxine Sodium [Synthroid] 100 mcg PO DAILY 12/19/17 11/13/18 History Albuterol Sulfate [Proair Hfa] 2 puff INHALATION RT-Q4H PRN 08/31/18 11/13/18 History Atorvastatin [Lipitor] 40 mg PO HS 09/30/18 11/13/18 History Cholecalciferol [Vitamin D3] 1,000 unit PO DAILY 09/30/18 11/13/18 History Dexlansoprazole [Dexilant] 60 mg PO DAILY 09/30/18 11/13/18 History Insulin Aspart (For Pump) [NovoLOG 0.01 unit SQ-PUMP CONTINUOUS 09/30/18 11/13/18 History (For Pump)] Metoclopramide [Reglan] 10 mg PO ACHS 09/30/18 11/13/18 History Promethazine HCl/Codeine 5 ml PO QID PRN 09/30/18 11/13/18 History [Promethazine-Codeine Syrup] Ranitidine HCl [Zantac] 300 mg PO HS 09/30/18 11/13/18 History Selenium 200 mcg PO DAILY 09/30/18 11/13/18 History Ubidecarenone [Co Q-10] 100 mg PO DAILY 09/30/18 11/13/18 History Docusate [Colace] 200 mg PO BID 30 Days #60 cap 10/02/18 11/13/18 Rx Ipratropium-Albuterol Nebulize 3 ml INHALATION RT-QID PRN #90 10/02/18 11/13/18 Rx [Duoneb 0.5 mg-3 mg/3 ml Soln] ampul.neb HYDROcodone/APAP 7.5-325MG [[place] 1 tab PO Q6H PRN 10/14/18 11/13/18 History 7.5-325] fentaNYL 12MCG/HR PATCH [Duragesic 1 patch TRANSDERM Q72H 10/14/18 11/13/18 History 12MCG/HR] Allergies Allergy/AdvReac Type Severity Reaction Status Date / Time No Known Allergies Allergy Verified 11/13/18 20:57 Surgical - Exam Vital Signs Temp Pulse Resp BP Pulse Ox 98.2 F 108 H 17 100/60 96 11/13/18 20:05 11/13/18 20:05 11/13/18 20:05 11/13/18 20:05 11/13/18 20:05 - General no distress, moderate pain, cachectic, chronically ill - Eyes PERRL, normal ocular movement - ENT no hearing loss - Neck no masses, no bruits, trachea midline - Respiratory Lungs sounds very diminished on the right side. Respirations even, slightly labored. Currently on 4 L nasal cannula with oxygen saturation 93%. - Cardiovascular S1, S2 present. Regular rate and rhythm. Palpable peripheral pulses bilaterally. No edema present. No calf pain or tenderness noted. - Abdomen Abdomen: soft, non tender, bowel sounds - Genitourinary Deferred - Rectum Deferred - Integumentary Mediport present to right anterior chest wall no rash, no growths - Neurologic normal coordination, normal sensation - Musculoskeletal normal gait - Psychiatric oriented to time, oriented to person, oriented to place, speech is normal Results - Labs 11/15/18 06:47 11/15/18 06:47 Abnormal Lab Results - Last 24 Hours (Table) 11/14/18 11/14/18 11/14/18 Range/Units 11:13 17:13 19:53 RBC (3.80-5.40) m/uL Hgb (11.4-16.0) gm/dL Hct (34.0-46.0) % RDW (11.5-15.5) % Sodium (137-145) mmol/L Carbon Dioxide (22-30) mmol/L BUN (7-17) mg/dL Glucose (74-99) mg/dL POC Glucose (mg/dL) 284 H 283 H 244 H (75-99) mg/dL AST (14-36) U/L Total Protein (6.3-8.2) g/dL Albumin (3.5-5.0) g/dL 11/15/18 11/15/18 11/15/18 Range/Units 06:47 06:47 06:56 RBC 3.23 L (3.80-5.40) m/uL Hgb 9.7 L (11.4-16.0) gm/dL Hct 30.6 L (34.0-46.0) % RDW 17.1 H (11.5-15.5) % Sodium 135 L (137-145) mmol/L Carbon Dioxide 32 H (22-30) mmol/L BUN 35 H (7-17) mg/dL Glucose 225 H (74-99) mg/dL POC Glucose (mg/dL) 241 H (75-99) mg/dL AST 43 H (14-36) U/L Total Protein 5.2 L (6.3-8.2) g/dL Albumin 2.6 L (3.5-5.0) g/dL Microbiology - Last 24 Hours (Table) 11/13/18 21:00 Blood Culture Gram Stain - Preliminary Blood Blood Culture - Preliminary Streptococcus species 11/13/18 21:00 Blood Culture - Final Blood Diabetes panel 11/15/18 Range/Units 06:47 Sodium 135 L (137-145) mmol/L Potassium 4.6 (3.5-5.1) mmol/L Chloride 100 (98-107) mmol/L Carbon Dioxide 32 H (22-30) mmol/L BUN 35 H (7-17) mg/dL Creatinine 0.55 (0.52-1.04) mg/dL Glucose 225 H (74-99) mg/dL Calcium 9.9 (8.4-10.2) mg/dL AST 43 H (14-36) U/L ALT 31 (9-52) U/L Alkaline Phosphatase 97 (38-126) U/L Total Protein 5.2 L (6.3-8.2) g/dL Albumin 2.6 L (3.5-5.0) g/dL Calcium panel 11/15/18 Range/Units 06:47 Calcium 9.9 (8.4-10.2) mg/dL Albumin 2.6 L (3.5-5.0) g/dL Pituitary panel 11/15/18 Range/Units 06:47 Sodium 135 L (137-145) mmol/L Potassium 4.6 (3.5-5.1) mmol/L Chloride 100 (98-107) mmol/L Carbon Dioxide 32 H (22-30) mmol/L BUN 35 H (7-17) mg/dL Creatinine 0.55 (0.52-1.04) mg/dL Glucose 225 H (74-99) mg/dL Calcium 9.9 (8.4-10.2) mg/dL Adrenal panel 11/15/18 Range/Units 06:47 Sodium 135 L (137-145) mmol/L Potassium 4.6 (3.5-5.1) mmol/L Chloride 100 (98-107) mmol/L Carbon Dioxide 32 H (22-30) mmol/L BUN 35 H (7-17) mg/dL Creatinine 0.55 (0.52-1.04) mg/dL Glucose 225 H (74-99) mg/dL Calcium 9.9 (8.4-10.2) mg/dL Total Bilirubin 0.5 (0.2-1.3) mg/dL AST 43 H (14-36) U/L ALT 31 (9-52) U/L Alkaline Phosphatase 97 (38-126) U/L Total Protein 5.2 L (6.3-8.2) g/dL Albumin 2.6 L (3.5-5.0) g/dL - Imaging Chest x-ray: report reviewed, image reviewed Assessment and Plan Assessment: 1. Recurrent right-sided pleural effusion, status post thoracentesis on November 14 with removal of 1700 mL 2. History of metastatic small cell lung cancer status post chemo and radiation, currently receiving Opdivo therapy 3. Recurrent right-sided pleural effusions status post thoracentesis 4 4. Diabetes 5. Hypertension 6. Hyperlipidemia 7. Hypothyroid 8. Peptic ulcer disease 9. Previous tobacco dependence 10. Family history of cancer Plan: The patient was seen and examined at the bedside with her caregiver. Chart/diagnostics were reviewed. The usual perioperative course for placement of Pleurx catheter was discussed in detail with the patient and her caregiver, risks and benefits were discussed, all questions were answered, and the patient is willing to consent to placement of a right-sided Pleurx catheter. Teaching initiated regarding Pleurx drainage removal. Will bring demonstration kit tomorrow for further teaching with the patient and her caregiver. The case was discussed with Dr. Faustin. Plan is for right-sided Pleurx catheter placement in the next couple of days. This was discussed with the patient and she is in agreement. Case management is aware of plans for placement of the Pleurx and home care is in place. Continued medical management of other comorbid conditions per primary care, pulmonology, and oncology. Thank you Dr. Wright for this consult. We look forward to working with you in the care of your patient. Time with Patient: Greater than 30
[2018-11-15 10:59] LABS: Glucose,Whole Blood 181 mg/dL (75-99)
--- NOTE | 2018-11-15 13:03 | P.PN ---
Subjective Progress Note Date: 11/15/18 Principal diagnosis: small cell lung cancer with recurrent right-sided malignant pleural effusion This is a 63-year-old female with known history of small cell lung cancer diagnosed almost a year ago. Has been receiving chemotherapy and radiation therapy since December of 2017. Patient failed treatment, she has been receiving immunotherapy since July of 2018. Patient has been experiencing recurrent right-sided pleural effusion requiring at least 4 previous thoracentesis pro cedures. Placement of a Pleurx catheter was discussed with the patient previously, but this was never pursued further. Patient was recently seen by Dr. Temple and he performed a thoracentesis on this patient about 2 weeks ago. Drained about 2000 mL of pleural effusion from the right pleural space. In the last few days the patient has been complaining of increased shortness of breath, came into the ER and chest x-ray showed complete opacification of the right lung with tracheal shift to the contralateral side. I reviewed the chest x-ray, and I recommended immediate thoracentesis which was done already. I was able to drain 1700 mL of pleural effusion from the right pleural space. Discussed with the patient the option of thoracic surgery consultation and having a Pleurx catheter placement hopefully early next week Friday or Friday. Patient is agreeable to proceed with the plan. Hence thoracic surgery will be consulted. Patient denies any fever, no chills, she does have chronic weight loss. According to the family the patient has been intermittently confused, and she has right-sided pleuritic chest pain, and chronic intermittent cough. No nausea no vomiting no abdominal pain no melena no hematemesis no dysuria and no frequency no urgency. Labs on admission showed relatively normal CBC except for a low hemoglobin of 9.4. Normal platelets. Normal electrolytes. Normal renal profile. Low albumin of 2.8. Calcium was noted to be 9.90 Patient was reevaluated today on 11/15/2018, feeling better since her thoracentesis was done yesterday. Breathing a lot easier, hardly any cough no wheezing, no shortness of breath. Patient was seen by thoracic surgery, and she may undergo Pleurx catheter placement tomorrow or possibly Friday. In the meantime her pulmonary status seems to be stabilizing, but considering the recurrent pleural effusion and recurrent thoracentesis procedures done over the last few months, I think Pleurx catheter is the best choice.labs were reviewed WBC count is 7.5 hemoglobin 9.7 electrodes are normal renal profile is normal Objective - Vital Signs Vital signs: Vital Signs Temp 97.7 F 11/15/18 11:44 Pulse 92 11/15/18 11:44 Resp 16 11/15/18 11:44 BP 99/54 11/15/18 11:44 Pulse Ox 97 11/15/18 11:44 Intake & Output 11/14/18 11/15/18 11/15/18 18:59 06:59 18:59 Intake Total 360 450 Balance 360 450 Weight 52 kg Intake: Intake, IV Titration 250 Amount Vancomycin 1,000 mg In 250 Sodium Chloride 0.9% 250 ml @ 125 mls/hr IVPB Q8H [facility] Rx#:[id number] Oral 360 200 Other: Voiding Method Bedside Commode Bedside Commode # Voids 2 1 - Exam Physical Exam: Revealed a 63-year-old female in no distress. Head: Atraumatic, normocephalic. HEENT:[Neck is supple.] [No neck masses.] [No thyromegaly.] [No JVD.] PERRLA, EOMI, no icterus. Moist mucous membranes. Chest: [slightly diminished breath sounds on the right side, left side is clear. No chest wall retraction, symmetrical expansion, no chest wall tenderness Cardiac Exam: [Normal S1 and S2, no S3 gallop, no murmur.] Abdomen: [Soft, nontender, no megaly, no rebound, no guarding, normal bowel sounds.] Extremities: [No clubbing, no edema, no cyanosis.] Neurological Exam: [No focal neurologic deficit.] Alert and oriented 3 Psychiatric: Normal mood, affect, and mental status examination. Lymphatics: No lymph adenopathy Skin: No rashes. - Labs CBC & Chem 7: 11/15/18 06:47 11/15/18 06:47 Labs: Abnormal Lab Results - Last 24 Hours (Table) 11/14/18 11/14/18 11/15/18 Range/Units 17:13 19:53 06:47 RBC 3.23 L (3.80-5.40) m/uL Hgb 9.7 L (11.4-16.0) gm/dL Hct 30.6 L (34.0-46.0) % RDW 17.1 H (11.5-15.5) % Sodium (137-145) mmol/L Carbon Dioxide (22-30) mmol/L BUN (7-17) mg/dL Glucose (74-99) mg/dL POC Glucose (mg/dL) 283 H 244 H (75-99) mg/dL AST (14-36) U/L Total Protein (6.3-8.2) g/dL Albumin (3.5-5.0) g/dL 11/15/18 11/15/18 11/15/18 Range/Units 06:47 06:56 10:58 RBC (3.80-5.40) m/uL Hgb (11.4-16.0) gm/dL Hct (34.0-46.0) % RDW (11.5-15.5) % Sodium 135 L (137-145) mmol/L Carbon Dioxide 32 H (22-30) mmol/L BUN 35 H (7-17) mg/dL Glucose 225 H (74-99) mg/dL POC Glucose (mg/dL) 241 H 181 H (75-99) mg/dL AST 43 H (14-36) U/L Total Protein 5.2 L (6.3-8.2) g/dL Albumin 2.6 L (3.5-5.0) g/dL Microbiology - Last 24 Hours (Table) 11/13/18 21:00 Blood Culture Gram Stain - Preliminary Blood Blood Culture - Preliminary Streptococcus species 11/13/18 21:00 Blood Culture - Final Blood Assessment and Plan Assessment: Impression: 1 shortness of breath secondary to recurrent large right-sided malignant pleural effusion 2 small cell lung cancer, on immunotherapy, failed chemoradiation treatment. 3 chronic medical debility secondary to underlying malignancy. 4 positive blood cultures, however the clinical history does not suggest sepsis or bacteremia, but will go ahead and empirically give the patient a dose of vancomycin, I have a strong feeling that the blood cultures are related to contamination rather than truly positive blood cultures. 5 multiple comorbidities including type 2 diabetes, hypertension, mild protein calorie malnutrition, GERD without esophagitis, and hypothyroidism. 6 status post right-sided thoracentesis. Recommendation: continue present treatment plan as outlined in my consultation, had a long discussion with the patient and her today regarding her condition, and I fully agree with the Pleurx catheter placement hopefully tomorrow if possible. In the meantime continue antibiotics empirically, final blood culture report is pending, continue bronchodilators,continue GI and DVT pr ophylaxis, continue pain control medications, and the patient is back on her usual meds for her other medical issues this will be continued long-term prognosis remains guarded considering her malignancy. Will follow along with the admitting physician Time with Patient: Less than 30
--- NOTE | 2018-11-15 13:43 | P.PN ---
Subjective Progress Note Date: 11/15/18 Principal diagnosis: Pleural effusion Patient was seen and examined. No acute events overnight. She reports slight improvement in her breathing, but not much since thoracocentesis. Seen by cardiothoracic surgery today, agreeable for Pleurx catheter possibly tomorrow or Friday. Patient endorses decreased appetite. She denies any chest pain or palpitations. No nausea or vomiting. No fever or chills. Objective - Vital Signs Vital signs: Vital Signs Temp 97.7 F 11/15/18 11:44 Pulse 92 11/15/18 11:44 Resp 16 11/15/18 11:44 BP 99/54 11/15/18 11:44 Pulse Ox 97 11/15/18 11:44 Intake & Output 11/14/18 11/15/18 11/15/18 18:59 06:59 18:59 Intake Total 360 450 Balance 360 450 Weight 52 kg Intake: Intake, IV Titration 250 Amount Vancomycin 1,000 mg In 250 Sodium Chloride 0.9% 250 ml @ 125 mls/hr IVPB Q8H [facility] Rx#:[id number] Oral 360 200 Other: Voiding Method Bedside Commode Bedside Commode # Voids 2 1 - Exam General: [non toxic], [no distress], [appears at stated age] Derm: [warm], [dry] Head: [atraumatic], [normocephalic], [symmetric] Eyes: [EOMI], [no lid lag], [anicteric sclera] Mouth: [no lip lesion], [mucus membranes moist] Cardiovascular: [S1S2 reg], [no murmur], [positive DP pulse bilateral] Lungs: [CTA bilateral on the left side and decreased breath sounds on the right side], [no rhonchi, no rales] , [no accessory muscle use] Abdominal: [soft], [ nontender to palpation], [no guarding], [no appreciable organomegaly] Ext: [no gross muscle atrophy], [no edema], [no contractures] Neuro: [no focal neuro deficits] Psych: [Alert], [oriented], [appropriate affect] - Labs CBC & Chem 7: 11/15/18 06:47 11/15/18 06:47 Labs: Abnormal Lab Results - Last 24 Hours (Table) 11/14/18 11/14/1819 Range/Units 17:13 19:53 06:47 RBC 3.23 L (3.80-5.40) m/uL Hgb 9.7 L (11.4-16.0) gm/dL Hct 30.6 L (34.0-46.0) % RDW 17.1 H (11.5-15.5) % Sodium (137-145) mmol/L Carbon Dioxide (22-30) mmol/L BUN (7-17) mg/dL Glucose (74-99) mg/dL POC Glucose (mg/dL) 283 H 244 H (75-99) mg/dL AST (14-36) U/L Total Protein (6.3-8.2) g/dL Albumin (3.5-5.0) g/dL 11/15/18 11/15/18 11/15/18 Range/Units 06:47 06:56 10:58 RBC (3.80-5.40) m/uL Hgb (11.4-16.0) gm/dL Hct (34.0-46.0) % RDW (11.5-15.5) % Sodium 135 L (137-145) mmol/L Carbon Dioxide 32 H (22-30) mmol/L BUN 35 H (7-17) mg/dL Glucose 225 H (74-99) mg/dL POC Glucose (mg/dL) 241 H 181 H (75-99) mg/dL AST 43 H (14-36) U/L Total Protein 5.2 L (6.3-8.2) g/dL Albumin 2.6 L (3.5-5.0) g/dL Microbiology - Last 24 Hours (Table) 11/13/18 21:00 Blood Culture Gram Stain - Preliminary Blood Blood Culture - Preliminary Streptococcus species 11/13/18 21:00 Blood Culture - Final Blood Assessment and Plan Assessment: Assessment and Plan Right pleural effusion possibly secondary to advanced malignancy Debility secondary to advanced malignancy Small cell lung cancer Diabetes mellitus Hypothyroidism Seen by pulmonology, underwent right-sided thoracocentesis, 1700 mL of fluid drained from the right pleural space. Continue albuterol neb as needed for shortness of breath and wheezing. Postop chest x-ray shows slight improvement in aeration, possible right trace apical pneumothorax. Supplemental oxygen to maintain O2 sat greater than 92%. Plans for Pleurx catheter either tomorrow or Friday. Follow CT surgery, pulmonology recommendations. Fall precautions. Follow PT and OT recommendations. Sees Dr. Whatley in the outpatient setting. Upabe-pd-iaox glucose 181. Insulin sliding scale. Hypoglycemic precautions. Regular Accu-Cheks. Continue Synthroid.
[2018-11-15 17:31] LABS: Glucose,Whole Blood 229 mg/dL (75-99)
[2018-11-15 20:39] LABS: Glucose,Whole Blood 166 mg/dL (75-99)
[2018-11-15] MEDS: EZETIMIBE 10 MG TAB PO SCH (20:40)
[2018-11-15] MEDS: ATORVASTATIN 40 MG TAB PO SCH (20:40)
[2018-11-15] MEDS ORDERED: VANCOMYCIN TROUGH DUE 1 EACH MISC MISCELLANE ONE (21:00)
[2018-11-16] MEDS: SODIUM CHLORIDE 0.9% 1,000 ML IV SCH ×3 (00:22→20:48)
[2018-11-16] MEDS: LEVOTHYROXINE 100 MCG TAB PO SCH (05:08)
[2018-11-16] MEDS: HYDROmorphone 1 MG/ML 1 ML SYRINGE IVP PRN ×4 (05:08→16:44)
[2018-11-16] MEDS: VANCOMYCIN 1,000 MG in SODIUM CHLORIDE 0.9% 250 ML IVPB SCH ×2 (06:29→17:06)
[2018-11-16 07:07] LABS: Glucose,Whole Blood 183 mg/dL (75-99)
[2018-11-16 08:47] LABS: Anisocytosis Slight; HCT 29.2 % (34.0-46.0); HGB 8.9 gm/dL (11.4-16.0); Hypochromasia Moderate; MCH 28.8 pg (25.0-35.0); MCHC 30.5 g/dL (31.0-37.0); MCV 94.4 fL (80.0-100.0); Mean Platelet Volume 6.8; Platelet Count 323 k/uL (150-450); RDW 16.9 % (11.5-15.5); WBC 6.2 k/uL (3.8-10.6)
[2018-11-16] MEDS: DOCUSATE 100 MG CAP PO SCH ×2 (08:52→20:58)
[2018-11-16] MEDS: PANTOPRAZOLE 40 MG TABLET PO SCH (08:53)
[2018-11-16] MEDS: INSULIN ASPART (NovoLOG) 100 UNIT/ML VIAL SQ SCH ×4 (08:53→20:58)
[2018-11-16] MEDS: FLUoxetine HCL 10 MG CAP PO SCH (08:53)
[2018-11-16] MEDS: METOCLOPRAMIDE 10 MG TAB PO SCH ×4 (08:53→20:58)
[2018-11-16] MEDS: ENOXAPARIN 40 MG/0.4 ML SYRINGE SQ SCH (08:53)
[2018-11-16 09:00] LABS: ALT 29 U/L (9-52); AST 43 U/L (14-36); Albumin 2.6 g/dL (3.5-5.0); Alkaline Phosphatase 93 U/L (38-126); Anion Gap 2 mmol/L; Blood Urea Nitrogen 33 mg/dL (7-17); Calcium 9.7 mg/dL (8.4-10.2); Carbon Dioxide 31 mmol/L (22-30); Chloride 101 mmol/L (98-107); Glucose 199 mg/dL (74-99); Potassium 4.5 mmol/L (3.5-5.1); Sodium 134 mmol/L (137-145); Total Bilirubin 0.5 mg/dL (0.2-1.3); Total Protein 5.1 g/dL (6.3-8.2)
--- NOTE | 2018-11-16 09:44 | XR ---
EXAMINATION TYPE: XR chest 1V portable DATE OF EXAM: 11/16/2018 COMPARISON: 11/14/2018 INDICATION: Right-sided pleural effusion TECHNIQUE: Single frontal view of the chest is obtained. FINDINGS: The heart size is indistinct. The pulmonary vasculature is normal. There is complete opacification to the right lung. This has worsened from comparison. The previous pn eumothorax is not identified. Right-sided port remains stable in position. Some mild infiltrate is at the left base. Correlate for atelectasis. IMPRESSION: 1. Complete opacification of the right lung likely with fluid and/or atelectasis. 2. Previous suspected pneumothorax is not identified. 3. Minimal effusion and/or atelectasis at the left base is present, increased from comparison.
[2018-11-16 11:11] LABS: Glucose,Whole Blood 241 mg/dL (75-99)
--- NOTE | 2018-11-16 13:58 | P.PN ---
Subjective Progress Note Date: 11/16/18 Principal diagnosis: Recurrent pleural effusion. Previous medical history of metastatic small cell lung cancer status post chemo, radiation, currently on immunotherapy with Opdivo , recurrent right-sided pleural effusions status post thoracentesis 4, diabetes, hypertension, hyperlipidemia, hypothyroid, peptic ulcer, previous tobacco dependence, currently on home oxygen, and family history of cancer. Patient's currently sitting up in bed in no acute distress, although she does appear somewhat short of breath. Does complain of occasional pain. Teaching continues regarding Pleurx catheter including demonstration of its use for both the patient and her caregiver, all questions were answered. Objective - Vital Signs Vital signs: Vital Signs Temp 98 F 11/16/18 11:25 Pulse 93 11/16/18 11:25 Resp 16 11/16/18 11:25 BP 99/64 11/16/18 11:25 Pulse Ox 98 11/16/18 11:25 Intake & Output 11/15/18 11/16/18 11/16/18 18:59 06:59 18:59 Intake Total 375 250 Balance 375 250 Intake: Intake, IV Titration 250 250 Amount Vancomycin 1,000 mg In 250 250 Sodium Chloride 0.9% 250 ml @ 125 mls/hr IVPB Q8H [facility] Rx#:[id number] Oral 125 Other: Voiding Method Bedside Commode # Voids 1 - Constitutional General appearance: Present: cooperative, no acute distress - Respiratory Details: Lungs sounds very diminished on the right side. Respirations even, slightly labored. Currently on 4 L nasal cannula with oxygen saturation 97%. - Cardiovascular Details: S1, S2 present. Regular rate and rhythm. Palpable peripheral pulses bilaterally. No edema present. No calf pain or tenderness noted. - Gastrointestinal Gastrointestinal Comment(s): Abdomen soft, nontender, nondistended. Active bowel sounds. Tolerating diet. - Genitourinary Genitourinary Comment(s): Continues to void clear, yellow urine - Integumentary Integumentary Comment(s): Skin is warm and dry with evidence of good perfusion. Mediport present to the right anterior chest wall. - Neurologic Neurologic: Present: CNII-XII intact - Musculoskeletal Musculoskeletal: Present: gait normal, strength equal bilaterally - Psychiatric Psychiatric: Present: A&O x's 3, appropriate affect, intact judgment & insight - Allied health notes Allied health notes reviewed: nursing - Labs CBC & Chem 7: 11/16/18 07:37 11/16/18 07:37 Labs: Abnormal Lab Results - Last 24 Hours (Table) 11/15/18 11/15/18 11/16/18 Range/Units 17:29 20:37 07:05 RBC (3.80-5.40) m/uL Hgb (11.4-16.0) gm/dL Hct (34.0-46.0) % MCHC (31.0-37.0) g/dL RDW (11.5-15.5) % Sodium (137-145) mmol/L Carbon Dioxide (22-30) mmol/L BUN (7-17) mg/dL Glucose (74-99) mg/dL POC Glucose (mg/dL) 229 H 166 H 183 H (75-99) mg/dL AST (14-36) U/L Total Protein (6.3-8.2) g/dL Albumin (3.5-5.0) g/dL 11/16/18 11/16/18 11/16/18 Range/Units 07:37 07:37 11:08 RBC 3.10 L (3.80-5.40) m/uL Hgb 8.9 L (11.4-16.0) gm/dL Hct 29.2 L (34.0-46.0) % MCHC 30.5 L (31.0-37.0) g/dL RDW 16.9 H (11.5-15.5) % Sodium 134 L (137-145) mmol/L Carbon Dioxide 31 H (22-30) mmol/L BUN 33 H (7-17) mg/dL Glucose 199 H (74-99) mg/dL POC Glucose (mg/dL) 241 H (75-99) mg/dL AST 43 H (14-36) U/L Total Protein 5.1 L (6.3-8.2) g/dL Albumin 2.6 L (3.5-5.0) g/dL Microbiology - Last 24 Hours (Table) 11/13/18 21:00 Blood Culture Gram Stain - Preliminary Blood Blood Culture - Preliminary Streptococcus species 11/15/18 01:25 Blood Culture - Preliminary Blood No Growth after 24 hours - Imaging and Cardiology Chest x-ray: report reviewed, image reviewed Assessment and Plan Assessment: 1. Recurrent right-sided pleural effusion, status post thoracentesis on November 14 with removal of 1700 mL 2. History of metastatic small cell lung cancer status post chemo and radiation, currently receiving Opdivo therapy 3. Recurrent right-sided pleural effusions status post thoracentesis 4 4. Diabetes 5. Hypertension 6. Hyperlipidemia 7. Hypothyroid 8. Peptic ulcer disease 9. Previous tobacco dependence 10. Family history of cancer Plan: 1. Continue teaching regarding Pleurx catheter. Will make decision about timing for placement. 2. Case management for insurance authorization for delivery of bottles to the patient's house. 3. Pain control per primary care services. 4. Bronchodilators, antibiotics per pulmonology. 5. Increase activity as tolerated. 6. GI/DVT prophylaxis. 7. Continued medical management of other comorbid conditions per primary care, pulmonology, oncology. 8. More recommendations to follow. Time with Patient: Greater than 30
--- NOTE | 2018-11-16 14:32 | P.PN ---
Subjective Progress Note Date: 11/16/18 Principal diagnosis: Small cell lung cancer with recurrent right-sided malignant pleural effusion This is a 63-year-old female with known history of small cell lung cancer diagnosed almost a year ago. Has been receiving chemotherapy and radiation therapy since December of 2017. Patient failed treatment, she has been receiving immunotherapy since July of 2018. Patient has been experiencing recurrent right-sided pleural effusion requiring at least 4 previous thoracentesis pr ocedures. Placement of a Pleurx catheter was discussed with the patient previously, but this was never pursued further. Patient was recently seen by Dr. Temple and he performed a thoracentesis on this patient about 2 weeks ago. Drained about 2000 mL of pleural effusion from the right pleural space. In the last few days the patient has been complaining of increased shortness of breath, came into the ER and chest x-ray showed complete opacification of the right lung with tracheal shift to the contralateral side. I reviewed the chest x-ray, and I recommended immediate thoracentesis which was done already. I was able to drain 1700 mL of pleural effusion from the right pleural space. Discussed with the patient the option of thoracic surgery consultation and having a Pleurx catheter placement hopefully early next week Friday or Friday. Patient is agreeable to proceed with the plan. Hence thoracic surgery will be consulted. Patient denies any fever, no chills, she does have chronic weight loss. According to the family the patient has been intermittently confused, and she has right-sided pleuritic chest pain, and chronic intermittent cough. No nausea no vomiting no abdominal pain no melena no hematemesis no dysuria and no frequency no urgency. Labs on admission showed relatively normal CBC except for a low hemoglobin of 9.4. Normal platelets. Normal electrolytes. Normal renal profile. Low albumin of 2.8. Calcium was noted to be 9.90 Patient was reevaluated today on 11/15/2018, feeling better since her thoracentesis was done yesterday. Breathing a lot easier, hardly any cough no wheezing, no shortness of breath. Patient was seen by thoracic surgery, and she may undergo Pleurx catheter placement tomorrow or possibly Friday. In the meantime her pulmonary status seems to be stabilizing, but considering the recurrent pleural effusion and recurrent thoracentesis procedures done over the last few months, I think Pleurx catheter is the best choice.labs were reviewed WBC count is 7.5 hemoglobin 9.7 electrodes are normal renal profile is normal On 11/16/2018 patient seen in follow-up in oncology floor. She is resting comfortably in bed, in no acute distress, lung sounds reveal diminished breath sounds on the right, clear on the left, ration has recurrent right-sided pleural effusion requiring thoracentesis, on today's chest x-ray there is complete o pacification of the right lung related to right-sided pleural effusion. Patient had recent right-sided thoracentesis, [address] Rutledge on 10/01/2018 with removal of 1 L radha colored pleural fluid at [facility] positive for rare malignant small cells in the background of mixed inflammation. Most recently on 10/30/2018 patient had to be drained again by Dr. Nicole, and 1.5 L of pleural fluid was removed, no cytology was sent. She remains on 4 L of oxygen her pulse ox of 98%, hemodynamically she is stable, she is short of breath with activity, otherwise in no acute distress. Blood culture showed streptococcus species, follow-up blood culture from the showed no growth. On 11/14/2018 patient had undergone yet another right-sided thoracentesis would removal of 1.7 L of pleural fluid by Dr. Rutledge. In view of recurrent pleural effusion in the right lung, with consult to cardiothoracic surgery for placement of Pleurx catheter. Objective - Vital Signs Vital signs: Vital Signs Temp 98 F 11/16/18 11:25 Pulse 93 11/16/18 11:25 Resp 16 11/16/18 11:25 BP 99/64 11/16/18 11:25 Pulse Ox 98 11/16/18 11:25 Intake & Output 11/15/18 11/16/18 11/16/18 18:59 06:59 18:59 Intake Total 375 250 730 Balance 375 250 730 Intake: Intake, IV Titration 250 250 250 Amount Vancomycin 1,000 mg In 250 Sodium Chloride 0.9% 250 ml @ 125 mls/hr IVPB Q12H [facility] Rx#:[id number] Vancomycin 1,000 mg In 250 250 Sodium Chloride 0.9% 250 ml @ 125 mls/hr IVPB Q8H [facility] Rx#:[id number] Oral 125 480 Other: Voiding Method Bedside Commode # Voids 1 3 - Exam GENERAL EXAM: Alert, pleasant, 63-year-old white female comfortable in no apparent distress. HEAD: Normocephalic/atraumatic. EYES: Normal reaction of pupils, equal size. Conjunctiva pink, sclera white. NOSE: Clear with pink turbinates. THROAT: No erythema or exudates. NECK: No masses, no JVD, no thyroid enlargement, no adenopathy. CHEST: No chest wall deformity. Symmetrical expansion. LUNGS: Equal air entry with no crackles, wheeze, rhonchi or dullness. Diminished Breath sounds on the right CVS: Regular rate and rhythm, normal S1 and S2, no gallops, no murmurs, no rubs ABDOMEN: Soft, nontender. No hepatosplenomegaly, normal bowel sounds, no guarding or rigidity. EXTREMITIES: No clubbing, no edema, no cyanosis, 2+ pulses and upper and lower extremities. MUSCULOSKELETAL: Muscle strength and tone normal. SPINE: No scoliosis or deformity SKIN: No rashes CENTRAL NERVOUS SYSTEM: Alert and oriented -3. No focal deficits, tone is normal in all 4 extremities. PSYCHIATRIC: Alert and oriented -3. Appropriate affect. Intact judgment and insight. - Labs CBC & Chem 7: 11/16/18 07:37 11/16/18 07:37 Labs: Abnormal Lab Results - Last 24 Hours (Table) 11/15/18 11/15/18 11/16/18 Range/Units 17:29 20:37 07:05 RBC (3.80-5.40) m/uL Hgb (11.4-16.0) gm/dL Hct (34.0-46.0) % MCHC (31.0-37.0) g/dL RDW (11.5-15.5) % Sodium (137-145) mmol/L Carbon Dioxide (22-30) mmol/L BUN (7-17) mg/dL Glucose (74-99) mg/dL POC Glucose (mg/dL) 229 H 166 H 183 H (75-99) mg/dL AST (14-36) U/L Total Protein (6.3-8.2) g/dL Albumin (3.5-5.0) g/dL 11/16/18 11/16/18 11/16/18 Range/Units 07:37 07:37 11:08 RBC 3.10 L (3.80-5.40) m/uL Hgb 8.9 L (11.4-16.0) gm/dL Hct 29.2 L (34.0-46.0) % MCHC 30.5 L (31.0-37.0) g/dL RDW 16.9 H (11.5-15.5) % Sodium 134 L (137-145) mmol/L Carbon Dioxide 31 H (22-30) mmol/L BUN 33 H (7-17) mg/dL Glucose 199 H (74-99) mg/dL POC Glucose (mg/dL) 241 H (75-99) mg/dL AST 43 H (14-36) U/L Total Protein 5.1 L (6.3-8.2) g/dL Albumin 2.6 L (3.5-5.0) g/dL Microbiology - Last 24 Hours (Table) 11/13/18 21:00 Blood Culture Gram Stain - Preliminary Blood Blood Culture - Preliminary Streptococcus species 11/15/18 01:25 Blood Culture - Preliminary Blood No Growth after 24 hours Assessment and Plan Plan: Assessment: 1 shortness of breath secondary to recurrent large right-sided malignant pleural effusion, requiring frequent thoracentesis 2 small cell lung cancer, on immunotherapy, failed chemoradiation treatment. 3 chronic medical debility secondary to underlying malignancy. 4 positive blood cultures, however the clinical history does not suggest sepsis or bacteremia, but will go ahead and empirically give the patient a dose of vancomycin, I have a strong feeling that the blood cultures are related to contamination rather than truly positive blood cultures. 5 multiple comorbidities including type 2 diabetes, hypertension, mild protein calorie malnutrition, GERD without esophagitis, and hypothyroidism. 6 status post right-sided thoracentesis. Plan: CT surgery has been consulted, for placement of Pleurx catheter in view of recurrent right-sided malignant pleural effusion. Continue with nebulized bronchodilators, and antibiotics. We'll continue to follow with CT surgery, I performed a history & physical examination of the patient and discussed their management with my nurse practitioner, Jeana Hartman. I reviewed the nurse pra ctitioner's note and agree with the documented findings and plan of care. Lung sounds are positive for diminished breath sounds on the right. The findings and the impression was discussed with the patient. I attest to the documentation by the nurse practitioner. Time with Patient: Less than 30
[2018-11-16 16:59] LABS: Glucose,Whole Blood 243 mg/dL (75-99)
--- NOTE | 2018-11-16 17:13 | P.PN ---
Subjective Progress Note Date: 11/16/18 Principal diagnosis: Pleural effusion Patient seen and examined. No acute events overnight. Patient reports no changes in her condition since yesterday. Pain well-controlled with Dilaudid. Plans for Pleurx catheter tomorrow. She denies any chest pain or palpitations. No nausea or vomiting. No fever or chills. Objective - Vital Signs Vital signs: Vital Signs Temp 98 F 11/16/18 11:25 Pulse 93 11/16/18 15:26 Resp 16 11/16/18 15:26 BP 99/64 11/16/18 11:25 Pulse Ox 98 11/16/18 11:25 Intake & Output 11/15/18 11/16/18 11/16/18 18:59 06:59 18:59 Intake Total 375 250 730 Balance 375 250 730 Weight 52 kg Intake: Intake, IV Titration 250 250 250 Amount Vancomycin 1,000 mg In 250 Sodium Chloride 0.9% 250 ml @ 125 mls/hr IVPB Q12H [facility] Rx#:[id number] Vancomycin 1,000 mg In 250 250 Sodium Chloride 0.9% 250 ml @ 125 mls/hr IVPB Q8H [facility] Rx#:[id number] Oral 125 480 Other: Voiding Method Bedside Commode Bedside Commode # Voids 1 1 - Exam General: [non toxic], [no distress], [appears at stated age] Derm: [warm], [dry] Head: [atraumatic], [normocephalic], [symmetric] Eyes: [EOMI], [no lid lag], [anicteric sclera] Mouth: [no lip lesion], [mucus membranes moist] Cardiovascular: [S1S2 reg], [no murmur], [positive DP pulse bilateral] Lungs: [CTA bilateral on the left side and decreased breath sounds on the right side], [no rhonchi, no rales] , [no accessory muscle use] Abdominal: [soft], [ nontender to palpation], [no guarding], [no appreciable organomegaly] Ext: [no gross muscle atrophy], [no edema], [no contractures] Neuro: [no focal neuro deficits] Psych: [Alert], [oriented], [appropriate affect] - Labs CBC & Chem 7: 11/16/18 07:37 11/16/18 07:37 Labs: Abnormal Lab Results - Last 24 Hours (Table) 11/15/18 11/15/18 11/16/18 Range/Units 17:29 20:37 07:05 RBC (3.80-5.40) m/uL Hgb (11.4-16.0) gm/dL Hct (34.0-46.0) % MCHC (31.0-37.0) g/dL RDW (11.5-15.5) % Sodium (137-145) mmol/L Carbon Dioxide (22-30) mmol/L BUN (7-17) mg/dL Glucose (74-99) mg/dL POC Glucose (mg/dL) 229 H 166 H 183 H (75-99) mg/dL AST (14-36) U/L Total Protein (6.3-8.2) g/dL Albumin (3.5-5.0) g/dL 11/16/18 11/16/18 11/16/18 Range/Units 07:37 07:37 11:08 RBC 3.10 L (3.80-5.40) m/uL Hgb 8.9 L (11.4-16.0) gm/dL Hct 29.2 L (34.0-46.0) % MCHC 30.5 L (31.0-37.0) g/dL RDW 16.9 H (11.5-15.5) % Sodium 134 L (137-145) mmol/L Carbon Dioxide 31 H (22-30) mmol/L BUN 33 H (7-17) mg/dL Glucose 199 H (74-99) mg/dL POC Glucose (mg/dL) 241 H (75-99) mg/dL AST 43 H (14-36) U/L Total Protein 5.1 L (6.3-8.2) g/dL Albumin 2.6 L (3.5-5.0) g/dL 11/16/18 Range/Units 16:57 RBC (3.80-5.40) m/uL Hgb (11.4-16.0) gm/dL Hct (34.0-46.0) % MCHC (31.0-37.0) g/dL RDW (11.5-15.5) % Sodium (137-145) mmol/L Carbon Dioxide (22-30) mmol/L BUN (7-17) mg/dL Glucose (74-99) mg/dL POC Glucose (mg/dL) 243 H (75-99) mg/dL AST (14-36) U/L Total Protein (6.3-8.2) g/dL Albumin (3.5-5.0) g/dL Microbiology - Last 24 Hours (Table) 11/13/18 21:00 Blood Culture Gram Stain - Preliminary Blood Blood Culture - Preliminary Streptococcus species 11/15/18 01:25 Blood Culture - Preliminary Blood No Growth after 24 hours Assessment and Plan Assessment: Assessment and Plan Right pleural effusion possibly secondary to advanced malignancy Debility secondary to advanced malignancy Small cell lung cancer Diabetes mellitus Hypothyroidism Seen by pulmonology, underwent right-sided thoracocentesis, 1700 mL of fluid drained from the right pleural space. Continue albuterol neb as needed for shortness of breath and wheezing. Postop chest x-ray shows slight improvement in aeration, possible right trace apical pneumothorax. Supplemental oxygen to maintain O2 sat greater than 92%. Plans for Pleurx catheter tomorrow. Follow CT surgery, pulmonology recommendations. Fall precautions. Follow PT and OT recommendations. Sees Dr. Whatley in the outpatient setting. [id number] glucose 243. Insulin sliding scale. Hypoglycemic precautions. Regular Accu-Cheks. Continue Synthroid.
[2018-11-16 20:48] LABS: Glucose,Whole Blood 187 mg/dL (75-99)
[2018-11-16] MEDS: ATORVASTATIN 40 MG TAB PO SCH (20:58)
[2018-11-16] MEDS: EZETIMIBE 10 MG TAB PO SCH (20:58)
[2018-11-17] MEDS: HYDROmorphone 1 MG/ML 1 ML SYRINGE IVP PRN ×5 (00:09→21:06)
[2018-11-17] MEDS: LEVOTHYROXINE 100 MCG TAB PO SCH (00:51)
[2018-11-17] MEDS: SODIUM CHLORIDE 0.9% 1,000 ML IV SCH ×2 (00:51→18:09)
[2018-11-17] MEDS: VANCOMYCIN 1,000 MG in SODIUM CHLORIDE 0.9% 250 ML IVPB SCH ×2 (05:21→19:42)
[2018-11-17 07:01] LABS: Glucose,Whole Blood 252 mg/dL (75-99)
[2018-11-17] MEDS: PANTOPRAZOLE 40 MG TABLET PO SCH (09:00)
[2018-11-17] MEDS: DOCUSATE 100 MG CAP PO SCH ×2 (09:00→20:10)
[2018-11-17] MEDS: FLUoxetine HCL 10 MG CAP PO SCH ×2 (09:00→09:05)
[2018-11-17] MEDS: INSULIN ASPART (NovoLOG) 100 UNIT/ML VIAL SQ SCH ×4 (09:04→20:12)
[2018-11-17 11:22] LABS: Glucose,Whole Blood 253 mg/dL (75-99)
--- NOTE | 2018-11-17 11:35 | P.PN ---
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 Has been receiving chemotherapy and radiation therapy since December of 2017. Patient failed treatment, she has been receiving immunotherapy since July of 2018. Patient has been experiencing recurrent right-sided pleural effusion requiring at least 4 previous thoracentesis pr ocedures. Placement of a Pleurx catheter was discussed with the patient previously, but this was never pursued further. Patient was recently seen by Dr. Temple and he performed a thoracentesis on this patient about 2 weeks ago. Drained about 2000 mL of pleural effusion from the right pleural space. In the last few days the patient has been complaining of increased shortness of breath, came into the ER and chest x-ray showed complete opacification of the right lung with tracheal shift to the contralateral side. I reviewed the chest x-ray, and I recommended immediate thoracentesis which was done already. I was able to drain 1700 mL of pleural effusion from the right pleural space. Discussed with the patient the option of thoracic surgery consultation and having a Pleurx catheter placement hopefully early next week Friday or Friday. Patient is agreeable to proceed with the plan. Hence thoracic surgery will be consulted. Patient denies any fever, no chills, she does have chronic weight loss. According to the family the patient has been intermittently confused, and she has right-sided pleuritic chest pain, and chronic intermittent cough. No nausea no vomiting no abdominal pain no melena no hematemesis no dysuria and no frequency no urgency. Labs on admission showed relatively normal CBC except for a low hemoglobin of 9.4. Normal platelets. Normal electrolytes. Normal renal profile. Low albumin of 2.8. Calcium was noted to be 9.90 Patient was reevaluated today on 11/15/2018, feeling better since her thoracentesis was done yesterday. Breathing a lot easier, hardly any cough no wheezing, no shortness of breath. Patient was seen by thoracic surgery, and she may undergo Pleurx catheter placement tomorrow or possibly Friday. In the meantime her pulmonary status seems to be stabilizing, but considering the recurrent pleural effusion and recurrent thoracentesis procedures done over the last few months, I think Pleurx catheter is the best choice.labs were reviewed WBC count is 7.5 hemoglobin 9.7 electrodes are normal renal profile is normal On 11/16/2018 patient seen in follow-up in oncology floor. She is resting comfortably in bed, in no acute distress, lung sounds reveal diminished breath sounds on the right, clear on the left, ration has recurrent right-sided pleural effusion requiring thoracentesis, on today's chest x-ray there is complete o pacification of the right lung related to right-sided pleural effusion. Patient had recent right-sided thoracentesis, [address] Rutledge on 10/01/2018 with removal of 1 L radha colored pleural fluid at [facility] positive for rare malignant small cells in the background of mixed inflammation. Most recently on 10/30/2018 patient had to be drained again by Dr. Nicole, and 1.5 L of pleural fluid was removed, no cytology was sent. She remains on 4 L of oxygen her pulse ox of 98%, hemodynamically she is stable, she is short of breath with activity, otherwise in no acute distress. Blood culture showed streptococcus species, follow-up blood culture from the showed no growth. On 11/14/2018 patient had undergone yet another right-sided thoracentesis would removal of 1.7 L of pleural fluid by Dr. Rutledge. In view of recurrent pleural effusion in the right lung, with consult to cardiothoracic surgery for placement of Pleurx catheter. The patient is seen today 11/17/2018 in follow-up on the oncology unit. She remains awake and alert in no acute distress. She is currently maintaining O2 s aturations in the high 90s on 4 L/m per nasal cannula. She's been afebrile. Hemodynamically stable. Initial blood culture revealed viridans streptococcus group, bacillus species not anthracis. Follow-up blood cultures revealing no growth. She remains on vancomycin. The plan is for Pleurx catheter placement of the right pleural cavity today. Objective - Vital Signs Vital signs: Vital Signs Temp 97 F L 11/17/18 04:56 Pulse 95 11/17/18 04:56 Resp 16 11/17/18 04:56 BP 108/72 11/17/18 04:56 Pulse Ox 99 11/17/18 04:56 Intake & Output 11/16/18 11/17/18 11/17/18 18:59 06:59 18:59 Intake Total 730 720 Balance 730 720 Weight 52 kg 44.5 kg Intake: Intake, IV Titration 250 Amount Vancomycin 1,000 mg In 250 Sodium Chloride 0.9% 250 ml @ 125 mls/hr IVPB Q12H [facility] Rx#:[id number] Oral 480 720 Other: Voiding Method Bedside Commode Bedside Commode # Voids 1 2 - Exam GENERAL EXAM: Alert, pleasant, 63-year-old female comfortable in no apparent distress. On 4 L nasal cannula. HEAD: Normocephalic/atraumatic. EYES: Normal reaction of pupils, equal size. Conjunctiva pink, sclera white. NOSE: Clear with pink turbinates. THROAT: No erythema or exudates. NECK: No masses, no JVD, no thyroid enlargement, no adenopathy. CHEST: No chest wall deformity. Symmetrical expansion. LUNGS: Equal air entry with no crackles, wheeze, rhonchi or dullness. Diminished Breath sounds on the right CVS: Regular rate and rhythm, normal S1 and S2, no gallops, no murmurs, no rubs ABDOMEN: Soft, nontender. No hepatosplenomegaly, normal bowel sounds, no guarding or rigidity. EXTREMITIES: No clubbing, no edema, no cyanosis, 2+ pulses and upper and lower extremities. MUSCULOSKELETAL: Muscle strength and tone normal. SPINE: No scoliosis or deformity SKIN: No rashes CENTRAL NERVOUS SYSTEM: No focal deficits, tone is normal in all 4 extremities. PSYCHIATRIC: Alert and oriented -3. Appropriate affect. Intact judgment and insight. - Labs CBC & Chem 7: 11/16/18 07:37 11/16/18 07:37 Labs: Abnormal Lab Results - Last 24 Hours (Table) 11/16/18 11/16/18 11/17/18 Range/Units 16:57 20:11 06:59 POC Glucose (mg/dL) 243 H 187 H 252 H (75-99) mg/dL 11/17/18 Range/Units 11:10 POC Glucose (mg/dL) 253 H (75-99) mg/dL Microbiology - Last 24 Hours (Table) 11/13/18 21:00 Blood Culture Gram Stain - Final Blood Blood Culture - Final Viridans streptococcus group Bacillus species Not Anthracis 11/15/18 01:25 Blood Culture - Preliminary Blood No Growth after 48 hours Assessment and Plan Assessment: Assessment: 1 acute on chronic hypoxemic respiratory failure secondary to recurrent large right-sided malignant pleural effusion, requiring frequent thoracentesis with 1700 ML's removed on 11/14/2018. 2 small cell lung cancer, on immunotherapy, failed chemoradiation treatment. 3 chronic medical debility secondary to underlying malignancy. 4 positive blood cultures, however the clinical history does not suggest sepsis or bacteremia, but will go ahead and empirically give the patient a dose of vancomycin, I have a strong feeling that the blood cultures are related to contamination rather than truly positive blood cultures. 5 multiple comorbidities including type 2 diabetes, hypertension, mild protein calorie malnutrition, GERD without esophagitis, and hypothyroidism. 6 status post previous multiple right-sided thoracentesis. Plan: The patient was seen and evaluated by Dr. Nicole. The plan is for insertion of a right-sided Pleurx catheter today. We'll continue with her current medications for now. We'll increase her activity as tolerated. We'll continue to follow and make further recommendations based on her clinical status. I, the cosigning physician, performed a history & physical examination of the patient. Lungs sounds with right-sided crackles, diminished. Maintaining good O2 saturations in the 90s on 4 L/m per nasal cannula. I discussed the assessment and plan of care with my nurse practitioner, Laura Silva. I attest to the above note as dictated by her.
[2018-11-17] MEDS: METOCLOPRAMIDE 10 MG TAB PO SCH ×4 (11:41→20:10)
[2018-11-17] MEDS: ENOXAPARIN 40 MG/0.4 ML SYRINGE SQ SCH (11:42)
[2018-11-17] MEDS ORDERED: LACTATED RINGERS 1,000 ML IV ONE (14:35)
[2018-11-17] MEDS ORDERED: PROPOFOL 10 MG/ML 20 ML VIAL IV ONE (15:32)
[2018-11-17] MEDS ORDERED: ceFAZolin 1,000 MG VIAL ONE (15:32)
[2018-11-17] MEDS ORDERED: MIDAZOLAM 2 MG/2 ML VIAL ONE (15:32)
[2018-11-17] MEDS ORDERED: LIDOCAINE 1% INJ 10MG/ML (20 ML MDV) SQ ONE (15:52)
--- NOTE | 2018-11-17 16:24 | P.PN ---
Subjective Progress Note Date: 11/17/18 Principal diagnosis: pleural effusion Patient gone for Pleurx catheter. Objective - Vital Signs Vital signs: Vital Signs Temp 96.5 F L 11/17/18 12:07 Pulse 97 11/17/18 14:35 Resp 16 11/17/18 14:35 BP 114/74 11/17/18 14:35 Pulse Ox 98 11/17/18 15:46 Intake & Output 11/16/18 11/17/18 11/17/18 18:59 06:59 18:59 Intake Total 730 720 650 Output Total 2 Balance 730 720 648 Weight 52 kg 44.5 kg Intake: IV 400 Intake, IV Titration 250 250 Amount Vancomycin 1,000 mg In 250 250 Sodium Chloride 0.9% 250 ml @ 125 mls/hr IVPB Q12H [facility] Rx#:[id number] Oral 480 720 Output: Estimated Blood Loss 2 Other: Voiding Method Bedside Commode Bedside Commode # Voids 1 2 - Exam Patient gone for Pleurx catheter - Labs CBC & Chem 7: 11/16/18 07:37 11/16/18 07:37 Labs: Abnormal Lab Results - Last 24 Hours (Table) 11/16/18 11/16/18 11/17/18 Range/Units 16:57 20:11 06:59 POC Glucose (mg/dL) 243 H 187 H 252 H (75-99) mg/dL 11/17/18 Range/Units 11:10 POC Glucose (mg/dL) 253 H (75-99) mg/dL Microbiology - Last 24 Hours (Table) 11/13/18 21:00 Blood Culture Gram Stain - Final Blood Blood Culture - Final Viridans streptococcus group Bacillus species Not Anthracis 11/15/18 01:25 Blood Culture - Preliminary Blood No Growth after 48 hours Assessment and Plan Assessment: Assessment and Plan Right pleural effusion possibly secondary to advanced malignancy Debility secondary to advanced malignancy Small cell lung cancer Diabetes mellitus Hypothyroidism Seen by pulmonology, underwent right-sided thoracocentesis, 1700 mL of fluid drained from the right pleural space. Continue albuterol neb as needed for shortness of breath and wheezing. Postop chest x-ray shows slight improvement in aeration, possible right trace apical pneumothorax. Supplemental oxygen to maintain O2 sat greater than 92%. Plans for Pleurx catheter today. Follow CT surgery, pulmonology recommendations. Fall precautions. Follow PT and OT recommendations. Sees Dr. Whatley in the outpatient setting. [id number] glucose 253. Insulin sliding scale. Hypoglycemic precautions. Regular Accu-Cheks. Continue Synthroid. Patient for Pleurx catheter today. Continue present management. Patient is pending clinical improvement. Likely DC in 1-2 days.
--- NOTE | 2018-11-17 17:13 | XR ---
EXAMINATION: XR chest 1V portable DATE AND TIME: 11/17/2018 4:43 PM CLINICAL INDICATION: PHH; post pleurx placement TECHNIQUE: AP upright portable COMPARISON: Chest radiograph 11/16/2018 at 8:36 AM (AP upright portable) DESCRIPTION: SUPPORT LINES AND CATHETERS: The right IJ catheter tip superimposed over the expected position of the cavoatrial junction. Since the prior study a right chest tube is in place. EKG leads noted. On the prior study there was complete right hemithorax white-out. However, on the current study ther e is partial hyperinflation of a component of the right upper lobe. There is also a visceral line sign consistent with small apical pneumothorax. There is mild rightward midline shift of structures, consistent with marked atelectasis on the right, likely passive atelectasis from the right pleural effusion. . There is a small left pleural effusion with mild partial airlessness within the left lower lobe, like ly associated passive atelectasis. The left upper and mid and most of the lower lung zone is clear an d well expanded. A few tiny scattered pulmonary opacities can be visualized on follow-up radiography. IMPRESSION: 1) Post right chest tube radiograph, with small right apical pneumothorax. 2) Near right hemithorax white-out.
[2018-11-17] MEDS: HYDROmorphone 1 MG/ML 1 ML SYRINGE IVP ONE ×2 (17:15→17:20)
[2018-11-17 17:29] LABS: Glucose,Whole Blood 258 mg/dL (75-99)
[2018-11-17 19:55] LABS: Glucose,Whole Blood 216 mg/dL (75-99)
[2018-11-17] MEDS: EZETIMIBE 10 MG TAB PO SCH (20:10)
[2018-11-17] MEDS: ATORVASTATIN 40 MG TAB PO SCH (20:11)
--- NOTE | 2018-11-17 20:17 | OP ---
OPERATIVE REPORT DATE OF THE SURGERY: 11/17/2018. SURGEON: Dr. Viry Paez. PROOF COINS INSPECTOR: Osmel Cortez NP PREOPERATIVE DIAGNOSES: Metastatic lung cancer with recurrent right-sided pleural effusion. POSTOPERATIVE DIAGNOSIS: Metastatic lung cancer with recurrent right sided pleural effusion. PROCEDURE: Insertion of a right PleurX catheter. INDICATION FOR SURGERY: The patient is a 63-year-old lady with metastatic small cell carcinoma of the lung with several right-sided thoracocentesis with large amount of fluid drained. Last thoracentesis done around 4 days ago with reaccumulation of fluid and total whiteout of the right chest. The plan is for a right PleurX catheter. Risks, benefits, and alternatives were discussed with her and her family. They understood it and agreed to proceed. DESCRIPTION OF THE PROCEDURE: IV sedation was administered. The chest and abdomen were prepped and draped using ChloraPrep. Patient was given 1 g of cefazolin intravenously. We initially secured local anesthesia using lidocaine 1%, and with the fine needle accessed the pleural fluid with no issue. With that, and using Seldinger technique, a wire was placed into the right pleural cavity. The tunnel between that entry point, which was at the mid axillary line around 6 intercostal space and the right upper quadrant was anesthetized with lidocaine 1%. A counter incision in the right upper quadrant of around 1 cm was made and the PleurX catheter tunneled from that area to the exit point at the chest wall. Dilatation then insertion of the peel-away sheath was performed over the wire and the dilator and the wire were removed as we pushed the Pleur-X catheter into the pleural cavity. The peel-away sheath was removed. We hooked the system to a vacuum bottle and drained 800 mL and decided to stop as we wanted to leave some fluid so we can teach the family how to drain the PleurX catheter. Patient tolerated procedure well and was transferred to the recovery room in stable condition. MMODL / IJN: [id number] /
[2018-11-18] MEDS: SODIUM CHLORIDE 0.9% 1,000 ML IV SCH ×2 (03:24→12:53)
[2018-11-18] MEDS: HYDROmorphone 1 MG/ML 1 ML SYRINGE IVP PRN ×2 (04:35→09:08)
[2018-11-18] MEDS ORDERED: VANCOMYCIN TROUGH DUE 1 EACH MISC MISCELLANE ONE (05:00)
[2018-11-18] MEDS ORDERED: VANCOMYCIN IV PER PHARMACY 1 EACH MISC MISCELLANE PRN (06:32)
[2018-11-18] MEDS: LEVOTHYROXINE 100 MCG TAB PO SCH (06:38)
[2018-11-18 06:40] LABS: Anion Gap 10 mmol/L; Blood Urea Nitrogen 31 mg/dL (7-17); Carbon Dioxide 24 mmol/L (22-30); Chloride 103 mmol/L (98-107); Glucose 209 mg/dL (74-99); Sodium 137 mmol/L (137-145)
[2018-11-18 06:55] LABS: Glucose,Whole Blood 218 mg/dL (75-99)
[2018-11-18 06:56] LABS: Potassium 5.2 mmol/L (3.5-5.1)
[2018-11-18] MEDS: VANCOMYCIN 1,000 MG in SODIUM CHLORIDE 0.9% 250 ML IVPB SCH (07:48)
[2018-11-18] MEDS: ENOXAPARIN 40 MG/0.4 ML SYRINGE SQ SCH (07:59)
[2018-11-18] MEDS: INSULIN ASPART (NovoLOG) 100 UNIT/ML VIAL SQ SCH ×2 (07:59→12:52)
[2018-11-18] MEDS: FLUoxetine HCL 10 MG CAP PO SCH (08:00)
[2018-11-18] MEDS: PANTOPRAZOLE 40 MG TABLET PO SCH (08:00)
[2018-11-18] MEDS: METOCLOPRAMIDE 10 MG TAB PO SCH ×2 (08:00→12:51)
[2018-11-18] MEDS: DOCUSATE 100 MG CAP PO SCH (08:00)
[2018-11-18] MEDS: HYDROcodone/APAP 7.5-325MG 1 EACH TAB PO PRN ×2 (08:04→14:04)
--- NOTE | 2018-11-18 08:34 | XR ---
EXAMINATION TYPE: XR chest 2V DATE OF EXAM: 11/18/2018 COMPARISON: 11/17/2018 HISTORY: Status post pleural catheter placement. Follow-up exam. TECHNIQUE: Frontal and lateral views of the chest are obtained. FINDINGS: There is near complete opacification of the right hemithorax. On the prior ultrasound of this was demonstrated to represent a large pleural effusion. A similar appearing right-sided pneumothorax is seen with maximal pleural separation of 1.9 cm. Assessment of the pneumothorax inferi brent and is nondiagnostic. No appreciable mediastinal shift although the cardiomediastinal silhouette is partially obscured. Right-sided Mediport and pleural catheter unchanged. Small left pleural effus ion and left basilar airspace disease are also unchanged. IMPRESSION: Similar-appearing right apical pneumothorax and similar placement of the right-sided ple ural catheter with persistent large right pleural effusion, obscuration of the right lung, and small left pleural effusion with left basilar airspace disease.
[2018-11-18 11:14] LABS: Glucose,Whole Blood 269 mg/dL (75-99)
[2018-11-18 11:47] VITALS: BP 100/69; PULSE 104; TEMP 97.5
[2018-11-18 11:48] VITALS: RESP 16
--- NOTE | 2018-11-18 13:35 | P.PN ---
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 Has been receiving chemotherapy and radiation therapy since December of 2017. Patient failed treatment, she has been receiving immunotherapy since July of 2018. Patient has been experiencing recurrent right-sided pleural effusion requiring at least 4 previous thoracentesis pr ocedures. Placement of a Pleurx catheter was discussed with the patient previously, but this was never pursued further. Patient was recently seen by Dr. Temple and he performed a thoracentesis on this patient about 2 weeks ago. Drained about 2000 mL of pleural effusion from the right pleural space. In the last few days the patient has been complaining of increased shortness of breath, came into the ER and chest x-ray showed complete opacification of the right lung with tracheal shift to the contralateral side. I reviewed the chest x-ray, and I recommended immediate thoracentesis which was done already. I was able to drain 1700 mL of pleural effusion from the right pleural space. Discussed with the patient the option of thoracic surgery consultation and having a Pleurx catheter placement hopefully early next week Friday or Friday. Patient is agreeable to proceed with the plan. Hence thoracic surgery will be consulted. Patient denies any fever, no chills, she does have chronic weight loss. According to the family the patient has been intermittently confused, and she has right-sided pleuritic chest pain, and chronic intermittent cough. No nausea no vomiting no abdominal pain no melena no hematemesis no dysuria and no frequency no urgency. Labs on admission showed relatively normal CBC except for a low hemoglobin of 9.4. Normal platelets. Normal electrolytes. Normal renal profile. Low albumin of 2.8. Calcium was noted to be 9.90 Patient was reevaluated today on 11/15/2018, feeling better since her thoracentesis was done yesterday. Breathing a lot easier, hardly any cough no wheezing, no shortness of breath. Patient was seen by thoracic surgery, and she may undergo Pleurx catheter placement tomorrow or possibly Friday. In the meantime her pulmonary status seems to be stabilizing, but considering the recurrent pleural effusion and recurrent thoracentesis procedures done over the last few months, I think Pleurx catheter is the best choice.labs were reviewed WBC count is 7.5 hemoglobin 9.7 electrodes are normal renal profile is normal On 11/16/2018 patient seen in follow-up in oncology floor. She is resting comfortably in bed, in no acute distress, lung sounds reveal diminished breath sounds on the right, clear on the left, ration has recurrent right-sided pleural effusion requiring thoracentesis, on today's chest x-ray there is complete o pacification of the right lung related to right-sided pleural effusion. Patient had recent right-sided thoracentesis, [address] Rutledge on 10/01/2018 with removal of 1 L radha colored pleural fluid at [facility] positive for rare malignant small cells in the background of mixed inflammation. Most recently on 10/30/2018 patient had to be drained again by Dr. Nicole, and 1.5 L of pleural fluid was removed, no cytology was sent. She remains on 4 L of oxygen her pulse ox of 98%, hemodynamically she is stable, she is short of breath with activity, otherwise in no acute distress. Blood culture showed streptococcus species, follow-up blood culture from the showed no growth. On 11/14/2018 patient had undergone yet another right-sided thoracentesis would removal of 1.7 L of pleural fluid by Dr. Rutledge. In view of recurrent pleural effusion in the right lung, with consult to cardiothoracic surgery for placement of Pleurx catheter. The patient is seen today 11/17/2018 in follow-up on the oncology unit. She remains awake and alert in no acute distress. She is currently maintaining O2 s aturations in the high 90s on 4 L/m per nasal cannula. She's been afebrile. Hemodynamically stable. Initial blood culture revealed viridans streptococcus group, bacillus species not anthracis. Follow-up blood cultures revealing no growth. She remains on vancomycin. The plan is for Pleurx catheter placement of the right pleural cavity today. The patient is seen again today 11/18/2018 in follow-up on the oncology unit. She is awake and alert in no acute distress. Maintaining O2 saturations in the mid 90s on room air. She's afebrile. Hemodynamically stable. Follow-up blood cultures revealed no growth. Sodium 137. Creatinine 0.58. Potassium 5.2. The patient did undergo a Pleurx catheter placement with an initial 800 ML's drained. The family has been educated how to drain the Pleurx catheter. She is cleared for discharge today. Objective - Vital Signs Vital signs: Vital Signs Temp 97.5 F L 11/18/18 11:36 Pulse 104 H 11/18/18 11:36 Resp 16 11/18/18 11:36 BP 100/69 11/18/18 11:36 Pulse Ox 95 11/18/18 11:36 Intake & Output 11/17/18 11/18/18 11/18/18 18:59 06:59 18:59 Intake Total 1050 880 Output Total 2 Balance 1048 880 Weight 41.5 kg Intake: IV 800 Intake, IV Titration 250 400 Amount Sodium Chloride 0.9% 1, 400 000 ml @ 100 mls/hr IV . Q10H [facility] Rx#:[id number] Vancomycin 1,000 mg In 250 Sodium Chloride 0.9% 250 ml @ 125 mls/hr IVPB Q12H [facility] Rx#:[id number] Oral 480 Output: Estimated Blood Loss 2 Other: Voiding Method Bedside Commode # Voids 1 1 - Exam GENERAL EXAM: Alert, pleasant, 63-year-old female comfortable in no apparent distress. On room air. HEAD: Normocephalic/atraumatic. EYES: Normal reaction of pupils, equal size. Conjunctiva pink, sclera white. NOSE: Clear with pink turbinates. THROAT: No erythema or exudates. NECK: No masses, no JVD, no thyroid enlargement, no adenopathy. CHEST: No chest wall deformity. Symmetrical expansion. LUNGS: Equal air entry with no crackles, wheeze, rhonchi or dullness. Diminished Breath sounds on the right Pleurx catheter placed. CVS: Regular rate and rhythm, normal S1 and S2, no gallops, no murmurs, no rubs ABDOMEN: Soft, nontender. No hepatosplenomegaly, normal bowel sounds, no guarding or rigidity. EXTREMITIES: No clubbing, no edema, no cyanosis, 2+ pulses and upper and lower extremities. MUSCULOSKELETAL: Muscle strength and tone normal. SPINE: No scoliosis or deformity SKIN: No rashes CENTRAL NERVOUS SYSTEM: No focal deficits, tone is normal in all 4 extremities. PSYCHIATRIC: Alert and oriented -3. Appropriate affect. Intact judgment and insight. - Labs CBC & Chem 7: 11/16/18 07:37 11/18/18 05:21 Labs: Abnormal Lab Results - Last 24 Hours (Table) 11/17/18 11/17/18 11/18/18 Range/Units 17:26 19:54 05:21 Potassium 5.2 H (3.5-5.1) mmol/L BUN 31 H (7-17) mg/dL Glucose 209 H (74-99) mg/dL POC Glucose (mg/dL) 258 H 216 H (75-99) mg/dL Vancomycin Trough ug/mL 11/18/18 11/18/18 11/18/18 Range/Units 05:21 06:52 11:13 Potassium (3.5-5.1) mmol/L BUN (7-17) mg/dL Glucose (74-99) mg/dL POC Glucose (mg/dL) 218 H 269 H (75-99) mg/dL Vancomycin Trough 35.2 H* ug/mL Microbiology - Last 24 Hours (Table) 11/15/18 01:25 Blood Culture - Preliminary Blood No Growth after 72 hours Assessment and Plan Assessment: Assessment: 1 acute on chronic hypoxemic respiratory failure secondary to recurrent large right-sided malignant pleural effusion, requiring frequent thoracentesis with 1700 ML's removed on 11/14/2018. No status post Pleurx catheter placement with initial 800 ML's removed. 2 small cell lung cancer, on immunotherapy, failed chemoradiation treatment. 3 chronic medical debility secondary to underlying malignancy. 4 positive blood cultures, however the clinical history does not suggest sepsis or bacteremia, but will go ahead and empirically give the patient a dose of vancomycin, I have a strong feeling that the blood cultures are related to contamination rather than truly positive blood cultures. 5 multiple comorbidities including type 2 diabetes, hypertension, mild protein calorie malnutrition, GERD without esophagitis, and hypothyroidism. 6 status post previous multiple right-sided thoracentesis. Plan: The patient was seen and evaluated by Dr. Nicole. Right-sided Pleurx catheter has been placed with another 800 ML strained. The family has been educated on 100 did this at home. She is cleared for discharge from the pulmonary standpoint. She should follow-up in our office in 1-2 weeks' time. We'll repeat a chest x-ray then. They are encouraged to call sooner with any recurrence of symptoms or other questions or concerns. I, the cosigning physician, performed a history & physical examination of the patient. Lungs sounds with right-sided crackles, diminished. Maintaining good O2 saturations in the 90s on room air. I discussed the assessment and plan of care with my nurse practitioner, Laura Silva. I attest to the above note as dictated by her.
--- NOTE | 2018-11-18 14:08 | P.PN ---
Subjective Progress Note Date: 11/18/18 Principal diagnosis: Recurrent pleural effusion. Previous medical history of metastatic small cell lung cancer status post chemo, radiation, currently on immunotherapy with Opdivo , recurrent right-sided pleural effusions status post thoracentesis 4, diabetes, hypertension, hyperlipidemia, hypothyroid, peptic ulcer, previous tobacco dependence, currently on home oxygen, and family history of cancer. POD #1 placement of right Pleurx catheter The patient was sitting up in bed in no acute distress upon examination this morning. Does complain of occasional pain and shortness of breath. Teaching continues regarding Pleurx catheter, all questions answered. Objective - Vital Signs Vital signs: Vital Signs Temp 97.5 F L 11/18/18 11:36 Pulse 104 H 11/18/18 11:36 Resp 16 11/18/18 11:36 BP 100/69 11/18/18 11:36 Pulse Ox 95 11/18/18 11:36 Intake & Output 11/17/18 11/18/18 11/18/18 18:59 06:59 18:59 Intake Total 1050 880 Output Total 2 Balance 1048 880 Weight 41.5 kg Intake: IV 800 Intake, IV Titration 250 400 Amount Sodium Chloride 0.9% 1, 400 000 ml @ 100 mls/hr IV . Q10H [facility] Rx#:[id number] Vancomycin 1,000 mg In 250 Sodium Chloride 0.9% 250 ml @ 125 mls/hr IVPB Q12H [facility] Rx#:[id number] Oral 480 Output: Estimated Blood Loss 2 Other: Voiding Method Bedside Commode # Voids 1 1 - Constitutional General appearance: Present: cooperative, no acute distress - Respiratory Details: Lungs sounds very diminished on the right side. Respirations even, slightly labored. Currently on room air with oxygen saturation 95%. Right sided Pleurx catheter present. - Cardiovascular Details: S1, S2 present. Regular rate and rhythm. Palpable peripheral pulses bilaterally. No edema present. No calf pain or tenderness noted. - Gastrointestinal Gastrointestinal Comment(s): Abdomen soft, nontender, nondistended. Active bowel sounds. Tolerating diet. - Genitourinary Genitourinary Comment(s): Continues to void clear, yellow urine - Integumentary Integumentary Comment(s): Skin is warm and dry with evidence of good perfusion. Mediport present to the right anterior chest wall. Pleurx catheter present to right upper abdomen with clean dry dressing in place. - Neurologic Neurologic: Present: CNII-XII intact - Musculoskeletal Musculoskeletal: Present: generalized weakness, strength equal bilaterally - Psychiatric Psychiatric: Present: A&O x's 3, appropriate affect - Allied health notes Allied health notes reviewed: nursing - Labs CBC & Chem 7: 11/16/18 07:37 11/18/18 05:21 Labs: Abnormal Lab Results - Last 24 Hours (Table) 11/17/18 11/17/18 11/18/18 Range/Units 17:26 19:54 05:21 Potassium 5.2 H (3.5-5.1) mmol/L BUN 31 H (7-17) mg/dL Glucose 209 H (74-99) mg/dL POC Glucose (mg/dL) 258 H 216 H (75-99) mg/dL Vancomycin Trough ug/mL 11/18/18 11/18/18 11/18/18 Range/Units 05:21 06:52 11:13 Potassium (3.5-5.1) mmol/L BUN (7-17) mg/dL Glucose (74-99) mg/dL POC Glucose (mg/dL) 218 H 269 H (75-99) mg/dL Vancomycin Trough 35.2 H* ug/mL Microbiology - Last 24 Hours (Table) 11/15/18 01:25 Blood Culture - Preliminary Blood No Growth after 72 hours - Imaging and Cardiology Chest x-ray: report reviewed, image reviewed Assessment and Plan Assessment: 1. Recurrent right-sided pleural effusion, status post thoracentesis on November 14 with removal of 1700 mL, status post right-sided Pleurx catheter placement 2. History of metastatic small cell lung cancer status post chemo and radiation, currently receiving Opdivo therapy 3. Recurrent right-sided pleural effusions status post thoracentesis 4 4. Diabetes 5. Hypertension 6. Hyperlipidemia 7. Hypothyroid 8. Peptic ulcer disease 9. Previous tobacco dependence 10. Family history of cancer Plan: 1. Continue teaching regarding Pleurx catheter. Pleurx catheter drained this morning for 850 mL straw-colored fluid. The patient tolerated well. Demonstration was done in front of child care director, all questions were answered. 2. Case management for insurance authorization for delivery of bottles to the patient's house. 3. Pain control per primary care services. 4. Bronchodilators, antibiotics per pulmonology. 5. Increase activity as tolerated. 6. GI/DVT prophylaxis. 7. Continued medical management of other comorbid conditions per primary care, pulmonology, oncology. 8. Patient may be discharged home from our standpoint when okay with other services. Our contact information was given to the patient and her caregiver. Discharge instructions regarding Pleurx catheter were placed in the patient's e- chart. Starter kit of bottles at patient's bedside. Order forms filled out for case management. Time with Patient: Greater than 30
--- NOTE | 2018-11-18 15:38 | P.DS ---
Providers Date of admission: 11/13/18 21:46 Expected date of discharge: 11/18/18 Attending physician: Ashkan Matthews MD Consults: 11/13/18 21:46 Consult Physician Routine Consulting Provider: Jeanette Temple Consult Reason/Comments: known Do you want consulting provider notified?: Yes 11/14/18 13:51 Consult Physician Routine Consulting Provider: Viry Paez Consult Reason/Comments: place pleurx possible Friday or Friday Do you want consulting provider notified?: Yes Primary care physician: Physician Nonstaff Hospital Course: The patient is a 63 yo F with a PMH of small cell lung ca on home oxygen (2-3 L /min) (dx mid-2017) underwent chemotherapy and radiation in 12/2017 with subsequent recurrence of disease in 07/2018 and received immunotherapy, previously admitted from 09/30 - 10/03/18 for dehydration and debility now presents for gradually worsening shortness of breath and worsening weakness. The history supplemented by family at bedside (son and daughter). The patient follows w/ Dr Temple and has had recurrent malignant pleural effusions w/ complete opacification on CXR or R hemithorax, visualized on prior admission, which was drained by Dr Temple 2 weeks ago as outpatient. The patient had a follow-up w/ Dr Temple in 3 days though felt that her breathing had significant worsened and so decided to come to the ED. The patient also endorsed that her weakness has worsened to the point where she is now unable to ambulate even with a walker and had multiple near falls. The family also reported episodes of confusion while at home throughout the day which last minutes to hours. The patient also reports a chronic cough w/ pleuritic substernal chest pain. She otherwise denied fever, chills, nausea, vomiting, diarrhea, or abdominal pain. The patient underwent an extensive evaluation in the ED w/ a CXR revealing complete R hemithorax opacification along w/ a WBC count of 11.9, Hgb 9.4, BUN 42, Cr 0.54, Albumin low at 3.2, and T pro low at 6.0. The patient received normal saline 1 L bolus in the ED and was admitted to the medicine service for shortness of breath and debility. With regard to her right pleural effusion secondary to advanced malignancy she was seen by pulmonology. She underwent right-sided thoracocentesis which revealed 1700 mL of fluid drained from the right pleural space. She was given albuterol neb as needed for shortness of breath or wheezing. Patient underwent Pleurx catheter under cardiothoracic surgery on 11/17/2018. Postoperative chest x-ray showed slight improvement in aeration, right possible trace apical pneumothorax. Patient was seen and examined prior to discharge. No acute events overnight. 800 mL drained from Pleurx catheter. Patient reports improvement in her shortness of breath. She is currently on 3 L nasal cannula, which is baseline. She is looking for to going home. Patient denies any chest pain, shortness of breath or palpitations. General: [non toxic], [no distress], [appears at stated age] Derm: [warm], [dry] Head: [atraumatic], [normocephalic], [symmetric] Eyes: [EOMI], [no lid lag], [anicteric sclera] Mouth: [no lip lesion], [mucus membranes moist] Cardiovascular: [S1S2 reg], [no murmur], [positive DP pulse bilateral], [right chest port] Lungs: [CTA bilateral on the left side and decreased breath sounds on the right side], [no rhonchi, no rales] , [no accessory muscle use] Abdominal: [soft], [ nontender to palpation], [no guarding], [no appreciable organomegaly] Ext: [no gross muscle atrophy], [no edema], [no contractures] Neuro: [no focal neuro deficits] Psych: [Alert], [oriented], [appropriate affect] Assessment and Plan Hyperkalemia Right pleural effusion possibly secondary to advanced malignancy Debility secondary to advanced malignancy Small cell lung cancer Diabetes mellitus Hypothyroidism Potassium 5.2 this morning. CBC slightly hemolyzed. Repeat potassium within normal limits. Seen by pulmonology, underwent right-sided thoracocentesis, 1700 mL of fluid drained from the right pleural space. Continue albuterol neb as needed for shortness of breath and wheezing. Postop chest x-ray shows slight improvement in aeration, possible right trace apical pneumothorax. Supplemental oxygen to maintain O2 sat greater than 92%. Plans for Pleurx catheter today. Follow CT surgery, pulmonology recommendations. Fall precautions. Follow PT and OT recommendations. Sees Dr. Whatley in the outpatient setting. [id number] glucose 269. Insulin sliding scale. Hypoglycemic precautions. Regular Accu-Cheks. Continue Synthroid. Patient for Pleurx catheter today. This complex discharge took greater than 30 minutes. Pertinent Studies: Chest x-ray Procedures: Thoracocentesis, Pleurx Patient Condition at Discharge: Fair Plan - Discharge Summary Discharge Rx Participant: No New Discharge Prescriptions: Continue Levothyroxine Sodium [Synthroid] 100 mcg PO DAILY FLUoxetine HCL [PROzac] 10 mg PO DAILY Ezetimibe [Zetia] 10 mg PO HS Albuterol Sulfate [Proair Hfa] 2 puff INHALATION RT-Q4H PRN PRN Reason: Shortness Of Breath Ubidecarenone [Co Q-10] 100 mg PO DAILY Selenium 200 mcg PO DAILY Ranitidine HCl [Zantac] 300 mg PO HS Metoclopramide [Reglan] 10 mg PO ACHS Insulin Aspart (For Pump) [NovoLOG (For Pump)] 0.01 unit SQ-PUMP CONTINUOUS Cholecalciferol [Vitamin D3] 1,000 unit PO DAILY Atorvastatin [Lipitor] 40 mg PO HS Promethazine HCl/Codeine [Promethazine-Codeine Syrup] 5 ml PO QID PRN PRN Reason: Cough Dexlansoprazole [Dexilant] 60 mg PO DAILY Docusate [Colace] 200 mg PO BID 30 Days #60 cap Ipratropium-Albuterol Nebulize [Duoneb 0.5 mg-3 mg/3 ml Soln] 3 ml INHALATION RT-QID PRN #90 ampul.neb PRN Reason: Shortness Of Breath Or Wheezing HYDROcodone/APAP 7.5-325MG [[place] 7.5-325] 1 tab PO Q6H PRN PRN Reason: Pain fentaNYL 12MCG/HR PATCH [Duragesic 12MCG/HR] 1 patch TRANSDERM Q72H Discharge Medication List Ezetimibe [Zetia] 10 mg PO HS 12/19/17 [History] FLUoxetine HCL [PROzac] 10 mg PO DAILY 12/19/17 [History] Levothyroxine Sodium [Synthroid] 100 mcg PO DAILY 12/19/17 [History] Albuterol Sulfate [Proair Hfa] 2 puff INHALATION RT-Q4H PRN 08/31/18 [History] Atorvastatin [Lipitor] 40 mg PO HS 09/30/18 [History] Cholecalciferol [Vitamin D3] 1,000 unit PO DAILY 09/30/18 [History] Dexlansoprazole [Dexilant] 60 mg PO DAILY 09/30/18 [History] Insulin Aspart (For Pump) [NovoLOG (For Pump)] 0.01 unit SQ-PUMP CONTINUOUS 09/30/18 [History] Metoclopramide [Reglan] 10 mg PO ACHS 09/30/18 [History] Promethazine HCl/Codeine [Promethazine-Codeine Syrup] 5 ml PO QID PRN 09/30/18 [History] Ranitidine HCl [Zantac] 300 mg PO HS 09/30/18 [History] Selenium 200 mcg PO DAILY 09/30/18 [History] Ubidecarenone [Co Q-10] 100 mg PO DAILY 09/30/18 [History] Docusate [Colace] 200 mg PO BID 30 Days #60 cap 10/02/18 [Rx] Ipratropium-Albuterol Nebulize [Duoneb 0.5 mg-3 mg/3 ml Soln] 3 ml INHALATION RT-QID PRN #90 ampul.neb 10/02/18 [Rx] HYDROcodone/APAP 7.5-325MG [[place] 7.5-325] 1 tab PO Q6H PRN 10/14/18 [History] fentaNYL 12MCG/HR PATCH [Duragesic 12MCG/HR] 1 patch TRANSDERM Q72H 10/14/18 [History] Follow up Appointment(s)/Referral(s): Viry Paez MD [STAFF PHYSICIAN] - As Needed (Please call for appointment for PleurX removal when drainage is less than 50 mL for 3 drainages) [facility], [NON-STAFF] - 1 Week Nonstaff,Physician [Primary Care Provider] - 1-2 days Aman Whatley MD [STAFF PHYSICIAN] - 11/19/18 1:15 pm Activity/Diet/Wound Care/Special Instructions: PleurX Catheter instructions: Home care to drain catheter every other day and PRN, reinforce teaching with caregiver Do not drain more than 1000 mL per day Call cardiac surgery office @ or fax @ with weekly the drainage amounts. Once drainage is less than 50 mL three times in a row, please make appointment with surgeon to have PleurX removed. Please notify surgery office or MECHANICAL MAINTENANCE INSTRUCTOR if infected looking drainage around the catheter site. May call MECHANICAL MAINTENANCE INSTRUCTOR with any questions/concerns. Discharge Disposition: HOME SELF-CARE
== END 2018-11-18 16:52 | disposition home health service (06) | DRG 180 ==
LOC: EC 20:01 → 3NMEDONC 21:46
PROVIDERS: ADMIT Family Medicine; ATTEND Family Medicine
PROC: 0W993ZZ Drainage of Right Pleural Cavity, Percutaneous Approach (ICD-10-PCS; principal; 2018-11-14)
PROC: 0W9930Z Drainage of Right Pleural Cavity with Drainage Device, Percutaneous Approach (ICD-10-PCS; 2018-11-17)
DX: C34.90 Malignant neoplasm of unspecified part of unspecified bronchus or lung (principal); J96.21 Acute and chronic respiratory failure with hypoxia; J91.0 Malignant pleural effusion; E44.1 Mild protein-calorie malnutrition; R29.6 Repeated falls; E11.9 Type 2 diabetes mellitus without complications; E03.9 Hypothyroidism, unspecified; R53.81 Other malaise; K21.9 Gastro-esophageal reflux disease without esophagitis; Z96.41 Presence of insulin pump (external) (internal); E78.5 Hyperlipidemia, unspecified; E86.0 Dehydration; F17.210 Nicotine dependence, cigarettes, uncomplicated; I10 Essential (primary) hypertension; D64.9 Anemia, unspecified; J44.9 Chronic obstructive pulmonary disease, unspecified; E87.5 Hyperkalemia; Z79.890 Hormone replacement therapy; Z79.4 Long term (current) use of insulin; Z79.899 Other long term (current) drug therapy; Z80.9 Family history of malignant neoplasm, unspecified; Z99.81 Dependence on supplemental oxygen; Z87.11 Personal history of peptic ulcer disease
CPT/HCPCS: 36415; 71045; 71046; 80048; 80053; 80202; 83735; 83880; 84100; 84132; 84484; 84550; 85025; 85027; 85610; 85730; 87040; 87077; 87186; 93005; 94640; 96360; 96361; 99285

== ENCOUNTER 2018-11-20 15:22 | Inpatient (IN) | payer MEDICARE, BC ==
[2018-11-20 16:34] LABS: ALT 27 U/L (9-52); AST 54 U/L (14-36); Albumin 2.7 g/dL (3.5-5.0); Alkaline Phosphatase 91 U/L (38-126); Anion Gap 9 mmol/L; Blood Urea Nitrogen 39 mg/dL (7-17); Calcium 10.2 mg/dL (8.4-10.2); Carbon Dioxide 25 mmol/L (22-30); Chloride 101 mmol/L (98-107); Glucose 244 mg/dL (74-99); Magnesium 1.9 mg/dL (1.6-2.3); Potassium 4.8 mmol/L (3.5-5.1); Sodium 135 mmol/L (137-145); Total Bilirubin 0.5 mg/dL (0.2-1.3); Total Protein 5.3 g/dL (6.3-8.2)
[2018-11-20 16:40] LABS: INR 1.1 (<1.2); Partial Thromboplastin Time 25.2 sec (22.0-30.0); Prothrombin Time 11.1 sec (9.0-12.0)
[2018-11-20] MEDS ORDERED: MORPHINE SULFATE 4 MG/ML SYRINGE IVP STA (16:53)
--- NOTE | 2018-11-20 16:57 | XR ---
EXAMINATION TYPE: XR chest 2V DATE OF EXAM: 11/20/2018 COMPARISON: 11/18/2018 HISTORY: Short of breath TECHNIQUE: Frontal and lateral views of the chest are obtained. FINDINGS: There is right-sided hydropneumothorax. There is air-fluid level at the right lung apex. T here is significant opacification right hemithorax. There is no heart failure. There is right central venous catheter with tip in the superior vena cava. There is right side chest tube. Left lung is vinay ar of consolidation. There is small left pleural effusion. IMPRESSION: There is decrease in the right pleural effusion compared to last exam. No heart failure. There is slight decreased left pleural effusion. Persistent hydropneumothorax.
[2018-11-20 17:03] LABS: Anisocytosis Slight; Basophils % (A) 0 %; Eosinophils # (A) 0.1 k/uL (0-0.7); Eosinophils % (A) 1 %; HCT 32.8 % (34.0-46.0); HGB 10.4 gm/dL (11.4-16.0); Hypochromasia Slight; Lymphocytes # (A) 0.5 k/uL (1.0-4.8); Lymphocytes % (A) 7 %; MCH 29.6 pg (25.0-35.0); MCHC 31.6 g/dL (31.0-37.0); MCV 93.5 fL (80.0-100.0); Mean Platelet Volume 7.2; Monocytes # (A) 0.5 k/uL (0-1.0); Monocytes % (A) 7 %; Neutrophils # (A) 6.6 k/uL (1.3-7.7); Neutrophils % (A) 85 %; Platelet Count 427 k/uL (150-450); RBC 3.51 m/uL (3.80-5.40); RDW 17.5 % (11.5-15.5); WBC 7.8 k/uL (3.8-10.6)
[2018-11-20] MEDS ORDERED: NALOXONE 0.4 MG/ML 1 ML VIAL IV PRN (19:33)
--- NOTE | 2018-11-20 19:33 | ED ---
SOB HPI - General Chief Complaint: Shortness of Breath Stated Complaint: Diff Breathing Time Seen by Provider: 11/20/18 15:25 Source: patient Mode of arrival: EMS Limitations: no limitations - History of Present Illness Initial Comments: Patient complains of shortness of breath. She had a thoracentesis done earlier. However, she still feels very short of breath. She has generalized weakness. Her family thinks that she is acting differently. The nurses also time he that she has altered mental status. - Related Data Home Medications Medication Instructions Recorded Confirmed Ezetimibe [Zetia] 10 mg PO HS 12/19/17 11/20/18 FLUoxetine HCL [PROzac] 10 mg PO DAILY 12/19/17 11/20/18 Levothyroxine Sodium [Synthroid] 100 mcg PO DAILY 12/19/17 11/20/18 Albuterol Sulfate [Proair Hfa] 2 puff INHALATION RT-Q4H PRN 08/31/18 11/20/18 Atorvastatin [Lipitor] 40 mg PO HS 09/30/18 11/20/18 Cholecalciferol [Vitamin D3] 1,000 unit PO DAILY 09/30/18 11/20/18 Dexlansoprazole [Dexilant] 60 mg PO DAILY 09/30/18 11/20/18 Insulin Aspart (For Pump) [NovoLOG 0.01 unit SQ-PUMP CONTINUOUS 09/30/18 11/20/18 (For Pump)] Metoclopramide [Reglan] 10 mg PO ACHS 09/30/18 11/20/18 Promethazine HCl/Codeine 5 ml PO QID PRN 09/30/18 11/20/18 [Promethazine-Codeine Syrup] Ranitidine HCl [Zantac] 300 mg PO HS 09/30/18 11/20/18 Selenium 200 mcg PO DAILY 09/30/18 11/20/18 Ubidecarenone [Co Q-10] 100 mg PO DAILY 09/30/18 11/20/18 HYDROcodone/APAP 7.5-325MG [[place] 1 tab PO Q6H PRN 10/14/18 11/20/18 7.5-325] fentaNYL 12MCG/HR PATCH [Duragesic 1 patch TRANSDERM Q72H 10/14/18 11/20/18 12MCG/HR] Previous Rx's Medication Instructions Recorded Docusate [Colace] 200 mg PO BID 30 Days #60 cap 10/02/18 Ipratropium-Albuterol Nebulize 3 ml INHALATION RT-QID PRN #90 10/02/18 [Duoneb 0.5 mg-3 mg/3 ml Soln] ampul.neb Allergies Allergy/AdvReac Type Severity Reaction Status Date / Time No Known Allergies Allergy Verified 11/20/18 16:37 Review of Systems ROS Statement: Those systems with pertinent positive or pertinent negative responses have been documented in the HPI. ROS Other: All systems not noted in ROS Statement are negative. Past Medical History Past Medical History: Cancer, Diabetes Mellitus, GERD/Reflux, Hyperlipidemia, Hypertension, Thyroid Disorder Additional Past Medical History / Comment(s): hx. peptic ulcer, small cell lung cancer-initially on chemo and radiation in 2018, now with recurrence and on immunotherapy (Opdivo), dysphasia, hypothyroidism, recurrent pleural effusions. History of Any Multi-Drug Resistant Organisms: None Reported Past Surgical History: Back Surgery, Section, Orthopedic Surgery Additional Past Surgical History / Comment(s): Exploratory Lap. 2 right knee arthroscopies. Mediport placement. Bronchoscopy. Laryngoscopy. Multiple thoracentesis Past Anesthesia/Blood Transfusion Reactions: No Reported Reaction Past Psychological History: Anxiety Smoking Status: Former smoker Past Alcohol Use History: None Reported Past Drug Use History: None Reported - Past Family History Sister(s) Family Medical History: Cancer Additional Family Medical History / Comment(s): breast General Exam Limitations: no limitations General appearance: alert, in no apparent distress Head exam: Present: atraumatic, normocephalic, normal inspection Eye exam: Present: normal appearance, PERRL, EOMI. Absent: scleral icterus, conjunctival injection, periorbital swelling ENT exam: Present: normal exam, mucous membranes moist Neck exam: Present: normal inspection. Absent: tenderness, meningismus, lymph adenopathy Respiratory exam: Present: normal lung sounds bilaterally. Absent: respiratory distress, wheezes, rales, rhonchi, stridor Cardiovascular Exam: Present: regular rate, normal rhythm, normal heart sounds. Absent: systolic murmur, diastolic murmur, rubs, gallop, clicks GI/Abdominal exam: Present: soft, normal bowel sounds. Absent: distended, tenderness, guarding, rebound, rigid Extremities exam: Present: normal inspection, full ROM, normal capillary refill. Absent: tenderness, pedal edema, joint swelling, calf tenderness Back exam: Present: normal inspection Neurological exam: Present: alert, oriented X3, CN II-XII intact Psychiatric exam: Present: normal affect, normal mood Skin exam: Present: warm, dry, intact, normal color. Absent: rash Course Vital Signs 11/20/18 11/20/18 11/20/18 15:29 16:08 16:49 Temperature 96.4 F L Pulse Rate 112 H 98 104 H Respiratory 24 24 16 Rate Blood Pressure 110/52 92/56 102/57 O2 Sat by Pulse 92 L 94 L 97 Oximetry 11/20/18 17:05 Temperature 97.7 F Pulse Rate Respiratory Rate Blood Pressure O2 Sat by Pulse Oximetry Medical Decision Making - Medical Decision Making Patient presents with shortness of breath. She does have alterations in mental status. She is feeling any better. She will be admitted to the hospital. - Lab Data Result diagrams: 11/20/18 15:56 11/20/18 15:56 Lab Results 11/20/18 11/20/18 11/20/18 Range/Units 15:56 15:56 15:56 WBC 7.8 (3.8-10.6) k/uL RBC 3.51 L (3.80-5.40) m/uL Hgb 10.4 L (11.4-16.0) gm/dL Hct 32.8 L (34.0-46.0) % MCV 93.5 (80.0-100.0) fL MCH 29.6 (25.0-35.0) pg MCHC 31.6 (31.0-37.0) g/dL RDW 17.5 H (11.5-15.5) % Plt Count 427 (150-450) k/uL Neutrophils % 85 % Lymphocytes % 7 % Monocytes % 7 % Eosinophils % 1 % Basophils % 0 % Neutrophils # 6.6 (1.3-7.7) k/uL Lymphocytes # 0.5 L (1.0-4.8) k/uL Monocytes # 0.5 (0-1.0) k/uL Eosinophils # 0.1 (0-0.7) k/uL Basophils # 0.0 (0-0.2) k/uL Hypochromasia Slight Anisocytosis Slight PT 11.1 (9.0-12.0) sec INR 1.1 (<1.2) APTT 25.2 (22.0-30.0) sec Sodium 135 L (137-145) mmol/L Potassium 4.8 (3.5-5.1) mmol/L Chloride 101 (98-107) mmol/L Carbon Dioxide 25 (22-30) mmol/L Anion Gap 9 mmol/L BUN 39 H (7-17) mg/dL Creatinine 0.69 (0.52-1.04) mg/dL Est GFR (CKD-EPI)AfAm >90 (>60 ml/min/1.73 sqM) Est GFR (CKD-EPI)NonAf >90 (>60 ml/min/1.73 sqM) Glucose 244 H (74-99) mg/dL Calcium 10.2 (8.4-10.2) mg/dL Magnesium 1.9 (1.6-2.3) mg/dL Total Bilirubin 0.5 (0.2-1.3) mg/dL AST 54 H (14-36) U/L ALT 27 (9-52) U/L Alkaline Phosphatase 91 (38-126) U/L Troponin I (0.000-0.034) ng/mL NT-Pro-B Natriuret Pep pg/mL Total Protein 5.3 L (6.3-8.2) g/dL Albumin 2.7 L (3.5-5.0) g/dL 11/20/18 11/20/18 Range/Units 15:56 15:56 WBC (3.8-10.6) k/uL RBC (3.80-5.40) m/uL Hgb (11.4-16.0) gm/dL Hct (34.0-46.0) % MCV (80.0-100.0) fL MCH (25.0-35.0) pg MCHC (31.0-37.0) g/dL RDW (11.5-15.5) % Plt Count (150-450) k/uL Neutrophils % % Lymphocytes % % Monocytes % % Eosinophils % % Basophils % % Neutrophils # (1.3-7.7) k/uL Lymphocytes # (1.0-4.8) k/uL Monocytes # (0-1.0) k/uL Eosinophils # (0-0.7) k/uL Basophils # (0-0.2) k/uL Hypochromasia Anisocytosis PT (9.0-12.0) sec INR (<1.2) APTT (22.0-30.0) sec Sodium (137-145) mmol/L Potassium (3.5-5.1) mmol/L Chloride (98-107) mmol/L Carbon Dioxide (22-30) mmol/L Anion Gap mmol/L BUN (7-17) mg/dL Creatinine (0.52-1.04) mg/dL Est GFR (CKD-EPI)AfAm (>60 ml/min/1.73 sqM) Est GFR (CKD-EPI)NonAf (>60 ml/min/1.73 sqM) Glucose (74-99) mg/dL Calcium (8.4-10.2) mg/dL Magnesium (1.6-2.3) mg/dL Total Bilirubin (0.2-1.3) mg/dL AST (14-36) U/L ALT (9-52) U/L Alkaline Phosphatase (38-126) U/L Troponin I <0.012 (0.000-0.034) ng/mL NT-Pro-B Natriuret Pep 490 pg/mL Total Protein (6.3-8.2) g/dL Albumin (3.5-5.0) g/dL - EKG Data EKG Comments: Twelve-lead EKG shows ventricular rate 110 bpm, normal MO interval and QRS complexes, no ST elevation or depression, interpreted by me as sinus tachycardia. Disposition Clinical Impression: Dyspnea Disposition: ADMITTED IP TO THIS HOSP Condition: Fair Is patient prescribed a controlled substance at d/c from ED?: No Referrals: Aman Whatley MD [Primary Care Provider] - 1-2 days
[2018-11-20] MEDS ORDERED: HYDROcodone/APAP 7.5-325MG 1 EACH TAB PO PRN (19:36)
[2018-11-20] MEDS ORDERED: IPRATROPIUM-ALBUTEROL 3 ML NEB INHALATION PRN (19:36)
[2018-11-20] MEDS ORDERED: ALBUTEROL NEBULIZED 2.5 MG/3 ML INHALATION PRN (19:36)
[2018-11-20] MEDS ORDERED: Insulin Aspart (For Pump) 100 UNIT/ML VIAL SQ-PUMP SCH (19:45)
[2018-11-20] MEDS ORDERED: EZETIMIBE 10 MG TAB PO SCH (21:00)
[2018-11-20] MEDS: FAMOTIDINE 20 MG TAB PO SCH (21:28)
[2018-11-20] MEDS: METOCLOPRAMIDE 10 MG TAB PO SCH (21:29)
[2018-11-20] MEDS: ATORVASTATIN 40 MG TAB PO SCH (21:29)
[2018-11-20 22:35] LABS: Glucose,Whole Blood 350 mg/dL (75-99)
[2018-11-20] MEDS ORDERED: INSULIN ASPART (NovoLOG) 100 UNIT/ML VIAL SQ ONE (22:51)
[2018-11-20] MEDS: DOCUSATE 100 MG CAP PO SCH (23:02)
[2018-11-20] MEDS: HYDROmorphone 0.5 MG/0.5 ML SYRINGE IVP PRN (23:02)
[2018-11-21] MEDS: HYDROmorphone 0.5 MG/0.5 ML SYRINGE IVP PRN ×3 (05:53→23:39)
[2018-11-21] MEDS: LEVOTHYROXINE 100 MCG TAB PO SCH (05:54)
[2018-11-21 07:17] LABS: Glucose,Whole Blood 231 mg/dL (75-99)
[2018-11-21] MEDS: INSULIN ASPART (NovoLOG) 100 UNIT/ML VIAL SQ SCH ×5 (07:46→20:20)
[2018-11-21] MEDS: PANTOPRAZOLE 40 MG TABLET PO SCH (07:49)
[2018-11-21] MEDS: FLUoxetine HCL 10 MG CAP PO SCH (07:49)
[2018-11-21] MEDS: METOCLOPRAMIDE 10 MG TAB PO SCH ×4 (07:49→20:21)
[2018-11-21] MEDS: DOCUSATE 100 MG CAP PO SCH ×2 (07:49→20:20)
[2018-11-21 11:57] LABS: Glucose,Whole Blood 170 mg/dL (75-99)
[2018-11-21] MEDS ORDERED: ACETAMINOPHEN TAB 325 MG TAB PO PRN (14:01)
[2018-11-21] MEDS ORDERED: NALOXONE 0.4 MG/ML 1 ML VIAL IV PRN (14:01)
[2018-11-21] MEDS ORDERED: oxyCODONE-APAP 5-325MG 1 EACH TAB PO PRN (14:09)
--- NOTE | 2018-11-21 14:25 | P.HPIM ---
History of Present Illness H&P Date: 11/21/18 Chief Complaint: Pain and shortness of breath Patient is a 63-year-old female with a past medical history of small cell lung cancer advanced stage currently on Opdivo therapy with last treatment for , currently under palliative care services with home health care, recurrent malignant pleural effusion status post Pleurx catheter on 11/17, hypertension, and diabetes who initially presented to the emergency department secondary to pain and shortness of breath. In the emergency department she underwent an extensive evaluation. Her initial vital signs show that she was tachycardic with a heart rate of 112 and he can't think with a respiratory rate of 24. Initial laboratory analysis was at baseline for her but did show mild hyperglycemia. She underwent a chest x-ray which showed continued right-sided pleural effusion with hydropneumothorax. She was subsequently admitted in observation for shortness of breath. Initially she was admitted to Dr. evans ons were notified of her admission on the morning of 11/21. Patient seen and examined at bedside with significant other and 2 sisters, and [id number] present. She is unable to give me much history as she is rather lethargic and slightly confused. Her significant other provides majority of the history. He states he left the hospital on 11/18. Initially she was doing okay but he was struggling with her severe weakness. Yesterday was there for signs time draining her Pleurx catheter. They drained 1 L of fluid. She immediately started struggling and her oxygen saturation dropped to 72%. They placed her on 5 L nasal cannula and could not get her oxygen saturation above 84%. She also s tarted having severe chest pain. They subsequently brought her into the emergency department via EMS. She also complains of constipation and she last had a small bowel movement 2 days ago. Her significant other reports that her urine is dark. She denies any current chest pain, her shortness of breath is at baseline she reports she is feeling much better. She denies any nausea, vomiting, or diarrhea. Family states that she's been eating very little. They have noticed an abrupt change since her last Opdivo infusion on 11/10. She is becoming increasingly weaker, she has been eating very little, and she is overall been feeling. They're currently seeing Aga the nurse practitioner with palliative care services. They have been working on her pain control issues. They recently got a bedside commode and are in the process of trying to obtain a hospital bed and a wheelchair. Review of Systems Pertinent positives and negatives as discussed in HPI, a complete review of systems was performed and all other systems are negative. Past Medical History Past Medical History: Cancer, Diabetes Mellitus, GERD/Reflux, Hyperlipidemia, Hypertension, Thyroid Disorder Additional Past Medical History / Comment(s): hx. peptic ulcer, small cell lung cancer-initially on chemo and radiation in 2018, now with recurrence and on immunotherapy (Opdivo), hypothyroidism, recurrent pleural effusions. History of Any Multi-Drug Resistant Organisms: None Reported Past Surgical History: Back Surgery, Section, Orthopedic Surgery Additional Past Surgical History / Comment(s): Exploratory Lap. 2 right knee arthroscopies. Mediport placement. Bronchoscopy. Laryngoscopy. Multiple thoracentesis. Pleurx catheter Past Anesthesia/Blood Transfusion Reactions: No Reported Reaction Past Psychological History: Anxiety Smoking Status: Former smoker Past Alcohol Use History: None Reported Additional Past Alcohol Use History / Comment(s): Quit smoking 2017, smoked 1 ppd for 40 yrs. Past Drug Use History: None Reported Additional History: Lives with her significant other. Mostly using a walker and intermittently using a cane. Is currently open with [facility] and palliative care. - Past Family History Sister(s) Family Medical History: Cancer Additional Family Medical History / Comment(s): breast Medications and Allergies Home Medications Medication Instructions Recorded Confirmed Type Ezetimibe [Zetia] 10 mg PO HS 12/19/17 11/20/18 History FLUoxetine HCL [PROzac] 10 mg PO DAILY 12/19/17 11/20/18 History Levothyroxine Sodium [Synthroid] 100 mcg PO DAILY 12/19/17 11/20/18 History Albuterol Sulfate [Proair Hfa] 2 puff INHALATION RT-Q4H PRN 08/31/18 11/20/18 History Atorvastatin [Lipitor] 40 mg PO HS 09/30/18 11/20/18 History Cholecalciferol [Vitamin D3] 1,000 unit PO DAILY 09/30/18 11/20/18 History Dexlansoprazole [Dexilant] 60 mg PO DAILY 09/30/18 11/20/18 History Insulin Aspart (For Pump) [NovoLOG 0.01 unit SQ-PUMP CONTINUOUS 09/30/18 11/20/18 History (For Pump)] Metoclopramide [Reglan] 10 mg PO ACHS 09/30/18 11/20/18 History Promethazine HCl/Codeine 5 ml PO QID PRN 09/30/18 11/20/18 History [Promethazine-Codeine Syrup] Ranitidine HCl [Zantac] 300 mg PO HS 09/30/18 11/20/18 History Selenium 200 mcg PO DAILY 09/30/18 11/20/18 History Ubidecarenone [Co Q-10] 100 mg PO DAILY 09/30/18 11/20/18 History Docusate [Colace] 200 mg PO BID 30 Days #60 cap 10/02/18 11/20/18 Rx Ipratropium-Albuterol Nebulize 3 ml INHALATION RT-QID PRN #90 10/02/18 11/20/18 Rx [Duoneb 0.5 mg-3 mg/3 ml Soln] ampul.neb HYDROcodone/APAP 7.5-325MG [[place] 1 tab PO Q6H PRN 10/14/18 11/20/18 History 7.5-325] fentaNYL 12MCG/HR PATCH [Duragesic 1 patch TRANSDERM Q72H 10/14/18 11/20/18 History 12MCG/HR] Allergies Allergy/AdvReac Type Severity Reaction Status Date / Time No Known Allergies Allergy Verified 11/20/18 16:37 Physical Exam Osteopathic Statement: *. No significant issues noted on an osteopathic structural exam other than those noted in the History and Physical/Consult. Vitals: Vital Signs Temp Pulse Pulse Resp BP BP Pulse Ox 11/21/18 07:57 98 17 11/21/18 05:00 97.4 F L 98 17 92/63 98 11/20/18 23:00 17 11/20/18 22:19 97.4 F L 104 H 17 100/66 96 11/20/18 17:05 97.7 F 11/20/18 16:49 104 H 16 102/57 97 11/20/18 16:08 98 24 92/56 94 L 11/20/18 15:29 96.4 F L 112 H 24 110/52 92 L Intake and Output 11/20/18 11/21/18 11/21/18 22:59 06:59 14:59 Intake Total 240 Balance 240 Intake: Oral 240 Other: # Voids 1 1 Weight 25.401 kg 25.401 kg General: non toxic, no distress, appears at stated age, Cachexic Derm: no unusual rashes/lesions no unusual ecchymoses, warm, dry Head: atraumatic, normocephalic, symmetric Eyes: EOMI, no lid lag, anicteric sclera, pupils equal round reactive to light ENT: Nose and ears atraumatic, no thrush, no pharyngeal erythema Neck: No thyromegaly, no cervical lymphadenopathy, trachea midline, supple Mouth: no lip lesion, mucus membranes dry Cardiovascular: S1S2 reg, no murmur, positive posterior tibial pulse bilateral, Diffuse anasarca, capillary refill less than 2 seconds Lungs: decreased bs right lungs with crackles, no rhonchi, no rales , no accessory muscle use Abdominal: soft, nontender to palpation, no guarding, no appreciable organomegaly, normal bowel sounds Ext: no gross muscle atrophy, muscle strength 3-4 out of 5 in all 4 extremities grossly, no contractures, Neuro: CN II-XI grossly intact, light touch intact all 4 extremities, finger to nose within normal limits, Psych: Alert, oriented, appropriate affect Results CBC & Chem 7: 11/20/18 15:56 11/20/18 15:56 Labs: Abnormal Lab Results - Last 24 Hours (Table) 11/20/18 11/20/18 11/20/18 Range/Units 15:56 15:56 22:34 RBC 3.51 L (3.80-5.40) m/uL Hgb 10.4 L (11.4-16.0) gm/dL Hct 32.8 L (34.0-46.0) % RDW 17.5 H (11.5-15.5) % Lymphocytes # 0.5 L (1.0-4.8) k/uL Sodium 135 L (137-145) mmol/L BUN 39 H (7-17) mg/dL Glucose 244 H (74-99) mg/dL POC Glucose (mg/dL) 350 H (75-99) mg/dL AST 54 H (14-36) U/L Total Protein 5.3 L (6.3-8.2) g/dL Albumin 2.7 L (3.5-5.0) g/dL 11/21/18 11/21/18 Range/Units 07:09 11:53 RBC (3.80-5.40) m/uL Hgb (11.4-16.0) gm/dL Hct (34.0-46.0) % RDW (11.5-15.5) % Lymphocytes # (1.0-4.8) k/uL Sodium (137-145) mmol/L BUN (7-17) mg/dL Glucose (74-99) mg/dL POC Glucose (mg/dL) 231 H 170 H (75-99) mg/dL AST (14-36) U/L Total Protein (6.3-8.2) g/dL Albumin (3.5-5.0) g/dL Chest x-ray: report reviewed, image reviewed (Right-sided opacification of the hemithorax with small focal lucency) Thrombosis Risk Factor Assmnt - DVT/VTE Prophylaxis DVT/VTE Prophylaxis: Pharmacologic Prophylaxis ordered Assessment and Plan Assessment: Dyspnea-multifactorial secondary to right-sided malignant pleural effusion and lung cancer -Drain Pleurx catheter today 1 L, repeat chest x-ray to see if there is any improvement, may need to drain daily instead of every other day -Consult cardiovascular thoracic surgery secondary to severe pain at home with attempting to drain Pleurx catheter -Pulmonary hygiene -Continue with palliative care services at home Intractable pain secondary to malignancy -Increase fentanyl patch from 25 g to 37 g -Change [place] to Percocet -Continue with palliative care Small cell lung cancer with metastasis, recurrent -Continue outpatient follow-up with Dr. Whatley -Would recommend not going in for her next Opdivo treatment until she has an appointment with Dr. Whatley -Consult oncology Diabetes mellitus type 2 with hyperglycemia -Patient unable to operate insulin pump at this point in time -Fixed dose plus sliding scale insulin -Hemoglobin A1c 8.2 in August 2018 Hypertension, controlled Dyslipidemia -Would suggest stopping statin and Zetia Cachexia, severe protein calorie malnutrition, failure to thrive -Dietitian recommendations -Patient is not an optimal candidate for PEG tube at this point in time -Encourage oral intake GERD -PPI Hyponatremia, chronic -At baseline -Likely secondary to local solute content -Continue to follow as outpatient The patient is placed in observation with an anticipated less than 2 per night stay for evaluation of malignant pleural effusion. Surrogate decision-maker: Sister Dayami CODE STATUS: Full DVT prophylaxis: Lovenox Discussed with: Patient, family, nursing Anticipated discharge date: 1-[address]: home A total of 70 minutes was spent on the care of this complex patient more than 50% of the time was spent in counseling and care coordination.
[2018-11-21 16:59] LABS: Glucose,Whole Blood 131 mg/dL (75-99)
--- NOTE | 2018-11-21 17:41 | XR ---
EXAMINATION TYPE: XR chest 1V portable DATE OF EXAM: 11/21/2018 COMPARISON: 11/20/2018 HISTORY: Thoracentesis TECHNIQUE: Single frontal view of the chest is obtained. FINDINGS: There is significant opacification right hemithorax with pleural fluid and airspace consol idation. Heart is shifted slightly to the right side. There is a small infiltrate left lung base. The re is no heart failure. I see no pneumothorax. There is right central venous catheter with the tip in the superior vena cava. IMPRESSION: Large right pleural effusion and right pulmonary consolidation and volume loss. There is clearing of the air fluid levels compared to yesterday in the right lung apex consistent with cleari ng of pneumothorax. Small left lower lobe infiltrate. No heart failure seen. No significant change in the amount of pleural fluid.
[2018-11-21] MEDS ORDERED: SODIUM CHLORIDE 0.9% 500 ML 500 ML IV ONE (20:16)
[2018-11-21] MEDS: ATORVASTATIN 40 MG TAB PO SCH (20:20)
[2018-11-21] MEDS: FAMOTIDINE 20 MG TAB PO SCH (20:20)
[2018-11-21 20:21] LABS: Glucose,Whole Blood 110 mg/dL (75-99)
[2018-11-21] MEDS: SODIUM CHLORIDE 0.9% 1,000 ML IV SCH (20:38)
--- NOTE | 2018-11-21 22:49 | P.CONS ---
History of Present Illness - Reason for Consult Consult date: 11/21/18 Lung cancer Requesting physician: Taya Wright - Chief Complaint SOB - History of Present Illness This is a 62y.o. female who comes in with a history of dry cough close to one month duration. There is associated hoarsenss and an ENT MD noted right vocal cord paralysis on laryngoscopy. There was failure to improve in spite of prolonged oral antibiotic therapy. There is no associated fever, chills, dyspnea or chest pain. There is around 10lbs weight loss over a year. A CT-chest was done which showed suspicious lymphadenopathy in the mediastinal, right hilar, and retroclavicular areas. A left adrenal nodule is seen as well. 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 Family history is positive for breast cancer in sister. The patient was a pack a day cigarette smoker until recently (50 pack years). She also uses marijuana. She does not abuse alcohol. She completed cycle#1 of Chemotherapy > well tolerated, no N/V. C/O dysphagia (Partly 2nd to known Gastroparesis from DM), loosing weight. MRI of brain : 2 small lesions without surrounding edema (seen by Dr Chavez) > Monitor on systemic therapy. 12/04/17: Feels Ok, C/O fatigue, tolerating Chemotherapy well, MRI of braid : Resolution of 2 lesions after 2 cycles of Chemotherapy. C/O progressive dysphagia. 12/24/17: Feels Ok, C/O fatigue & dysphagia, will have EGD by Dr Jorge Alberto Frances in AM. CT Scan of chest after 3 cycles of Chemotherapy : Excellent SD. 01/15/18: Feels Ok, continues to have dysphagia > EGD negative. Tolerating Chemotherapy well. 02/27/18: Feels Ok, tired, completed 6 cycles of Carboplatinum+Etoposide. Started on XRT to head (PCI). 04/09/18: Feels Ok, tired, still not eating/drinking well. PET Scan : No active disease. 05/12/18: Feels Ok, not taking Marinol (she fprgets). 06/23/18: Feels Ok, still anorexic. 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 Weak & tired. 08/12/18-Pt here for acute visit, she has a "lump" on her chest, just noticed it the last week, no pain, not associated with any changed in breathing. She c/o "pain" in her lungs, feels "heavy", she has had similar sensation with bronchitis/URI. Denies F, not expectorating much, no hemoptysis. No other physical c/o. She is anxious about starting immunotherapy. 08/25/18: C/O severe dry cough, as well as, SOB. Tolerated 1st infusion of [place]/Opdivo well. 09/10/18: Not feeling well, C/O SOB, weakness and anorexia. Was admitted to [facility] with SOB, had large R Pleural effusion > Thoracetesis (1.3 L) Positive for small cell Carcinoma. 09/22/18:, C/O severe weakness, lack of stamina, anorexia & weight loss. Tolerating Ipi/Nivo poorly. Was seen by Dr Ram on 2nd opinion > advised Chemotherapy+Immunetherapy 09/30/18: Increased Shortness of Breath, Tachycardia, complaints of chest pain (present for approx one week), 8lb weight loss and poor tolerance to last cycle. She is very weak and fatigued. Recommend Emergency Room for further evaluation of PE and/or other and treatment of acute dehydration. 10/06/18: Not doing well, very tired and fatigued, out of energy, has persistent SOB, not improved after recent Thoracentesis done while hospitalized at [facility]. She reported good oral intake but continues to loose weight, able to stand and walk few steps with help. Taking [place] 5 intermitently without much benefit. 10/27/18: C/O fatigue and increased R chest pain, Duragesic 12 ineffective. 11/10/18: C2 of Opdivo single agent Pt was hospitalized recently and pleurex was placed. discharged and continued with opdivo treatment couple weeks ago, however yesterday after draining pleurex, she had increased SOB and CHRISTINA. Brought to the ED where she eventually improved, however was admitted for further pain control and symptoms control. Currently main concern is pain control. Pain regimen at home consists of Fentanyl patch 25mcg and norco, which she takes 3-4x/day. [place] helps however she continues to have significant pain. No other complaints. Review of Systems All systems: negative Constitutional: Reports as per HPI Past Medical History Past Medical History: Cancer, Diabetes Mellitus, GERD/Reflux, Hyperlipidemia, Hypertension, Thyroid Disorder Additional Past Medical History / Comment(s): hx. peptic ulcer, small cell lung cancer-initially on chemo and radiation in 2018, now with recurrence and on imm unotherapy (Opdivo), dysphasia, hypothyroidism, recurrent pleural effusions. History of Any Multi-Drug Resistant Organisms: None Reported Past Surgical History: Back Surgery, Section, Orthopedic Surgery Additional Past Surgical History / Comment(s): Exploratory Lap. 2 right knee arthroscopies. Mediport placement. Bronchoscopy. Laryngoscopy. Multiple thoracentesis Past Anesthesia/Blood Transfusion Reactions: No Reported Reaction Past Psychological History: Anxiety Smoking Status: Former smoker Past Alcohol Use History: None Reported Additional Past Alcohol Use History / Comment(s): Quit smoking 2017, smoked 1 ppd for 40 yrs. Past Drug Use History: None Reported - Past Family History Sister(s) Family Medical History: Cancer Additional Family Medical History / Comment(s): breast Medications and Allergies Home Medications Medication Instructions Recorded Confirmed Type Ezetimibe [Zetia] 10 mg PO HS 12/19/17 11/20/18 History FLUoxetine HCL [PROzac] 10 mg PO DAILY 12/19/17 11/20/18 History Levothyroxine Sodium [Synthroid] 100 mcg PO DAILY 12/19/17 11/20/18 History Albuterol Sulfate [Proair Hfa] 2 puff INHALATION RT-Q4H PRN 08/31/18 11/20/18 History Atorvastatin [Lipitor] 40 mg PO HS 09/30/18 11/20/18 History Cholecalciferol [Vitamin D3] 1,000 unit PO DAILY 09/30/18 11/20/18 History Dexlansoprazole [Dexilant] 60 mg PO DAILY 09/30/18 11/20/18 History Insulin Aspart (For Pump) [NovoLOG 0.01 unit SQ-PUMP CONTINUOUS 09/30/18 11/20/18 History (For Pump)] Metoclopramide [Reglan] 10 mg PO ACHS 09/30/18 11/20/18 History Promethazine HCl/Codeine 5 ml PO QID PRN 09/30/18 11/20/18 History [Promethazine-Codeine Syrup] Ranitidine HCl [Zantac] 300 mg PO HS 09/30/18 11/20/18 History Selenium 200 mcg PO DAILY 09/30/18 11/20/18 History Ubidecarenone [Co Q-10] 100 mg PO DAILY 09/30/18 11/20/18 History Docusate [Colace] 200 mg PO BID 30 Days #60 cap 10/02/18 11/20/18 Rx Ipratropium-Albuterol Nebulize 3 ml INHALATION RT-QID PRN #90 10/02/18 11/20/18 Rx [Duoneb 0.5 mg-3 mg/3 ml Soln] ampul.neb HYDROcodone/APAP 7.5-325MG [[place] 1 tab PO Q6H PRN 10/14/18 11/20/18 History 7.5-325] fentaNYL 25MCG/HR PATCH [Duragesic 1 patch TRANSDERM Q72H 11/21/18 11/21/18 History 25MCG/HR] Allergies Allergy/AdvReac Type Severity Reaction Status Date / Time No Known Allergies Allergy Verified 11/20/18 16:37 Physical Exam Vitals: Vital Signs Temp Pulse Pulse Resp BP BP Pulse Ox 11/21/18 07:57 98 17 11/21/18 05:00 97.4 F L 98 17 92/63 98 11/20/18 23:00 17 11/20/18 22:19 97.4 F L 104 H 17 100/66 96 11/20/18 17:05 97.7 F 11/20/18 16:49 104 H 16 102/57 97 11/20/18 16:08 98 24 92/56 94 L 11/20/18 15:29 96.4 F L 112 H 24 110/52 92 L Intake and Output 11/20/18 11/21/18 11/21/18 22:59 06:59 14:59 Intake Total 240 Balance 240 Intake: Oral 240 Other: # Voids 1 1 Weight 25.401 kg 25.401 kg General: In no acute distress. HEENT: No conjunctival pallor or scleral icterus. Mucosa moist. Neck: Neck supple. Lymph: No cervical/supraclavicular LAD. Lungs: Normal respirations. Heart: Regular rate. Bilateral LE edema. Abdomen: Soft, nontender. MSK: 4/4 strength in all 4 extremities. Neuro: Alert and oriented 3. No obvious gross neurologic deficits. Skin: No jaundice or rash. Psych: Appropriate affect. Results CBC & Chem 7: 11/20/18 15:56 11/20/18 15:56 Labs: Abnormal Lab Results - Last 24 Hours (Table) 11/20/18 11/20/18 11/20/18 Range/Units 15:56 15:56 22:34 RBC 3.51 L (3.80-5.40) m/uL Hgb 10.4 L (11.4-16.0) gm/dL Hct 32.8 L (34.0-46.0) % RDW 17.5 H (11.5-15.5) % Lymphocytes # 0.5 L (1.0-4.8) k/uL Sodium 135 L (137-145) mmol/L BUN 39 H (7-17) mg/dL Glucose 244 H (74-99) mg/dL POC Glucose (mg/dL) 350 H (75-99) mg/dL AST 54 H (14-36) U/L Total Protein 5.3 L (6.3-8.2) g/dL Albumin 2.7 L (3.5-5.0) g/dL 11/21/18 11/21/18 Range/Units 07:09 11:53 RBC (3.80-5.40) m/uL Hgb (11.4-16.0) gm/dL Hct (34.0-46.0) % RDW (11.5-15.5) % Lymphocytes # (1.0-4.8) k/uL Sodium (137-145) mmol/L BUN (7-17) mg/dL Glucose (74-99) mg/dL POC Glucose (mg/dL) 231 H 170 H (75-99) mg/dL AST (14-36) U/L Total Protein (6.3-8.2) g/dL Albumin (3.5-5.0) g/dL Chest x-ray: report reviewed Assessment and Plan Assessment: 1. metastatic small cell lung cancer 2. recurrent pleural effusion, s/p pleurex placement 3. cancer related pain Plan: Ms. Meraz is a very pleasant 63 yo female with multiple comorbidities as listed above in history including metastatic small cell lung cancer, s/p chemotherapy followed by PCI, with recurrence, unable to tolerate dual immunotherapy, currently on opdivo however with continued deteriorating functional and respiratory status. She has recurrent effusions, s/p pleurex. Was adament to try to continue treatment and was continued on opdivo, however at this time she clearly is not benefiting from treatment and has very poor PS. I discussed comfort care with pt and her and they seem to be will to proceed with this. They would like to discuss this further however before finalizing their decision with Dr. Whatley after discharge. In the meantime, will titrate pain medications for better comfort and continue periodic drainage of pleurex. Discussed with pt and her and they are agreeable. All questions answered.
[2018-11-22] MEDS: LEVOTHYROXINE 100 MCG TAB PO SCH (05:51)
[2018-11-22] MEDS: HYDROmorphone 0.5 MG/0.5 ML SYRINGE IVP PRN ×2 (05:51→18:29)
[2018-11-22 07:21] LABS: Glucose,Whole Blood 207 mg/dL (75-99)
[2018-11-22] MEDS: DOCUSATE 100 MG CAP PO SCH ×2 (08:20→20:31)
[2018-11-22] MEDS: PANTOPRAZOLE 40 MG TABLET PO SCH (08:20)
[2018-11-22] MEDS: ENOXAPARIN 30 MG/0.3 ML SYRINGE SQ SCH (08:21)
[2018-11-22] MEDS: METOCLOPRAMIDE 10 MG TAB PO SCH ×4 (08:21→20:32)
[2018-11-22] MEDS: INSULIN ASPART (NovoLOG) 100 UNIT/ML VIAL SQ SCH ×7 (08:21→20:51)
[2018-11-22] MEDS: FLUoxetine HCL 10 MG CAP PO SCH (08:21)
[2018-11-22 08:56] LABS: Anion Gap 6 mmol/L; Blood Urea Nitrogen 34 mg/dL (7-17); Calcium 9.8 mg/dL (8.4-10.2); Carbon Dioxide 26 mmol/L (22-30); Chloride 105 mmol/L (98-107); Glucose 263 mg/dL (74-99); Magnesium 1.7 mg/dL (1.6-2.3); Potassium 4.6 mmol/L (3.5-5.1); Sodium 137 mmol/L (137-145)
[2018-11-22 09:19] LABS: Anisocytosis Slight; HCT 35.2 % (34.0-46.0); HGB 10.9 gm/dL (11.4-16.0); Hypochromasia Slight; MCHC 30.9 g/dL (31.0-37.0); MCV 93.9 fL (80.0-100.0); Mean Platelet Volume 8.3; Platelet Count 258 k/uL (150-450); RBC 3.75 m/uL (3.80-5.40); RDW 17.7 % (11.5-15.5); WBC 8.5 k/uL (3.8-10.6)
[2018-11-22 11:21] LABS: Glucose,Whole Blood 242 mg/dL (75-99)
--- NOTE | 2018-11-22 12:03 | P.GSCN ---
History of Present Illness Consult date: 11/22/18 Reason for Consult: Management of Pleurx catheter. Requesting physician: Taya Wright History of present illness: This is a 63-year-old female patient whose follows with Dr. Isabela Toussaint on an outpatient basis. She is also followed by Dr. Whatley from oncology. She has a past medical history significant for small cell lung cancer which was diagnosed in August 2017 and has undergone chemotherapy and radiation treatments. She also has a past medical history significant for hypertension, hyperlipidemia, hypothyroid, diabetes mellitus, peptic ulcer disease, history of tobacco dependence, family history of cancer and home oxygen use. Subsequently, she developed recurrent right-sided pleural effusions and underwent 4 previous thoracentesis. Due to the recurrent pleural effusions, on 11/17/2018 she unde rwent a right thorax catheter placement which was performed by Dr. Viry Paez. She was subsequently discharged home on 11/18/2018 with home health care services. The Pleurx catheter was drained at home I home care for 950 mL on 11/21/2018 and subsequently developed some shortness of breath after the fluid was drained with oxygen saturations in the 70s to 80s on 5 L nasal cannula. According to the patient's nurse today the patient also developed some altered mental status. The patient is a poor historian and her history has been obtained from the patient's medical record. Currently, she denies any complaints of shortness of breath, pain, nausea, vomiting or dizziness. She presented to the emergency department yesterday with complaints of shortness of breath and generalized weakness. On admission her laboratory results demonstrated a WBC 8.5, Hgb 10.9, BUN 34, AST 263, and an ALT 242. Chest x-ray was completed which showed a decrease in the right pleural effusion compared to her last exam, no heart failure doesn't and a slight decrease left pleural effusion with a persistent hydropneumothorax. According to her nurse today she was drained for 925 mL of fluid yesterday from her Pleurx catheter. Due to the patient's history of Pleurx catheter placement Dr. Viry Paez was consulted for further evaluation of the Pleurx catheter. Review of Systems A 14 point review of systems was completed and was negative except as mentioned in the HPI. Past Medical History Past Medical History: Cancer, Diabetes Mellitus, GERD/Reflux, Hyperlipidemia, Hypertension, Thyroid Disorder Additional Past Medical History / Comment(s): hx. peptic ulcer, small cell lung cancer-initially on chemo and radiation in 2018, now with recurrence and on immunotherapy (Opdivo), dysphasia, hypothyroidism, recurrent pleural effusions. History of Any Multi-Drug Resistant Organisms: None Reported Past Surgical History: Back Surgery, Section, Orthopedic Surgery Additional Past Surgical History / Comment(s): Exploratory Lap. 2 right knee arthroscopies. Mediport placement. Bronchoscopy. Laryngoscopy. Multiple t horacentesis Past Anesthesia/Blood Transfusion Reactions: No Reported Reaction Past Psychological History: Anxiety Smoking Status: Former smoker Past Alcohol Use History: None Reported Additional Past Alcohol Use History / Comment(s): Quit smoking 2017, smoked 1 ppd for 40 yrs. Past Drug Use History: None Reported - Past Family History Sister(s) Family Medical History: Cancer Additional Family Medical History / Comment(s): breast Medications and Allergies Home Medications Medication Instructions Recorded Confirmed Type Ezetimibe [Zetia] 10 mg PO HS 12/19/17 11/20/18 History FLUoxetine HCL [PROzac] 10 mg PO DAILY 12/19/17 11/20/18 History Levothyroxine Sodium [Synthroid] 100 mcg PO DAILY 12/19/17 11/20/18 History Albuterol Sulfate [Proair Hfa] 2 puff INHALATION RT-Q4H PRN 08/31/18 11/20/18 History Atorvastatin [Lipitor] 40 mg PO HS 09/30/18 11/20/18 History Cholecalciferol [Vitamin D3] 1,000 unit PO DAILY 09/30/18 11/20/18 History Dexlansoprazole [Dexilant] 60 mg PO DAILY 09/30/18 11/20/18 History Insulin Aspart (For Pump) [NovoLOG 0.01 unit SQ-PUMP CONTINUOUS 09/30/18 11/20/18 History (For Pump)] Metoclopramide [Reglan] 10 mg PO ACHS 09/30/18 11/20/18 History Promethazine HCl/Codeine 5 ml PO QID PRN 09/30/18 11/20/18 History [Promethazine-Codeine Syrup] Ranitidine HCl [Zantac] 300 mg PO HS 09/30/18 11/20/18 History Selenium 200 mcg PO DAILY 09/30/18 11/20/18 History Ubidecarenone [Co Q-10] 100 mg PO DAILY 09/30/18 11/20/18 History Docusate [Colace] 200 mg PO BID 30 Days #60 cap 10/02/18 11/20/18 Rx Ipratropium-Albuterol Nebulize 3 ml INHALATION RT-QID PRN #90 10/02/18 11/20/18 Rx [Duoneb 0.5 mg-3 mg/3 ml Soln] ampul.neb HYDROcodone/APAP 7.5-325MG [Sh[place]an 1 tab PO Q6H PRN 10/14/18 11/20/18 History 7.5-325] fentaNYL 25MCG/HR PATCH [Duragesic 1 patch TRANSDERM Q72H 11/21/18 11/21/18 History 25MCG/HR] Allergies Allergy/AdvReac Type Severity Reaction Status Date / Time No Known Allergies Allergy Verified 11/20/18 16:37 Surgical - Exam Vital Signs Temp Pulse Resp BP Pulse Ox 96.4 F L 112 H 24 110/52 92 L 11/20/18 15:29 11/20/18 15:29 11/20/18 15:29 11/20/18 15:29 11/20/18 15:29 - General no distress, no pain, chronically ill - Eyes PERRL, normal ocular movement - ENT normal pinna, normal nares, normal mucosa, no hearing loss, no congestion - Neck Neck is supple, no lymphadenopathy. no masses, no bruits, trachea midline, no venous distension - Respiratory Lung sounds diminished to her bilateral bases with few scattered crackles. Respirations are symmetrical and nonlabored. Right lower chest Pleurx catheter in place with dressing clean and dry. Oxygen saturations are 93% on 3 L nasal cannula. - Cardiovascular Regular rhythm with tachycardic rate. S1 and S2 present, negative for S3, gallop or murmur. +2 generalized anasarca. - Abdomen Abdomen is soft, nontender and nondistended. Hypoactive bowel sounds to all 4 abdominal quadrants. No guarding or rigidity. No organomegaly. - Genitourinary Deferred - Rectum Deferred - Integumentary no rash, no growths, no abnormal pigmentation - Neurologic Cranial nerves II through XI grossly intact. normal coordination, normal sensation - Musculoskeletal Generalized weakness. - Psychiatric Disoriented to time. oriented to person, oriented to place, speech is normal Results - Labs 11/22/18 08:08 11/22/18 08:08 Abnormal Lab Results - Last 24 Hours (Table) 11/21/18 11/21/18 11/21/18 Range/Units 11:53 16:57 20:18 RBC (3.80-5.40) m/uL Hgb (11.4-16.0) gm/dL MCHC (31.0-37.0) g/dL RDW (11.5-15.5) % BUN (7-17) mg/dL Glucose (74-99) mg/dL POC Glucose (mg/dL) 170 H 131 H 110 H (75-99) mg/dL 11/21/18 11/22/18 11/22/18 Range/Units 20:18 07:19 08:08 RBC 3.75 L (3.80-5.40) m/uL Hgb 10.9 L (11.4-16.0) gm/dL MCHC 30.9 L (31.0-37.0) g/dL RDW 17.7 H (11.5-15.5) % BUN (7-17) mg/dL Glucose (74-99) mg/dL POC Glucose (mg/dL) 110 H 207 H (75-99) mg/dL 11/22/18 11/22/18 Range/Units 08:08 11:19 RBC (3.80-5.40) m/uL Hgb (11.4-16.0) gm/dL MCHC (31.0-37.0) g/dL RDW (11.5-15.5) % BUN 34 H (7-17) mg/dL Glucose 263 H (74-99) mg/dL POC Glucose (mg/dL) 242 H (75-99) mg/dL Diabetes panel 11/22/18 Range/Units 08:08 Sodium 137 (137-145) mmol/L Potassium 4.6 (3.5-5.1) mmol/L Chloride 105 (98-107) mmol/L Carbon Dioxide 26 (22-30) mmol/L BUN 34 H (7-17) mg/dL Creatinine 0.66 (0.52-1.04) mg/dL Glucose 263 H (74-99) mg/dL Calcium 9.8 (8.4-10.2) mg/dL Calcium panel 11/22/18 Range/Units 08:08 Calcium 9.8 (8.4-10.2) mg/dL Pituitary panel 11/22/18 Range/Units 08:08 Sodium 137 (137-145) mmol/L Potassium 4.6 (3.5-5.1) mmol/L Chloride 105 (98-107) mmol/L Carbon Dioxide 26 (22-30) mmol/L BUN 34 H (7-17) mg/dL Creatinine 0.66 (0.52-1.04) mg/dL Glucose 263 H (74-99) mg/dL Calcium 9.8 (8.4-10.2) mg/dL Adrenal panel 11/22/18 Range/Units 08:08 Sodium 137 (137-145) mmol/L Potassium 4.6 (3.5-5.1) mmol/L Chloride 105 (98-107) mmol/L Carbon Dioxide 26 (22-30) mmol/L BUN 34 H (7-17) mg/dL Creatinine 0.66 (0.52-1.04) mg/dL Glucose 263 H (74-99) mg/dL Calcium 9.8 (8.4-10.2) mg/dL - Imaging Chest x-ray: report reviewed, image reviewed Assessment and Plan Assessment: 1. History of metastatic small cell lung cancer status post chemotherapy and radiation, currently receiving Opdivo therapy 2. Recurrent right-sided pleural effusions, status post right Pleurx catheter placement 3. Recurrent right-sided pleural effusions status post thoracentesis 4 4. Diabetes mellitus Type 2 5. Hypertension 6. Hyperlipidemia 7. Hypothyroid 8. Peptic ulcer disease 9. Previous tobacco dependence, in remission 10. Family history of cancer 11. Gastroesophageal reflux disease Plan: The patient was seen and examined. Chart and diagnostics were reviewed. Her case was discussed with Dr. Viry Paez from cardiothoracic surgery. At this time we recommend draining her Pleurx catheter today, we will reevaluate her chest x-ray in the a.m. with further recommendations to follow on Pleurx catheter draining. Medical management per primary care service. Thank you Dr. Wright for this consult and we will look forward to following along with you in the care of your patient. Time with Patient: Greater than 30
[2018-11-22] MEDS: SODIUM CHLORIDE 0.9% 1,000 ML IV SCH (16:39)
--- NOTE | 2018-11-22 17:00 | P.PN ---
Subjective Progress Note Date: 11/22/18 (delayed charting seen at 1115) Principal diagnosis: Shortness of breath Patient is a 63-year-old female with a past medical history of small cell lung cancer advanced stage currently on Opdivo therapy with last treatment for 16, currently under palliative care services with home health care, recurrent malignant pleural effusion status post Pleurx catheter on 11/17, hy pertension, and diabetes who initially presented to the emergency department secondary to pain and shortness of breath. In the emergency department she underwent an extensive evaluation. Her initial vital signs show that she was tachycardic with a heart rate of 112 and tachypnic with a respiratory rate of 24. Initial laboratory analysis was at baseline for her but did show mild hyperglycemia. She underwent a chest x-ray which showed continued right-sided pleural effusion with hydropneumothorax. She was subsequently admitted in observation for shortness of breath. Initially she was admitted to Dr. Bautista were notified of her admission on the morning of 11/21. Her pain was poorly controlled at home. She was noted to have continued effusion, and altered mentation. Her Pleurx was drained on 11/21 but she could omly tolerate [address] Paez was consulted regarding pain with drainage though this was felt to likely be due to re-expansion. We had a long discussion on 11/21 patient has palliative care at home, still wants to be full code, had not wanted hospice. Had episode of hypotension overnight on 11/21 which responded to fluids Patient seen and examined at bedside. She indicates that pain is better controlled than yesterday, Significant other states much better with additional fentanyl patch. Still with SOB not improved since yesterday, no BM, no nausea, appetite somewhat better. Objective - Vital Signs Vital signs: Vital Signs Temp 97.3 F L 11/22/18 05:44 Pulse 50 L 11/22/18 16:00 Resp 16 11/22/18 16:00 BP 105/67 11/22/18 11:53 Pulse Ox 100 11/22/18 11:53 Intake & Output 11/21/18 11/22/18 11/22/18 18:59 06:59 18:59 Intake Total 118 1450 200 Output Total 925 1100 Balance -807 1450 -900 Weight 25.401 kg Intake: Intake, IV Titration 500 200 Amount Sodium Chloride 0.9% 1, 200 000 ml @ 50 mls/hr IV . Q20H [facility] Rx#:[id number] Sodium Chloride 0.9% 500 500 ml 500 ml @ 999 mls/hr IV .Q31M [facility] Rx#:[id number] Oral 118 950 Output: Chest Tube Drainage 925 1100 Right Right Pleural/ 925 1100 Mediastinal Other: Voiding Method Bedside Commode Bedside Commode Bedpan Bedpan # Voids 2 1 1 # Bowel Movements 0 0 0 - Exam General: non toxic, mild distress, appears older than stated age, Cachexic Derm: no unusual rashes/lesions no unusual ecchymoses, warm, dry Head: atraumatic, normocephalic, symmetric Eyes: EOMI, no lid lag, anicteric sclera, Mouth: no lip lesion, mucus membranes dry Cardiovascular: S1S2 reg, no murmur, positive posterior tibial pulse bilateral, Diffuse anasarca, capillary refill less than 2 seconds Lungs: decreased bs right lungs with crackles, no rhonchi, no rales , no accessory muscle use Abdominal: soft, nontender to palpation, no guarding, no appreciable organomegaly, normal bowel sounds Neuro: CN II-XI grossly intact, light touch intact all 4 extremities Psych: Alert, oriented, flat affect, slow to respond - Labs CBC & Chem 7: 11/22/18 08:08 11/22/18 08:08 Labs: Abnormal Lab Results - Last 24 Hours (Table) 11/21/18 11/21/18 11/21/18 Range/Units 16:57 20:18 20:18 RBC (3.80-5.40) m/uL Hgb (11.4-16.0) gm/dL MCHC (31.0-37.0) g/dL RDW (11.5-15.5) % BUN (7-17) mg/dL Glucose (74-99) mg/dL POC Glucose (mg/dL) 131 H 110 H 110 H (75-99) mg/dL 11/22/18 11/22/18 11/22/18 Range/Units 07:19 08:08 08:08 RBC 3.75 L (3.80-5.40) m/uL Hgb 10.9 L (11.4-16.0) gm/dL MCHC 30.9 L (31.0-37.0) g/dL RDW 17.7 H (11.5-15.5) % BUN 34 H (7-17) mg/dL Glucose 263 H (74-99) mg/dL POC Glucose (mg/dL) 207 H (75-99) mg/dL 11/22/18 Range/Units 11:19 RBC (3.80-5.40) m/uL Hgb (11.4-16.0) gm/dL MCHC (31.0-37.0) g/dL RDW (11.5-15.5) % BUN (7-17) mg/dL Glucose (74-99) mg/dL POC Glucose (mg/dL) 242 H (75-99) mg/dL Assessment and Plan Assessment: Dyspnea-multifactorial secondary to right-sided malignant pleural effusion and l mony cancer -Drain Pleurx catheter again today 1 L, repeat chest x-ray to see if there is any improvement, may need to drain daily instead of every other day, percocet prior to drainage -Cardiovascular thoracic surgery recs appreciated -Pulmonary hygiene -Continue with palliative care services at home Intractable pain secondary to malignancy -Increased fentanyl patch from 25 g to 37 g 11/21 -Percocet -Continue with palliative care HYpotension - suspect due to pain med use - anasarca and breath sounds worsening stop fluids, follow BP. unstagable pressure ulcer left heal, POA - off loading with fifter boots - frequent movement Small cell lung cancer with metastasis, recurrent -Continue outpatient follow-up with Dr. Whatley -Would recommend not going in for her next Opdivo treatment until she has an appointment with Dr. Whatley -Oncology recs appreciated Diabetes mellitus type 2 with hyperglycemia -Patient unable to operate insulin pump at this point in time -Fixed dose plus sliding scale insulin - add low dose levemir as increased AM sugars -Hemoglobin A1c 8.2 in August 2018 Dyslipidemia -Would suggest stopping statin and Zetia Cachexia, severe protein calorie malnutrition, failure to thrive -Dietitian recommendations -Patient is not an optimal candidate for PEG tube at this point in time -Encourage oral intake GERD -PPI Hyponatremia, chronic -At baseline -Likely secondary to local solute content -Continue to follow as outpatient Poor over all prognosis DVT prophylaxis: Lovenox Discussed with: Patient, family, nursing Anticipated discharge date: 1-[address]: home A total of 25 minutes was spent on the care of this complex patient more than 50% of the time was spent in counseling and care coordination.
[2018-11-22 17:08] LABS: Glucose,Whole Blood 254 mg/dL (75-99)
[2018-11-22] MEDS: FAMOTIDINE 20 MG TAB PO SCH (20:31)
[2018-11-22] MEDS: ATORVASTATIN 40 MG TAB PO SCH (20:31)
[2018-11-22 20:45] LABS: Glucose,Whole Blood 180 mg/dL (75-99)
[2018-11-22] MEDS: INSULIN DETEMIR (LEVEMIR) 100 UNIT/ML SYR SQ SCH (20:49)
[2018-11-22 22:21] VITALS: TEMP 97.4
[2018-11-23] MEDS: HYDROmorphone 0.5 MG/0.5 ML SYRINGE IVP PRN ×4 (01:14→20:03)
[2018-11-23 02:01] LABS: Glucose,Whole Blood 95 mg/dL (75-99)
[2018-11-23] MEDS: LEVOTHYROXINE 100 MCG TAB PO SCH (04:19)
[2018-11-23] MEDS: INSULIN ASPART (NovoLOG) 100 UNIT/ML VIAL SQ SCH ×2 (06:51)
[2018-11-23 06:52] LABS: Glucose,Whole Blood 53 mg/dL (75-99)
[2018-11-23] MEDS ORDERED: DEXTROSE 50% SYRINGE 50 ML IVP STA (06:54)
[2018-11-23 07:13] LABS: Glucose,Whole Blood 96 mg/dL (75-99)
[2018-11-23] MEDS: METOCLOPRAMIDE 10 MG TAB PO SCH (08:04)
[2018-11-23] MEDS: PANTOPRAZOLE 40 MG TABLET PO SCH (08:04)
--- NOTE | 2018-11-23 08:12 | XR ---
EXAMINATION TYPE: XR chest 1V portable DATE OF EXAM: 11/23/2018 Comparison: 11/21/2018 Clinical History: 63-year-old female Pleurx catheter, recurrent pleural effusions Findings: Right heart margin obscured by adjacent pleural parenchymal opacity. Increasing moderate right pleura l effusion persists with increasing patchy density visualized upper right lung. Some patchy density a t the left base is unchanged. Nodular density peripheral left upper lobe. Right anterior chest wall i njection port with catheter tip in the upper right atrium. Right-sided pleural catheter is demonstrat ed. Impression: Interval slight increase in the patient's moderate right pleural effusion with extensive underlying c onsolidation throughout the remainder of the right lung. Peripheral left upper lobe pulmonary nodule in background of COPD.
[2018-11-23] MEDS: FLUoxetine HCL 10 MG CAP PO SCH (08:39)
[2018-11-23] MEDS: DOCUSATE 100 MG CAP PO SCH (08:39)
[2018-11-23] MEDS: ENOXAPARIN 30 MG/0.3 ML SYRINGE SQ SCH (08:41)
[2018-11-23 09:12] LABS: Anisocytosis Slight; HCT 32.5 % (34.0-46.0); HGB 10.2 gm/dL (11.4-16.0); Hypochromasia Slight; MCH 29.5 pg (25.0-35.0); MCHC 31.4 g/dL (31.0-37.0); Mean Platelet Volume 6.7; Platelet Count 390 k/uL (150-450); RBC 3.45 m/uL (3.80-5.40); RDW 17.3 % (11.5-15.5)
[2018-11-23 09:14] LABS: Anion Gap -1 mmol/L; Blood Urea Nitrogen 32 mg/dL (7-17); Calcium 10.3 mg/dL (8.4-10.2); Carbon Dioxide 35 mmol/L (22-30); Chloride 105 mmol/L (98-107); Glucose 96 mg/dL (74-99); Sodium 139 mmol/L (137-145)
[2018-11-23] MEDS ORDERED: SCOPOLAMINE 1.5MG/72HR PATCH TRANSDERM SCH (09:45)
--- NOTE | 2018-11-23 09:52 | P.PN ---
Subjective Progress Note Date: 11/23/18 The patient is a 63-year-old female with a PMH of small cell lung CA, previously on Opdivo (last therapy on 11/10/18), undergoing palliative care with home health, recurrent malignant pleural effusion status post Pleurx catheter insertion on 11/17/2018, presented to the ED for worsening shortness of breath and pain. She was noted to be tachycardic and tachypneic in the ED and underwent an extensive evaluation. Chest x-ray revealed continued right-sided pleural effusion with hydropneumothorax. The patient underwent 900 mL of drainage from the Pleurix catheter on 11/21/2018. Multiple discussions were had with the patient regarding goals of care. The patient reiterated her wishes to be kept as a full code and noted that she wouldn't wish to undergo CPR and be placed on a ventilator despite there being a low probability of her being weaned off life-support. On 11/22/2018 the patient had an episode of aspiration and was subsequently made NPO. She was seen and evaluated at the bedside on 11/23/18. She notes continued diffuse pain everywhere and complained of increased amounts of phlegm with coughing. She denied shortness of breath, fever, chills, nausea, or vomiting. Objective - Vital Signs Vital signs: Vital Signs Temp 97.4 F L 11/22/18 22:19 Pulse 102 H 11/23/18 04:26 Resp 20 11/23/18 04:26 BP 125/59 11/23/18 04:26 Pulse Ox 93 L 11/23/18 04:26 Intake & Output 11/22/18 11/23/18 11/23/18 18:59 06:59 18:59 Intake Total 200 Output Total 1100 Balance -900 Intake: Intake, IV Titration 200 Amount Sodium Chloride 0.9% 1, 200 000 ml @ 50 mls/hr IV . Q20H [facility] Rx#:[id number] Output: Chest Tube Drainage 1100 Right Right Pleural/ 1100 Mediastinal Other: Voiding Method Bedside Commode Bedside Commode Bedpan Bedpan # Voids 1 1 # Bowel Movements 0 - Exam General: Non-toxic, in mild distress, appears older than stated age, cachectic HEENT: NC/AT, anicteric sclerae, moist conjunctiva, no lid-lag, PERRLA Cardiovascular: S1/S2 wnl, no murmurs, rubs, or gallops Lungs: Coarse breath sounds throughout with some rales, normal respiratory effort, no accessory muscle use Abdominal: Soft, non-tender, non-distended, no guarding, rebound, or rigidity Skin: Warm, dry Extremities: Anasarca, no contractures Psychiatric: Alert and oriented to person, place and time, flat affect Neuro: CN II-XII grossly intact, Speech intact, Sensation to light touch grossly intact throughout - Labs CBC & Chem 7: 11/23/18 08:18 11/23/18 08:18 Labs: Abnormal Lab Results - Last 24 Hours (Table) 11/22/18 11/22/18 11/22/18 Range/Units 11:19 17:06 20:44 RBC (3.80-5.40) m/uL Hgb (11.4-16.0) gm/dL Hct (34.0-46.0) % RDW (11.5-15.5) % Carbon Dioxide (22-30) mmol/L BUN (7-17) mg/dL POC Glucose (mg/dL) 242 H 254 H 180 H (75-99) mg/dL Calcium (8.4-10.2) mg/dL 11/23/18 11/23/18 11/23/18 Range/Units 06:51 08:18 08:18 RBC 3.45 L (3.80-5.40) m/uL Hgb 10.2 L (11.4-16.0) gm/dL Hct 32.5 L (34.0-46.0) % RDW 17.3 H (11.5-15.5) % Carbon Dioxide 35 H (22-30) mmol/L BUN 32 H (7-17) mg/dL POC Glucose (mg/dL) 53 L (75-99) mg/dL Calcium 10.3 H (8.4-10.2) mg/dL Microbiology - Last 24 Hours (Table) 11/21/18 21:37 Blood Culture - Preliminary Blood No Growth after 24 hours Assessment and Plan Plan: Dyspnea, likely secondary to malignant right-sided pleural effusion with hydropneumothorax due to small cell lung cancer -Continue with Pleurx catheter drainage with follow-up chest x-rays -Pulmonary hygiene Diffuse pain, likely secondary to advanced malignancy -Continue with pain control with fentanyl patch -Continue with Percocet -Continue with palliation Aspiration, increased phlegm -Speech and swallow evaluation X -Nothing by mouth for now -Will start Scopolamine patch Small cell lung cancer with advanced disease, recurrent -Follow up with Dr. Whatley -Oncology recommendations appreciated Diabetes mellitus -Continue with Levemir and insulin sliding scale Hyperlipidemia -Statin and Zetia stopped for now Severe protein calorie malnutrition with cachexia, secondary to advanced malignancy -Dietitian recommendations Normocytic anemia, likely secondary to advanced malignancy -Monitor for now Hyponatremia, resolved DVT//GI prophylaxis -Lovenox Prognosis: Very poor Discussed with: Patient Anticipated discharge date: 11/25/[address]: Home A total of 30 minutes was spent on the care of this complex patient more than 50% of the time was spent in counseling and care coordination.
[2018-11-23 10:53] LABS: Glucose,Whole Blood 93 mg/dL (75-99)
[2018-11-23 11:48] VITALS: BP 94/41; RESP 12
--- NOTE | 2018-11-23 12:36 | P.PN ---
Subjective Progress Note Date: 11/23/18 Principal diagnosis: Metastatic small cell lung cancer Did call family meeting. Patient laying in bed, lethargic, case reviewed with speech therapist who states patient has an absent swallow, patient is unable to position herself or move her own body weight. Objective - Vital Signs Vital signs: Vital Signs Temp 97.4 F L 11/22/18 22:19 Pulse 98 11/23/18 11:15 Resp 12 11/23/18 11:15 BP 94/41 11/23/18 11:15 Pulse Ox 92 L 11/23/18 11:15 Intake & Output 11/22/18 11/23/18 11/23/18 18:59 06:59 18:59 Intake Total 200 Output Total 1100 Balance -900 Intake: Intake, IV Titration 200 Amount Sodium Chloride 0.9% 1, 200 000 ml @ 50 mls/hr IV . Q20H [facility] Rx#:[id number] Output: Chest Tube Drainage 1100 Right Right Pleural/ 1100 Mediastinal Other: Voiding Method Bedside Commode Bedside Commode Diaper Bedpan Bedpan Incontinent # Voids 1 1 # Bowel Movements 0 - Exam Thin, frail, cachectic, muscle wasting, lethargic female laying in bed, no acute distress is noted, respirations are noted to be around 9, possibly one episode of apnea, secretions are pulling at the back of the throat for audible respirations. Patient is unable to position herself or manage her secretions at this time. - Labs CBC & Chem 7: 11/23/18 08:18 11/23/18 08:18 Labs: Abnormal Lab Results - Last 24 Hours (Table) 11/22/18 11/22/18 11/23/18 Range/Units 17:06 20:44 06:51 RBC (3.80-5.40) m/uL Hgb (11.4-16.0) gm/dL Hct (34.0-46.0) % RDW (11.5-15.5) % Carbon Dioxide (22-30) mmol/L BUN (7-17) mg/dL POC Glucose (mg/dL) 254 H 180 H 53 L (75-99) mg/dL Calcium (8.4-10.2) mg/dL 11/23/18 11/23/18 Range/Units 08:18 08:18 RBC 3.45 L (3.80-5.40) m/uL Hgb 10.2 L (11.4-16.0) gm/dL Hct 32.5 L (34.0-46.0) % RDW 17.3 H (11.5-15.5) % Carbon Dioxide 35 H (22-30) mmol/L BUN 32 H (7-17) mg/dL POC Glucose (mg/dL) (75-99) mg/dL Calcium 10.3 H (8.4-10.2) mg/dL Microbiology - Last 24 Hours (Table) 11/21/18 21:37 Blood Culture - Preliminary Blood No Growth after 24 hours Assessment and Plan (1) Small cell lung cancer Current Visit: No Status: Acute Priority: High Code(s): C34.90 - MALIGNANT NEOPLASM OF UNSP PART OF UNSP BRONCHUS OR LUNG SNOMED Code(s): 198150991 Plan: After reports from nursing, speech therapist, review of vitals, exam and chart review he was reinforced with the patient's family that she is unfortunately failing. We reviewed what CODE STATUS is and what procedures that entails including chest compressions as well as insertion of tube for mechanical ventilation. We discussed the irreversible nature of patient's disease and that if cardial pulmonary failure were to occur inability of the patient to be able to wean off of ventilation. To the patient as well as to the family when the decision would have to be made to discontinue of life support measures was reviewed as well. After discussing the aforementioned information, patient se emed to indicate that is not what she wanted, her medical power of divorce attorney agreed for no CODE STATUS and comfort measures only. Orders changed to reflect comfort only. Life expectancy less than 1 week, pt condition is terminal Time with Patient: Greater than 30 (>35min spent, >50% counseling and coordinating care)
[2018-11-23] MEDS: LORazepam 2 MG/ML INJ IV PRN (14:57)
[2018-11-24] MEDS: LORazepam 2 MG/ML INJ IV PRN ×2 (01:26→06:02)
[2018-11-24] MEDS: HYDROmorphone 0.5 MG/0.5 ML SYRINGE IVP PRN ×4 (03:39→17:04)
--- NOTE | 2018-11-24 14:18 | P.PN ---
Subjective Progress Note Date: 11/24/18 The patient is a 63-year-old female with a PMH of small cell lung CA, previously on Opdivo (last therapy on 11/10/18), undergoing palliative care with home health, recurrent malignant pleural effusion status post Pleurx catheter insertion on 11/17/2018, presented to the ED for worsening shortness of breath and pain. She was noted to be tachycardic and tachypneic in the ED and underwent an extensive evaluation. Chest x-ray revealed continued right-sided pleural effusion with hydropneumothorax. The patient underwent 900 mL of drainage from the Pleurix catheter on 11/21/2018. On 11/22/2018 the patient had an episode of aspiration and was subsequently made NPO. Speech and swallow evaluated the patient who recommended that she is unable to protect her airway at this time and be kept NPO. The patient and her family had a lengthy discussion with the oncology team on 11/23/2018 at which time the patient decided to be made no code with comfort care only. She was seen and evaluated at the bedside on 11/24/18. The patient's mental status gradually worsened throughout the night. She is noted to have agonal breathing and is unresponsive with family at the bedside. Objective - Vital Signs Vital signs: Vital Signs Temp 97.4 F L 11/22/18 22:19 Pulse 98 11/23/18 11:15 Resp 12 11/24/18 08:00 BP 94/41 11/23/18 11:15 Pulse Ox 92 L 11/23/18 11:15 Intake & Output 11/23/18 11/24/18 11/24/18 18:59 06:59 18:59 Intake Total 0 0 Output Total 1000 Balance -1000 0 Intake: Intake, IV Titration 0 Amount Sodium Chloride 0.9% 1, 0 000 ml @ 50 mls/hr IV . Q20H [facility] Rx#:[id number] Oral 0 Output: Chest Tube Drainage 1000 Right Right Pleural/ 1000 Mediastinal Other: Voiding Method Diaper Diaper Diaper Incontinent Incontinent Incontinent # Voids 2 2 # Bowel Movements 1 - Exam General: Cachectic female, agonal breathing HEENT: NC/AT, anicteric sclerae, moist conjunctiva, PERRLA Cardiovascular: S1/S2 wnl, no murmurs, rubs, or gallops Lungs: Coarse breath sounds throughout with some rales, agonal breathing Abdominal: Soft, non-distended Skin: Warm, dry Extremities: Anasarca, no contractures Neuro: Unable to perform, unresponsive to stimuli - Labs CBC & Chem 7: 11/23/18 08:18 11/23/18 08:18 Labs: Microbiology - Last 24 Hours (Table) 11/21/18 21:37 Blood Culture - Preliminary Blood No Growth after 48 hours Assessment and Plan Plan: Acute on chronic respiratory failure, likely secondary to malignant right-sided pleural effusion with hydropneumothorax due to small cell lung cancer, actively dying -Comfort Care only -Provided supportive family at the bedside -Continue with pain control -C/w Scopolamine patch Small cell lung cancer with advanced disease, recurrent -Oncology recommendations appreciated Diabetes mellitus -Continue with Levemir and insulin sliding scale Hyperlipidemia -Statin and Zetia stopped for now Severe protein calorie malnutrition with cachexia, secondary to advanced malignancy -Dietitian recommendations Normocytic anemia, likely secondary to advanced malignancy -Will hold off on further testing Prognosis: Grave
[2018-11-24 17:29] VITALS: PULSE 102
--- NOTE | 2018-11-25 16:35 | P.DS ---
Providers Date of admission: 11/22/18 16:00 Expected date of discharge: 11/24/18 Attending physician: Taya Wright DO Consults: 11/21/18 13:57 Consult Physician Routine Consulting Provider: Aman Whatley Consult Reason/Comments: lung ca Do you want consulting provider notified?: Yes 11/21/18 13:58 Consult Physician Routine Consulting Provider: Tremaine Mcnulty Consult Reason/Comments: pain with drainiage of pleurx Do you want consulting provider notified?: Yes Primary care physician: Aman Ludlow Hospital Course: The patient is a 63-year-old female with a PMH of small cell lung CA, previously on Opdivo (last therapy on 11/10/18), undergoing palliative care with home health, recurrent malignant pleural effusion status post Pleurx catheter insertion on 11/17/2018, presented to the ED for worsening shortness of breath and pain. She was noted to be tachycardic and tachypneic in the ED and underwent an extensive evaluation. Chest x-ray revealed continued right-sided pleural effusion with hydropneumothorax. The patient underwent 900 mL of drainage from the Pleurix catheter on 11/21/2018. On 11/22/2018 the patient had an episode of aspiration and was subsequently made NPO. Speech and swallow evaluated the patient who recommended that she is unable to protect her airway at this time and be kept NPO. The patient and her family had a lengthy discussion with the oncology team on 11/23/2018 at which time the patient decided to be made no code with comfort care only. The patient on 11/24/18 at 6:02 pm with family at the bedside. Discharge diagnosis: Acute on chronic respiratory failure, likely secondary to malignant right-sided pleural effusion with hydropneumothorax due to small cell lung cancer, diabetes mellitus, hyperlipidemia, severe protein calorie malnutrition, normocytic anemia A total of 30 minutes of time were spent preparing this complex discharge summary. Plan - Discharge Summary Discharge Rx Participant: No New Discharge Prescriptions: No Action Levothyroxine Sodium [Synthroid] 100 mcg PO DAILY FLUoxetine HCL [PROzac] 10 mg PO DAILY Ezetimibe [Zetia] 10 mg PO HS Albuterol Sulfate [Proair Hfa] 2 puff INHALATION RT-Q4H PRN PRN Reason: Shortness Of Breath Ubidecarenone [Co Q-10] 100 mg PO DAILY Selenium 200 mcg PO DAILY Ranitidine HCl [Zantac] 300 mg PO HS Metoclopramide [Reglan] 10 mg PO ACHS Insulin Aspart (For Pump) [NovoLOG (For Pump)] 0.01 unit SQ-PUMP CONTINUOUS Cholecalciferol [Vitamin D3] 1,000 unit PO DAILY Atorvastatin [Lipitor] 40 mg PO HS Promethazine HCl/Codeine [Promethazine-Codeine Syrup] 5 ml PO QID PRN PRN Reason: Cough Dexlansoprazole [Dexilant] 60 mg PO DAILY Docusate [Colace] 200 mg PO BID 30 Days #60 cap Ipratropium-Albuterol Nebulize [Duoneb 0.5 mg-3 mg/3 ml Soln] 3 ml INHALATION RT-QID PRN #90 ampul.neb PRN Reason: Shortness Of Breath Or Wheezing HYDROcodone/APAP 7.5-325MG [Cucumber 7.5-325] 1 tab PO Q6H PRN PRN Reason: Pain fentaNYL 25MCG/HR PATCH [Duragesic 25MCG/HR] 1 patch TRANSDERM Q72H Discharge Medication List Ezetimibe [Zetia] 10 mg PO HS 12/19/17 [History] FLUoxetine HCL [PROzac] 10 mg PO DAILY 12/19/17 [History] Levothyroxine Sodium [Synthroid] 100 mcg PO DAILY 12/19/17 [History] Albuterol Sulfate [Proair Hfa] 2 puff INHALATION RT-Q4H PRN 08/31/18 [History] Atorvastatin [Lipitor] 40 mg PO HS 09/30/18 [History] Cholecalciferol [Vitamin D3] 1,000 unit PO DAILY 09/30/18 [History] Dexlansoprazole [Dexilant] 60 mg PO DAILY 09/30/18 [History] Insulin Aspart (For Pump) [NovoLOG (For Pump)] 0.01 unit SQ-PUMP CONTINUOUS 09/30/18 [History] Metoclopramide [Reglan] 10 mg PO ACHS 09/30/18 [History] Promethazine HCl/Codeine [Promethazine-Codeine Syrup] 5 ml PO QID PRN 09/30/18 [History] Ranitidine HCl [Zantac] 300 mg PO HS 09/30/18 [History] Selenium 200 mcg PO DAILY 09/30/18 [History] Ubidecarenone [Co Q-10] 100 mg PO DAILY 09/30/18 [History] Docusate [Colace] 200 mg PO BID 30 Days #60 cap 10/02/18 [Rx] Ipratropium-Albuterol Nebulize [Duoneb 0.5 mg-3 mg/3 ml Soln] 3 ml INHALATION RT-QID PRN #90 ampul.neb 10/02/18 [Rx] HYDROcodone/APAP 7.5-325MG [Cucumber 7.5-325] 1 tab PO Q6H PRN 10/14/18 [History] fentaNYL 25MCG/HR PATCH [Duragesic 25MCG/HR] 1 patch TRANSDERM Q72H 11/21/18 [History] Follow up Appointment(s)/Referral(s): Aman Whatley MD [Primary Care Provider] - 1-2 days Discharge Disposition: - Preliminary Cause of Preliminary Cause of : Small Cell Lung Cancer
--- NOTE | 2018-11-26 14:44 | CDI ---
Documentation Clarification Form Date: 11/26/2018 2:04:10 PM From: Yue Mcknight RN, CCDS Email: [email or web address] Admit Date: 11/22/2018 4:00:00 PM Patient Name: Bernadette Meraz Visit Number: [id number] Discharge Date: 11/24/2018 6:02:00 PM ATTENTION: The Clinical Documentation Specialists (CDI) and [facility] Coding Staff appreciate your assistance in clarifying documentation. Please respond to the clarification below the line at the bottom and electronically sign. The CDI & [facility] Coding staff will review the response and follow-up if needed. Please note: Queries are made part of the Legal Health Record. If you have any questions, please contact the author of this message via ITS. Dr. Taya Wright Small cell lung cancer with recurrent pleural effusion is documented in the progress notes. Patient history/risk factors: Small cell lung cancer current treatment of Opdivo, recurrent malignant pleural effusions, radiation therapy, palliative care with home health, recent pleurex was placed on 11/17 Clinical Indicators: SOB, dyspnea, recurrent pleural effusion with drainage from pleurex cath Radiology: CXR revealed continued right sided pleural effusion with hydropneumothorax Vital Signs: HR 112, RR 24-12 Other Clinical Indicators: shallow agonal breathing Treatment: O2, analgesics, periodic draining of effusion, pulmonary hygiene Medication: analgesics Consults: Medicine and Surgery Other treatment: comfort care, palliative care In your professional opinion, can you please specify laterality of lung cancer if known? Laterality Right Left Bilateral Other, please specify ____ Unable to determine Right MTDD
--- NOTE | 2018-11-26 14:47 | CDI ---
Documentation Clarification Form Date: 11/26/2018 2:27:00 PM From: Yue Mcknight RN, CCDS Email: [email or web address] Admit Date: 11/22/2018 4:00:00 PM Patient Name: Bernadette Meraz Visit Number: [id number] Discharge Date: 11/24/2018 6:02:00 PM ATTENTION: The Clinical Documentation Specialists (CDI) and [facility] Coding Staff appreciate your assistance in clarifying documentation. Please respond to the clarification below the line at the bottom and electronically sign. The CDI & [facility] Coding staff will review the response and follow-up if needed. Please note: Queries are made part of the Legal Health Record. If you have any questions, please contact the author of this message via ITS. Dr. Taya Wright Altered Mental Status and alteration in mentation was documented in the progress notes. History/Risk Factors: Small cell lung cancer current treatment of Opdivo, recurrent malignant pleural effusions, radiation therapy, palliative care with home health, recent pleurex was placed on 11/17 Clinical Indicators: SOB, dyspnea, recurrent pleural effusion with drainage from pleurex cath Radiology: CXR revealed continued right sided pleural effusion with hydropneumothorax MRI: MRI obtained on 11/07/18 that showed possible multiple 6 mm lesions in the brain and areas in the spinal column. Treatment: O2, analgesics, Ativan In your professional opinion, please clarify the etiology of the Altered Mental Status, if known. Encephalopathy (specify Type and Underlying Medical Illness) Other condition (please specify) Unable to determine Acute encephalopthy due to pain medications Right sided Lung cancer MTDD
== END 2018-11-24 18:02 | disposition expired | DRG 947 ==
LOC: EC 15:22 → UNDOADMIN 19:34 → 3NMEDONC 19:34 → OBSVTOIN 11-22 16:00
PROVIDERS: ADMIT Internal Medicine; ATTEND Internal Medicine
DX: G89.3 Neoplasm related pain (acute) (chronic) (principal); E43 Unspecified severe protein-calorie malnutrition; J96.20 Acute and chronic respiratory failure, unspecified whether with hypoxia or hypercapnia; G92 Toxic encephalopathy; J94.8 Other specified pleural conditions; J91.0 Malignant pleural effusion; C78.1 Secondary malignant neoplasm of mediastinum; C79.31 Secondary malignant neoplasm of brain; E87.1 Hypo-osmolality and hyponatremia; C34.91 Malignant neoplasm of unspecified part of right bronchus or lung; Z68.1 Body mass index [BMI] 19.9 or less, adult; L89.151 Pressure ulcer of sacral region, stage 1; R64 Cachexia; J38.02 Paralysis of vocal cords and larynx, bilateral; E11.43 Type 2 diabetes mellitus with diabetic autonomic (poly)neuropathy; I95.9 Hypotension, unspecified; K31.84 Gastroparesis; E11.65 Type 2 diabetes mellitus with hyperglycemia; L89.620 Pressure ulcer of left heel, unstageable; R13.10 Dysphagia, unspecified; Z51.5 Encounter for palliative care; Z66 Do not resuscitate; I10 Essential (primary) hypertension; K21.9 Gastro-esophageal reflux disease without esophagitis; E78.5 Hyperlipidemia, unspecified; E03.9 Hypothyroidism, unspecified; F41.9 Anxiety disorder, unspecified; R62.7 Adult failure to thrive; R41.82 Altered mental status, unspecified; D63.0 Anemia in neoplastic disease; R32 Unspecified urinary incontinence; T40.4X5A Adverse effect of other synthetic narcotics, initial encounter; Z79.890 Hormone replacement therapy; Z79.4 Long term (current) use of insulin; Z79.899 Other long term (current) drug therapy; Z96.41 Presence of insulin pump (external) (internal); Z87.11 Personal history of peptic ulcer disease; Z92.21 Personal history of antineoplastic chemotherapy; Z92.3 Personal history of irradiation; Z87.891 Personal history of nicotine dependence; Z80.3 Family history of malignant neoplasm of breast; Z71.3 Dietary counseling and surveillance; Z99.81 Dependence on supplemental oxygen
CPT/HCPCS: 36415; 71045; 71046; 80048; 80053; 83735; 83880; 84484; 85025; 85027; 85610; 85730; 87040; 93005; 96374; 99285